=== PATIENT | male | born 1950 | race Caucasian/White ===

== ENCOUNTER 2022-12-15 10:15 | Outpatient (OUT) | payer MEDICARE, SELFPAY ==
[2022-12-15 11:23] LABS: Estimated Average Glucose 160 mg/dL; Glycohemoglobin A1C 7.2 % (4.5-6.2)
== END 2022-12-15 10:16 | disposition home or self-care (01) ==
LOC: LAB 10:19
PROVIDERS: PCP Internal Medicine; Visit Provider Internal Medicine
DX: E11.65 Type 2 diabetes mellitus with hyperglycemia (principal)
CPT/HCPCS: 36415; 83036

== ENCOUNTER 2023-01-18 15:04 | Outpatient (REF) | payer MEDICARE, SELFPAY ==
[2023-01-18 15:25] LABS: SARS-CoV-2 Ag NEGATIVE (NEGATIVE)
[2023-01-20 13:44] LABS: SARS-CoV-2 NAA NOT DETECTED (NOT DETECTE)
== END 2023-01-18 15:05 | disposition home or self-care (01) ==
LOC: LAB 15:04
PROVIDERS: PCP Internal Medicine; Visit Provider Internal Medicine
DX: Z20.822 Contact with and (suspected) exposure to COVID-19 (principal)
CPT/HCPCS: 87635; 87811; U0003

== ENCOUNTER 2023-06-30 12:37 | Outpatient (OUT) | payer MEDICARE, SELFPAY ==
--- NOTE | 2023-06-30 13:05 | CT_ITS ---
The [address] [address] Patient Name: APRIL WILKINS MRN: [id number] date: 1950 Sex: M Assigned Patient Location: CT Current Patient Location: CT Accession/Order Number: [id number] Exam Date: 06/30/2023 13:00 Report Date: 06/30/2023 13:26 At the request of: JERI BLUM Procedure: CT sinus wo con EXAM: CT sinus wo con HISTORY: Right facial pain COMPARISON: None. TECHNIQUE: Multiple thin computed tomograms of the paranasal sinuses were obtained, with sagittal and coronal reconstructions. FINDINGS: The paranasal sinuses are well-developed. A small amount of mucosal thickening with small mucocele or cyst is seen along the floor of each maxillary sinus. The maxillary sinuses are otherwise clear. The ostiomeatal complex on either side is patent. The orbital rims and floors are intact. The downing of the sinuses are intact. One or 2 ethmoid air cells on the left are completely opacified, and the remainder the paranasal sinuses are clear. There is mild deviation of the nasal septum to the left. An osteophyte arises from the nasal septum, also extending to the left. The nasal passages are patent. There is no apparent acute skull fracture CT/CT sinus wo con IMPRESSION: Mild to very mild chronic changes are seen along the floor of each maxillary sinus. One or 2 ethmoid air cells on the left are completely opacified, and the paranasal sinuses are otherwise clear. The ostiomeatal complex on either side is patent. The adjacent osseous structures are intact. There is mild deviation of the nasal septum to the left with an osteophyte also extending to the left, without occlusion of the nasal passages bilaterally. Comparison with a previous study may be helpful in determining the chronicity is findings. Electronically authenticated by: GABE SMART Date: 06/30/2023 13:26
== END 2023-06-30 12:38 | disposition home or self-care (01) ==
PROVIDERS: PCP Internal Medicine; Visit Provider Internal Medicine
DX: R51.9 Headache, unspecified (principal); J34.89 Other specified disorders of nose and nasal sinuses
CPT/HCPCS: 70486

== ENCOUNTER 2023-10-03 13:08 | Outpatient (OUT) | payer MEDICARE, SELFPAY ==
[2023-10-03 15:47] LABS: Estimated Average Glucose 148 mg/dL; Glycohemoglobin A1C 6.8 % (4.5-6.2)
== END 2023-10-03 13:09 | disposition home or self-care (01) ==
LOC: LAB 13:10
PROVIDERS: PCP Internal Medicine; Visit Provider Internal Medicine
DX: E11.65 Type 2 diabetes mellitus with hyperglycemia (principal)
CPT/HCPCS: 36415; 83036

== ENCOUNTER 2024-03-07 09:42 | Outpatient (OUT) | payer MEDICARE, SELFPAY ==
--- OUTSIDE RECORDS SUMMARY | 2024-03-07 09:52 | XMS_ITS | CCD ---
Author Organization [facility] Care Team Providers Care Operations Team Leader Name Role Phone JC, DR WILCOX Admitting Unavailable BALL, DR WILCOX Attending Unavailable BALL, DR WILCOX Primary Care Unavailable BALL, DR WILCOX Consulting Unavailable BALL, DR WILCOX Admitting Unavailable BALL, DR WILCOX Attending Unavailable BALL, DR WILCOX Primary Care Unavailable BALL, DR WILCOX Admitting Unavailable BALL, DR WILCOX Attending Unavailable BALL, DR WILCOX Primary Care Unavailable BALL, DR WILCOX Admitting Unavailable BALL, DR WILCOX Attending Unavailable BALL, DR WILCOX Primary Care Unavailable BALL, DR WILCOX Consulting Unavailable BALL, DR WILCOX Admitting Unavailable BALL, DR WILCOX Attending Unavailable BALL, DR WILCOX Primary Care Unavailable BALL, DR WILCOX Consulting Unavailable Jc, Xavier Unavailable DO Xavier Greene Primary Care Provider DO Car Melvin Attending Provider JEFFREY BONNER Attending Unavailable EVERETT MCBRIDE Referring Unavailable NGOZI, CAR Durham Attending Unavailable JEFFREY BONNER Referring Unavailable CAR MELVIN Attending Unavailable Xavier Greene Primary Care Unavailable Car Melvin Attending Unavailable Ngozi, Car Admitting Unavailable Ngozi, Car Attending Unavailable Ngozi, Car Admitting Unavailable Jc, Xavier Primary Care Unavailable Allergies Allergy Classification Reported Allergen(s) Allergy Type Date of Onset Reaction(s) Facility (2 sources) Penicillin Drug Allergy 0 [facility] (20 sources) Doxycycline Drug Allergy 4 Unknown, Unknown Reaction [facility] (20 sources) Penicillin G Drug Allergy 4 Unknown, Unknown Reaction [facility] (1 source) Doxycycline Drug Allergy 4 [facility] (1 source) Penicillin Drug Allergy 4 [facility] Medications Current Medications Medication Drug Class(es) Dates Sig (Normalized) Sig (Original) acetaminophen 500 mg oral tablet (3 sources) Start: 12-18-2023 take 2 tablets by mouth every six hours Acetaminophen (Acetaminophen Extra Strength) 500 mg tablet Active 1000 MG PO Every 6 hours December 18, 2023 12:00am amLODIPine 5 mg oral tablet (20 sources) Dihydropyridine Calcium Channel Warren Start: 12-11-2023 take 1 tablet by mouth twice daily Amlodipine Active 0 .ROUTE .COMPLEX 60 December 11, 2023 7:24am TAKE 1 TABLET BY MOUTH TWICE DAILY Start: 07-14-2023 End: 12-11-2023 take 5 mg by mouth twice daily Amlodipine Discontinued 5 MG PO Twice daily 60 30 August 07, 2023 12:00am December 11, 2023 7:24am take 1 tablet by kayce th every twelve hours amLODIPine Besylate 5 mg 1 tablet Orally bid Active take 1 tablet by kayce th once daily amLODIPine Besylate 5 mg TAKE 1 TABLET BY MOUTH DAILY Active ascorbic acid 500 mg oral tablet (3 sources) Vitamin C Start: 12-18-2023 take 1 tablet by mouth once daily Ascorbic Acid (Vitamin C) (C-500) 500 mg tablet Active 500 MG PO Daily December 18, 2023 12:00am aspirin 81 mg chewable tablet (20 sources) Platelet Aggregation Inhibitor, Nonsteroidal Anti-inflammatory Drug Start: 12-18-2023 take 1 tablet by mouth once daily Aspirin (Aspirin Childrens) 81 mg tablet,chewable Active 81 MG PO Daily December 18, 2023 12:00am Start: 08-02-2023 End: 12-18-2023 take 325 mg by mouth once daily Aspirin Discontinued 3 25 MG PO Daily August 02, 2023 12:00am December 18, 2023 2:26pm take 1 tablet by kayce th every twenty-four hours Aspirin 325 MG 1 tablet Orally Once a day Active atorvastatin 80 mg oral tablet (20 sources) HMG-CoA Reductase Inhibitor Start: 12-18-2023 take 1 tablet by mouth once daily in the morning Atorvastatin Active 80 MG PO Every morning December 18, 2023 12:00am TAKE 1 TABLET BY MOUTH DAILY Start: 09-11-2023 End: 12-18-2023 take 1 tablet by mouth once daily Atorvastatin Discontinued 0 .ROUTE .COMPLEX 90 September 11, 2023 1:17pm December 18, 2023 2:28pm TAKE 1 TABLET BY MOUTH DAILY Start: 08-02-2023 End: 09-11-2023 take 80 mg by mouth once daily Atorvastatin Discontinu ed 80 MG PO Daily August 02, 2023 12:00am September 11, 2023 1:18pm take 1 tablet by kayce th once daily Atorvastatin Calcium 80 mg TAKE 1 TABLET BY MOUTH ONCE DAILY Active lisinopril 40 mg oral tablet (20 sources) Angiotensin Converting Enzyme Inhibitor Start: 12-18-2023 take 1 tablet by mouth once daily in the morning Lisinopril Active 40 MG PO Every morning December 18, 2023 12:00am TAKE 1 TABLET BY MOUTH DAILY Start: 09-11-2023 End: 12-18-2023 take 1 tablet by mouth once daily Lisinopril Discontinued 0 .ROUTE .COMPLEX 90 September 11, 2023 1:17pm December 18, 2023 2:28pm TAKE 1 TABLET BY MOUTH DAILY Start: 08-02-2023 End: 09-11-2023 take 40 mg by mouth once daily Lisinopril Discontinued 40 MG PO Daily August 02, 2023 12:00am September 11, 2023 1:18pm take 1 tablet by kayce th once daily Lisinopril 40 mg TAKE 1 TABLET BY MOUTH ONCE DAILY Active metFORMIN (20 sources) Biguanide Start: 09-11-2023 take 1 tablet by mouth twice daily Metformin Active 0 .ROUTE .COMPLEX 180 September 11, 2023 1:18pm TAKE 1 TABLET BY MOUTH TWICE DAILY Start: 08-02-2023 End: 09-11-2023 take 1000 mg by mouth twice daily Metformin Discontinued 1000 MG PO Twice daily August 02, 2023 12:00am September 11, 2023 1:18pm take 1 tablet by kayce th twice daily metFORMIN HCl 1000 MG TAKE 1 TABLET BY MOUTH TWICE DAILY Active take 1 tablet by kayce th once daily metFORMIN HCl 1000 MG 1 tablet with a meal Orally Once a day Active metoprolol tartrate 50 mg oral tablet (20 sources) beta-Adrenergic Warren Start: 09-11-2023 take 1 tablet by mouth twice daily Metoprolol Tartrate Active 0 .ROUTE .COMPLEX 180 September 11, 2023 1:17pm TAKE 1 TABLET BY MOUTH TWICE DAILY Start: 08-02-2023 End: 09-11-2023 take 50 mg by mouth twice daily Metoprolol Tartrate Di scontinued 50 MG PO Twice daily August 02, 2023 12:00am September 11, 2023 1:18pm take 1 tablet by kayce th twice daily Metoprolol Tartrate 50 mg TAKE 1 TABLET BY MOUTH TWICE DAILY Active Vit C,J-Dt-Obwtb-Lutein-Zeax an (Preservision Areds-2) 250-90-40-1 mg capsule (3 sources) Start: 12-18-2023 Vit C,G-Jn-Ydemr-Lutein-Zeax an (Preservision Areds-2) 250-90-40-1 mg capsule Active 1 TAB PO Daily December 18, 2023 12:00am Completed/Discontinued Medications Medication Drug Class(es) Dates Sig (Normalized) Sig (Original) azithromycin 250 mg oral tablet (14 sources) Macrolide Antimicrobial Start: 01-18-2023 Azithromycin 250 MG as directed Orally daily for 5 days Dec, Not-Taking/PRN fluticasone propionate 0.05 mg/actuat metered dose nasal spray (12 sources) Corticosteroid Start: 08-02-2023 End: 12-18-2023 Fluticasone Propionate Discontinued 2 SPRAY INTRANASAL Daily August 02, 2023 12:00am December 18, 2023 2:27pm Start: 03-21-2023 Fluticasone Pr opionate 50 MCG/ACT 2 sprays (1 spray in each nostril) Nasally Once a day Feb, Active Start: 03-21-2023 Fluticasone Pr opionate 50 MCG/ACT 2 sprays (1 spray in each nostril) Nasally Once a day for 30 days Feb, Active Problems Active Problems Problem Classification Problem Date Documented Da te Episodic/Chronic Acute bronchitis (2 sources) Acute bronchitis due to other specified organisms Episodic Coronary atherosclerosis and other heart disease (20 sources) Coronary arteriosclerosis; Translations: [Atherosclerotic heart disease of [place] coronary artery without angina pectoris] Chronic Deficiency and other anemia (6 sources) Anemia, unspecified; Translations: [ANEMIA UNSPECIFIED] Onset: 07-06-2022 Episodic Deficiency and other anemia (20 sources) Anemia; Translations: [Anemia, unspecified] 08-02-2023 Episodic Diabetes mellitus with complications (20 sources) Type 2 diabetes mellitus with hyperglycemia; Translations: [Hyperglycemia due to type 2 diabetes mellitus] Onset: 10-25-2021 Chronic Diseases of mouth; excluding dental (2 sources) Unspecified lesions of oral mucosa; Translations: [Other lesions of oral mucosa] Episodic Disorders of lipid metabolism (20 sources) Familial hypercholesterolemia ; Translations: [Pure hypercholesterolemia ] Onset: 03-04-2022 Chronic Essential hypertension (20 sources) Essential (primary) hypertension; Translations: [Essential hypertension] Onset: 03-07-2022 Chronic Headache; including migraine (7 sources) Pain in face; Translations: [Facial pain] 10-04-2023 Episodic Immunizations and screening for infectious disease (6 sources) Vaccination given; Translations: [Encounter for immunization] Episodic Intestinal infection (1 source) Bacterial foodborne intoxication, unspecified; Translations: [Food poisoning, unspecified] 08-02-2023 Episodic Occlusion or stenosis of precerebral arteries (20 sources) Occlusion and stenosis of multiple and bilateral cerebral arteries; Translations: [Occlusion and stenosis of bilateral carotid arteries] Resolved: 06-25-2020 Chronic Osteoarthritis (20 sources) Arthritis of shoulder region joint; Translations: [Primary osteoarthritis, left shoulder] 08-02-2023 Chronic Other aftercare (2 sources) Other early childhood associate teacher (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 therapy; Translations: [OTH USP CURRENT DRUG THERAPY] Onset: 03-07-2022 Episodic Other aftercare (18 sources) H/O: high risk medication; Translations: [Other chcf (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 therapy] Episodic Other aftercare (6 sources) Long-term current use of drug therapy; Translations: [Other chcf (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 therapy] Episodic Other connective tissue disease (3 sources) Cramp in lower limb; Translations: [Sleep related leg cramps] 10-06-2023 Chronic Other connective tissue disease (2 sources) Sleep related leg cramps; Translations: [Sleep related leg cramps] 10-06-2023 Chronic Other ear and sense organ disorders (1 source) Impacted cerumen, left ear Episodic Other gastrointestinal disorders (20 sources) Oropharyngeal dysphagia; Translations: [Dysphagia, oropharyngeal phase] 08-02-2023 Episodic Other injuries and conditions due to external causes (6 sources) History of fall; Translations: [History of falling] Episodic Other nervous system disorders (1 source) Trigeminal neuralgia Episodic Other nutritional; endocrine; and metabolic disorders (3 sources) Body mass index 30+ - obesity; Translations: [Body mass index (BMI) 32.0-32.9, adult] Chronic Other nutritional; endocrine; and metabolic disorders (3 sources) Obesity caused by energy imbalance; Translations: [Other obesity due to excess calories] Chronic Other nutritional; endocrine; and metabolic disorders (1 source) Other obesity due to excess calories Chronic Other nutritional; endocrine; and metabolic disorders (1 source) Body mass index (BMI) 32.0-32.9, adult Chronic Other nutritional; endocrine; and metabolic disorders (2 sources) Hypercalcemia; Translations: [Hypercalcemia] 12-19-2023 Chronic Other screening for suspected conditions (not mental disorders or infectious disease) (20 sources) Encounter for screening for malignant neoplasm of prostate; Translations: [Prostate specific antigen measurement] Onset: 03-07-2022 Episodic Other upper respiratory disease (1 source) Other specified disorders of nose and nasal sinuses Episodic Other upper respiratory infections (16 sources) Chronic sinusitis; Translations: [Chronic sinusitis, unspecified] Chronic Other upper respiratory infections (7 sources) Acute maxillary sinusitis; Translations: [Acute maxillary sinusitis, unspecified] Episodic Residual codes; unclassified (6 sources) Postprocedural state finding; Translations: [Other specified postprocedural states] Episodic Spondylosis; intervertebral disc disorders; other back problems (20 sources) Other spondylosis with myelopathy, lumbar region; Translations: [Lumbar spondylosis with myelopathy] Onset: 03-07-2022 Chronic Unclassified (1 source) LOW BACK PAIN, UNSPECIFIED; Translations: [LOW BACK PAIN, UNSPECIFIED] Onset: 03-10-2022 Past or Other Problems Problem Classification Problem Date Documented Date Episodic/Chronic Diabetes mellitus without complication (6 sources) Impaired fasting glycemia; Translations: [Impaired fasting glucose] Resolved: 04-21-2020 Episodic Neoplasms of unspecified nature or uncertain behavior (6 sources) Neoplastic disease of uncertain behavior; Translations: [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] Resolved: 09-22-2020 Episodic Nonspecific chest pain (6 sources) Chest pain; Translations: [Other chest pain] Resolved: 09-22-2020 Episodic Other circulatory disease (6 sources) Cardiovascular symptoms; Translations: [Other specified symptoms and signs involving the circulatory and respiratory systems] Resolved: 09-22-2020 Episodic Other connective tissue disease (1 source) Abnormal posture; Translations: [ABNORMAL POSTURE] Onset: 03-10-2022 Episodic Other non-epithelial cancer of skin (3 sources) Basal cell carcinoma of cheek; Translations: [Basal cell carcinoma of skin of other parts of face] Onset: 05-22-2023 12-25-2023 Episodic Other nutritional; endocrine; and metabolic disorders (6 sources) Obesity; Translations: [Obesity, unspecified] Onset: 03-30-2021 Resolved: 03-02-2022 Chronic Unclassified (1 source) Suspected COVID-19 virus infection Z20.822 Unclassified (1 source) Right facial pain R51.9 Results Test Name Value Interpretation Reference Range Facility Capillary blood glucose jacqueline urement by glucometer (mass/volume)Ordered By: Car Melvin on 12-27-2023 Glucose [Mass/Vol] 148 mg/dL [facility] Comment on above: Random Glucose Refer ence Range is dependent on time and content of last meal. Glucose of more than 200 mg/dL in a nonstressed, ambulatory subject supports the diagnosis of Diabetes Mellitus. Result Comment: [facility] Glucose Reference Range is dependent on time and content of last meal. Glucose of more than 200 mg/dL in a nonstressed, ambulatory subject supports the diagnosis of Diabetes Mellitus. PERFORMED BY: [facility] [address] [place] [address] PATHOLOGIST F[employer] ST[employer] WEB DEVELOPER MARINA DANIEL M.D. Performed By: #### G LULS #### Point of Care testing , Glucose Poct Glucometerson 0 12-27-2023 Glucose [Mass/Vol] 138 mg/dL Normal [facility] Comment on above: Result Comment: [facility] Glucose Reference Range is dependent on time and content of last meal. Glucose of more than 200 mg/dL in a nonstressed, ambulatory subject supports the diagnosis of Diabetes Mellitus. PERFORMED BY: [facility] [address] [address] PATHOLOGIST F[employer] ST[employer] WE[employer] DEVELOPER MARINA DANIEL M.D. Performed By: #### G LULS #### Point of Care testing , Harris 12-27-2023 L Specimen: [id number] Received: 12/27/23 Status: [facility] Num: [id number] Spec Type: Surgical Subm Dr: Car Melvin DO Tissues: A Skin-Other than Cyst, tag, debridement or plastic repair (RIGHT CHEEK LESION B Skin-Other than Cyst, tag, debridement or plastic repair (LEFT CHEEK LESION) Procedures: HE/5, Gross/Micro L4/3, FS HE/6 Age/ Patient Sex Location Account Attending Physician Nikolai Phan 73/M [place] [id number] Car Melvin DO SPEC NUM: [id number] RECD: 12/27/23 STATUS: [facility] TONEY NUM: [id number] FRED: 12/27/23- SUBM DR: Car Melvin DO ENTERED: 12/27/[address] [facility] [address]: SPEC TYPE: Surgical DEPT: S ENTERED BY: [id number] RECV BY: [id number] ORDERED: HE/5, Gross/Micro L4/3, FS HE/6 ORDERED: HE/5, Gross/Micro L4/3, FS HE/6 Pathological Diagnosis A, skin, right cheek lesion, reexcision: -Post biopsy cicatrix with 1 small residual focus of basal cell carcinoma which is only observed in the deeper levels of the permanent section -All margins are negative for malignancy B, skin, left cheek lesion, reexcision: -Scar with residual basal cell carcinoma of the mixed nodular, micronodular, and minor infiltrative types -All margins are negative for malignancy Clinical Information Cheek lesions Gross Description A. Received fresh for frozen labeled with the patient's name, date of and right cheek lesion is a 1.4 x 1.3 x 0.4 cm oriented excision of [place] skin. The specimen is tagged with 2 sutures by the surgeon: Short-6:00, long-3:00. The specimen is inked as follows: 12- 3 is blue, 3-6 is orange, 6-9 is green, 9-12 is red and the deep margin is black. No obvious scars or lesions are grossly identified on the skin surface. The specimen is -- Specimen: [id number] Received: 12/27/23 Status: [facility] Toney Num: [id number] Spec Type: Surgical Subm Dr: Car Melvin DO Tissues: A Skin-Other than Cyst, tag, debridement or plastic repair (RIGHT CHEEK LESION B Skin-Other than Cyst, tag, debridement or plastic repair (LEFT CHEEK LESION) Procedures: HE/5, Gross/Micro L4/3, FS -- Patient: Nikolai Phan [id number] (Continued) -- Specimen: [id number] Received: 12/27/23 (Continued) Gross Description (Continued) Signed (signatu re on file) Elise Goodman MD 12/28/23 1718 -- Specimen: [id number] Received: 12/27/23 Status: [facility] Toney Num: [id number] Spec Type: Surgical Subm Dr: Car Melvin DO Tissues: A Skin-Other than Cyst, tag, debridement or plastic repair (RIGHT CHEEK LESION B Skin-Other than Cyst, tag, debridement or plastic repair (LEFT CHEEK LESION) Procedures: HE/5, Gross/Micro L4/3, FS /6 -- Patient: Nikolai Phan [id number] (Continued) -- Specimen: [id number] Received: 12/27/23 (Continued) Gross Description (Continued) serially sectioned from 12:00 to 6:00 and sequentially submitted in A1FS?A2FS for frozen. A1FS: 12:00 half, frozen section remnant A2FS: 6:00 half, frozen section remnant B. Received fresh for frozen labeled with the patient's name, date of and left cheek lesion is a 2.2 x 0.8 x 0.7 cm oriented excision of [place] skin. The specimen is tagged with 2 sutures by surgeon: Short-6:00, long-3:00. The surface contains a 0.7 x 0.6 cm papular lesion that comes within 0.2 cm of the 3:00 and 6:00 margins. The specimen is inked as follows: 12-3 is blue, 3-6 is orange, 6-9 is green, 9-12 is red and the deep margin is black. The papular lesion is blocked off and submitted for frozen in B1FS. The remainder the excision is serially sectioned and the specimen is entirely submitted as follows: B1 FS: Frozen section remnant B2: 12:00 half of excision B3: 6:00 half of the excision TW Intraoperative Diagnosis A. Cicatrix present without obvious residual malignancy. B. Basal cell carcinoma. All margins are clear. Present section read by: Dr. Goodman 12/27/2023 1120 Microscopic Description Microscopic examinations are performed CPT Codes 17031 x 2 40595 x 2 85015 x 2 -- -- Specimen: [id number] Received: 12/27/23 Status: [facility] T[facility] Num: [id number] Spec Type: Surgical Subm Dr: DO Radha Catalan (more content not included)... Normal [facility] Automated basophil %Ordered By: Car Melvin on 12-18-2023 Basophils/100 WBC (Bld) 0.6 % . [facility] Comment on above: Performed By: #### B MP, CBC #### [address] Automated basophil countOrde red By: Car Melvin on 12-18-2023 Basophils (Bld) [#/Vol] 0.0 10*3/uL 0.0-0.2 [facility] Comment on above: Result Comment: PERF ORMED BY: [place] [address] PATHOLOGIST F[employer] ST[employer] WE[employer] DEVELOPER MARINA DANIEL M.D. Performed By: #### B MP, CBC #### [address] Automated blood monocyte cou ntOrdered By: Car Melvin on 12-18-2023 Monocytes (Bld) [#/Vol] 0.7 10*3/uL 0.0-0.8 [facility] Comment on above: Performed By: #### B MP, CBC #### [address] Automated eosinophil %Ordere d By: Car Melvin on 12-18-2023 Eosinophils/100 WBC (Bld) 2.2 % . [facility] Comment on above: Performed By: #### B MP, CBC #### [address] Automated eosinophil countOr dered By: Car Melvin on 12-18-2023 Eosinophils (Bld) [#/Vol] 0.1 10*3/uL 0.0-0.45 [facility] Comment on above: Performed By: #### B MP, CBC #### [address] Automated monocyte %Ordered By: Car Melvin on 12-18-2023 Monocytes/100 WBC (Bld) 11.9 % . [facility] Comment on above: Performed By: #### B MP, CBC #### [address] Automated neutrophil %Ordere d By: Car Melvin on 12-18-2023 Neutrophils/100 WBC (Bld) 41.9 % . [facility] Comment on above: Performed By: #### B MP, CBC #### [address] Basic Metabolic Panelon 11-20 GFR/1.73 sq M.predicted MDRD (S/P/Bld) [Vol rate/Area] mL/min/{1.73_m2} Normal [facility] Comment on above: Performed By: #### B MP, CBC #### [address] Calcium [Mass/volume] in Ser um or PlasmaOrdered By: Car Melvin on 12-18-2023 Calcium [Mass/Vol] 10.5 mg/dL High 8.6-10.3 [facility] Comment on above: Result Comment: PERF ORMED BY: [place] [address] PATHOLOGIST F[employer] ST[employer] DEVELOPER MARINA DANIEL M.D. Performed By: #### B FELIX, CBC #### [address] Carbon dioxide, total [Moles /volume] in Serum or PlasmaOrdered By: Car Melvin on 12-18-2023 CO2 [Moles/Vol] 29.8 mmol/L 21.0-31.0 [facility] Comment on above: Performed By: #### B FELIX, CBC #### [address] Chloride [Moles/volume] in S artemio or PlasmaOrdered By: Car Melvin on 12-18-2023 Chloride [Moles/Vol] 101 mmol/L 98-107 [facility] Comment on above: Performed By: #### B MP, CBC #### [address] Complete Blood Count Auto Di ffon 12-18-2023 Mean Corpuscular HGB Conc 34.7 g/dL Normal 32.5-35.6 [facility] Comment on above: Performed By: #### B MP, CBC #### [address] NRBC% 0.1 /100{WBC} Normal 0-0.5 [facility] Comment on above: Performed By: #### B MP, CBC #### [facility] [address] Creatinine [Mass/volume] in Serum or PlasmaOrdered By: Car Melvin on 12-18-2023 Creatinine [Mass/Vol] 0.95 mg/dL 0.70-1.30 [facility] Comment on above: Performed By: #### B MP, CBC #### [address] ECG 12 lead ECGon 12-18-2023 ECG 12 lead ECG [facility] Main [place] [address] [place] [address] Electrocardiograph Report Signed Patient: Nikolai Phan MR#: [id number] 160 : 1950 Acct:[id number] Age/Sex: 73 / M ADM Date: 12/18/23 Loc: Room: Type: [facility] Attending Dr: Car Melvin DO Ordering Provider: Car Melvin DO Date of Service: 12/18/23 ECG/ECG 12 lead ECG: PST Copies to: Test Reason : Blood Pressure : */* mmHG Vent. Rate : 76 BPM Atrial Rate : 76 BPM P-R Int : 176 ms QRS Dur : 98 ms QT Int : 376 ms P-R-T Axes : 63 46 45 degrees QTcB Int : 423 ms Normal sinus rhythm Anterior infarct , age undetermined Abnormal ECG When compared with ECG of 10-Aug-2006 09:46, Anterior infarct is now present Confirmed by SUZY RAM [facility], CHRISTINA ([id number]) on 12/18/2023 6:07:40 PM Referred By: Electronically Signed By: CHRISTINA SANDHU MD FAC Transcribed By: MUS Signed By Christina Sandhu MD, FACC 12/18/231806 Normal [facility] Erythrocyte distribution wid th [Ratio] by Automated countOrdered By: Car Melvin on 12-18-2023 Erythrocyte distribution width (RBC) [Ratio] 13.0 % 12.0-14.8 [facility] Comment on above: Performed By: #### B MP, CBC #### [facility] [address] [place] [address] Erythrocytes [#/volume] in B lood by Automated countOrdered By: Car Melvin on 12-18-2023 RBC (Bld) [#/Vol] 4.08 10*6/uL 3.90-5.60 [facility] Comment on above: Performed By: #### B FELIX, CBC #### [address] Glucose [Mass/volume] in Ser um or PlasmaOrdered By: Car Melvin on 12-18-2023 Glucose [Mass/Vol] 139 mg/dL High 70-100 [facility] Comment on above: ADA recommended refe rence rangeRandom Glucose Reference Range is dependent on time and content of last meal. Glucose of more than 200 mg/dL in a nonstressed, ambulatory subject supports the diagnosis of Diabetes Mellitus. Result Comment: [place] [facility] Glucose Reference Range is dependent on time and content of last meal. Glucose of more than 200 mg/dL in a nonstressed, ambulatory subject supports the diagnosis of Diabetes Mellitus. ADA recommended reference range Performed By: #### B FELIX, CBC #### [address] Hematocrit [Volume Fraction] of Blood by Automated countOrdered By: Car Melvin on 12-18-2023 Hematocrit (Bld) [Volume fraction] 38.2 % Low 38.8-50.0 [facility] Comment on above: Performed By: #### B FELIX, CBC #### [place] [address] [place] Hemoglobin [Mass/volume] in BloodOrdered By: Car Melvin on 12-18-2023 Hemoglobin (Bld) [Mass/Vol] 13.3 g/dL 13.0-17.0 [facility] Comment on above: Performed By: #### B FELIX, CBC #### [address] Leukocytes [#/volume] correc rere for nucleated erythrocytes in Blood by Automated counOrdered By: Car Melvin on 12-18-2023 WBC corrected for nucl RBC Auto (Bld) [#/Vol] 6.3 10*3/uL 4.1-10.5 [facility] Leukocytes [#/volume] in Blo od by Automated countOrdered By: Car Melvin on 12-18-2023 WBC (Bld) [#/Vol] 6.3 10*3/uL 4.1-10.5 [facility] Comment on above: Performed By: #### B MP, CBC #### [facility] [address] [place] [address] [place] Lymphocytes [#/volume] in Bl ood by Automated countOrdered By: Car Melvin on 12-18-2023 Lymphocytes (Bld) [#/Vol] 2.7 10*3/uL 1.00-4.8 [facility] Comment on above: Performed By: #### B MP, CBC #### [address] Lymphocytes/100 leukocytes i n Blood by Automated countOrdered By: Car Melvin on 12-18-2023 Lymphocytes/100 WBC (Bld) 43.4 % . [facility] Comment on above: Performed By: #### B MP, CBC #### [facility] [address] [place] [address] MCH [Entitic mass] by Automa rere countOrdered By: Car Melvin on 12-18-2023 MCH (RBC) [Entitic mass] 32.5 pg 27.5-35.2 [facility] Comment on above: Performed By: #### B MP, CBC #### [facility] [address] [place] [address] MCHC Auto (RBC) [Mass/Vol]Or dered By: Car Melvin on 12-18-2023 MCHC (RBC) [Mass/Vol] 34.7 g/dL 32.5-35.6 [facility] MCV [Entitic volume] by Auto mated countOrdered By: Car Melvin on 12-18-2023 MCV (RBC) [Entitic vol] 93.6 fL 83.5-101 [facility] Comment on above: Performed By: #### B MP, CBC #### [facility] [address] Neutrophils [#/volume] in Bl ood by Automated countOrdered By: Car Melvin on 12-18-2023 Neutrophils (Bld) [#/Vol] 2.6 10*3/uL 1.8-7.7 [facility] Comment on above: Performed By: #### B MP, CBC #### [address] No Panel InformationOrdered By: Car Melvin on 12-18-2023 Estimated GFR (CKD-EPI) > 60.0 mL/Min [facility] Creatinine Clearance (Chem N/A [facility] Nucleated erythrocytes [Pres ence] in Blood by Automated countOrdered By: Car Melvin on 12-18-2023 Nucleated RBC Auto Ql (Bld) 0.1 /100{WBC} 0-0.5 [facility] Platelet mean volume [Entiti c volume] in Blood by Automated countOrdered By: Car Melvin on 12-18-2023 Platelet mean volume (Bld) [Entitic vol] 8.6 fL 6.6-10.1 [facility] Comment on above: Performed By: #### B MP, CBC #### [address] Platelets [#/volume] in Bloo d by Automated countOrdered By: Car Melvin on 12-18-2023 Platelets (Bld) [#/Vol] 165 10*3/uL 150-450 [facility] Comment on above: Performed By: #### B MP, CBC #### [address] Potassium [Moles/volume] in Serum or PlasmaOrdered By: Car Melvin on 12-18-2023 Potassium [Moles/Vol] 4.1 mmol/L 3.5-5.1 [facility] Comment on above: Performed By: #### B MP, CBC #### [address] Serum or plasma anion gap de terminationOrdered By: Car Melvin on 12-18-2023 Anion gap [Moles/Vol] 11.3 mmol/L 6.0-15.0 [facility] Comment on above: Performed By: #### B MP, CBC #### [facility] [address] [place] [address] [place] Sodium [Moles/volume] in Ser um or PlasmaOrdered By: Car Melvin on 12-18-2023 Sodium [Moles/Vol] 138 mmol/L 136-145 [facility] Comment on above: Performed By: #### B MP, CBC #### [facility] [address] Urea nitrogen [Mass/volume] in Serum or PlasmaOrdered By: Car Melvin on 12-18-2023 Urea nitrogen [Mass/Vol] 24 mg/dL 7-25 [facility] Comment on above: Performed By: #### B MP, CBC #### [facility] [address] Glucose mean value [Mass/vol ume] in Blood Estimated from glycated hemoglobinon 10-03-2023 Average glucose Estimated from glycated hemoglobin (Bld) [Mass/Vol] 148 mg/dL [facility] - Hematology and Cell countson 10-03-2023 HbA1c (Bld) [Mass fraction] 6.8 % High 4.5-6.2 [facility] Comment on above: ADA RECOMMENDED LIMI T 4.0 - 6.0ADA THERAPEUTIC TARGET < 7.0ACTION SUGGESTED> 7.0 CBC AUTO DIFFon 07-06-2022 BASO # 0.0 103/ul Normal 0.0-0.1 [facility] Comment on above: Performed By: #### C BC #### [facility] [address] [address] [address] Franklin Goodman Basophils/100 WBC (Bld) 0.6 % Normal 0.2-2.0 [facility] Comment on above: Performed By: #### C BC #### [facility] [address] [address] [address] Franklin Goodman EO # 0.3 103/ul Normal 0.0-0.7 [facility] Comment on above: Performed By: #### C BC #### [facility] [address] [place] [address] Dr. Franklin Goodman Eosinophils/100 WBC (Bld) 5.6 % Normal 0.9-7.0 [facility] Comment on above: Performed By: #### C BC #### [facility] [address] [place] [address] Dr. Franklin Goodman Erythrocyte distribution width (RBC) [Ratio] 12.3 % Normal 11.0-15.0 [facility] Comment on above: Performed By: #### C BC #### [facility] [address] [place] [address] Dr. Franklin Goodman Hematocrit (Bld) [Volume fraction] 42.0 % Normal 42.0-54.0 [facility] Comment on above: Performed By: #### C BC #### [facility] [address] [place] [address] Dr. Franklin Goodman Hemoglobin (Bld) [Mass/Vol] 14.4 g/dL Normal 14.0-18.0 [facility] Comment on above: Performed By: #### C BC #### [facility] [address] [place] [address] Dr. Franklin Goodman IG # 0.02 10e3/ul Normal 0.00-0.03 [facility] Comment on above: Performed By: #### C BC #### [facility] [address] [place] [address] Dr. Franklin Goodman IG % 0.4 % Normal 0.0-0.5 [facility] Comment on above: Performed By: #### C BC #### [facility] [address] [place] [address] Dr. Franklin Goodman LYMPH # 1.9 103/ul Normal 1.2-3.8 [facility] Comment on above: Performed By: #### C BC #### [facility] [address] [place] [address] Dr. Franklin Goodman Lymphocytes/100 WBC (Bld) 39.4 % Normal 20.5-60.0 [facility] Comment on above: Performed By: #### C BC #### [facility] [address] [place] [address] Dr. Franklin Goodman MANUAL DIFF REQ NO Normal [facility] Comment on above: Performed By: #### C BC #### [facility] [address] [place] [address] Dr. Franklin Goodman MCH (RBC) [Entitic mass] 32.0 pg Normal 25.9-34.0 [facility] Comment on above: Performed By: #### C BC #### [facility] [address] [place] [address] Dr. Franklin Goodman MCHC (RBC) [Mass/Vol] 34.3 g/dL Normal 29.9-35.2 [facility] Comment on above: Performed By: #### C BC #### [facility] [address] [place] [address] Dr. Franklin Goodman MCV (RBC) [Entitic vol] 93.3 fL Normal 80.0-94.0 [facility] Comment on above: Performed By: #### C BC #### [facility] [address] [place] [address] Dr. Franklin Goodman MONO # 0.6 103/ul Normal 0.3-0.8 [facility] Comment on above: Performed By: #### C BC #### [facility] [address] [place] [address] Dr. Franklin Goodman Monocytes/100 WBC (Bld) 12.5 % Critically high 1.7-12. 0 [facility] Comment on above: Performed By: #### C BC #### [facility] [address] [place] [address] Dr. Franklin Goodman NEUT # 2.0 103/ul Normal 1.4-6.5 [facility] Comment on above: Performed By: #### C BC #### [facility] [address] [place] [address] Dr. Franklin Goodman Neutrophils/100 WBC (Bld) 41.5 % Critically low 43.0-75.0 [facility] Comment on above: Performed By: #### C BC #### [facility] [address] [address] [address] Franklin Goodman Platelet mean volume (Bld) [Entitic vol] 10.0 fL Normal 9.5-13.5 [facility] Comment on above: Performed By: #### C BC #### [facility] [address] [address] [address] Franklin Goodman PLT 172 103/ul Normal 150-450 [facility] Comment on above: Performed By: #### C BC #### [facility] [address] [address] [address] Franklin Goodman RBC 4.50 106/ul Critically low 4.70-6.10 [facility] Comment on above: Performed By: #### C BC #### [facility] [address] [address] [address] Franklin Goodman WBC 4.8 103/ul Normal 4.0-11.0 [facility] Comment on above: Performed By: #### C BC #### [facility] [address] [address] [address] Franklin Goodman Complete Blood Count and Dif shayy 07-06-2022 Anisocytosis Ql (Bld) [facility] [employer] Other Basophilic stippling LM Ql (Bld) [facility] [employer] Other RBC morphology finding Nom (Bld) [employer] Other Complete Blood Count and Diff [employer] Other FERRITINon 07-06-2022 Ferritin [Mass/Vol] 826.3966456 ng/mL 26. 0-388.0 ng/mL [employer] Other FERRITIN see note [employer] Other Ferritin [Mass/Vol] 245.0 ng/mL Normal 26.0-388.0 [facility] Comment on above: Performed By: #### F ERR, FETIBC, B12FOL #### [facility] [address] [address] [address] Franklin Goodman GLYCOHEMOGLOBIN A1Con 2022 ADA RECOMMENDATION SEE BELOW Normal [facility] Comment on above: Result Comment: ADA RECOMMENDED LIMIT 4.0 - 6.0 ADA THERAPEUTIC TARGET < 7.0 ACTION SUGGESTED > 7.0 Performed By: #### A 1C #### [facility] [address] [address] [address] Franklin Goodman Glucose [Mass/Vol] 146 mg/dL Normal [facility] Comment on above: Performed By: #### A 1C #### [facility] [address] [address] [address] Franklin Goodman HbA1c (Bld) [Mass fraction] 6.7 % Critically high 4.5-6.2 [facility] Comment on above: Performed By: #### A 1C #### [facility] [address] [place] [address] Dr. Franklin Goodman IRON AND TIBCon 07-06-2022 Iron [Mass/Vol] 157.3394693 ug/dL 65.0-17 5.0 ug/dL [employer] [facility] [employer] Other IRON AND TIBC 371.0 ug/dL 250.0-450.0 ug/dL [employer] Other IRON AND TIBC 34.8 % [employer] Other % SATURATION 34.8 % Normal [facility] Comment on above: Performed By: #### F ERR, FETIBC, B12FOL #### [facility] [address] [address] [address] Franklin Goodman Iron [Mass/Vol] 129.0 ug/dL Normal 65.0-175.0 [facility] Comment on above: Performed By: #### F ERR, FETIBC, B12FOL #### [facility] [address] [address] [address] Franklin Goodman TIBC DIRECT 371.0 ug/dL Normal 250.0-450.0 [facility] Comment on above: Performed By: #### F ERR, FETIBC, B12FOL #### [facility] [address] [place] [address] Dr. Franklin Goodman VIT B12 AND FOLATEon 023 Cobalamin (Vitamin B12) [Mass/Vol] 603.6418079 pg/mL 193.0-986.0 pg/mL [employer] [facility] [employer] Other VIT B12 AND FOLATE 23.00 ng/mL 8.60-58.9 0 ng/mL [employer] Other Cobalamin (Vitamin B12) [Mass/Vol] 306.0 pg/mL Normal 193.0-986.0 [facility] Comment on above: Performed By: #### F ERR, FETIBC, B12FOL #### [facility] [address] [place] [address] Dr. Franklin Goodman FOLATE 23.00 ng/mL Normal 8.60-58.90 [facility] Comment on above: Performed By: #### F ERR, FETIBC, B12FOL #### [facility] [address] [place] [address] Dr. Franklin Goodman CBC AUTO DIFFon 03-04-2022 BASO # 0.1 103/ul Normal 0.0-0.1 [facility] Comment on above: Performed By: #### B MP, ALT, LIPID #### [facility] [address] [place] [address] Dr. Franklin Goodman Basophils/100 WBC (Bld) 1.2 % Normal 0.2-2.0 [facility] Comment on above: Performed By: #### B MP, ALT, LIPID #### [facility] [address] [place] [address] Dr. Franklin Goodman EO # 0.4 103/ul Normal 0.0-0.7 [facility] Comment on above: Performed By: #### B MP, ALT, LIPID #### [facility] [address] [place] [address] Dr. Franklin Goodman Eosinophils/100 WBC (Bld) 8.9 % Critically high 0.9-7.0 [facility] Comment on above: Performed By: #### B MP, ALT, LIPID #### [facility] [address] [place] [address] Dr. Franklin Goodman Erythrocyte distribution width (RBC) [Ratio] 12.7 % Normal 11.0-15.0 [facility] Comment on above: Performed By: #### B MP, ALT, LIPID #### [facility] [address] [place] [address] Dr. Franklin Goodman Hematocrit (Bld) [Volume fraction] 39.3 % Critically low 42.0-54.0 [facility] Comment on above: Performed By: #### B MP, ALT, LIPID #### [facility] [address] [place] [address] Dr. Franklin Goodman Hemoglobin (Bld) [Mass/Vol] 13.4 g/dL Critically low 14.0-18.0 [facility] Comment on above: Performed By: #### B MP, ALT, LIPID #### [facility] [address] [place] [address] Dr. Franklin Goodman IG # 0.02 10e3/ul Normal 0.00-0.03 [facility] Comment on above: Performed By: #### B MP, ALT, LIPID #### [facility] [address] [place] [address] Dr. Franklin Goodman IG % 0.4 % Normal 0.0-0.5 [facility] Comment on above: Performed By: #### B MP, ALT, LIPID #### [facility] [address] [place] [address] Dr. Franklin Goodman LYMPH # 2.0 103/ul Normal 1.2-3.8 [facility] Comment on above: Performed By: #### B MP, ALT, LIPID #### [facility] [address] [place] [address] Dr. Franklin Goodman Lymphocytes/100 WBC (Bld) 42.1 % Normal 20.5-60.0 [facility] Comment on above: Performed By: #### B MP, ALT, LIPID #### [facility] [address] [place] [address] Dr. Franklin Goodman MANUAL DIFF REQ NO Normal [facility] Comment on above: Performed By: #### B MP, ALT, LIPID #### [facility] [address] [place] [address] Dr. Franklin Goodman MCH (RBC) [Entitic mass] 32.1 pg Normal 25.9-34.0 [facility] Comment on above: Performed By: #### B MP, ALT, LIPID #### [facility] [address] [place] [address] Dr. Franklin Goodman MCHC (RBC) [Mass/Vol] 34.1 g/dL Normal 29.9-35.2 [facility] Comment on above: Performed By: #### B MP, ALT, LIPID #### [facility] [address] [place] [address] Dr. Franklin Goodman MCV (RBC) [Entitic vol] 94.0 fL Normal 80.0-94.0 [facility] Comment on above: Performed By: #### B MP, ALT, LIPID #### [facility] [address] [place] [address] Dr. Franklin Goodman MONO # 0.6 103/ul Normal 0.3-0.8 [facility] Comment on above: Performed By: #### B MP, ALT, LIPID #### [facility] [address] [place] [address] Dr. Franklin Goodman Monocytes/100 WBC (Bld) 12.0 % Normal 1.7-12.0 [facility] Comment on above: Performed By: #### B MP, ALT, LIPID #### [facility] [address] [place] [address] Dr. Franklin Goodman NEUT # 1.7 103/ul Normal 1.4-6.5 [facility] Comment on above: Performed By: #### B MP, ALT, LIPID #### [facility] [address] [place] [address] Dr. Franklin Godoman Neutrophils/100 WBC (Bld) 35.4 % Critically low 43.0-75.0 [facility] Comment on above: Performed By: #### B MP, ALT, LIPID #### [facility] [address] [address] [address] Franklin Goodman Platelet mean volume (Bld) [Entitic vol] 10.4 fL Normal 9.5-13.5 [facility] Comment on above: Performed By: #### B MP, ALT, LIPID #### [facility] [address] [address] [address] Franklin Goodman PLT 150 103/ul Normal 150-450 [facility] Comment on above: Performed By: #### B MP, ALT, LIPID #### [facility] [address] [address] [address] Franklin Goodman RBC 4.18 106/ul Critically low 4.70-6.10 [facility] Comment on above: Performed By: #### B MP, ALT, LIPID #### [facility] [address] [address] [address] Franklin Goodman WBC 4.8 103/ul Normal 4.0-11.0 [facility] Comment on above: Performed By: #### B MP, ALT, LIPID #### [facility] [address] [address] [address] Franklin Goodman GLYCOHEMOGLOBIN A1Con 2021 ADA RECOMMENDATION SEE BELOW Normal [facility] Comment on above: Result Comment: ADA RECOMMENDED LIMIT 4.0 - 6.0 ADA THERAPEUTIC TARGET < 7.0 ACTION SUGGESTED > 7.0 Performed By: #### B MP, ALT, LIPID #### [facility] [address] [place] [address] Dr. Franklin Goodman Glucose [Mass/Vol] 157 mg/dL Normal [facility] Comment on above: Performed By: #### B MP, ALT, LIPID #### [facility] [address] [address] [address] Franklin Goodman HbA1c (Bld) [Mass fraction] 7.1 % Critically high 4.5-6.2 [facility] Comment on above: Performed By: #### B MP, ALT, LIPID #### [facility] [address] [address] [address] Franklin Goodman LIPID PROFILEon 03-04-2022 CHOL-HDL RATIO NORM SEE BELOW Normal [facility] Comment on above: Result Comment: 3.3 - 4.4 LOW RISK 4.4 - 7.1 AVERAGE RISK 7.1 - 11.0 MODERATE RISK >11.0 HIGH RISK Performed By: #### B MP, ALT, LIPID #### [facility] [address] [address] [address] Franklin Goodman Cholesterol [Mass/Vol] 131 mg/dL Normal <=200 [facility] Comment on above: Performed By: #### B MP, ALT, LIPID #### [facility] [address] [address] [address] Franklin Goodman Cholesterol in HDL [Mass/Vol] 38 mg/dL Critically low 40-60 [facility] Comment on above: Performed By: #### B MP, ALT, LIPID #### [facility] [address] [address] [address] Franklin Goodman Cholesterol in LDL [Mass/Vol] 47.8 mg/dL Normal [facility] Comment on above: Performed By: #### B MP, ALT, LIPID #### [facility] [address] [address] [address] Franklin Goodman Cholesterol.total/Choles terol in HDL [Mass ratio] 3.4 {ratio} Normal [facility] Comment on above: Performed By: #### B MP, ALT, LIPID #### [facility] [address] [address] [address] Franklin Goodman HDL NORMAL > or = 60 mg/dl - LOW CARDIOVASCULAR RISK <40 mg/dl - HIGH CARDIOVASCULAR RISK Normal [facility] Comment on above: Performed By: #### B MP, ALT, LIPID #### [facility] [address] [address] [address] Franklin Goodman LDL CALC NORMAL SEE BELOW Normal [facility] Comment on above: Result Comment: <100 mg/dl OPTIMAL 100 - 129 mg/dl NEAR OR ABOVE OPTIMAL 130 - 159 mg/dl BORDERLINE HIGH 160 - 189 mg/dl HIGH >190 mg/dl VERY HIGH Performed By: #### B MP, ALT, LIPID #### [facility] [address] [address] [address] Franklin Goodman Triglyceride [Mass/Vol] 226 mg/dL Critically high <=150 [facility] Comment on above: Performed By: #### B MP, ALT, LIPID #### [facility] [address] [address] [address] Franklin Goodman VLDL CALC 45.2 mg/dL Normal [facility] Comment on above: Performed By: #### B MP, ALT, LIPID #### [facility] [address] [place] [address] Dr. Franklin Goodman MICROALBUMIN, RAND URon - mALB 3.9 mg/L Normal <=30.0 [facility] Comment on above: Performed By: #### M ALBR #### [facility] [address] [place] [address] Dr. Franklin Goodman PROF CHEM 8 (BAS METB)on Anion gap [Moles/Vol] 10.3 mmol/L Normal [facility] Comment on above: Performed By: #### B MP, ALT, LIPID #### [facility] [address] [address] [address] Franklin Goodman Calcium [Mass/Vol] 9.3 mg/dL Normal 8.5-10.1 [facility] Comment on above: Performed By: #### B MP, ALT, LIPID #### [facility] [address] [place] [address] Dr. Franklin Goodman Chloride [Moles/Vol] 103 mmol/L Normal 98-107 [facility] Comment on above: Performed By: #### B MP, ALT, LIPID #### [facility] [address] [place] [address] Dr. Franklin Goodman CO2 [Moles/Vol] 30.9 mmol/L Normal 21.0-32.0 [facility] Comment on above: Performed By: #### B MP, ALT, LIPID #### [facility] [address] [place] [address] Dr. Franklin Goodman Creatinine [Mass/Vol] 0.95 mg/dL Normal 0.70-1.30 [facility] Comment on above: Performed By: #### B MP, ALT, LIPID #### [facility] [address] [address] [address] Franklin Goodman EGFR-AF SAMMARINESE >60 Normal >=60 [facility] Comment on above: Performed By: #### B MP, ALT, LIPID #### [facility] [address] [address] [address] Franklin Goodman EGFR-NON AF SAMMARINESE >60 Normal >=60 [facility] Comment on above: Performed By: #### B MP, ALT, LIPID #### [facility] [address] [address] [address] Franklin Goodman Glucose [Mass/Vol] 141 mg/dL Critically high 74-106 [facility] Comment on above: Performed By: #### B MP, ALT, LIPID #### [facility] [address] [address] [address] Franklin Goodman Potassium [Moles/Vol] 4.2 mmol/L Normal 3.5-5.1 [facility] Comment on above: Performed By: #### B MP, ALT, LIPID #### [facility] [address] [address] [address] Franklin Goodman Sodium [Moles/Vol] 140 mmol/L Normal 136-145 [facility] Comment on above: Performed By: #### B MP, ALT, LIPID #### [facility] [address] [address] [address] Franklin Goodman Urea nitrogen [Mass/Vol] 16.0 mg/dL Normal 7.0-18.0 [facility] Comment on above: Performed By: #### B MP, ALT, LIPID #### [facility] [address] [address] [address] Franklin Goodman Urea nitrogen/Creatinine [Mass ratio] 16.8 mg/mg Normal [facility] Comment on above: Performed By: #### B MP, ALT, LIPID #### [facility] [address] [address] [address] Franklin Goodman SGPTon 03-04-2022 ALT [Catalytic activity/Vol] 52 U/L Normal 16-63 [facility] Comment on above: Performed By: #### B MP, ALT, LIPID #### [facility] [address] [address] [address] Franklin Goodman GLYCOHEMOGLOBIN A1Con 2021 ADA RECOMMENDATION SEE BELOW Normal [facility] Comment on above: Result Comment: ADA RECOMMENDED LIMIT 4.0 - 6.0 ADA THERAPEUTIC TARGET < 7.0 ACTION SUGGESTED > 7.0 Performed By: #### B MP, ALT, LIPID #### [facility] [address] [address] [address] Franklin Goodman Glucose [Mass/Vol] 148 mg/dL Normal [facility] Comment on above: Performed By: #### B MP, ALT, LIPID #### [facility] [address] [address] [address] Franklin Goodman HbA1c (Bld) [Mass fraction] 6.8 % Critically high 4.5-6.2 [facility] Comment on above: Performed By: #### B MP, ALT, LIPID #### [facility] [address] [address] [address] Franklin Goodman Vital Signs Date Time Vital Sign Value Performing Clinician Facility 01-30-2024 13:56-0400 Body height 172.72 cm DO Xavier Ball Work Phone: [facility] 01-30-2024 13:56-0400 Body mass index (BMI) [Ratio] 32.8 kg/m2 DO Xavier Ball Work Phone: [facility] 01-30-2024 13:56-0400 Body weight 98.08 kg DO Xavier Ball Work Phone: [facility] 01-30-2024 13:56-0400 Diastolic blood pressure 71 mm[Hg] DO Xavier Ball Work Phone: [facility] 01-30-2024 13:56-0400 Heart rate 76 /min DO Xavier Ball Work Phone: [facility] 01-30-2024 13:56-0400 Respiratory rate 12 /min DO Xavier Ball Work Phone: [facility] 01-30-2024 13:56-0400 Systolic blood pressure 151 mm[Hg] DO Xavier Ball Work Phone: [facility] 12-27-2023 13:10-0400 Diastolic blood pressure 67 mm[Hg] DO Xavier Ball Work Phone: [facility] 12-27-2023 13:10-0400 Heart rate 67 /min DO Xavier Ball Work Phone: [facility] 12-27-2023 13:10-0400 Respiratory rate 14 /min DO Xavier Ball Work Phone: [facility] 12-27-2023 13:10-0400 SaO2% (BldA) [Mass fraction] 94 % DO Xvaier Ball Work Phone: [facility] 12-27-2023 13:10-0400 Systolic blood pressure 133 mm[Hg] DO Xavier Ball Work Phone: [facility] 12-27-2023 12:28-0400 Body temperature 97.6 [degF] DO Xavier Ball Work Phone: [facility] 12-27-2023 12:28-0400 Inhaled oxygen flow rate 1 L/min DO Xavier Ball Work Phone: [facility] 12-27-2023 08:30-0400 Body height 170.18 cm DO Xavier Ball Work Phone: [facility] 12-27-2023 08:30-0400 Body weight 97.52 kg DO Xavier Ball Work Phone: [facility] 10-06-2023 08:33-0400 Body height 172.72 cm [facility] 10-06-2023 08:33-0400 Body mass index (BMI) [Ratio] 32.5 kg/m2 [facility] 10-06-2023 08:33-0400 Body weight 97.18 kg [facility] 10-06-2023 08:33-0400 Diastolic blood pressure 69 mm[Hg] [facility] 10-06-2023 08:33-0400 Heart rate 64 /min [facility] 10-06-2023 08:33-0400 Respiratory rate 12 /min [facility] 10-06-2023 08:33-0400 Systolic blood pressure 129 mm[Hg] [facility] 06-07-2023 08:30-0500 Body height 172.72 cm Xavier Ball Other [facility] Other 06-07-2023 08:30-0500 Body mass index (BMI) [Ratio] 32.78 kg/m2 Xavier Ball Other [facility] Other 06-07-2023 08:30-0500 Body weight 97.8 kg Xavier Ball Other [facility] Other 06-07-2023 08:30-0500 Diastolic blood pressure 88 mm[Hg] Xavier Ball Other [facility] Other 06-07-2023 08:30-0500 Systolic blood pressure 139 mm[Hg] Xavier Ball Other [facility] Other 03-06-2023 09:30-0400 Body height 172.72 cm Xavier Ball Other [facility] Other 03-06-2023 09:30-0400 Body mass index (BMI) [Ratio] 33.05 kg/m2 Xavier Ball Other [facility] Other 03-06-2023 09:30-0400 Body weight 98.61 kg Xavier Ball Other [facility] Other 03-06-2023 09:30-0400 Diastolic blood pressure 78 mm[Hg] Xavier Ball Other [facility] Other 03-06-2023 09:30-0400 Respiratory rate 12 /min Xavier Ball Other [facility] Other 03-06-2023 09:30-0400 Systolic blood pressure 170 mm[Hg] Xavier Ball Other [facility] Other 12-30-2022 13:15-0400 Body height 172.72 cm Xavier Ball Other [facility] Other 12-30-2022 13:15-0400 Body mass index (BMI) [Ratio] 32.54 kg/m2 Xavier Ball Other [facility] Other 12-30-2022 13:15-0400 Body weight 97.07 kg Xavier Ball Other [facility] Other 12-30-2022 13:15-0400 Diastolic blood pressure 71 mm[Hg] Xavier Ball Other [facility] Other 12-30-2022 13:15-0400 Respiratory rate 12 /min Xavier Ball Other [facility] Other 12-30-2022 13:15-0400 Systolic blood pressure 135 mm[Hg] Xavier Ball Other [facility] Other 12-15-2022 09:30-0400 Body height 172.72 cm Xavier Ball Other [facility] Other 12-15-2022 09:30-0400 Body mass index (BMI) [Ratio] 32.75 kg/m2 Xavier Ball Other [facility] Other 12-15-2022 09:30-0400 Body weight 97.71 kg Xavier Ball Other [facility] Other 12-15-2022 09:30-0400 Diastolic blood pressure 89 mm[Hg] Xavier Ball Other [facility] Other 12-15-2022 09:30-0400 Respiratory rate 12 /min Xavier Ball Other [facility] Other 12-15-2022 09:30-0400 Systolic blood pressure 173 mm[Hg] Xavier Ball Other [facility] Other 07-06-2022 10:30-0500 Body height 172.72 cm Xavier Ball Other [facility] Other 07-06-2022 10:30-0500 Body mass index (BMI) [Ratio] 32.35 kg/m2 Xavier Ball Other [facility] Other 07-06-2022 10:30-0500 Body weight 96.53 kg Xavier Ball Other [facility] Other 07-06-2022 10:30-0500 Diastolic blood pressure 70 mm[Hg] Xavier Ball Other [facility] Other 07-06-2022 10:30-0500 Respiratory rate 12 /min Xavier Ball Other [facility] Other 07-06-2022 10:30-0500 Systolic blood pressure 132 mm[Hg] Xavier Ball Other [facility] Other Encounters Encounter Date Encounter Type Care Provider Facility Start: 01-30-2024 End: 01-30-2024 ambulatory DO Xavier Jc Work Phone: [facility] Work Phone: Start: 01-30-2024 End: 01-30-2024 Patient encounter procedure DO Xavier Jc Work Phone: [facility] Work Phone: Start: 01-02-2024 End: 01-02-2024 ambulatory CAR Durham NGOZI Not Available Start: 12-27-2023 End: 12-27-2023 Admission to same day surgery center DO Xavier Ball Work Phone: [facility] [place] Start: 12-27-2023 End: 12-27-2023 ambulatory DO Xavier Ball Work Phone: [facility] Work Phone: Start: 12-18-2023 End: 12-18-2023 Patient encounter procedure DO Xavier Greene Work Phone: [facility] Work Phone: Start: 12-18-2023 End: 12-18-2023 ambulatory DO Xavier Greene Work Phone: [facility] Work Phone: Start: 12-18-2023 Encounter for preprocedural laboratory examination Car Melvin [facility] Start: 12-14-2023 End: 12-14-2023 ambulatory CAR Durham RHONDAROMAN Not Available Start: 10-26-2023 End: 10-26-2023 ambulatory JEFFREY BONNER Not Available Start: 10-06-2023 End: 10-06-2023 ambulatory [facility] Work Phone: Start: 10-06-2023 End: 10-06-2023 Patient encounter procedure [facility] Work Phone: Start: 10-03-2023 Non-patient / Non-visit [facility] [employer] Work Phone: Start: 08-02-2023 End: 08-02-2023 Patient encounter procedure [facility] Work Phone: Start: 06-30-2023 End: 06-30-2023 ambulatory Xavier Greene Other [facility] Other Start: 06-30-2023 Telephone encounter Xavier Ball [facility] Start: 06-25-2023 End: 06-25-2023 ambulatory Xavier Ball Other [facility] Other Start: 06-25-2023 Telephone encounter Xavier Ball [facility] Start: 06-07-2023 End: 06-07-2023 ambulatory Xavier Ball Other [facility] Other Start: 06-07-2023 Office outpatient vi sit 25 minutes Xavier Ball [facility] Start: 05-16-2023 End: 05-16-2023 ambulatory Xavier Ball Other [facility] Other Start: 05-16-2023 Office outpatient vi sit 15 minutes Xavier Ball [facility] Start: 05-16-2023 Telephone encounter Xavier Ball [facility] Start: 05-12-2023 End: 05-12-2023 ambulatory Xavier Ball Other [facility] Other Start: 05-12-2023 Telephone encounter Xavier Ball [facility] Start: 05-01-2023 End: 05-01-2023 ambulatory Xavier Ball Other [facility] Other Start: 05-01-2023 Telephone encounter Xavier Ball [facility] Start: 03-16-2023 End: 03-16-2023 ambulatory Xavier Ball Other [facility] Other Start: 03-16-2023 Telephone encounter Xavier Ball [facility] Start: 03-06-2023 End: 03-06-2023 ambulatory Xavier Ball Other [facility] Other Start: 03-06-2023 Patient encounter procedure Xavier Ball [facility] Start: 01-19-2023 End: 01-19-2023 ambulatory Xavier Ball Other [facility] Other Start: 01-19-2023 Telephone encounter Xavier Greene [facility] Start: 01-18-2023 ([facility]) [facility] Sched[facility] Xavier Jc [facility] Start: 01-18-2023 End: 01-18-2023 ambulatory Xavier Greene Other [facility] Other Start: 01-18-2023 Telephone encounter Xavier Greene [facility] Start: 12-30-2022 End: 12-30-2022 ambulatory Xavier Greene Other [facility] Other Start: 12-30-2022 Office outpatient vi sit 15 minutes Xavier Jc [facility] Start: 12-16-2022 End: 12-16-2022 ambulatory Xavier Greene Other [facility] Other Start: 12-16-2022 Telephone encounter Xavier Greene [facility] Start: 12-15-2022 End: 12-15-2022 ambulatory Xavier Greene Other [facility] Other Start: 12-15-2022 Office outpatient vi sit 25 minutes Xavier Greene [facility] Start: 07-07-2022 End: 07-07-2022 ambulatory Xavier Greene Other [facility] Other Start: 07-07-2022 Telephone encounter Xavier Greene [facility] Start: 07-06-2022 Office outpatient vi sit 25 minutes Xavier Greene [facility] Start: 07-06-2022 End: 07-07-[address] XAVIER GREENE Facility:[facility] Start: 06-24-2022 End: 06-24-2022 ambulatory Xavier Greene Other [facility] Other Start: 06-24-2022 Telephone encounter Xavier Greene [facility] Start: 03-07-2022 End: 03-14-[address] XAVIER GREENE Facility:[facility] Start: 03-04-2022 End: 03-05-[address] XAVIER GREENE Facility:[facility] Start: 03-02-2022 Adult health examination Gregory Greene Other [facility] Other Start: 10-25-2021 End: 10-26-[address] XAVIER GREENE Facility:[facility] Start: 08-26-[address] XAVIER GREENE Facili ty:[facility] Procedures Date Procedure Procedure Detail Performing Clinician Start: 12-27-2023 Excision of lesion of cheek DO Xavier Greene Work Phone: Start: 03-04-[address] JULIO CESAR GREENE Comment on above: Performed By: #### P [facility] #### [facility] [address] [place] [address] Dr. Franklin Goodman Start: 12-22-2020 Depression screening Be hemalatha Greene Other History of carotid endarterectomy Xavier Greene Other Screening for malign ant neoplasm of prostate Xavier Greene Other Plan of Treatment Date Care Activity Detail Author Start: 12-27-2023 [facility] Start: 12-27-2023 [facility] Patient Education Know your Meds [facility] Work Phone: Patient referral [facility] Work Phone: Immunizations Immunization Date Immunization Notes Care Provider Fa cili 03-30-2021 influenza virus vaccine, split virus (incl. purified surface antigen) Xavier Greene Other [facility] Other 03-30-2021 influenza virus vaccine, unspecified formulation [facility] 03-03-2020 influenza virus vaccine, split virus (incl. purified surface antigen) Xavier Greene Other [facility] Other 03-03-2020 influenza virus vaccine, unspecified formulation [facility] 05-28-2019 pneumococcal conjuga te vaccine, 13 valent Xavier Greene Other [facility] Payers Date Payer Category Payer Self-pay 1961 Unknown [id number] 1950 Unknown [id number] 2.16.84 [id number] 1950 Unknown [id number] 2.16.84 [id number] 1950 Unknown [id number] 2.16.84 [id number] 1950 Unknown [id number] 2.16.84 [id number] 1948 Unknown [id number] 2.16.84 [id number] 1948 Unknown [id number] 2.16.84 [id number] 1950 Unknown [id number] 2.16.84 [id number] 1950 Unknown [id number] 2.16.84 [id number] Medicare [id number] 2.1 [id number] Unknown [id number] Unknown [employer] [place] [id number] Unknown [id number] 2.16.8 [id number] Unknown [id number] 2.16.8 [id number] Social History Date Type Detail Facility Sex Assigned At [facility] Other Start: 1950 Sex Assigned At Male F [facility] Start: 12-18-2023 End: 12-27-2023 Tobacco smoking status NHIS Current some day smoker [facility] Goals Date Patient Goal Desired Activity /State Clinical Notes 06-24-2022 to 06-25-2023 Note Date & Type Note Facility 06-25-2023 Evaluation note Encounter Date Diagnosis Assessment Notes Jun, Primary hypertension (ICD-10 - I10) [facility] Other 01-17-2024 Evaluation note* Encounter Date Diagnosis Assessment Notes Treatment Notes Treatment Clinical Notes May, ASHD (arteriosclerotic heart disease) (ICD-10 - I25.10) This patient is stable without activity related CP, dyspnea or lightheadedness. They are instructed to continue exercise and AHA diet plan. Continue secondary prevention measures. May, Primary hypertension (ICD-10 - I10) This patient is instructed to consume a healthy, low-fat, low-salt diet. They are also encouraged to continue exercise to achieve/maintain a normal BMI. Patient is instructed on home BP measurements: - rest for 5 minutes w/o talking.- positioned w/ feet on floor and arm supported.- average best 2/3 readings w/ goal < 135/85.- update office w/ home readings in 2 weeks. May, Elevated cholesterol (ICD-10 - E78.00) Instructed on diet and exercise with continued statin therapy.Discussed the beneficial effects of lowering cholesterol in reducing the risk for cerebrovascular and cardiovascular disease. May, Type 2 diabetes mellitus with hyperglycemia, without long-term current use of insulin (ICD-10 - E11.65) This patient is following a comprehensive diabetic treatment plan. They are checking their feet daily for calluses and nonhealing ulcers. They are being seen for yearly dilated eye examinations. Goals: SBP less than 130, LDL less than 100, FBS less than 140, A1C less than 7%. They are checking their BS daily, will which are reviewed at the office visit. Continue regular routine monitoring of A1C,] Microalbumin, Dilated eye exam and Foot exam May, Stenosis of left carotid artery (ICD-10 - I65.22) Continue secondary preventive measures. Reviewed stroke symptoms w/ instructions to go to ER for suspicious symptoms. f/u Vascular surgery yearly for carotid US. May, Lumbar spondylosis (ICD-10 - M47.816) The patient is instructed to avoid bending, twisting or lifting. They are to use intermittent heat and ice as needed. They may schedule a massage or gentle manipulation. They may safely use Tylenol as needed. May, Right facial pain (ICD-10 - R51.9) Failed 3mo treatment w/ topical steroids, saline rinse and systemic antihistamine/deconge stant therapy. 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 No s/s intercurrent infection. Concerned for nasal obstruction, mass or tumor May, Other obesity due to excess calories (ICD-10 - E66.09) This patient has been instructed on a low-fat, high-fiber diet. They are instructed to reduce calories, portion sizes and snacks. It is recommended that they exercise for 30 minutes, 3-5 times weekly. May, Body mass index [BMI] 32.0-32.9, adult (ICD-10 - Z68.32) May, Mass of oral cavity (ICD-10 - K13.79) Submucosal mass left cheek. Appears benign but will include in referral to ENT. [facility] Other 12-26-2023 Evaluation note* Encounter Date Diagnosis Assessment Notes Treatment Notes Treatment Clinical Notes Apr, Acute bronchitis due to other specified organisms (ICD-10 - J20.8) Instructed to use Robitussin or Mucinex for cough, saline or Flonase NS for congestion, Tylenol for pain and fever. Apr, Type 2 diabetes mellitus with hyperglycemia, without long-term current use of insulin (ICD-10 - E11.65) May increase his risk for more serious, prolonged illness [facility] Other 10-26-2023 Evaluation note* Encounter Date Diagnosis Assessment Notes Treatment Notes Treatment Clinical Notes Feb, Subacute maxillary sinusitis (ICD-10 - J01.00) [facility] Other 10-16-2023 Evaluation note* Encounter Date Diagnosis Assessment Notes Treatment Notes Treatment Clinical Notes Feb, Medicare annual wellness visit, subsequent (ICD-10 - Z00.00) Personalized health advice was given to the beneficiary including a written plan for screenings discussed and provided. Advanced care planning reviewed and/or information given as requested. Additional counseling was provided here today in regards to, [ ]. The above visit was performed by [ ], under direct supervision of [ ]. Document reviewed and amended by provider signed below. Feb, ASHD (arteriosclerotic heart disease) (ICD-10 - I25.10) This patient is stable without activity related CP, dyspnea or lightheadedness. They are instructed to continue exercise and AHA diet plan. Continue secondary prevention measures. Feb, Primary hypertension (ICD-10 - I10) This patient is instructed to consume a healthy, low-fat, low-salt diet. They are also encouraged to continue exercise to achieve/maintain a normal BMI. Feb, Elevated cholesterol (ICD-10 - E78.00) Instructed on diet and exercise with continued statin therapy.Discussed the beneficial effects of lowering cholesterol in reducing the risk for cerebrovascular and cardiovascular disease. Feb, Type 2 diabetes mellitus with hyperglycemia, without long-term current use of insulin (ICD-10 - E11.65) This patient is following a comprehensive diabetic treatment plan. They are checking their feet daily for calluses and nonhealing ulcers. They are being seen for yearly dilated eye examinations. Goals: SBP less than 130, LDL less than 100, FBS less than 140, A1C less than 7%. They are checking their BS daily, will which are reviewed at the office visit. Continue regular routine monitoring of A1C,] Microalbumin, Dilated eye exam and Foot exam Feb, Stenosis of left carotid artery (ICD-10 - I65.22) Continue secondary preventive measures. F/u Vascular surgery Feb, Lumbar spondylosis (ICD-10 - M47.816) The patient is instructed to avoid bending, twisting or lifting. They are to use intermittent heat and ice as needed. They may schedule a massage or gentle manipulation. They may safely use Tylenol as needed. Feb, Chronic maxillary sinusitis (ICD-10 - J32.0) Persistent pain overlying right maxillary sinus. Check CT Feb, High risk medication use (ICD-10 - Z79.899) Check labs: CBC, ALT Feb, Screening PSA (prostate specific antigen) (ICD-10 - Z12.5) Yearly RADHA and PSA [facility] Other 08-30-2023 Evaluation note* Encounter Date Diagnosis Assessment Notes Treatment Notes Treatment Clinical Notes Dec, Acute bronchitis due to other specified organisms (ICD-10 - J20.8) Instructed to use Robitussin or Mucinex for cough, saline or Flonase NS for congestion, Tylenol for pain and fever. Dec, Suspected COVID-19 virus infection (ICD-10 - Z20.822) Sent for COVID testing [facility] Other 08-11-2023 Evaluation note* Encounter Date Diagnosis Assessment Notes Treatment Notes Treatment Clinical Notes Dec, Impacted cerumen of left ear (ICD-10 - H61.22) Avoid use of Alcohol in ear. Diluted peroxide if needs in future. Post irrigation, TM intact and translucent. EAC patent w/o debris Avoid QTips Dec, Type 2 diabetes mellitus with hyperglycemia, without long-term current use of insulin (ICD-10 - E11.65) This patient is following a comprehensive diabetic treatment plan. They are checking their feet daily for calluses and nonhealing ulcers. They are being seen for yearly dilated eye examinations. Goals: SBP less than 130, LDL less than 100, FBS less than 140, AC and A1C less than 7%. They are checking their BS daily, will which are reviewed at the office visit. Continue regular routine monitoring of A1C,] Microalbumin, Dilated eye exam and Foot exam [facility] Other 07-27-2023 Evaluation note* Encounter Date Diagnosis Assessment Notes Treatment Notes Treatment Clinical Notes Nov, ASHD (arteriosclerotic heart disease) (ICD-10 - I25.10) This patient is stable without activity related CP, dyspnea or lightheadedness. They are instructed to continue exercise and AHA diet plan. Nov, Primary hypertension (ICD-10 - I10) This patient is instructed to consume a healthy, low-fat, low-salt diet. They are also encouraged to continue exercise to achieve/maintain a normal BMI. Nov, Elevated cholesterol (ICD-10 - E78.00) Instructed on diet and exercise with continued statin therapy.Discussed the beneficial effects of lowering cholesterol in reducing the risk for cerebrovascular and cardiovascular disease. Nov, Type 2 diabetes mellitus with hyperglycemia, without long-term current use of insulin (ICD-10 - E11.65) This patient is following a comprehensive diabetic treatment plan. They are checking their feet daily for calluses and nonhealing ulcers. They are being seen for yearly dilated eye examinations. Goals: SBP less than 130, LDL less than 100, FBS less than 140, AC and A1C less than 7%. They are checking their BS daily, will which are reviewed at the office visit. Continue regular routine monitoring of A1C,] Microalbumin, Dilated eye exam and Foot exam Nov, Trigeminal neuralgia of right side of face (ICD-10 - G50.0) Nov, Stenosis of left carotid artery (ICD-10 - I65.22) s/p left CEA yearly carotid US w/ Vascular surgery Continue ASA and statin therapy Monitor for stroke like symptoms Nov, Lumbar spondylosis (ICD-10 - M47.816) The patient is instructed to avoid bending, twisting or lifting. They are to use intermittent heat and ice as needed. They may schedule a massage or gentle manipulation. They may safely use Tylenol as needed. Nov, Papule of mucosa (ICD-10 - K13.70) [facility] Other 02-15-2023 Evaluation note* Encounter Date Diagnosis Assessment Notes Treatment Notes Treatment Clinical Notes Jun, ASHD (arteriosclerotic heart disease) (ICD-10 - I25.10) This patient is stable without activity related CP, dyspnea or lightheadedness. They are instructed to continue exercise and AHA diet plan. Jun, Primary hypertension (ICD-10 - I10) This patient is instructed to consume a healthy, low-fat, low-salt diet. They are also encouraged to continue exercise to achieve/maintain a normal BMI. Jun, Elevated cholesterol (ICD-10 - E78.00) Diet and exercise with continued statin therapy. Jun, Type 2 diabetes mellitus with hyperglycemia, without long-term current use of insulin (ICD-10 - E11.65) This patient is following a comprehensive diabetic treatment plan. They are checking their feet daily for calluses and nonhealing ulcers. They are being seen for yearly dilated eye examinations. Goals: SBP less than 130, LDL less than 100, FBS less than 140, AC and A1C less than 7%. They are checking their BS daily, will which are reviewed at the office visit. A1C: [ ] Microalbumin: [ ] Eye exam: [ ] Foot exam: [ ] Jun, Stenosis of left carotid artery (ICD-10 - I65.22) Continue primary prevention measures. ASA, Statin therapy continued. Serial carotid US per Vascular surgery Jun, Lumbar spondylosis (ICD-10 - M47.816) The patient is instructed to avoid bending, twisting or lifting. They are to use intermittent heat and ice as needed. They may schedule a massage or gentle manipulation. They may safely use Tylenol as needed. Jun, Anemia, unspecified type (ICD-10 - D64.9) No s/s bleeding. No change in appetite or bowel habits. No abdominal pain, heart burn or dysphagia. No melena or hematochezia.. Recommend repeat H/H along w/ Fe, B12, FA. Consider endoscopy if anemia persists. [facility] Other 02-03-2023 Evaluation note* Encounter Date Diagnosis Assessment Notes Treatment Notes Treatment Clinical Notes Jun, Anemia, unspecified type (ICD-10 - D64.9) [facility] Other Evaluation noteNo [employer] Other Evaluation note* Diagnosis Onset Date Resolution Status Type 2 diabetes mellitus with hyperglycemia acute Food poisoning noneactive ASHD (arteriosclerotic heart disease) acute Essential hypertension acute Facial pain acute Hypercholesterolemia acute Lumbar spondylosis acute Type 2 diabetes mellitus with hyperglycemia acute [facility] [facility] Work Phone: Evaluation note* Diagnosis Onset Date Resolution Status ASHD (arteriosclerotic heart disease) acute Essential hypertension acute Facial pain acute Hypercholesterolemia acute Lumbar spondylosis acute Nocturnal leg cramps acute Type 2 diabetes mellitus with diabetic polyneuropathy acute Type 2 diabetes mellitus with hyperglycemia acute [facility] Work Phone: Evaluation noteNo assessment information available [facility] Work Phone: History general Narrative - Reported* Type Description Date Medical History Anemia Medical History Lumbar spondylosis with myelopat hy Medical History High risk medication use Medical History Screening PSA (prostate specific antigen) Medical History Controlled type 2 di abetes mellitus with hyperglycemia, without long-term current use of insulin Medical History ASHD (arteriosclerotic heart dis ease) Medical History Essential hypertension Medical History Hyperlipidemia type II Medical History Arthritis of shoulder region, le ft Medical History Carotid artery steno sis without cerebral infarction, bilateral Medical History S/P carotid endarterectomy Medical History Oropharyngeal dysphagia Medical History Primary osteoarthritis of knees, bilateral Medical History Lumbar spondylosis Surgical History RECHANNELING OF ARTERY 2020 Surgical History REMOVAL OF LENS LESION 2017 Surgical History COLONOSCOPY 2016 Surgical History PRQ CARD STENT/ATH/ANGIO 2005 Surgical History LUMBAR SPINE FUSION 2003, 2006, 2016 Surgical History TOTAL KNEE ARTHROPLASTY 2017 Hospitalization History [facility] Other History general Narrative - Reported* Type Description Date Medical History Anemia Medical History Lumbar spondylosis with myelopat hy Medical History High risk medication use Medical History Screening PSA (prostate specific antigen) Medical History Controlled type 2 di abetes mellitus with hyperglycemia, without long-term current use of insulin Medical History ASHD (arteriosclerotic heart dis ease) Medical History Essential hypertension Medical History Hyperlipidemia type II Medical History Arthritis of shoulder region, le ft Medical History Carotid artery steno sis without cerebral infarction, bilateral Medical History S/P carotid endarterectomy Medical History Oropharyngeal dysphagia Medical History Primary osteoarthritis of knees, bilateral Medical History Lumbar spondylosis Surgical History RECHANNELING OF ARTERY 2020 Surgical History REMOVAL OF LENS LESION 2017 Surgical History COLONOSCOPY 01/2017 Surgical History PRQ CARD STENT/ATH/ANGIO 2005 Surgical History LUMBAR SPINE FUSION 2003, 2006, 2016 Surgical History TOTAL KNEE ARTHROPLASTY 2017 Hospitalization History [facility] Other Hospital Discharge instructions Additional Instructions No exertional activity Tylenol or Motrin for pain Antibiotic ointment to wounds 3 times per day May shower in 24 hours, blot wounds dry Call the office for any questions or concerns [facility] Work [facility]: Summary Purpose Family History Relationship Condition Age at Onset Recorded Date/T charlie mother Rheumatic fever Unknown Blood clots in brain Unknown father Myocardial infarction Unknown sister Malignant neoplasm of blood vessel Unknow n Advance Directives Advance Directive Response Recorded Date/ Time Advance Directives No March 10:38am Chief Complaint and Reason for Visit Chief Complaint body aches, headache COVID NEGATIVE 4 month follow up Reason for Visit Type 2 diabetes dhaval itus with hyperglycemia Food poisoning ASHD (arteriosclerotic heart disease) Essential hypertension Facial pain Hypercholesterolemia Lumbar spondylosis Type 2 diabetes mellitus with hyperglycemia Chief Complaint 4 month follow up [place] Reason for Visit ASHD (arteriosclerot ic heart disease) Essential hypertension Facial pain Hypercholesterolemia Lumbar spondylosis Nocturnal leg cramps Type 2 diabetes mellitus with diabetic polyneuropathy Type 2 diabetes mellitus with hyperglycemia Chief Complaint 4 month follow up [place] Reason for Visit ASHD (arteriosclerot ic heart disease) Essential hypertension Facial pain Hypercholesterolemia Lumbar spondylosis Nocturnal leg cramps Type 2 diabetes mellitus with diabetic polyneuropathy Type 2 diabetes mellitus with hyperglycemia Chief Complaint [place] toothache, ATB wanted Additional Source Comments (unrecognized sect ion and content) No Status Records FoundNo Status Records FoundNo Status Records Found INFORMATION SOURCE (unrecogn ized section and content) DATE CREATED AUTHOR 07/11/2022 [facility] DATE CREATED AUTHOR AUTHOR'S ORGANIZ ATION 01/04/2024 [facility] EPIC DATE CREATED AUTHOR AUTHOR'S ORGANIZ ATION 01/18/2024 [facility] REASON FOR VISIT (unrecogniz ed section and content) CT resultsBP readingscough 4 [id number] resultsCT denialwellnessATBsore throat, congestion since NEED CLEANED3 month Follow upLab Results4 MONTH FOLLOW UP Care Teams (unrecognized sec tion and content) Team Status: Active Member Role Status Dates Xavier Greene DO Primary Care Provider Active Team Status: Inactive Member Role Status Dates Xavier Greene DO Primary Care Provide r, Attending Provider Active Start: October 06, 2023 End: October 06, 2023 Team Status: Inactive Member Role Status Dates Xavier Greene DO Primary Care Provider Active Start: December 18, 2023 End: December 18, 2023 Car Melvin DO Attending Provider Active S tart: December 18, 2023 End: December 18, 2023 Team Status: Inactive Member Role Status Dates Xavier Greene DO Primary Care Provider Active Start: December 27, 2023 End: December 27, 2023 Car Melvin DO Attending Provider Active S tart: December 27, 2023 End: December 27, 2023 Team Status: Active Member Role Status Dates Xavier Ball , DO Primary Care Provide r, Attending Provider Active Start: October 03, 2023 Team Status: Inactive Member Role Status Dates Xavier Greene , DO Primary Care Provide r, Attending Provider Active Start: August 02, 2023 End: August 02, 2023 Team Status: Inactive Member Role Status Dates Xavier Greene , DO Primary Care Provide r, Attending Provider Active Start: January 30, 2024 End: January 30, 2024 Goals (unrecognized section and content) Goals may be documented in a n alternate section FOR RECORDS PERTAINING TO PATIENTS WHO ARE OR HAVE BEEN ENROLLED IN A CHEMICAL DEPENDENCY/SUBSTANCEABUSE PROGRAM, SOME INFORMATION MAY BE OMITTED. This clinical summary was aggregated from multiple sources. Caution should be exercised in using it in the provision of clinical care. This summary normalizes information from multiple sources, and as a consequence, information in this document may materially change the coding, format and clinical context of patient data. In addition, data may be omitted in some cases. CLINICAL DECISIONS SHOULD BE BASED ON THE PRIMARY CLINICAL RECORDS. [facility] [employer] [facility]. provides no warranty or guarantee of the accuracy or completeness of information in this document.
[2024-03-07 10:22] LABS: Basophils Percent Auto 0.8 % (0.2-2.0); Eosinophils Absolute Auto 0.2 10^3/uL (0.0-0.7); Eosinophils Percent Auto 2.9 % (0.9-7.0); Hematocrit 37.5 % (42.0-54.0); Hemoglobin 12.8 g/dL (14.0-18.0); Immature Granulocytes Abs Auto 0.03 10^3/uL (0.00-0.03); Immature Granulocytes Pct Auto 0.6 % (0.0-0.5); Lymphocytes Absolute Auto 1.8 10^3/uL (1.2-3.8); Lymphocytes Percent Auto 33.9 % (20.5-60.0); Mean Corpuscular HGB Conc 34.1 g/dL (29.9-35.2); Mean Corpuscular Hemoglobin 32.4 pg (25.9-34.0); Mean Corpuscular Volume 94.9 fL (80.0-94.0); Mean Platelet Volume 10.9 fL (9.5-13.5); Monocytes Absolute Auto 0.5 10^3/uL (0.3-0.8); Monocytes Percent Auto 9.6 % (1.7-12.0); Neutrophils Absolute Auto 2.7 10^3/uL (1.4-6.5); Neutrophils Percent Auto 52.2 % (43.0-75.0); Platelet Count 156 10^3/uL (150-450); Red Blood Count 3.95 10^6/uL (4.70-6.10); White Blood Count 5.2 10^3/uL (4.0-11.0)
[2024-03-07 11:05] LABS: Estimated Average Glucose 137 mg/dL; Glycohemoglobin A1C 6.4 % (4.5-6.2)
[2024-03-07 11:15] LABS: Alanine Aminotransferase 42 U/L (16-63); Albumin Globulin Ratio 1.2; Albumin Level 3.9 g/dL (3.4-5.0); Alkaline Phosphatase 33 U/L (46-116); Anion Gap 14.9; Aspartate Amino Transferase 32 U/L (15-37); BUN Creatinine Ratio 15.3; Bilirubin Total 1.7 mg/dL (0.2-1.0); Calcium 9.5 mg/dL (8.5-10.1); Carbon Dioxide 27.4 mmol/L (21.0-32.0); Chloride 102 mmol/L (98-107); Chol HDL Ratio 3.2; Cholesterol 138 mg/dL (<=200); Estimated GFR (African America >60 (>=60 mL/min/1.73m^2); Estimated GFR (Non-African Ame >60 (>=60 mL/min/1.73m^2); Globulin 3.3 g/dL; Glucose 246 mg/dL (74-106); HDL Cholesterol 43 mg/dL (40-60); Potassium 4.3 mmol/L (3.5-5.1); Sodium 140 mmol/L (136-145); Total Protein 7.2 g/dL (6.4-8.2); Triglycerides 280 mg/dL (<=150)
[2024-03-07 11:19] LABS: Prostate Specific Antigen Scrn 1.82 ng/mL (<=4.00)
[2024-03-07 12:12] LABS: Microalbumin Urine Random 4.5 mg/dL (<=30.0)
== END 2024-03-07 09:43 | disposition home or self-care (01) ==
LOC: LAB 09:48
PROVIDERS: PCP Internal Medicine; Visit Provider Internal Medicine
DX: E78.00 Pure hypercholesterolemia, unspecified (principal); E11.65 Type 2 diabetes mellitus with hyperglycemia; I10 Essential (primary) hypertension
CPT/HCPCS: 36415; 80053; 80061; 82043; 83036; 85025; G0103

== ENCOUNTER 2024-07-05 08:26 | Outpatient (OUT) | payer MEDICARE, SELFPAY ==
[2024-07-05 08:48] LABS: Basophils Percent Auto 0.7 % (0.2-2.0); Eosinophils Absolute Auto 0.2 10^3/uL (0.0-0.7); Eosinophils Percent Auto 2.8 % (0.9-7.0); Hematocrit 38.3 % (42.0-54.0); Immature Granulocytes Abs Auto 0.09 10^3/uL (0.00-0.03); Immature Granulocytes Pct Auto 1.7 % (0.0-0.5); Lymphocytes Absolute Auto 2.7 10^3/uL (1.2-3.8); Lymphocytes Percent Auto 49.4 % (20.5-60.0); Mean Corpuscular HGB Conc 33.9 g/dL (29.9-35.2); Mean Corpuscular Volume 94.3 fL (80.0-94.0); Mean Platelet Volume 10.2 fL (9.5-13.5); Monocytes Absolute Auto 0.6 10^3/uL (0.3-0.8); Monocytes Percent Auto 11.5 % (1.7-12.0); Neutrophils Absolute Auto 1.8 10^3/uL (1.4-6.5); Neutrophils Percent Auto 33.9 % (43.0-75.0); Platelet Count 182 10^3/uL (150-450); Red Blood Count 4.06 10^6/uL (4.70-6.10); Red Cell Distribution Width 11.9 % (11.0-15.0); White Blood Count 5.4 10^3/uL (4.0-11.0)
--- OUTSIDE RECORDS SUMMARY | 2024-07-05 08:51 | XMS_ITS | CCD ---
Author Organization [facility] Care Team Providers Care Director Learning Services Name Role Phone JC, DR WILCOX Admitting [...] Unavailable DO Xavier Greene Primary Care Provider [phone] DO Car Melvin Attending Provider JEFFREY BONNER Attending Unavailable EVERETT MCBRIDE Referring Unavailable NGOZI, CAR Durham Attending Unavailable JEFFREY BONNER Referring Unavailable CAR MELVIN Attending Unavailable Xavier Greene Primary Care Unavailable Car Melvin Attending Unavailable Ngozi, Car Admitting Unavailable Ngozi, Cra Attending Unavailable Ngozi, Car Admitting Unavailable Jc, Xavier Primary Care Unavailable Allergies Allergy Classification Reported Allergen(s) Allergy Type Date of Onset Reaction(s) Facility (2 sources) Penicillin Drug Allergy 0 [facility] Rep[facility] (20 sources) Doxycycline Drug Allergy 4 Unknown, Unknown Reaction [facility] (20 sources) Penicillin G Drug Allergy 4 Unknown, Unknown Reaction [facility] (1 source) Doxycycline Drug Allergy 4 [facility] (1 source) Penicillin Drug Allergy 4 [facility] Medications Current Medications Medication Drug Class(es) [...] TABLET BY MOUTH TWICE DAILY Active Vit C,G-Tl-Eutfu-Lutein-Zeax an (Preservision Areds-2) 250-90-40-1 mg capsule (3 sources) Start: 12-18-2023 Vit C,Y-Ry-Pidqa-Lutein-Zeax an (Preservision Areds-2) 250-90-40-1 mg capsule Active [...] Coronary arteriosclerosis; Translations: [Atherosclerotic heart disease of [place] coronary artery without angina pectoris] Chronic Deficiency [...] 08-02-2023 Chronic Other aftercare (2 sources) Other prison (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 therapy; Translations: [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 Glucose of more than 200 mg/dL in a nonstressed, ambulatory subject supports the diagnosis of Diabetes Mellitus. Result Comment: [facility] Glucose Reference Range is dependent on time and content of last meal. Glucose of more than 200 mg/dL in a nonstressed, ambulatory subject supports the diagnosis of Diabetes Mellitus. PERFORMED BY: [facility] [address] [place] [address] PATHOLOGIST CERAMICS INSTRUCTOR MARINA DANIEL M.D. Performed By: #### G LULS #### Point of Care testing , Glucose Poct Glucometerson 0 12-27-2023 Glucose [Mass/Vol] 138 mg/dL Normal [facility] Comment on above: Result Comment: [facility] Glucose Reference Range is dependent on time and content of last meal. Glucose of more than 200 mg/dL in a nonstressed, ambulatory subject supports the diagnosis of Diabetes Mellitus. PERFORMED BY: [facility] [address] [place] [address] PATHOLOGIST CERAMICS INSTRUCTOR MARINA DANIEL M.D. Performed By: #### G LULS #### Point of Care testing , Harris 12-27-2023 L Specimen: [id number] Received: 12/27/23 Status: ACOSTA Toney Num: [id number] Spec Type: Surgical Subm Dr: Car Melvin DO Tissues: A Skin-Other than Cyst, tag, debridement or plastic repair (RIGHT CHEEK LESION B Skin-Other than Cyst, tag, debridement or plastic repair (LEFT CHEEK LESION) Procedures: HE/5, Gross/Micro L4/3, FS HE/6 Age/ Patient Sex Location Account Attending Physician Nikolai Phan 73/M [place] [id number] Car Melvin DO SPEC NUM: [id number] RECD: 12/27/23 STATUS: ACOSTA TONEY NUM: [id number] FRED: 12/27/23- SUBM DR: Car Melvin DO ENTERED: 12/27/[address] [facility] [address]: SPEC TYPE: Surgical DEPT: S ENTERED BY: [id number] RECV BY: [id number] ORDERED: HE/5, Gross/Micro L4/3, FS HE/6 ORDERED: [...] skin surface. The specimen is -- Specimen: [id number] Received: 12/27/23 Status: ACOSTA Toney Num: [id number] Spec Type: Surgical Subm Dr: Car Melvin DO Tissues: A Skin-Other than Cyst, tag, debridement or plastic repair (RIGHT CHEEK LESION B Skin-Other than Cyst, tag, debridement or plastic repair (LEFT CHEEK LESION) Procedures: HE/5, Gross/Micro L4/3, FS -- Patient: Nikolai Phan [id number] (Continued) -- Specimen: [id number] Received: 12/27/23 (Continued) Gross Description (Continued) Signed (signatu re on file) Elise Goodman MD 12/28/23 1718 -- Specimen: [id number] Received: 12/27/23 Status: ACOSTA Toney Num: [id number] Spec Type: Surgical Subm Dr: Car Melvin DO Tissues: A Skin-Other than Cyst, tag, debridement or plastic repair (RIGHT CHEEK LESION B Skin-Other than Cyst, tag, debridement or plastic repair (LEFT CHEEK LESION) Procedures: HE/5, Gross/Micro L4/3, FS /6 -- Patient: Nikolai Phan [id number] (Continued) -- Specimen: [id number] Received: 12/27/23 (Continued) Gross Description (Continued) serially [...] Description Microscopic examinations are performed CPT Codes 40200 x 2 36018 x 2 15597 x 2 -- -- Specimen: [id number] Received: 12/27/23 Status: ACOSTA Toney Num: [id number] Spec Type: Surgical Subm Dr: DO Radha Catalan (more content not included)... Normal [facility] Automated basophil %Ordered By: Car Melvin on 12-18-2023 Basophils/100 WBC (Bld) 0.6 % . [facility] Comment on above: Performed By: #### B MP, CBC #### [address] Automated basophil countOrde red By: Car Melvin on 12-18-2023 Basophils (Bld) [#/Vol] 0.0 10*3/uL 0.0-0.2 [facility] Comment on above: Result Comment: PERF ORMED BY: [place] [address] PATHOLOGIST CERAMICS INSTRUCTOR MARINA DANIEL M.D. Performed By: #### B MP, CBC #### [address] Automated blood monocyte cou ntOrdered By: Car Melvin on 12-18-2023 Monocytes (Bld) [#/Vol] 0.7 10*3/uL 0.0-0.8 [facility] Comment on above: Performed By: #### B MP, CBC #### [address] Automated eosinophil %Ordere d By: Car Melvin on 12-18-2023 Eosinophils/100 WBC (Bld) 2.2 % . [facility] Comment on above: Performed By: #### B MP, CBC #### [address] Automated eosinophil countOr dered By: Car Melvin on 12-18-2023 Eosinophils (Bld) [#/Vol] 0.1 10*3/uL 0.0-0.45 [facility] Comment on above: Performed By: #### B MP, CBC #### [address] Automated monocyte %Ordered By: Car Melvin on 12-18-2023 Monocytes/100 WBC (Bld) 11.9 % . [facility] Comment on above: Performed By: #### B MP, CBC #### [address] Automated neutrophil %Ordere d By: Car Melvin on 12-18-2023 Neutrophils/100 WBC (Bld) 41.9 % . [facility] Comment on above: Performed By: #### B MP, CBC #### [address] Basic Metabolic Panelon 11-20 GFR/1.73 sq M.predicted MDRD (S/P/Bld) [Vol rate/Area] mL/min/{1.73_m2} Normal [facility] Comment on above: Performed By: #### B MP, CBC #### [address] Calcium [Mass/volume] in Ser um or PlasmaOrdered By: Car Melvin on 12-18-2023 Calcium [Mass/Vol] 10.5 mg/dL High 8.6-10.3 [facility] Comment on above: Result Comment: PERF ORMED BY: [place] [address] PATHOLOGIST CERAMICS INSTRUCTOR MARINA DANIEL M.D. Performed By: #### B FELIX, CBC #### [address] Carbon dioxide, total [Moles /volume] in Serum or PlasmaOrdered By: Car Melvin on 12-18-2023 CO2 [Moles/Vol] 29.8 mmol/L 21.0-31.0 [facility] Comment on above: Performed By: #### B FELIX, CBC #### [address] Chloride [Moles/volume] in S artemio or PlasmaOrdered By: Car Melvin on 12-18-2023 Chloride [Moles/Vol] 101 mmol/L 98-107 [facility] Comment on above: Performed By: #### B MP, CBC #### [address] Complete Blood Count Auto Di ffon 12-18-2023 Mean Corpuscular HGB Conc 34.7 g/dL Normal 32.5-35.6 [facility] Comment on above: Performed By: #### B MP, CBC #### [address] NRBC% 0.1 /100{WBC} Normal 0-0.5 [facility] Comment on above: Performed By: #### B MP, CBC #### [facility] [address] Creatinine [Mass/volume] in Serum or PlasmaOrdered By: Car Melvin on 12-18-2023 Creatinine [Mass/Vol] 0.95 mg/dL 0.70-1.30 [facility] Comment on above: Performed By: #### B MP, CBC #### [address] ECG 12 lead ECGon 12-18-2023 ECG 12 lead ECG [facility] Main [place] [address] [place] [address] Electrocardiograph Report Signed Patient: Nikolai Phan MR#: [id number] [birth year] : 1950 Acct:[id number] Age/Sex: 73 / M ADM Date: 12/18/23 Loc: Room: Type: [facility] Attending Dr: Car Melvin DO Ordering Provider: [...] is now present Confirmed by SUZY RAM [facility], CHRISTINA ([id number]) on 12/18/2023 6:07:40 PM Referred By: Electronically Signed By: CHRISTINA SANDHU MD FAC Transcribed By: MUS Signed By Christina Sandhu MD, FACC 12/18/231806 Normal [facility] Erythrocyte distribution wid th [Ratio] by Automated countOrdered By: Car Melvin on 12-18-2023 Erythrocyte distribution width (RBC) [Ratio] 13.0 % 12.0-14.8 [facility] Comment on above: Performed By: #### B MP, CBC #### [facility] [address] [place] [address] Erythrocytes [#/volume] in B lood by Automated countOrdered By: Car Melvin on 12-18-2023 RBC (Bld) [#/Vol] 4.08 10*6/uL 3.90-5.60 [facility] Comment on above: Performed By: #### B FELIX, CBC #### [address] Glucose [Mass/volume] in Ser um or PlasmaOrdered By: Car Melvin on 12-18-2023 Glucose [Mass/Vol] 139 mg/dL High 70-100 [facility] Comment on above: ADA recommended refe rence rangeRandom Glucose Reference Range is dependent on time and content of last meal. Glucose of more than 200 mg/dL in a nonstressed, ambulatory subject supports the diagnosis of Diabetes Mellitus. Result Comment: [facility] Glucose Reference Range is dependent on time and content of last meal. Glucose of more than 200 mg/dL in a nonstressed, ambulatory subject supports the diagnosis of Diabetes Mellitus. ADA recommended reference range Performed By: #### B FELIX, CBC #### [address] Hematocrit [Volume Fraction] of Blood by Automated countOrdered By: Car Melvin on 12-18-2023 Hematocrit (Bld) [Volume fraction] 38.2 % Low 38.8-50.0 [facility] Comment on above: Performed By: #### B FELIX, CBC #### [place] [address] [place] Hemoglobin [Mass/volume] in BloodOrdered By: Car Melvin on 12-18-2023 Hemoglobin (Bld) [Mass/Vol] 13.3 g/dL 13.0-17.0 [facility] Comment on above: Performed By: #### B FELIX, CBC #### [address] Leukocytes [#/volume] correc rere for nucleated erythrocytes in Blood by Automated counOrdered By: Car Melvin on 12-18-2023 WBC corrected for nucl RBC Auto (Bld) [#/Vol] 6.3 10*3/uL 4.1-10.5 [facility] Leukocytes [#/volume] in Blo od by Automated countOrdered By: Car Melvin on 12-18-2023 WBC (Bld) [#/Vol] 6.3 10*3/uL 4.1-10.5 [facility] Comment on above: Performed By: #### B MP, CBC #### [facility] [address] [place] [address] [place] Lymphocytes [#/volume] in Bl ood by Automated countOrdered By: Car Melvin on 12-18-2023 Lymphocytes (Bld) [#/Vol] 2.7 10*3/uL 1.00-4.8 [facility] Comment on above: Performed By: #### B MP, CBC #### [address] Lymphocytes/100 leukocytes i n Blood by Automated countOrdered By: Car Melvin on 12-18-2023 Lymphocytes/100 WBC (Bld) 43.4 % . [facility] Comment on above: Performed By: #### B MP, CBC #### [facility] [address] [place] [address] MCH [Entitic mass] by Automa rere countOrdered By: Car Melvin on 12-18-2023 MCH (RBC) [Entitic mass] 32.5 pg 27.5-35.2 [facility] Comment on above: Performed By: #### B MP, CBC #### [facility] [address] [place] [address] MCHC Auto (RBC) [Mass/Vol]Or dered By: Car Melvin on 12-18-2023 MCHC (RBC) [Mass/Vol] 34.7 g/dL 32.5-35.6 [facility] MCV [Entitic volume] by Auto mated countOrdered By: Car Melvin on 12-18-2023 MCV (RBC) [Entitic vol] 93.6 fL 83.5-101 [facility] Comment on above: Performed By: #### B MP, CBC #### [facility] [address] Neutrophils [#/volume] in Bl ood by Automated countOrdered By: Car Melvin on 12-18-2023 Neutrophils (Bld) [#/Vol] 2.6 10*3/uL 1.8-7.7 [facility] Comment on above: Performed By: #### B MP, CBC #### [address] No Panel InformationOrdered By: Car Melvin on 12-18-2023 Estimated GFR (CKD-EPI) > 60.0 mL/Min [facility] Creatinine Clearance (Chem N/A [facility] Nucleated erythrocytes [Pres ence] in Blood by Automated countOrdered By: Car Melvin on 12-18-2023 Nucleated RBC Auto Ql (Bld) 0.1 /100{WBC} 0-0.5 [facility] Platelet mean volume [Entiti c volume] in Blood by Automated countOrdered By: Car Melvin on 12-18-2023 Platelet mean volume (Bld) [Entitic vol] 8.6 fL 6.6-10.1 [facility] Comment on above: Performed By: #### B MP, CBC #### [address] Platelets [#/volume] in Bloo d by Automated countOrdered By: Car Melvin on 12-18-2023 Platelets (Bld) [#/Vol] 165 10*3/uL 150-450 [facility] Comment on above: Performed By: #### B MP, CBC #### [address] Potassium [Moles/volume] in Serum or PlasmaOrdered By: Car Melvin on 12-18-2023 Potassium [Moles/Vol] 4.1 mmol/L 3.5-5.1 [facility] Comment on above: Performed By: #### B MP, CBC #### [address] Serum or plasma anion gap de terminationOrdered By: Car Melvin on 12-18-2023 Anion gap [Moles/Vol] 11.3 mmol/L 6.0-15.0 [facility] Comment on above: Performed By: #### B MP, CBC #### [facility] [address] [place] [address] [place] Sodium [Moles/volume] in Ser um or PlasmaOrdered By: Car Melvin on 12-18-2023 Sodium [Moles/Vol] 138 mmol/L 136-145 [facility] Comment on above: Performed By: #### B MP, CBC #### [facility] [address] Urea nitrogen [Mass/volume] in Serum or PlasmaOrdered By: Car Melvin on 12-18-2023 Urea nitrogen [Mass/Vol] 24 mg/dL 7-25 [facility] Comment on above: Performed By: #### B MP, CBC #### [facility] [address] Glucose mean value [Mass/vol ume] in Blood Estimated from glycated hemoglobinon 10-03-2023 Average glucose Estimated from glycated hemoglobin (Bld) [Mass/Vol] 148 mg/dL [facility] - Hematology and Cell countson 10-03-2023 HbA1c (Bld) [Mass fraction] 6.8 % High 4.5-6.2 [facility] Comment on above: ADA RECOMMENDED LIMI T 4.0 - 6.0ADA THERAPEUTIC TARGET < 7.0ACTION SUGGESTED> 7.0 CBC AUTO DIFFon 07-06-2022 BASO # 0.0 103/ul Normal 0.0-0.1 [facility] Comment on above: Performed By: #### C BC #### [facility] [address] [address] [address] Franklin Goodman Basophils/100 WBC (Bld) 0.6 % Normal 0.2-2.0 [facility] Comment on above: Performed By: #### C BC #### [facility] [address] [address] [address] Franklin Goodman EO # 0.3 103/ul Normal 0.0-0.7 [facility] Comment on above: Performed By: #### C BC #### [facility] [address] [place] [address] Dr. Franklin Goodman Eosinophils/100 WBC (Bld) 5.6 % Normal 0.9-7.0 [facility] Comment on above: Performed By: #### C BC #### [facility] [address] [place] [address] Dr. Franklin Goodman Erythrocyte distribution width (RBC) [Ratio] 12.3 % Normal 11.0-15.0 [facility] Comment on above: Performed By: #### C BC #### [facility] [address] [place] [address] Dr. Franklin Goodman Hematocrit (Bld) [Volume fraction] 42.0 % Normal 42.0-54.0 [facility] Comment on above: Performed By: #### C BC #### [facility] [address] [place] [address] Dr. Franklin Goodman Hemoglobin (Bld) [Mass/Vol] 14.4 g/dL Normal 14.0-18.0 [facility] Comment on above: Performed By: #### C BC #### [facility] [address] [place] [address] Dr. Franklin Goodman IG # 0.02 10e3/ul Normal 0.00-0.03 [facility] Comment on above: Performed By: #### C BC #### [facility] [address] [place] [address] Dr. Franklin Goodman IG % 0.4 % Normal 0.0-0.5 [facility] Comment on above: Performed By: #### C BC #### [facility] [address] [place] [address] Dr. Franklin Goodman LYMPH # 1.9 103/ul Normal 1.2-3.8 [facility] Comment on above: Performed By: #### C BC #### [facility] [address] [place] [address] Dr. Franklin Goodman Lymphocytes/100 WBC (Bld) 39.4 % Normal 20.5-60.0 [facility] Comment on above: Performed By: #### C BC #### [facility] [address] [place] [address] Dr. Franklin Goodman MANUAL DIFF REQ NO Normal [facility] Comment on above: Performed By: #### C BC #### [facility] [address] [place] [address] Dr. Franklin Goodman MCH (RBC) [Entitic mass] 32.0 pg Normal 25.9-34.0 [facility] Comment on above: Performed By: #### C BC #### [facility] [address] [place] [address] Dr. Franklin Goodman MCHC (RBC) [Mass/Vol] 34.3 g/dL Normal 29.9-35.2 [facility] Comment on above: Performed By: #### C BC #### [facility] [address] [place] [address] Dr. Franklin Goodman MCV (RBC) [Entitic vol] 93.3 fL Normal 80.0-94.0 [facility] Comment on above: Performed By: #### C BC #### [facility] [address] [place] [address] Dr. Franklin Goodman MONO # 0.6 103/ul Normal 0.3-0.8 [facility] Comment on above: Performed By: #### C BC #### [facility] [address] [place] [address] Dr. Franklin Goodman Monocytes/100 WBC (Bld) 12.5 % Critically high 1.7-12. 0 [facility] Comment on above: Performed By: #### C BC #### [facility] [address] [place] [address] Dr. Franklin Goodman NEUT # 2.0 103/ul Normal 1.4-6.5 [facility] Comment on above: Performed By: #### C BC #### [facility] [address] [place] [address] Dr. Franklin Goodman Neutrophils/100 WBC (Bld) 41.5 % Critically low 43.0-75.0 [facility] Comment on above: Performed By: #### C BC #### [facility] [address] [address] [address] Franklin Goodman Platelet mean volume (Bld) [Entitic vol] 10.0 fL Normal 9.5-13.5 [facility] Comment on above: Performed By: #### C BC #### [facility] [address] [address] [address] Franklin Goodman PLT 172 103/ul Normal 150-450 [facility] Comment on above: Performed By: #### C BC #### [facility] [address] [address] [address] Franklin Goodman RBC 4.50 106/ul Critically low 4.70-6.10 [facility] Comment on above: Performed By: #### C BC #### [facility] [address] [address] [address] Franklin Goodman WBC 4.8 103/ul Normal 4.0-11.0 [facility] Comment on above: Performed By: #### C BC #### [facility] [address] [address] [address] Franklin Goodman Complete Blood Count and Dif shayy 07-06-2022 Anisocytosis Ql (Bld) [facility] [employer] Other Basophilic stippling LM Ql (Bld) [facility] [employer] Other RBC morphology finding Nom (Bld) [employer] Other Complete Blood Count and Diff [employer] Other FERRITINon 07-06-2022 Ferritin [Mass/Vol] 944.6951919 ng/mL 26. 0-388.0 ng/mL [facility] Other FERRITIN see note [facility] Other Ferritin [Mass/Vol] 245.0 ng/mL Normal 26.0-388.0 [facility] Comment on above: Performed By: #### F ERR, FETIBC, B12FOL #### [facility] [address] [address] [address] Franklin Goodman GLYCOHEMOGLOBIN A1Con 2022 ADA RECOMMENDATION SEE BELOW Normal [facility] Comment on above: Result Comment: ADA RECOMMENDED LIMIT 4.0 - 6.0 ADA THERAPEUTIC TARGET < 7.0 ACTION SUGGESTED > 7.0 Performed By: #### A 1C #### [facility] [address] [address] [address] Franklin Goodman Glucose [Mass/Vol] 146 mg/dL Normal [facility] Comment on above: Performed By: #### A 1C #### [facility] [address] [address] [address] Franklin Goodman HbA1c (Bld) [Mass fraction] 6.7 % Critically high 4.5-6.2 [facility] Comment on above: Performed By: #### A 1C #### [facility] [address] [place] [address] Dr. Franklin Goodman IRON AND TIBCon 07-06-2022 Iron [Mass/Vol] 427.6191640 ug/dL 65.0-17 5.0 ug/dL [facility] [employer] Other IRON AND TIBC 371.0 ug/dL 250.0-450.0 ug/dL [employer] Other IRON AND TIBC 34.8 % [employer] Other % SATURATION 34.8 % Normal [facility] Comment on above: Performed By: #### F ERR, FETIBC, B12FOL #### [facility] [address] [address] [address] Franklin Goodman Iron [Mass/Vol] 129.0 ug/dL Normal 65.0-175.0 [facility] Comment on above: Performed By: #### F ERR, FETIBC, B12FOL #### [facility] [address] [address] [address] Franklin Goodman TIBC DIRECT 371.0 ug/dL Normal 250.0-450.0 [facility] Comment on above: Performed By: #### F ERR, FETIBC, B12FOL #### [facility] [address] [place] [address] Dr. Franklin Goodman VIT B12 AND FOLATEon 023 Cobalamin (Vitamin B12) [Mass/Vol] 768.7497861 pg/mL 193.0-986.0 pg/mL [facility] [employer] Other VIT B12 AND FOLATE 23.00 ng/mL 8.60-58.9 0 ng/mL [employer] Other Cobalamin (Vitamin B12) [Mass/Vol] 306.0 pg/mL Normal 193.0-986.0 [facility] Comment on above: Performed By: #### F ERR, FETIBC, B12FOL #### [facility] [address] [place] [address] Dr. Franklin Goodman FOLATE 23.00 ng/mL Normal 8.60-58.90 [facility] Comment on above: Performed By: #### F ERR, FETIBC, B12FOL #### [facility] [address] [place] [address] Dr. Franklin Goodman CBC AUTO DIFFon 03-04-2022 BASO # 0.1 103/ul Normal 0.0-0.1 [facility] Comment on above: Performed By: #### B MP, ALT, LIPID #### [facility] [address] [place] [address] Dr. Franklin Goodman Basophils/100 WBC (Bld) 1.2 % Normal 0.2-2.0 [facility] Comment on above: Performed By: #### B MP, ALT, LIPID #### [facility] [address] [place] [address] Dr. Franklin Goodman EO # 0.4 103/ul Normal 0.0-0.7 [facility] Comment on above: Performed By: #### B MP, ALT, LIPID #### [facility] [address] [place] [address] Dr. Franklin Goodman Eosinophils/100 WBC (Bld) 8.9 % Critically high 0.9-7.0 [facility] Comment on above: Performed By: #### B MP, ALT, LIPID #### [facility] [address] [place] [address] Dr. Franklin Goodman Erythrocyte distribution width (RBC) [Ratio] 12.7 % Normal 11.0-15.0 [facility] Comment on above: Performed By: #### B MP, ALT, LIPID #### [facility] [address] [place] [address] Dr. Franklin Goodman Hematocrit (Bld) [Volume fraction] 39.3 % Critically low 42.0-54.0 [facility] Comment on above: Performed By: #### B MP, ALT, LIPID #### [facility] [address] [place] [address] Dr. Franklin Goodman Hemoglobin (Bld) [Mass/Vol] 13.4 g/dL Critically low 14.0-18.0 [facility] Comment on above: Performed By: #### B MP, ALT, LIPID #### [facility] [address] [place] [address] Dr. Franklin Goodman IG # 0.02 10e3/ul Normal 0.00-0.03 [facility] Comment on above: Performed By: #### B MP, ALT, LIPID #### [facility] [address] [place] [address] Dr. Franklin Goodman IG % 0.4 % Normal 0.0-0.5 [facility] Comment on above: Performed By: #### B MP, ALT, LIPID #### [facility] [address] [place] [address] Dr. Franklin Goodman LYMPH # 2.0 103/ul Normal 1.2-3.8 [facility] Comment on above: Performed By: #### B MP, ALT, LIPID #### [facility] [address] [place] [address] Dr. Franklin Goodman Lymphocytes/100 WBC (Bld) 42.1 % Normal 20.5-60.0 [facility] Comment on above: Performed By: #### B MP, ALT, LIPID #### [facility] [address] [place] [address] Dr. Franklin Goodman MANUAL DIFF REQ NO Normal [facility] Comment on above: Performed By: #### B MP, ALT, LIPID #### [facility] [address] [place] [address] Dr. Franklin Goodman MCH (RBC) [Entitic mass] 32.1 pg Normal 25.9-34.0 [facility] Comment on above: Performed By: #### B MP, ALT, LIPID #### [facility] [address] [place] [address] Dr. Franklin Goodman MCHC (RBC) [Mass/Vol] 34.1 g/dL Normal 29.9-35.2 [facility] Comment on above: Performed By: #### B MP, ALT, LIPID #### [facility] [address] [place] [address] Dr. Franklin Goodman MCV (RBC) [Entitic vol] 94.0 fL Normal 80.0-94.0 [facility] Comment on above: Performed By: #### B MP, ALT, LIPID #### [facility] [address] [place] [address] Dr. Franklin Goodman MONO # 0.6 103/ul Normal 0.3-0.8 [facility] Comment on above: Performed By: #### B MP, ALT, LIPID #### [facility] [address] [place] [address] Dr. Franklin Goodman Monocytes/100 WBC (Bld) 12.0 % Normal 1.7-12.0 [facility] Comment on above: Performed By: #### B MP, ALT, LIPID #### [facility] [address] [place] [address] Dr. Franklin Goodman NEUT # 1.7 103/ul Normal 1.4-6.5 [facility] Comment on above: Performed By: #### B MP, ALT, LIPID #### [facility] [address] [place] [address] Dr. Franklin Goodman Neutrophils/100 WBC (Bld) 35.4 % Critically low 43.0-75.0 [facility] Comment on above: Performed By: #### B MP, ALT, LIPID #### [facility] [address] [address] [address] Franklin Goodman Platelet mean volume (Bld) [Entitic vol] 10.4 fL Normal 9.5-13.5 [facility] Comment on above: Performed By: #### B MP, ALT, LIPID #### [facility] [address] [address] [address] Franklin Goodman PLT 150 103/ul Normal 150-450 [facility] Comment on above: Performed By: #### B MP, ALT, LIPID #### [facility] [address] [address] [address] Franklin Goodman RBC 4.18 106/ul Critically low 4.70-6.10 [facility] Comment on above: Performed By: #### B MP, ALT, LIPID #### [facility] [address] [address] [address] Franklin Goodman WBC 4.8 103/ul Normal 4.0-11.0 [facility] Comment on above: Performed By: #### B MP, ALT, LIPID #### [facility] [address] [address] [address] Franklin Goodman GLYCOHEMOGLOBIN A1Con 2021 ADA RECOMMENDATION SEE BELOW Normal [facility] Comment on above: Result Comment: ADA RECOMMENDED LIMIT 4.0 - 6.0 ADA THERAPEUTIC TARGET < 7.0 ACTION SUGGESTED > 7.0 Performed By: #### B MP, ALT, LIPID #### [facility] [address] [place] [address] Dr. Franklin Goodman Glucose [Mass/Vol] 157 mg/dL Normal [facility] Comment on above: Performed By: #### B MP, ALT, LIPID #### [facility] [address] [address] [address] Franklin Goodman HbA1c (Bld) [Mass fraction] 7.1 % Critically high 4.5-6.2 [facility] Comment on above: Performed By: #### B MP, ALT, LIPID #### [facility] [address] [address] [address] Franklin Goodman LIPID PROFILEon 03-04-2022 CHOL-HDL RATIO NORM SEE BELOW Normal [facility] Comment on above: Result Comment: 3.3 - 4.4 LOW RISK 4.4 - 7.1 AVERAGE RISK 7.1 - 11.0 MODERATE RISK >11.0 HIGH RISK Performed By: #### B MP, ALT, LIPID #### [facility] [address] [address] [address] Franklin Goodman Cholesterol [Mass/Vol] 131 mg/dL Normal <=200 [facility] Comment on above: Performed By: #### B MP, ALT, LIPID #### [facility] [address] [address] [address] Franklin Goodman Cholesterol in HDL [Mass/Vol] 38 mg/dL Critically low 40-60 [facility] Comment on above: Performed By: #### B MP, ALT, LIPID #### [facility] [address] [address] [address] Franklin Goodman Cholesterol in LDL [Mass/Vol] 47.8 mg/dL Normal [facility] Comment on above: Performed By: #### B MP, ALT, LIPID #### [facility] [address] [address] [address] Franklin Goodman Cholesterol.total/Choles terol in HDL [Mass ratio] 3.4 {ratio} Normal [facility] Comment on above: Performed By: #### B MP, ALT, LIPID #### [facility] [address] [address] [address] Franklin Goodman HDL NORMAL > or = 60 mg/dl - LOW CARDIOVASCULAR RISK <40 mg/dl - HIGH CARDIOVASCULAR RISK Normal [facility] Comment on above: Performed By: #### B MP, ALT, LIPID #### [facility] [address] [address] [address] Franklin Goodman LDL CALC NORMAL SEE BELOW Normal [facility] Comment on above: Result Comment: <100 mg/dl OPTIMAL 100 - 129 mg/dl NEAR OR ABOVE OPTIMAL 130 - 159 mg/dl BORDERLINE HIGH 160 - 189 mg/dl HIGH >190 mg/dl VERY HIGH Performed By: #### B MP, ALT, LIPID #### [facility] [address] [address] [address] Franklin Goodman Triglyceride [Mass/Vol] 226 mg/dL Critically high <=150 [facility] Comment on above: Performed By: #### B MP, ALT, LIPID #### [facility] [address] [address] [address] Franklin Goodman VLDL CALC 45.2 mg/dL Normal [facility] Comment on above: Performed By: #### B MP, ALT, LIPID #### [facility] [address] [place] [address] Dr. Franklin Goodman MICROALBUMIN, RAND URon - mALB 3.9 mg/L Normal <=30.0 [facility] Comment on above: Performed By: #### M ALBR #### [facility] [address] [place] [address] Dr. Franklin Goodman PROF CHEM 8 (BAS METB)on Anion gap [Moles/Vol] 10.3 mmol/L Normal [facility] Comment on above: Performed By: #### B MP, ALT, LIPID #### [facility] [address] [address] [address] Franklin Goodman Calcium [Mass/Vol] 9.3 mg/dL Normal 8.5-10.[address] [facility] Comment on above: Performed By: #### B MP, ALT, LIPID #### [facility] [address] [place] [address] Dr. Franklin Goodman Chloride [Moles/Vol] 103 mmol/L Normal 98-107 [facility] Comment on above: Performed By: #### B MP, ALT, LIPID #### [facility] [address] [place] [address] Dr. Franklin Goodman CO2 [Moles/Vol] 30.9 mmol/L Normal 21.0-32.0 [facility] Comment on above: Performed By: #### B MP, ALT, LIPID #### [facility] [address] [place] [address] Dr. Franklin Goodman Creatinine [Mass/Vol] 0.95 mg/dL Normal 0.70-1.30 [facility] Comment on above: Performed By: #### B MP, ALT, LIPID #### [facility] [address] [address] [address] Franklin Goodman EGFR-AF AZERBAIJANI >60 Normal >=60 [facility] Comment on above: Performed By: #### B MP, ALT, LIPID #### [facility] [address] [address] [address] Franklin Goodman EGFR-NON AF AZERBAIJANI >60 Normal >=60 [facility] Comment on above: Performed By: #### B MP, ALT, LIPID #### [facility] [address] [address] [address] Franklin Goodman Glucose [Mass/Vol] 141 mg/dL Critically high 74-106 [facility] Comment on above: Performed By: #### B MP, ALT, LIPID #### [facility] [address] [address] [address] Franklin Goodman Potassium [Moles/Vol] 4.2 mmol/L Normal 3.5-5.1 [facility] Comment on above: Performed By: #### B MP, ALT, LIPID #### [facility] [address] [address] [address] Franklin Goodman Sodium [Moles/Vol] 140 mmol/L Normal 136-[address] [facility] Comment on above: Performed By: #### B MP, ALT, LIPID #### [facility] [address] [address] [address] Franklin Goodman Urea nitrogen [Mass/Vol] 16.0 mg/dL Normal 7.0-18.0 [facility] Comment on above: Performed By: #### B MP, ALT, LIPID #### [facility] [address] [address] [address] Franklin Goodman Urea nitrogen/Creatinine [Mass ratio] 16.8 mg/mg Normal [facility] Comment on above: Performed By: #### B MP, ALT, LIPID #### [facility] [address] [address] [address] Franklin Goodman SGPTon 03-04-2022 ALT [Catalytic activity/Vol] 52 U/L Normal 16-63 [facility] Comment on above: Performed By: #### B MP, ALT, LIPID #### [facility] [address] [address] [address] Franklin Goodman GLYCOHEMOGLOBIN A1Con 2021 ADA RECOMMENDATION SEE BELOW Normal [facility] Comment on above: Result Comment: ADA RECOMMENDED LIMIT 4.0 - 6.0 ADA THERAPEUTIC TARGET < 7.0 ACTION SUGGESTED > 7.0 Performed By: #### B MP, ALT, LIPID #### [facility] [address] [address] [address] Franklin Goodman Glucose [Mass/Vol] 148 mg/dL Normal [facility] Comment on above: Performed By: #### B MP, ALT, LIPID #### [facility] [address] [address] [address] Franklin Goodman HbA1c (Bld) [Mass fraction] 6.8 % Critically high 4.5-6.2 [facility] Comment on above: Performed By: #### B MP, ALT, LIPID #### [facility] [address] [address] [address] Franklin Goodman Vital Signs Date Time Vital Sign Value Performing Clinician Facility 01-30-2024 13:56-0400 Body height 172.72 cm DO Xavier Ball Work Phone: [facility] 01-30-2024 13:56-0400 Body mass index (BMI) [Ratio] 32.8 kg/m2 DO Xavier Ball Work Phone: [facility] 01-30-2024 13:56-0400 Body weight 98.08 kg DO Xavier Ball Work Phone: [facility] 01-30-2024 13:56-0400 Diastolic blood pressure 71 mm[Hg] DO Xavier Ball Work Phone: [facility] 01-30-2024 13:56-0400 Heart rate 76 /min DO Xavier Ball Work Phone: [facility] 01-30-2024 13:56-0400 Respiratory rate 12 /min DO Xavier Ball Work Phone: [facility] 01-30-2024 13:56-0400 Systolic blood pressure 151 mm[Hg] DO Xavier Ball Work Phone: [facility] 12-27-2023 13:10-0400 Diastolic blood pressure 67 mm[Hg] DO Xavier Ball Work Phone: [facility] 12-27-2023 13:10-0400 Heart rate 67 /min DO Xavier Ball Work Phone: [facility] 12-27-2023 13:10-0400 Respiratory rate 14 /min DO Xavier Ball Work Phone: [facility] 12-27-2023 13:10-0400 SaO2% (BldA) [Mass fraction] 94 % DO Xavier Ball Work Phone: [facility] 12-27-2023 13:10-0400 Systolic blood pressure 133 mm[Hg] DO Xavier Ball Work Phone: [facility] 12-27-2023 12:28-0400 Body temperature 97.6 [degF] DO Xavier Ball Work Phone: [facility] 12-27-2023 12:28-0400 Inhaled oxygen flow rate 1 L/min DO Xavier Ball Work Phone: [facility] 12-27-2023 08:30-0400 Body height 170.18 cm DO Xavier Ball Work Phone: [facility] 12-27-2023 08:30-0400 Body weight 97.52 kg DO Xavier Ball Work Phone: [facility] 10-06-2023 08:33-0400 Body height 172.72 cm [facility] 10-06-2023 08:33-0400 Body mass index (BMI) [Ratio] 32.5 kg/m2 [facility] 10-06-2023 08:33-0400 Body weight 97.18 kg [facility] 10-06-2023 08:33-0400 Diastolic blood pressure 69 mm[Hg] [facility] 10-06-2023 08:33-0400 Heart rate 64 /min [facility] 10-06-2023 08:33-0400 Respiratory rate 12 /min [facility] 10-06-2023 08:33-0400 Systolic blood pressure 129 mm[Hg] [facility] 06-07-2023 08:30-0500 Body height 172.72 cm Xavier Ball Other [facility] [employer] Other 06-07-2023 08:30-0500 Body mass index (BMI) [Ratio] 32.78 kg/m2 Xavier Ball Other [facility] Other 06-07-2023 08:30-0500 Body weight 97.8 kg Xavier Ball Other [facility] Other 06-07-2023 08:30-0500 Diastolic blood pressure 88 mm[Hg] Xavier Ball Other [facility] Other 06-07-2023 08:30-0500 Systolic blood pressure 139 mm[Hg] Xavier Ball Other [facility] Other 03-06-2023 09:30-0400 Body height 172.72 cm Xavier Ball Other [facility] Other 03-06-2023 09:30-0400 Body mass index (BMI) [Ratio] 33.05 kg/m2 Xavier Ball Other [facility] Other 03-06-2023 09:30-0400 Body weight 98.61 kg Xavier Ball Other [facility] Other 03-06-2023 09:30-0400 Diastolic blood pressure 78 mm[Hg] Xavier Ball Other [facility] Other 03-06-2023 09:30-0400 Respiratory rate 12 /min Xavier Ball Other [facility] Other 03-06-2023 09:30-0400 Systolic blood pressure 170 mm[Hg] Xavier Ball Other [facility] Other 12-30-2022 13:15-0400 Body height 172.72 cm Xavier Ball Other [facility] Other 12-30-2022 13:15-0400 Body mass index (BMI) [Ratio] 32.54 kg/m2 Xavier Ball Other [facility] Other 12-30-2022 13:15-0400 Body weight 97.07 kg Xavier Ball Other [facility] Other 12-30-2022 13:15-0400 Diastolic blood pressure 71 mm[Hg] Xavier Ball Other [facility] Other 12-30-2022 13:15-0400 Respiratory rate 12 /min Xavier Ball Other [facility] Other 12-30-2022 13:15-0400 Systolic blood pressure 135 mm[Hg] Xavier Ball Other [facility] Other 12-15-2022 09:30-0400 Body height 172.72 cm Xavier Ball Other [facility] Other 12-15-2022 09:30-0400 Body mass index (BMI) [Ratio] 32.75 kg/m2 Xavier Ball Other [facility] Other 12-15-2022 09:30-0400 Body weight 97.71 kg Xavier Ball Other [facility] Other 12-15-2022 09:30-0400 Diastolic blood pressure 89 mm[Hg] Xavier Ball Other [facility] Other 12-15-2022 09:30-0400 Respiratory rate 12 /min Xavier Ball Other [facility] Other 12-15-2022 09:30-0400 Systolic blood pressure 173 mm[Hg] Xavier Ball Other [facility] Other 07-06-2022 10:30-0500 Body height 172.72 cm Xavier Ball Other [facility] Other 07-06-2022 10:30-0500 Body mass index (BMI) [Ratio] 32.35 kg/m2 Xavier Ball Other [facility] Other 07-06-2022 10:30-0500 Body weight 96.53 kg Xavier Ball Other [facility] Other 07-06-2022 10:30-0500 Diastolic blood pressure 70 mm[Hg] Xavier Ball Other [facility] Other 07-06-2022 10:30-0500 Respiratory rate 12 /min Xavier Ball Other [facility] Other 07-06-2022 10:30-0500 Systolic blood pressure 132 mm[Hg] Xavier Ball Other [facility] Other Encounters Encounter Date Encounter Type Care Provider Facility Start: 01-30-2024 End: 01-30-2024 ambulatory DO Xavier Jc Work Phone: [facility] Work Phone: Start: 01-30-2024 End: 01-30-2024 Patient encounter procedure DO Xavier Jc Work Phone: [facility] Work Phone: Start: 01-02-2024 End: 01-02-2024 ambulatory CAR Durham NGOZI Not Available Start: 12-27-2023 End: 12-27-2023 Admission to same day surgery center DO Xavier Ball Work Phone: [facility] [place] Start: 12-27-2023 End: 12-27-2023 ambulatory DO Xavier Ball Work Phone: [facility] Work Phone: Start: 12-18-2023 End: 12-18-2023 Patient encounter procedure DO Xavier Greene Work Phone: [facility] Work Phone: Start: 12-18-2023 End: 12-18-2023 ambulatory DO Xavier Greene Work Phone: [facility] Work Phone: Start: 12-18-2023 Encounter for preprocedural laboratory examination Car Melvin [facility] Start: 12-14-2023 End: 12-14-2023 ambulatory CAR Durham RHONDAROMAN Not Available Start: 10-26-2023 End: 10-26-2023 ambulatory JEFFREY BONNER Not Available Start: 10-06-2023 End: 10-06-2023 ambulatory [facility] Work Phone: Start: 10-06-2023 End: 10-06-2023 Patient encounter procedure [facility] Work Phone: Start: 10-03-2023 Non-patient / Non-visit [facility] [employer] Work Phone: Start: 08-02-2023 End: 08-02-2023 Patient encounter procedure [facility] Work Phone: Start: 06-30-2023 End: 06-30-2023 amb[address] [facility] [employer] [facility] [employer] Other Start: 06-30-2023 Telephone encounter Xavier Ball [facility] Start: 06-25-2023 End: 06-25-2023 ambulatory Xavier Ball Other [facility] Other Start: 06-25-2023 Telephone encounter Xavier Ball [facility] Start: 06-07-2023 End: 06-07-2023 ambulatory Xavier Ball Other [facility] Other Start: 06-07-2023 Office outpatient vi sit 25 minutes Xavier Ball [facility] Start: 05-16-2023 End: 05-16-2023 ambulatory Xavier Ball Other [facility] Other Start: 05-16-2023 Office outpatient vi sit 15 minutes Xavier Ball [facility] Start: 05-16-2023 Telephone encounter Xavier Ball [facility] Start: 05-12-2023 End: 05-12-2023 ambulatory Xavier Ball Other [facility] Other Start: 05-12-2023 Telephone encounter Xavier Ball [facility] Start: 05-01-2023 End: 05-01-2023 ambulatory Xavier Ball Other [facility] Other Start: 05-01-2023 Telephone encounter Xavier Ball [facility] Start: 03-16-2023 End: 03-16-2023 ambulatory Xavier Ball Other [facility] Other Start: 03-16-2023 Telephone encounter Xavier Ball [facility] Start: 03-06-2023 End: 03-06-2023 ambulatory Xavier Ball Other [facility] Other Start: 03-06-2023 Patient encounter procedure Xavier Ball [facility] Start: 01-19-2023 End: 01-19-2023 ambulatory Xavier Ball Other [facility] Other Start: 01-19-2023 Telephone encounter Xavier Greene [facility] Start: 01-18-2023 ([facility]) [facility] Sched[facility] Xavier Jc [facility] Start: 01-18-2023 End: 01-18-2023 ambulatory Xavier Greene Other [facility] Other Start: 01-18-2023 Telephone encounter Xavier Greene [facility] Start: 12-30-2022 End: 12-30-2022 ambulatory Xavier Greene Other [facility] Other Start: 12-30-2022 Office outpatient vi sit 15 minutes Xavier Jc [facility] Start: 12-16-2022 End: 12-16-2022 ambulatory Xavier Greene Other [facility] Other Start: 12-16-2022 Telephone encounter Xavier Greene [facility] Start: 12-15-2022 End: 12-15-2022 ambulatory Xavier Greene Other [facility] Other Start: 12-15-2022 Office outpatient vi sit 25 minutes Xavier Greene [facility] Start: 07-07-2022 End: 07-07-2022 ambulatory Xavier Greene Other [facility] Other Start: 07-07-2022 Telephone encounter Xavier Greene [facility] Start: 07-06-2022 Office outpatient vi sit 25 minutes Xavier Greene [facility] Start: 07-06-2022 End: 07-07-[address] XAVIER GREENE Facility:[facility] Start: 06-24-2022 End: 06-24-2022 ambulatory Xavier Greene Other [facility] Other Start: 06-24-2022 Telephone encounter Xavier Greene [facility] Start: 03-07-2022 End: 03-14-[address] XAVIER GREENE Facility:[facility] Start: 03-04-2022 End: 03-05-[address] XAVIER GREENE Facility:[facility] Start: 03-02-2022 Adult health examination Gregory Greene Other [facility] Other Start: 10-25-2021 End: 10-26-[address] XAVIER GREENE Facility:[facility] Start: 08-26-[address] XAVIER GREENE Facili ty:[facility] Procedures Date Procedure Procedure Detail Performing Clinician Start: 12-27-2023 Excision of lesion of cheek DO Xavier Greene Work Phone: Start: 03-04-[address] JULIO CESAR GREENE Comment on above: Performed By: #### P [facility] #### [facility] [address] [place] [address] Dr. Franklin Goodman Start: 12-22-2020 Depression screening Be hemalatha Greene Other History of carotid endarterectomy Xavier Greene Other Screening for malign ant neoplasm of prostate Xavier Greene Other Plan of Treatment Date Care Activity Detail Author Start: 12-27-2023 [facility] Start: 12-27-2023 [facility] Patient Education Know your Meds [facility] Work Phone: Patient referral [facility] Work Phone: Immunizations Immunization Date Immunization Notes Care Provider Fa cili 03-30-2021 influenza virus vaccine, split virus (incl. purified surface antigen) Xavier Greene Other [facility] Other 03-30-2021 influenza virus vaccine, unspecified formulation [facility] 03-03-2020 influenza virus vaccine, split virus (incl. purified surface antigen) Xavier Greene Other [facility] Other 03-03-2020 influenza virus vaccine, unspecified formulation [facility] 05-28-2019 pneumococcal conjuga te vaccine, 13 valent Xavier Greene Other [facility] Payers Date Payer Category Payer Self-pay 1961 Unknown [id number] 1950 Unknown [id number] 2.16.84 [id number] 1950 Unknown [id number] 2.16.84 [id number] 1950 Unknown [id number] 2.16.84 [id number] 1948 Unknown [id number] 2.16.84 [id number] 1948 Unknown [id number] 2.16.84 [id number] 1948 Unknown [id number] 2.16.84 [id number] 1948 Unknown [id number] 2.16.84 [id number] 1948 Unknown [id number] 2.16.84 [id number] Medicare [id number] 2.1 [id number] Unknown [id number] Unknown [address] [place] [id number] Unknown [id number] 2.16.8 [id number] Unknown [id number] 2.16.8 [id number] Social History Date Type Detail Facility Sex Assigned At [facility] Other Start: 1950 Sex Assigned At Male [facility] Start: 12-18-2023 End: 12-27-2023 Tobacco smoking status NHIS Current some day smoker [facility] Goals Date Patient Goal Desired Activity /State Clinical Notes 06-24-2022 to 06-25-2023 Note Date & Type Note Facility 06-25-2023 Evaluation note Encounter Date Diagnosis Assessment Notes Jun, Primary hypertension (ICD-10 - I10) [facility] Other 01-17-2024 Evaluation note* Encounter Date Diagnosis [...] but will include in referral to ENT. [facility] Other 12-26-2023 Evaluation note* Encounter Date Diagnosis [...] his risk for more serious, prolonged illness [facility] Other 10-26-2023 Evaluation note* Encounter Date Diagnosis Assessment Notes Treatment Notes Treatment Clinical Notes Feb, Subacute maxillary sinusitis (ICD-10 - J01.00) [facility] Other 10-16-2023 Evaluation note* Encounter Date Diagnosis [...] (ICD-10 - Z12.5) Yearly RADHA and PSA [facility] Other 08-30-2023 Evaluation note* Encounter Date Diagnosis Assessment Notes Treatment Notes Treatment Clinical Notes Dec, Acute bronchitis due to other specified organisms (ICD-10 - J20.8) Instructed to use Robitussin or Mucinex for cough, saline or Flonase NS for congestion, Tylenol for pain and fever. Dec, Suspected COVID-19 virus infection (ICD-10 - Z20.822) Sent for COVID testing [facility] Other 08-11-2023 Evaluation note* Encounter Date Diagnosis [...] Microalbumin, Dilated eye exam and Foot exam [facility] Other 07-27-2023 Evaluation note* Encounter Date Diagnosis [...] Nov, Papule of mucosa (ICD-10 - K13.70) [facility] Other 02-15-2023 Evaluation note* Encounter Date Diagnosis [...] B12, FA. Consider endoscopy if anemia persists. [facility] Other 02-03-2023 Evaluation note* Encounter Date Diagnosis Assessment Notes Treatment Notes Treatment Clinical Notes Jun, Anemia, unspecified type (ICD-10 - D64.9) [facility] Other Evaluation noteNo InformationNort [facility] Other Evaluation note* Diagnosis Onset Date Resolution Status Type 2 diabetes mellitus with hyperglycemia acute Food poisoning noneactive ASHD (arteriosclerotic heart disease) acute Essential hypertension acute Facial pain acute Hypercholesterolemia acute Lumbar spondylosis acute Type 2 diabetes mellitus with hyperglycemia acute [facility] Work Phone: Evaluation note* Diagnosis Onset Date Resolution Status ASHD (arteriosclerotic heart disease) acute Essential hypertension acute Facial pain acute Hypercholesterolemia acute Lumbar spondylosis acute Nocturnal leg cramps acute Type 2 diabetes mellitus with diabetic polyneuropathy acute Type 2 diabetes mellitus with hyperglycemia acute [facility] Work Phone: Evaluation noteNo assessment information available [facility] Work Phone: History general Narrative - [...] KNEE ARTHROPLASTY 2017 Hospitalization History SEE SURGICAL [facility] Other History general Narrative - Reported* Type [...] KNEE ARTHROPLASTY 2017 Hospitalization History SEE SURGICAL [facility] Other Hospital Discharge instructions Additional Instructions No exertional activity Tylenol or Motrin for pain Antibiotic ointment to wounds 3 times per day May shower in 24 hours, blot wounds dry Call the office for any questions or concerns [facility] Summary Purpose Family History [...] DATE CREATED AUTHOR AUTHOR'S ORGANIZ ATION 01/04/2024 [facility] EPIC DATE CREATED AUTHOR AUTHOR'S ORGANIZ ATION 01/18/2024 [facility] REASON FOR VISIT (unrecogniz ed section and content) CT resultsBP readingscough 4 [id number] resultsCT denialwellnessATBsore throat, congestion since NEED CLEANED3 [...] BE BASED ON THE PRIMARY CLINICAL RECORDS. [facility]. provides no warranty or guarantee of the accuracy or completeness of information in this document.
[2024-07-05 09:34] LABS: Percent Iron Saturation 26.9 %
[2024-07-06 04:11] LABS: Vitamin B12 289 pg/mL (232-1245)
== END 2024-07-05 08:27 | disposition home or self-care (01) ==
LOC: LAB 08:28
PROVIDERS: PCP Internal Medicine; Visit Provider Internal Medicine
DX: D64.9 Anemia, unspecified (principal)
CPT/HCPCS: 36415; 82607; 82728; 82746; 83540; 83550; 85025

== ENCOUNTER 2024-07-26 09:14 | Outpatient (OUT) | payer MEDICARE, SELFPAY ==
--- OUTSIDE RECORDS SUMMARY | 2024-07-26 09:19 | XMS_ITS | CCD ---
Author Organization [facility] Care Team Providers Care Hot [place] Roller Name Role Phone JC, DR WILCOX Admitting [...] Unavailable DO Xavier Greene Primary Care Provider [phone] DO Car Dye Attending Provider [phone] JEFFREY BONNER Attending Unavailable EVERETT MCBRIDE Referring Unavailable NGOZI, CAR Durham Attending Unavailable JEFFREY BONNER Referring Unavailable NGOZI, CAR [place] Attending Unavailable Xavier Greene Primary Care Unavailable Car Dye Attending Unavailable Ngozi, Car Admitting Unavailable Ngozi, Car Attending Unavailable Ngozi, Car Admitting Unavailable Ball, Xavier Primary Care Unavailable Xavier Greene DO Primary Care Provider Allergies Allergy Classification Reported Allergen(s) Allergy Type Date of Onset Reaction(s) Facility (2 sources) Penicillin Drug Allergy 0 [facility] (20 sources) Doxycycline Drug Allergy 4 Unknown, Unknown Reaction [facility] (20 sources) Penicillin G Drug Allergy 4 Unknown, Unknown Reaction [facility] (1 source) Doxycycline Drug Allergy 4 [facility] Repository (1 source) Penicillin Drug Allergy 4 [facility] Repository (2 sources) Penicillins Propensity to adverse reactions to drug 0 Fever [facility] Medications Current Medications Medication Drug Class(es) Dates Sig (Normalized) Sig (Original) acetaminophen 500 mg oral tablet (6 sources) Start: 12-18-2023 take 2 tablets by mouth every six hours as needed for pain Acetaminophen (Acetaminophen Extra Strength) 500 mg tablet Active 1000 MG PO Every 6 hours as needed for pain December 17, 2023 11:00pm Start: 06-11-2020 take 2 tablets by mo ut every four hours as needed acetaminophen (TYLENOL) 325 mg tablet Take 2 tablets (650 mg total) by mouth every 4 (four) hours as needed (temperature greater than or equal to 38.5 C (101.5 F) and/or patient reported pain of 1-2). 30 tablet 06/11/2020 Active amLODIPine 5 mg oral tablet (20 sources) Dihydropyridine Calcium Channel Warren Start: 06-17-2024 End: 06-17-2024 take 1 tablet by mouth twice daily Amlodipine 5 mg tablet Active 5 MG PO Twice daily 180 90 June 17, 2024 5:46pm Start: 12-11-2023 End: 06-17-2024 take 1 tablet by mouth twice daily Amlodipine 5 mg tablet Discontinued 0 .ROUTE .COMPLEX 60 December 11, 2023 6:24am June 17, 2024 5:44pm TAKE 1 TABLET BY MOUTH TWICE DAILY Start: 07-14-2023 End: 12-11-2023 take 1 tablet by mouth twice daily Amlodipine 5 mg tablet Discontinued 5 MG PO Twice daily 60 30 August 06, 2023 11:00pm December 11, 2023 6:24am take 1 tablet by kayce once daily amLODIPine Besylate 5 mg TAKE 1 TABLET BY MOUTH DAILY Active ascorbic acid 500 mg oral tablet (4 sources) Vitamin C Start: 12-18-2023 take 1 tablet by mouth once daily Ascorbic Acid (Vitamin C) (C-500) 500 mg tablet Active 500 MG PO Daily December 17, 2023 11:00pm aspirin 81 mg chewable tablet (20 sources) Platelet Aggregation Inhibitor, Nonsteroidal Anti-inflammatory Drug Start: 12-18-2023 take 1 tablet by mouth once daily Aspirin (Aspirin Childrens) 81 mg tablet,chewable Active 81 MG PO Daily December 17, 2023 11:00pm Start: 08-02-2023 End: 12-18-2023 take 1 tablet by mouth once daily Aspirin 325 mg tablet Discontinued 325 MG PO Daily August 01, 2023 11:00pm December 18, 2023 1:26pm aspirin 81 mg ch ewable tablet Indications: myocardial infarction prevention Chew 1 tablet (81 mg total) and swallow in the morning. Indications: treatment to prevent a heart attack. Active take 1 tablet by kayce th every twenty-four hours Aspirin 325 MG 1 tablet Orally Once a day Active atorvastatin 80 mg oral tablet (20 sources) HMG-CoA Reductase Inhibitor Start: 12-18-2023 End: 06-17-2024 take 1 tablet by mouth once daily in the morning Atorvastatin 80 mg tablet Active 80 MG PO Every morning June 17, 2024 5:46pm TAKE 1 TABLET BY MOUTH DAILY Start: 09-11-2023 End: 12-18-2023 take 1 tablet by mouth once daily Atorvastatin 80 mg tablet Discontinued 0 .ROUTE .COMPLEX September 11, 2023 12:17pm December 18, 2023 1:28pm TAKE 1 TABLET BY MOUTH DAILY Start: 08-02-2023 End: 09-11-2023 take 1 tablet by mouth once daily Atorvastatin 80 mg tablet Discontinued 80 MG PO Daily August 01, 2023 11:00pm September 11, 2023 12:18pm clopidogrel 75 mg oral tablet (2 sources) P2Y12 Platelet Inhibitor Start: 05-20-2020 take 1 tablet by mouth once daily clopidogreL (PLAVIX) 75 mg tablet Take 1 tablet (75 mg total) by mouth daily. 30 tablet 3 05/20/2020 Active hydroCHLOROthiazide 12.5 mg oral capsule (2 sources) Thiazide Diuretic take 1 capsule by mouth once daily hydroCHLOROthiazide (MICROZIDE) 12.5 mg capsule Indications: hypertension Take 1 capsule (12.5 mg total) by mouth daily Indications: high blood pressure. Active lisinopril 40 mg oral tablet (20 sources) Angiotensin Converting Enzyme Inhibitor Start: 12-18-2023 End: 06-17-2024 take 1 tablet by mouth once daily in the morning Lisinopril 40 mg tablet Active 40 MG PO Every morning June 17, 2024 5:46pm TAKE 1 TABLET BY MOUTH DAILY Start: 09-11-2023 End: 12-18-2023 take 1 tablet by mouth once daily Lisinopril 40 mg tablet Discontinued 0 .ROUTE .COMPLEX 90 September 11, 2023 12:17pm December 18, 2023 1:28pm TAKE 1 TABLET BY MOUTH DAILY Start: 08-02-2023 End: 09-11-2023 take 1 tablet by mouth once daily Lisinopril 40 mg tablet Discontinued 40 MG PO Daily August 01, 2023 11:00pm September 11, 2023 12:18pm metFORMIN hydrochloride 1000 mg oral tablet (20 sources) Biguanide Start: 09-11-2023 take 1 tablet by mouth twice daily Metformin 1,000 mg tablet Active 0 .ROUTE .COMPLEX 180 September 11, 2023 12:18pm TAKE 1 TABLET BY MOUTH TWICE DAILY Start: 09-11-2023 take 1 tablet by kayce th twice daily Metformin Active 0 .ROUTE .COMPLEX 180 September 11, 2023 1:18pm TAKE 1 TABLET BY MOUTH TWICE DAILY Start: 08-02-2023 End: 09-11-2023 take 1 tablet by mouth twice daily Metformin 1,000 mg tablet Discontinued 1000 MG PO Twice daily August 01, 2023 11:00pm September 11, 2023 12:18pm Start: 09-21-2021 metFORMIN (GLU COPHAGE) 1000 mg tablet Take 500 mg by mouth in the morning and 500 mg before bedtime. 09/21/2021 Active metFORMIN (GLUCO PHAGE) 500 mg tablet Indications: type 2 diabetes mellitus Take 1 tablet (500 mg total) by mouth in the morning and 1 tablet (500 mg total) before bedtime. Indications: type 2 diabetes mellitus. Active take 1 tablet by kayce th twice daily metFORMIN HCl 1000 MG TAKE 1 TABLET BY MOUTH TWICE DAILY Active take 1 tablet by kayce th once daily metFORMIN HCl 1000 MG 1 tablet with a meal Orally Once a day Active metoprolol tartrate 50 mg oral tablet (20 sources) beta-Adrenergic Warren Start: 09-11-2023 take 1 tablet by mouth twice daily Metoprolol Tartrate 50 mg tablet Active 0 .ROUTE .COMPLEX 180 September 11, 2023 12:17pm TAKE 1 TABLET BY MOUTH TWICE DAILY Start: 08-02-2023 End: 09-11-2023 take 1 tablet by mouth twice daily Metoprolol Tartrate 50 mg tablet Discontinued 50 MG PO Twice daily August 01, 2023 11:00pm September 11, 2023 12:18pm Vit C,W-Ly-Xkicu-Lutein-Zeax an (Preservision Areds-2) 250-90-40-1 mg capsule (4 sources) Start: 12-18-2023 Vit C,E-Ek-Bpann-Lutein-Zeax an (Preservision Areds-2) 250-90-40-1 mg capsule Active 1 TAB PO Daily December 17, 2023 11:00pm Start: 12-18-2023 Vit C,E-Zn-[employer] Professor bq-Heykbi-Qotquq (Preservision Areds-2) 250-90-40-1 mg capsule Active 1 TAB PO Daily December 18, 2023 12:00am Completed/Discontinued Medications Medication Drug Class(es) Dates Sig (Normalized) Sig (Original) azithromycin 250 mg oral tablet (14 sources) Macrolide Antimicrobial Start: 01-18-2023 Azithromycin 250 MG as directed Orally daily for 5 days Dec, Not-Taking/PRN clindamycin 300 mg oral capsule (1 source) Lincosamide Antibacterial Start: 01-30-2024 End: 03-04-2024 take 1 capsule by mouth three times daily Clindamycin Hcl 300 mg capsule Discontinued 300 MG PO Three times daily 09 12January 29, 2024 11:00pm March 04, 2024 4:26pm fluticasone propionate 0.05 mg/actuat metered dose nasal spray (13 sources) Corticosteroid Start: 08-02-2023 End: 12-18-2023 Fluticasone Propionate 50 mcg/actuation spray,suspension Discontinued 2 SPRAY INTRANASAL Daily August 01, 2023 11:00pm December 18, 2023 1:27pm Start: 03-21-2023 Fluticasone Pr opionate 50 MCG/ACT [...] Coronary arteriosclerosis; Translations: [Atherosclerotic heart disease of knik coronary artery without angina pectoris] Chronic Deficiency [...] Translations: [Pure hypercholesterolemia ] Onset: 03-04-2022 Chronic Disorders of teeth and jaw (1 source) Dental abscess; Translations: [Periapical abscess without sinus] 01-30-2024 Episodic Essential hypertension (20 sources) Essential (primary) hypertension; Translations: [Essential hypertension] Onset: 03-07-2022 Chronic Headache; including migraine (8 sources) Pain in face; Translations: [Facial pain] 10-04-2023 Episodic Immunizations and screening for infectious disease (6 sources) Vaccination given; Translations: [Encounter for immunization] Episodic Intestinal infection (1 source) Bacterial foodborne intoxication, unspecified; Translations: [Food poisoning, unspecified] 08-02-2023 Episodic Occlusion or stenosis of precerebral arteries (20 sources) Occlusion and stenosis of multiple and bilateral cerebral arteries; Translations: [Occlusion and stenosis of bilateral carotid arteries] Onset: 06-10-2020 Resolved: 06-25-2020 Chronic Comment on above: US: right w/ plaque, left normal s/p CEA - 11/2023 Osteoarthritis (20 sources) Arthritis of shoulder region joint; Translations: [Primary osteoarthritis, left shoulder] 08-02-2023 Chronic Other aftercare (2 sources) 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; Translations: [OTH HALF-WAY CURRENT DRUG THERAPY] Onset: 03-07-2022 Episodic Other aftercare (18 sources) H/O: high risk medication; Translations: [Other senior care (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 therapy] Episodic Other aftercare (6 sources) Long-term current use of drug therapy; Translations: [Other senior care (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 therapy] Episodic Other connective tissue disease (4 sources) Cramp in lower limb; Translations: [Sleep related leg cramps] 10-06-2023 Chronic Other connective tissue disease (2 sources) Sleep related leg cramps; Translations: [Sleep related leg cramps] 10-06-2023 Chronic Other connective tissue disease (1 source) History of total knee arthroplasty; Translations: [Presence of unspecified artificial knee joint] 01-30-2024 Chronic Comment on above: bilateral Other ear and sense organ disorders (1 [...] nutritional; endocrine; and metabolic disorders (3 sources) Hypercalcemia; Translations: [Hypercalcemia] 12-19-2023 Chronic Other screening for suspected conditions (not mental disorders or infectious disease) (20 sources) Encounter for screening for malignant neoplasm of prostate; Translations: [Prostate specific antigen measurement] Onset: 03-07-2022 Episodic Comment on above: PSA: 1.84 - 02/2022, 1.82 - 02/2024, Other upper respiratory disease (1 source) Other [...] Translations: [Impaired fasting glucose] Resolved: 04-21-2020 Episodic Mood disorders (2 sources) Mood disorders Onset: 06-10-2020 06-10-2020 Neoplasms of unspecified nature or uncertain behavior [...] 03-10-2022 Episodic Other non-epithelial cancer of skin (4 sources) Basal cell carcinoma of cheek; Translations: [Basal cell carcinoma of skin of other parts of face] Onset: 05-22-2023 12-25-2023 Episodic Other nutritional; endocrine; and metabolic disorders (6 sources) Obesity; Translations: [Obesity, unspecified] Onset: 03-30-2021 Resolved: 03-02-2022 Chronic Unclassified (1 source) Suspected COVID-19 virus infection Z20.822 Unclassified (1 source) Right facial pain R51.9 Results Test Name Value Interpretation Reference Range Facility Basophils Auto (Bld) [#/Vol] on 07-05-2024 Basophils (Bld) [#/Vol] Automated basoph il count 0.0-0.1 [facility] Basophils/100 WBC Auto (Bld) on 07-05-2024 Basophils/100 WBC (Bld) Automated basoph il % 0.2-2.0 [facility] Eosinophils/100 WBC Auto (Bl d)on 02-14-2025 Eosinophils/100 WBC (Bld) Automated eosinophil % 0.9-7.0 [facility] Erythrocyte distribution wid th Auto (RBC) [Ratio]on 07-05-2024 Erythrocyte distribution width (RBC) [Ratio] Erythrocyte distribution width [Ratio] by Automated count 11.0-15.0 [facility] Hematocrit Auto (Bld) [Volum e fraction]on 07-05-2024 Hematocrit (Bld) [Volume fraction] Hematocrit [Volume Fraction] of Blood by Automated count Low 42.0-54.0 [facility] Hemoglobin [Mass/volume] in Bloodon 07-05-2024 Hemoglobin (Bld) [Mass/Vol] Hemoglobin [Mass/volume] in Blood Low 14.0-18.0 [facility] Iron binding capacity [Mass/ volume] in Serum or Plasmaon 07-05-2024 Iron binding capacity [Mass/Vol] Iron binding capacity [Mass/volume] in Serum or Plasma 250.0-450.0 [facility] Iron saturation [Mass Fracti on] in Serum or Plasmaon 07-05-2024 Iron saturation [Mass fraction] Iron saturation [Mass Fraction] in Serum or Plasma [facility] Laboratory - Chemistry and C hemistry - challengeon 07-05-2024 Cobalamin (Vitamin B12) [Mass/Vol] 289 pg/mL 232-1245 [facility] Comment on above: Performed at: [address] [id number] Director: Nasir Phillips PhD, Phone: [phone] Ferritin [Mass/Vol] 370.0 ng/mL 26.0-388.0 [facility] Iron [Mass/Vol] 90.0 ug/dL 65.0-175.0 [facility] Laboratory - Hematology and Cell countson 07-05-2024 Immature granulocytes/100 WBC (Bld) 1.7 % High 0.0-0.5 [facility] Leukocytes [#/volume] correc rere for nucleated erythrocytes in Blood by Automated counon 07-05-2024 WBC corrected for nucl RBC Auto (Bld) [#/Vol] Leukocytes [#/volume] corrected for nucleated erythrocytes in Blood by Automated coun 4.0-11.0 [facility] Lymphocytes Auto (Bld) [#/Vo l]on 07-05-2024 Lymphocytes (Bld) [#/Vol] Lymphocytes [#/volume] in Blood by Automated count 1.2-3.8 [facility] Lymphocytes/100 WBC Auto (Bl d)on 07-05-2024 Lymphocytes/100 WBC (Bld) Lymphocytes/100 leukocytes in Blood by Automated count 20.5-60.0 [facility] MCH Auto (RBC) [Entitic mass ]on 07-05-2024 MCH (RBC) [Entitic mass] MCH [Entitic ma ss] by Automated count 25.9-34.0 [facility] MCHC Auto (RBC) [Mass/Vol]on 07-05-2024 MCHC (RBC) [Mass/Vol] MCHC [Mass/volume] by Automated count 29.9-35.2 [facility] MCV Auto (RBC) [Entitic vol] on 07-05-2024 MCV (RBC) [Entitic vol] MCV [Entitic volume] by Automated count High 80.0-94.0 [facility] Monocytes Auto (Bld) [#/Vol] on 07-05-2024 Monocytes (Bld) [#/Vol] Automated blood monocyte count 0.3-0.8 [facility] Monocytes/100 WBC Auto (Bld) on 07-05-2024 Monocytes/100 WBC (Bld) Automated monocy te % 1.7-12.0 [facility] Neutrophils Auto (Bld) [#/Vo l]on 07-05-2024 Neutrophils (Bld) [#/Vol] Neutrophils [#/volume] in Blood by Automated count 1.4-6.5 [facility] Neutrophils/100 WBC Auto (Bl d)on 07-05-2024 Neutrophils/100 WBC (Bld) Automated neutrophil % Low 43.0-75.0 [facility] No Panel Informationon 07-05 Eosinophils # (Auto) 0.2 10 3/uL 0.0-0.7 [facility] Folate 17.50 ng/mL 8.60-58.90 [facility] Immature Granulocyte # (Auto) 0.09 10 3/uL High 0.00-0.03 [facility] Platelet mean volume Auto (B ld) [Entitic vol]on 07-05-2024 Platelet mean volume (Bld) [Entitic vol] Platelet mean volume [Entitic volume] in Blood by Automated count 9.5-13.5 [facility] Platelets Auto (Bld) [#/Vol] on 07-05-2024 Platelets (Bld) [#/Vol] Platelets [#/volume] in Blood by Automated count 150-450 [facility] RBC Auto (Bld) [#/Vol]on RBC (Bld) [#/Vol] Erythrocytes [#/volume] in Blood by Automated count Low 4.70-6.10 [facility] Capillary blood glucose jacqueline urement by glucometer (mass/volume)Ordered By: Car Dye on 12-27-2023 Glucose [Mass/Vol] 148 mg/dL [facility] Comment on above: Random Glucose Refer ence Range is dependent on time and content of last meal. Glucose of more than 200 mg/dL in a nonstressed, ambulatory subject supports the diagnosis of Diabetes Mellitus. Result Comment: [facility] Glucose Reference Range is dependent on time and content of last meal. Glucose of more than 200 mg/dL in a nonstressed, ambulatory subject supports the diagnosis of Diabetes Mellitus. PERFORMED BY: [facility] [address] [place] [address] PATHOLOGIST VETERANS' COORDINATOR MARINA DANIEL M.D. Performed By: #### G LULS #### Point of Care testing , Glucose Poct Glucometerson 0 12-27-2023 Glucose [Mass/Vol] 138 mg/dL Normal [facility] Comment on above: Result Comment: [facility] Glucose Reference Range is dependent on time and content of last meal. Glucose of more than 200 mg/dL in a nonstressed, ambulatory subject supports the diagnosis of Diabetes Mellitus. PERFORMED BY: [facility] [address] [place] [address] PATHOLOGIST VETERANS' COORDINATOR MARINA DANIEL M.D. Performed By: #### G LULS #### Point of Care testing , Harris 12-27-2023 L Specimen: [id number] Received: 12/27/23 Status: SOUT Req Num: [id number] Spec Type: Surgical Subm Dr: Car Dye DO Tissues: A Skin-Other than Cyst, tag, debridement or plastic repair (RIGHT CHEEK LESION B Skin-Other than Cyst, tag, debridement or plastic repair (LEFT CHEEK LESION) Procedures: HE/5, Gross/Micro L4/3, FS HE/6 Age/ Patient Sex Location Account Attending Physician Nikolai Phan 73/M [place] [id number] Car Dye DO SPEC NUM: [id number] RECD: 12/27/23 STATUS: ACOSTA TONEY NUM: [id number] FRED: 12/27/23- SUBM DR: Car Dye DO ENTERED: 12/27/23 [facility] DR: SPEC TYPE: Surgical DEPT: S ENTERED BY: [id number] RECV BY: [id number] ORDERED: HE/5, Gross/Micro L4/3, FS HE/6 ORDERED: [...] skin surface. The specimen is -- Specimen: [id number] Received: 12/27/23 Status: ACOSTA Toney Num: [id number] Spec Type: Surgical Subm Dr: Car Dye DO Tissues: A Skin-Other than Cyst, tag, debridement or plastic repair (RIGHT CHEEK LESION B Skin-Other than Cyst, tag, debridement or plastic repair (LEFT CHEEK LESION) Procedures: HE/5, Gross/Micro L4/3, FS -- Patient: Nikolai Phan [id number] (Continued) -- Specimen: [id number] Received: 12/27/23 (Continued) Gross Description (Continued) Signed (signatu re on file) Elise Goodman MD 12/28/23 1718 -- Specimen: [id number] Received: 12/27/23 Status: ACOSTA Toney Num: [id number] Spec Type: Surgical Subm Dr: Car Dye DO Tissues: A Skin-Other than Cyst, tag, debridement or plastic repair (RIGHT CHEEK LESION B Skin-Other than Cyst, tag, debridement or plastic repair (LEFT CHEEK LESION) Procedures: HE/5, Gross/Micro L4/3, FS HE/6 -- Patient: Nikolai Phan [id number] (Continued) -- Specimen: [id number] Received: 12/27/23 (Continued) Gross Description (Continued) serially [...] Description Microscopic examinations are performed CPT Codes 40616 x 2 36826 x 2 45059 x 2 -- -- Specimen: [id number] Received: 12/27/23 Status: ACOSTA Dawna Num: [id number] Spec Type: Surgical Subm Dr: DO Radha Catalan (more content not included)... Normal [facility] Automated basophil %Ordered By: Car Dye on 12-18-2023 Basophils/100 WBC (Bld) 0.6 % . F [facility] Comment on above: Performed By: #### B MP, CBC #### [address] Automated basophil countOrde red By: Car Dye on 12-18-2023 Basophils (Bld) [#/Vol] 0.0 10*3/uL 0.0-0.2 [facility] Comment on above: Result Comment: PERF ORMED BY: [place] [address] PATHOLOGIST VETERANS' COORDINATOR MARINA DANIEL M.D. Performed By: #### B MP, CBC #### [address] Automated blood monocyte cou ntOrdered By: Car Dye on 12-18-2023 Monocytes (Bld) [#/Vol] 0.7 10*3/uL 0.0-0.8 [facility] Comment on above: Performed By: #### B MP, CBC #### [address] Automated eosinophil %Ordere d By: Car Dye on 12-18-2023 Eosinophils/100 WBC (Bld) 2.2 % . [facility] Comment on above: Performed By: #### B MP, CBC #### [address] Automated eosinophil countOr dered By: Car Dye on 12-18-2023 Eosinophils (Bld) [#/Vol] 0.1 10*3/uL 0.0-0.45 [facility] Comment on above: Performed By: #### B MP, CBC #### [address] Automated monocyte %Ordered By: Car Dye on 12-18-2023 Monocytes/100 WBC (Bld) 11.9 % . F [facility] Comment on above: Performed By: #### B MP, CBC #### [address] Automated neutrophil %Ordere d By: Car Dye on 12-18-2023 Neutrophils/100 WBC (Bld) 41.9 % . [facility] Comment on above: Performed By: #### B MP, CBC #### [address] Basic Metabolic Panelon 11-20 GFR/1.73 sq M.predicted MDRD (S/P/Bld) [Vol rate/Area] mL/min/{1.73_m2} Normal [facility] Comment on above: Performed By: #### B MP, CBC #### [address] Calcium [Mass/volume] in Ser um or PlasmaOrdered By: Car Dye on 12-18-2023 Calcium [Mass/Vol] 10.5 mg/dL High 8.6-10.3 [facility] Comment on above: Result Comment: PERF ORMED BY: [place] [address] PATHOLOGIST VETERANS' COORDINATOR MARINA DANIEL M.D. Performed By: #### B MP, CBC #### [address] Carbon dioxide, total [Moles /volume] in Serum or PlasmaOrdered By: Car Dye on 12-18-2023 CO2 [Moles/Vol] 29.8 mmol/L 21.0-31.0 [facility] Comment on above: Performed By: #### B MP, CBC #### [address] Chloride [Moles/volume] in S artemio or PlasmaOrdered By: Car Dye on 12-18-2023 Chloride [Moles/Vol] 101 mmol/L 98-107 [facility] Comment on above: Performed By: #### B MP, CBC #### [address] Complete Blood Count Auto Di ffon 12-18-2023 Mean Corpuscular HGB Conc 34.7 g/dL Normal 32.5-35.6 [facility] Comment on above: Performed By: #### B MP, CBC #### [address] NRBC% 0.1 /100{WBC} Normal 0-0.5 [facility] Comment on above: Performed By: #### B MP, CBC #### [address] Creatinine [Mass/volume] in Serum or PlasmaOrdered By: Car Dye on 12-18-2023 Creatinine [Mass/Vol] 0.95 mg/dL 0.70-1.30 [facility] Comment on above: Performed By: #### B MP, CBC #### [facility] [address] [place] [address] ECG 12 lead ECGon 12-18-2023 ECG 12 lead ECG [facility] [place] [address] [place] [address] Electrocardiograph Report Signed Patient: Nikolai Phan MR#: [id number] [birth year] : 1950 Acct:[id number] Age/Sex: 73 / M ADM Date: 12/18/23 Loc: Room: Type: [facility] Attending Dr: Car Dye DO Ordering Provider: Car Dye DO Date of Service: 12/18/23 ECG/ECG 12 [...] is now present Confirmed by SUZY RAM [facility], CHRISTINA ([id number]) on 12/18/2023 6:07:40 PM Referred By: Electronically Signed By: CHRISTINA SANDHU MD [facility] Transcribed By: MUS Signed By Christina Sandhu MD, FAC 12/18/231806 Normal [facility] Erythrocyte distribution wid th [Ratio] by Automated countOrdered By: Car Dye on 12-18-2023 Erythrocyte distribution width (RBC) [Ratio] 13.0 % 12.0-14.8 [facility] Comment on above: Performed By: #### B MP, CBC #### [facility] [address] [place], [place] [id number] [facility] Erythrocytes [#/volume] in B lood by Automated countOrdered By: Car Dye on 12-18-2023 RBC (Bld) [#/Vol] 4.08 10*6/uL 3.90-5.60 [facility] Comment on above: Performed By: #### B FELIX, CBC #### [address] Glucose [Mass/volume] in Ser um or PlasmaOrdered By: Car Dye on 12-18-2023 Glucose [Mass/Vol] 139 mg/dL High 70-100 [facility] Comment on above: ADA recommended refe rence rangeRandom Glucose Reference Range is dependent on time and content of last meal. Glucose of more than 200 mg/dL in a nonstressed, ambulatory subject supports the diagnosis of Diabetes Mellitus. Result Comment: [place] om Glucose Reference Range is dependent on time and content of last meal. Glucose of more than 200 mg/dL in a nonstressed, ambulatory subject supports the diagnosis of Diabetes Mellitus. ADA recommended reference range Performed By: #### B FELIX, CBC #### [address] Hematocrit [Volume Fraction] of Blood by Automated countOrdered By: Car Dye on 12-18-2023 Hematocrit (Bld) [Volume fraction] 38.2 % Low 38.8-50.0 [facility] Comment on above: Performed By: #### B FELIX, CBC #### [address] Hemoglobin [Mass/volume] in BloodOrdered By: Car Dye on 12-18-2023 Hemoglobin (Bld) [Mass/Vol] 13.3 g/dL 13.0-17.0 [facility] Comment on above: Performed By: #### B FELIX, CBC #### [place] [address] [place] Leukocytes [#/volume] correc rere for nucleated erythrocytes in Blood by Automated counOrdered By: Car Dye on 12-18-2023 WBC corrected for nucl RBC Auto (Bld) [#/Vol] 6.3 10*3/uL 4.1-10.5 [facility] Leukocytes [#/volume] in Blo od by Automated countOrdered By: Car Dye on 12-18-2023 WBC (Bld) [#/Vol] 6.3 10*3/uL 4.1-10.5 [facility] Comment on above: Performed By: #### B MP, CBC #### [address] Lymphocytes [#/volume] in Bl ood by Automated countOrdered By: Car Dye on 12-18-2023 Lymphocytes (Bld) [#/Vol] 2.7 10*3/uL 1.00-4.8 [facility] Comment on above: Performed By: #### B MP, CBC #### [address] Lymphocytes/100 leukocytes i n Blood by Automated countOrdered By: Car Dye on 12-18-2023 Lymphocytes/100 WBC (Bld) 43.4 % . [facility] Comment on above: Performed By: #### B MP, CBC #### [address] MCH [Entitic mass] by Automa rere countOrdered By: Car Dye on 12-18-2023 MCH (RBC) [Entitic mass] 32.5 pg 27.5-35.2 [facility] Comment on above: Performed By: #### B MP, CBC #### [address] MCHC Auto (RBC) [Mass/Vol]Or dered By: Car Dye on 12-18-2023 MCHC (RBC) [Mass/Vol] 34.7 g/dL 32.5-35.6 [facility] MCV [Entitic volume] by Auto mated countOrdered By: Car Dye on 12-18-2023 MCV (RBC) [Entitic vol] 93.6 fL 83.5-101 [facility] Comment on above: Performed By: #### B MP, CBC #### [place] [address] [place] Neutrophils [#/volume] in Bl ood by Automated countOrdered By: Car Dye on 12-18-2023 Neutrophils (Bld) [#/Vol] 2.6 10*3/uL 1.8-7.7 [facility] Comment on above: Performed By: #### B MP, CBC #### [address] No Panel InformationOrdered By: Car Dye on 12-18-2023 Estimated GFR (CKD-EPI) > 60.0 mL/Min [facility] Pharmacy Creatinine Clearance (Chem N/A [facility] Nucleated erythrocytes [Pres ence] in Blood by Automated countOrdered By: Car Dye on 12-18-2023 Nucleated RBC Auto Ql (Bld) 0.1 /100{WBC} 0-0.5 [facility] Platelet mean volume [Entiti c volume] in Blood by Automated countOrdered By: Car Dye on 12-18-2023 Platelet mean volume (Bld) [Entitic vol] 8.6 fL 6.6-10.1 [facility] Comment on above: Performed By: #### B MP, CBC #### [facility] [address] [place] [address] Platelets [#/volume] in Bloo d by Automated countOrdered By: Car Dye on 12-18-2023 Platelets (Bld) [#/Vol] 165 10*3/uL 150-450 [facility] Comment on above: Performed By: #### B MP, CBC #### [address] Potassium [Moles/volume] in Serum or PlasmaOrdered By: Car Dye on 12-18-2023 Potassium [Moles/Vol] 4.1 mmol/L 3.5-5.1 [facility] Comment on above: Performed By: #### B MP, CBC #### [address] Serum or plasma anion gap de terminationOrdered By: Car Dye on 07-29-2024 Anion gap [Moles/Vol] 11.3 mmol/L 6.0-15.0 [facility] Comment on above: Performed By: #### B MP, CBC #### [facility] [address] [place] [address] [place] Sodium [Moles/volume] in Ser um or PlasmaOrdered By: Car Dye on 12-18-2023 Sodium [Moles/Vol] 138 mmol/L 136-145 [facility] Comment on above: Performed By: #### B MP, CBC #### [facility] [address] [place] [address] [place] Urea nitrogen [Mass/volume] in Serum or PlasmaOrdered By: Car Dye on 12-18-2023 Urea nitrogen [Mass/Vol] 24 mg/dL 7-25 [facility] Comment on above: Performed By: #### B MP, CBC #### [facility] [address] [place] [address] Glucose mean value [Mass/vol ume] in Blood Estimated from glycated hemoglobinon 10-03-2023 Average glucose Estimated from glycated hemoglobin (Bld) [Mass/Vol] 148 mg/dL [facility] Laboratory - Hematology and Cell countson 10-03-2023 HbA1c (Bld) [Mass fraction] 6.8 % High 4.5-6.2 [facility] Comment on above: ADA RECOMMENDED LIMI T 4.0 - 6.0ADA THERAPEUTIC TARGET < 7.0ACTION SUGGESTED> 7.0 CBC AUTO DIFFon 07-06-2022 BASO # 0.0 103/ul Normal 0.0-0.1 [facility] Comment on above: Performed By: #### C BC #### [facility] [address] [place] [address] Dr. Franklin Goodman Basophils/100 WBC (Bld) 0.6 % Normal 0.2-2.0 [facility] Comment on above: Performed By: #### C BC #### [facility] [address] [address] [address] Franklin Goodman EO # 0.3 103/ul Normal 0.0-0.7 [facility] Comment on above: Performed By: #### C BC #### [facility] [address] [place] [address] Dr. Franklin Goodman Eosinophils/100 WBC (Bld) 5.6 % Normal 0.9-7.0 [facility] Comment on above: Performed By: #### C BC #### [facility] [address] [place] [address] Dr. Franklin Goodman Erythrocyte distribution width (RBC) [Ratio] 12.3 % Normal 11.0-15.0 [facility] Comment on above: Performed By: #### C BC #### [facility] [address] [place] [address] Dr. Franklin Goodman Hematocrit (Bld) [Volume fraction] 42.0 % Normal 42.0-54.0 [facility] Comment on above: Performed By: #### C BC #### [facility] [address] [place] [address] Dr. Franklin Goodman Hemoglobin (Bld) [Mass/Vol] 14.4 g/dL Normal 14.0-18.0 [facility] Comment on above: Performed By: #### C BC #### [facility] [address] [place] [address] Dr. Franklin Goodman IG # 0.02 10e3/ul Normal 0.00-0.03 [facility] Comment on above: Performed By: #### C BC #### [facility] [address] [place] [address] Dr. Franklin Goodman IG % 0.4 % Normal 0.0-0.5 [facility] Comment on above: Performed By: #### C BC #### [facility] [address] [place] [address] Dr. Franklin Goodman LYMPH # 1.9 103/ul Normal 1.2-3.8 [facility] Comment on above: Performed By: #### C BC #### [facility] [address] [place] [address] Dr. Franklin Goodman Lymphocytes/100 WBC (Bld) 39.4 % Normal 20.5-60.0 [facility] Comment on above: Performed By: #### C BC #### [facility] [address] [place] [address] Dr. Franklin Goodman MANUAL DIFF REQ NO Normal [facility] Comment on above: Performed By: #### C BC #### [facility] [address] [place] [address] Dr. Franklin Goodman MCH (RBC) [Entitic mass] 32.0 pg Normal 25.9-34.0 [facility] Comment on above: Performed By: #### C BC #### [facility] [address] [place] [address] Dr. Franklin Goodman MCHC (RBC) [Mass/Vol] 34.3 g/dL Normal 29.9-35.2 [facility] Comment on above: Performed By: #### C BC #### [facility] [address] [place] [address] Dr. Franklin Goodman MCV (RBC) [Entitic vol] 93.3 fL Normal 80.0-94.0 [facility] Comment on above: Performed By: #### C BC #### [facility] [address] [place] [address] Dr. Franklin Goodman MONO # 0.6 103/ul Normal 0.3-0.8 [facility] Comment on above: Performed By: #### C BC #### [facility] [address] [place] [address] Dr. Franklin Goodman Monocytes/100 WBC (Bld) 12.5 % Critically high 1.7-12. 0 [facility] Comment on above: Performed By: #### C BC #### [facility] [address] [place] [address] Dr. Franklin Goodman NEUT # 2.0 103/ul Normal 1.4-6.5 [facility] Comment on above: Performed By: #### C BC #### [facility] [address] [place] [address] Dr. Franklin Goodman Neutrophils/100 WBC (Bld) 41.5 % Critically low 43.0-75.0 [facility] Comment on above: Performed By: #### C BC #### [facility] [address] [address] [address] Franklin Goodman Platelet mean volume (Bld) [Entitic vol] 10.0 fL Normal 9.5-13.5 [facility] Comment on above: Performed By: #### C BC #### [facility] [address] [address] [address] Franklin Goodman PLT 172 103/ul Normal 150-450 [facility] Comment on above: Performed By: #### C BC #### [facility] [address] [address] [address] Franklin Goodman RBC 4.50 106/ul Critically low 4.70-6.10 [facility] Comment on above: Performed By: #### C BC #### [facility] [address] [address] [address] Franklin Goodman WBC 4.8 103/ul Normal 4.0-11.0 [facility] Comment on above: Performed By: #### C BC #### [facility] [address] [address] [address] Franklin Goodman Complete Blood Count and Dif shayy 07-06-2022 Anisocytosis Ql (Bld) [facility] [employer] Other Basophilic stippling LM Ql (Bld) [place] [employer] Other RBC morphology finding Nom (Bld) [employer] Other Complete Blood Count and Diff [employer] Other FERRITINon 07-06-2022 Ferritin [Mass/Vol] 074.2128924 ng/mL 26. 0-388.0 ng/mL [employer] Other FERRITIN see note [employer] Other Ferritin [Mass/Vol] 245.0 ng/mL Normal 26.0-388.0 [facility] Comment on above: Performed By: #### F ERR, FETIBC, B12FOL #### [facility] [address] [address] [address] Franklin Goodman GLYCOHEMOGLOBIN A1Con 2022 ADA RECOMMENDATION SEE BELOW Normal [facility] Comment on above: Result Comment: ADA RECOMMENDED LIMIT 4.0 - 6.0 ADA THERAPEUTIC TARGET < 7.0 ACTION SUGGESTED > 7.0 Performed By: #### A 1C #### [facility] [address] [place] [address] Dr. Franklin Goodman Glucose [Mass/Vol] 146 mg/dL Normal [facility] Comment on above: Performed By: #### A 1C #### [facility] [address] [address] [address] Franklin Goodman HbA1c (Bld) [Mass fraction] 6.7 % Critically high 4.5-6.2 [facility] Comment on above: Performed By: #### A 1C #### [facility] [address] [place] [address] Dr. Franklin Goodman IRON AND TIBCon 07-06-2022 Iron [Mass/Vol] 174.9728298 ug/dL 65.0-17 5.0 ug/dL [employer] [facility] [employer] Other IRON AND TIBC 371.0 ug/dL 250.0-450.0 ug/dL [employer] Other IRON AND TIBC 34.8 % [employer] Other % SATURATION 34.8 % Normal [facility] Comment on above: Performed By: #### F ERR, FETIBC, B12FOL #### [facility] [address] [place] [address] Dr. Franklin Goodman Iron [Mass/Vol] 129.0 ug/dL Normal 65.0-175.0 [facility] Comment on above: Performed By: #### F ERR, FETIBC, B12FOL #### [facility] [address] [place] [address] Dr. Franklin Goodman TIBC DIRECT 371.0 ug/dL Normal 250.0-450.0 [facility] Comment on above: Performed By: #### F ERR, FETIBC, B12FOL #### [facility] [address] [place] [address] Dr. Franklin Goodman VIT B12 AND FOLATEon 023 Cobalamin (Vitamin B12) [Mass/Vol] 133.1744161 pg/mL 193.0-986.0 pg/mL [employer] [facility] [employer] Other VIT B12 AND FOLATE 23.00 ng/mL 8.60-58.9 0 ng/mL [employer] Other Cobalamin (Vitamin B12) [Mass/Vol] 306.0 pg/mL Normal 193.0-986.0 [facility] Comment on above: Performed By: #### F ERR, FETIBC, B12FOL #### [facility] [address] [place] [address] Dr. Franklin Goodman FOLATE 23.00 ng/mL Normal 8.60-58.90 [facility] Comment on above: Performed By: #### F ERR, FETIBC, B12FOL #### [facility] [address] [place] [address] Dr. Franklin Goodman CBC AUTO DIFFon 03-04-2022 BASO # 0.1 103/ul Normal 0.0-0.1 [facility] Comment on above: Performed By: #### B MP, ALT, LIPID #### [facility] [address] [place] [address] Dr. Franklin Goodman Basophils/100 WBC (Bld) 1.2 % Normal 0.2-2.0 [facility] Comment on above: Performed By: #### B MP, ALT, LIPID #### [facility] [address] [place] [address] Dr. Franklin Goodman EO # 0.4 103/ul Normal 0.0-0.7 [facility] Comment on above: Performed By: #### B MP, ALT, LIPID #### [facility] [address] [place] [address] Dr. Franklin Goodman Eosinophils/100 WBC (Bld) 8.9 % Critically high 0.9-7.0 [facility] Comment on above: Performed By: #### B MP, ALT, LIPID #### [facility] [address] [place] [address] Dr. Franklin Goodman Erythrocyte distribution width (RBC) [Ratio] 12.7 % Normal 11.0-15.0 [facility] Comment on above: Performed By: #### B MP, ALT, LIPID #### [facility] [address] [place] [address] Dr. Franklin Goodman Hematocrit (Bld) [Volume fraction] 39.3 % Critically low 42.0-54.0 [facility] Comment on above: Performed By: #### B MP, ALT, LIPID #### [facility] [address] [place] [address] Dr. Franklin Goodman Hemoglobin (Bld) [Mass/Vol] 13.4 g/dL Critically low 14.0-18.0 [facility] Comment on above: Performed By: #### B MP, ALT, LIPID #### [facility] [address] [place] [address] Dr. Franklin Goodman IG # 0.02 10e3/ul Normal 0.00-0.03 [facility] Comment on above: Performed By: #### B MP, ALT, LIPID #### [facility] [address] [place] [address] Dr. Franklin Goodman IG % 0.4 % Normal 0.0-0.5 [facility] Comment on above: Performed By: #### B MP, ALT, LIPID #### [facility] [address] [place] [address] Dr. Franklin Goodman LYMPH # 2.0 103/ul Normal 1.2-3.8 [facility] Comment on above: Performed By: #### B MP, ALT, LIPID #### [facility] [address] [place] [address] Dr. Franklin Goodman Lymphocytes/100 WBC (Bld) 42.1 % Normal 20.5-60.0 [facility] Comment on above: Performed By: #### B MP, ALT, LIPID #### [facility] [address] [place] [address] Dr. Franklin Goodman MANUAL DIFF REQ NO Normal [facility] Comment on above: Performed By: #### B MP, ALT, LIPID #### [facility] [address] [place] [address] Dr. Franklin Goodman MCH (RBC) [Entitic mass] 32.1 pg Normal 25.9-34.0 [facility] Comment on above: Performed By: #### B MP, ALT, LIPID #### [facility] [address] [place] [address] Dr. Franklin Goodman MCHC (RBC) [Mass/Vol] 34.1 g/dL Normal 29.9-35.2 [facility] Comment on above: Performed By: #### B MP, ALT, LIPID #### [facility] [address] [place] [address] Dr. Franklin Goodman MCV (RBC) [Entitic vol] 94.0 fL Normal 80.0-94.0 [facility] Comment on above: Performed By: #### B MP, ALT, LIPID #### [facility] [address] [place] [address] Dr. Franklin Goodman MONO # 0.6 103/ul Normal 0.3-0.8 [facility] Comment on above: Performed By: #### B MP, ALT, LIPID #### [facility] [address] [place] [address] Dr. Franklin Goodman Monocytes/100 WBC (Bld) 12.0 % Normal 1.7-12.0 [facility] Comment on above: Performed By: #### B MP, ALT, LIPID #### [facility] [address] [place] [address] Dr. Franklin Goodman NEUT # 1.7 103/ul Normal 1.4-6.5 [facility] Comment on above: Performed By: #### B MP, ALT, LIPID #### [facility] [address] [place] [address] Dr. Franklin Goodman Neutrophils/100 WBC (Bld) 35.4 % Critically low 43.0-75.0 [facility] Comment on above: Performed By: #### B MP, ALT, LIPID #### [facility] [address] [place] [address] Dr. Franklin Goodman Platelet mean volume (Bld) [Entitic vol] 10.4 fL Normal 9.5-13.5 [facility] Comment on above: Performed By: #### B MP, ALT, LIPID #### [facility] [address] [address] [address] Franklin Goodman PLT 150 103/ul Normal 150-450 [facility] Comment on above: Performed By: #### B MP, ALT, LIPID #### [facility] [address] [address] [address] Franklin Goodman RBC 4.18 106/ul Critically low 4.70-6.10 [facility] Comment on above: Performed By: #### B MP, ALT, LIPID #### [facility] [address] [address] [address] Franklin Goodman WBC 4.8 103/ul Normal 4.0-11.0 [facility] Comment on above: Performed By: #### B MP, ALT, LIPID #### [facility] [address] [address] [address] Franklin Goodman GLYCOHEMOGLOBIN A1Con 2021 ADA RECOMMENDATION SEE BELOW Normal [facility] Comment on above: Result Comment: ADA RECOMMENDED LIMIT 4.0 - 6.0 ADA THERAPEUTIC TARGET < 7.0 ACTION SUGGESTED > 7.0 Performed By: #### B MP, ALT, LIPID #### [facility] [address] [place] [address] Dr. Franklin Goodman Glucose [Mass/Vol] 157 mg/dL Normal [facility] Comment on above: Performed By: #### B MP, ALT, LIPID #### [facility] [address] [address] [address] Franklin Goodman HbA1c (Bld) [Mass fraction] 7.1 % Critically high 4.5-6.2 [facility] Comment on above: Performed By: #### B MP, ALT, LIPID #### [facility] [address] [address] [address] Franklin Goodman LIPID PROFILEon 03-04-2022 CHOL-HDL RATIO NORM SEE BELOW Normal [facility] Comment on above: Result Comment: 3.3 - 4.4 LOW RISK 4.4 - 7.1 AVERAGE RISK 7.1 - 11.0 MODERATE RISK >11.0 HIGH RISK Performed By: #### B MP, ALT, LIPID #### [facility] [address] [address] [address] Franklin Goodman Cholesterol [Mass/Vol] 131 mg/dL Normal <=200 [facility] Comment on above: Performed By: #### B MP, ALT, LIPID #### [facility] [address] [address] [address] Franklin Goodman Cholesterol in HDL [Mass/Vol] 38 mg/dL Critically low 40-60 [facility] Comment on above: Performed By: #### B MP, ALT, LIPID #### [facility] [address] [place] [address] Dr. Franklin Goodman Cholesterol in LDL [Mass/Vol] 47.8 mg/dL Normal [facility] Comment on above: Performed By: #### B MP, ALT, LIPID #### [facility] [address] [place] [address] Dr. Franklin Goodman Cholesterol.total/Choles terol in HDL [Mass ratio] 3.4 {ratio} Normal [facility] Comment on above: Performed By: #### B MP, ALT, LIPID #### [facility] [address] [place] [address] Dr. Franklin Goodman HDL NORMAL > or = 60 mg/dl - LOW CARDIOVASCULAR RISK <40 mg/dl - HIGH CARDIOVASCULAR RISK Normal [facility] Comment on above: Performed By: #### B MP, ALT, LIPID #### [facility] [address] [place] [address] Dr. Franklin Goodman LDL CALC NORMAL SEE BELOW Normal [facility] Comment on above: Result Comment: <100 mg/dl OPTIMAL 100 - 129 mg/dl NEAR OR ABOVE OPTIMAL 130 - 159 mg/dl BORDERLINE HIGH 160 - 189 mg/dl HIGH >190 mg/dl VERY HIGH Performed By: #### B MP, ALT, LIPID #### [facility] [address] [address] [address] Franklin Goodman Triglyceride [Mass/Vol] 226 mg/dL Critically high <=150 [facility] Comment on above: Performed By: #### B MP, ALT, LIPID #### [facility] [address] [address] [address] Franklin Goodman VLDL CALC 45.2 mg/dL Normal [facility] Comment on above: Performed By: #### B MP, ALT, LIPID #### [facility] [address] [address] [address] Franklin Goodman MICROALBUMIN, RAND URon 02-19 mALB 3.9 mg/L Normal <=30.0 [facility] Comment on above: Performed By: #### M ALBR #### [facility] [address] [place] [address] Dr. Franklin Goodman PROF CHEM 8 (BAS METB)on Anion gap [Moles/Vol] 10.3 mmol/L Normal [facility] Comment on above: Performed By: #### B MP, ALT, LIPID #### [facility] [address] [place] [address] Dr. Franklin Goodman Calcium [Mass/Vol] 9.3 mg/dL Normal 8.5-10.1 [facility] Comment on above: Performed By: #### B MP, ALT, LIPID #### [facility] [address] [place] [address] Dr. Franklin Goodman Chloride [Moles/Vol] 103 mmol/L Normal 98-107 [facility] Comment on above: Performed By: #### B MP, ALT, LIPID #### [facility] [address] [place] [address] Dr. Franklin Goodman CO2 [Moles/Vol] 30.9 mmol/L Normal 21.0-32.0 [facility] Comment on above: Performed By: #### B MP, ALT, LIPID #### [facility] [address] [place] [address] Dr. Franklin Goodman Creatinine [Mass/Vol] 0.95 mg/dL Normal 0.70-1.30 [facility] Comment on above: Performed By: #### B MP, ALT, LIPID #### [facility] [address] [address] [address] Franklin Goodman EGFR-AF ICELANDIC >60 Normal >=60 [facility] Comment on above: Performed By: #### B MP, ALT, LIPID #### [facility] [address] [address] [address] Franklin Goodman EGFR-NON AF ICELANDIC >60 Normal >=60 [facility] Comment on above: Performed By: #### B MP, ALT, LIPID #### [facility] [address] [address] [address] Franklin Goodman Glucose [Mass/Vol] 141 mg/dL Critically high 74-106 [facility] Comment on above: Performed By: #### B MP, ALT, LIPID #### [facility] [address] [place] [address] Dr. Franklin Goodman Potassium [Moles/Vol] 4.2 mmol/L Normal 3.5-5.1 [facility] Comment on above: Performed By: #### B MP, ALT, LIPID #### [facility] [address] [place] [address] Dr. Franklin Goodman Sodium [Moles/Vol] 140 mmol/L Normal 136-145 [facility] Comment on above: Performed By: #### B MP, ALT, LIPID #### [facility] [address] [place] [address] Dr. Franklin Goodman Urea nitrogen [Mass/Vol] 16.0 mg/dL Normal 7.0-18.0 [facility] Comment on above: Performed By: #### B MP, ALT, LIPID #### [facility] [address] [place] [address] Dr. Franklin Goodman Urea nitrogen/Creatinine [Mass ratio] 16.8 mg/mg Normal [facility] Comment on above: Performed By: #### B MP, ALT, LIPID #### [facility] [address] [place] [address] Dr. Franklin Goodman SGPTon 03-04-2022 ALT [Catalytic activity/Vol] 52 U/L Normal 16-63 [facility] Comment on above: Performed By: #### B MP, ALT, LIPID #### [facility] [address] [address] [address] Franklin Goodman GLYCOHEMOGLOBIN A1Con 2021 ADA RECOMMENDATION SEE BELOW Normal [facility] Comment on above: Result Comment: ADA RECOMMENDED LIMIT 4.0 - 6.0 ADA THERAPEUTIC TARGET < 7.0 ACTION SUGGESTED > 7.0 Performed By: #### B MP, ALT, LIPID #### [facility] [address] [address] [address] Franklin Goodman Glucose [Mass/Vol] 148 mg/dL Normal [facility] Comment on above: Performed By: #### B MP, ALT, LIPID #### [facility] [address] [address] [address] Franklin Goodman HbA1c (Bld) [Mass fraction] 6.8 % Critically high 4.5-6.2 [facility] Comment on above: Performed By: #### B MP, ALT, LIPID #### [facility] [address] [address] [address] Franklin Goodman Vital Signs Date Time Vital Sign Value Performing Clinician Facility 07-10-2024 08:38-0500 Body height 172.72 cm [facility] 07-10-2024 08:38-0500 Body mass index (BMI) [Ratio] 32.6 kg/m2 [facility] 07-10-2024 08:38-0500 Body weight 97.52 kg [facility] 07-10-2024 08:38-0500 Diastolic blood pressure 89 mm[Hg] [facility] 07-10-2024 08:38-0500 Heart rate 81 /min [facility] 07-10-2024 08:38-0500 Respiratory rate 12 /min [facility] 07-10-2024 08:38-0500 Systolic blood pressure 139 mm[Hg] [facility] 01-30-2024 13:56-0400 Body height 172.72 cm DO [employer] Work Phone: [facility] 01-30-2024 13:56-0400 Body mass index (BMI) [Ratio] 32.8 kg/m2 DO [employer] Work Phone: [facility] 01-30-2024 13:56-0400 Body weight 98.08 kg DO Xavier Ball Work Phone: [facility] 01-30-2024 13:56-0400 Diastolic blood pressure 71 mm[Hg] DO Xavier Ball Work Phone: [facility] 01-30-2024 13:56-0400 Heart rate 76 /min DO Xavier Ball Work Phone: [facility] 01-30-2024 13:56-0400 Respiratory rate 12 /min DO Xavier Ball Work Phone: [facility] 01-30-2024 13:56-0400 Systolic blood pressure 151 mm[Hg] DO Xavier Ball Work Phone: [facility] 12-27-2023 13:10-0400 Diastolic blood pressure 67 mm[Hg] DO Xavier Ball Work Phone: [facility] 12-27-2023 13:10-0400 Heart rate 67 /min DO Xavier Ball Work Phone: [facility] 12-27-2023 13:10-0400 Respiratory rate 14 /min DO Xavier Ball Work Phone: [facility] 12-27-2023 13:10-0400 SaO2% (BldA) [Mass fraction] 94 % DO Xavier Ball Work Phone: [facility] 12-27-2023 13:10-0400 Systolic blood pressure 133 mm[Hg] DO Xavier Ball Work Phone: [facility] 12-27-2023 12:28-0400 Body temperature 97.6 [degF] DO Xavier Ball Work Phone: [facility] 12-27-2023 12:28-0400 Inhaled oxygen flow rate 1 L/min DO Xavier Ball Work Phone: [facility] 12-27-2023 08:30-0400 Body height 170.18 cm DO Xavier Ball Work Phone: [facility] 12-27-2023 08:30-0400 Body weight 97.52 kg DO Xavier Ball Work Phone: [facility] 10-06-2023 08:33-0400 Body height 172.72 cm [facility] 10-06-2023 08:33-0400 Body mass index (BMI) [Ratio] 32.5 kg/m2 [facility] 10-06-2023 08:33-0400 Body weight 97.18 kg [facility] 10-06-2023 08:33-0400 Diastolic blood pressure 69 mm[Hg] [facility] 10-06-2023 08:33-0400 Heart rate 64 /min [facility] 10-06-2023 08:33-0400 Respiratory rate 12 /min [facility] 10-06-2023 08:33-0400 Systolic blood pressure 129 mm[Hg] [facility] 06-07-2023 08:30-0500 Body height 172.72 cm Xavier Ball Other [facility] [employer] Other 06-07-2023 08:30-0500 Body mass index (BMI) [Ratio] 32.78 kg/m2 Xavier Ball Other [facility] [employer] Other 06-07-2023 08:30-0500 Body weight 97.8 kg Xavier Ball Other [facility] [employer] Other 06-07-2023 08:30-0500 Diastolic blood pressure 88 mm[Hg] Xavier Ball Other [facility] [employer] Other 06-07-2023 08:30-0500 Systolic blood pressure 139 mm[Hg] Xavier Ball Other [facility] [employer] Other 03-06-2023 09:30-0400 Body height 172.72 cm Xavier Ball Other [facility] [employer] Other 03-06-2023 09:30-0400 Body mass index (BMI) [Ratio] 33.05 kg/m2 Xavier Ball Other [facility] Other 03-06-2023 09:30-0400 Body weight 98.61 kg Xavier Ball Other [facility] Other 03-06-2023 09:30-0400 Diastolic blood pressure 78 mm[Hg] Xavier Ball Other [facility] Other 03-06-2023 09:30-0400 Respiratory rate 12 /min Xavier Ball Other [facility] Other 03-06-2023 09:30-0400 Systolic blood pressure 170 mm[Hg] Xavier Ball Other [facility] Other 12-30-2022 13:15-0400 Body height 172.72 cm Xavier Ball Other [facility] Other 12-30-2022 13:15-0400 Body mass index (BMI) [Ratio] 32.54 kg/m2 Xavier Ball Other [facility] Other 12-30-2022 13:15-0400 Body weight 97.07 kg Xavier Ball Other [facility] Other 12-30-2022 13:15-0400 Diastolic blood pressure 71 mm[Hg] Xavier Ball Other [facility] Other 12-30-2022 13:15-0400 Respiratory rate 12 /min Xavier Ball Other [facility] Other 12-30-2022 13:15-0400 Systolic blood pressure 135 mm[Hg] Xavier Ball Other [facility] Other 12-15-2022 09:30-0400 Body height 172.72 cm Xavier Ball Other [facility] Other 12-15-2022 09:30-0400 Body mass index (BMI) [Ratio] 32.75 kg/m2 Xavier Ball Other [facility] Other 12-15-2022 09:30-0400 Body weight 97.71 kg Xavier Ball Other [facility] Other 12-15-2022 09:30-0400 Diastolic blood pressure 89 mm[Hg] Xavier Ball Other [facility] Other 12-15-2022 09:30-0400 Respiratory rate 12 /min Xavier Ball Other [facility] Other 12-15-2022 09:30-0400 Systolic blood pressure 173 mm[Hg] Xavier Ball Other [facility] Other 07-06-2022 10:30-0500 Body height 172.72 cm Xavier Ball Other [facility] Other 07-06-2022 10:30-0500 Body mass index (BMI) [Ratio] 32.35 kg/m2 Xavier Ball Other [facility] Other 07-06-2022 10:30-0500 Body weight 96.53 kg Xavier Ball Other [facility] Other 07-06-2022 10:30-0500 Diastolic blood pressure 70 mm[Hg] Xavier Ball Other [facility] Other 07-06-2022 10:30-0500 Respiratory rate 12 /min Xavier Ball Other [place] [employer] Other 07-06-2022 10:30-0500 Systolic blood pressure 132 mm[Hg] Xavier Greene Other [facility] [employer] Other Encounters Encounter Date Encounter Type Care Provider Facility Start: 07-10-2024 End: 07-10-2024 ambulatory [facility] Work Phone: Start: 07-10-2024 End: 07-10-2024 Patient encounter procedure [facility] Work Phone: Start: 07-05-2024 Non-patient / Non-visit [facility] [employer] Work Phone: Start: 01-30-2024 End: 01-30-2024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 month Follow upLab Results4 MONTH FOLLOW UP Care Teams (unrecognized sec tion and content) Team Status: Active Member Role Status Gisella Greene DO Primary Care Provider Active Team Status: Active Member Role Status Gisella Greene DO Primary Care Provide r, Attending Provider Active Start: July 05, 2024 Team Status: Inactive Member Role Status Gisella Greene DO Primary Care Provide r, Attending Provider Active Start: July 10, 2024 End: July 10, 2024 Team Status: Active Member Role Status Gisella Greene DO Primary Care Provider Active Team Status: Inactive Member Role Status Gisella Greene DO Primary Care Provide r, Attending Provider Active Start: October 06, 2023 End: October 06, 2023 Team Status: Inactive Member Role Status Gisella Greene DO Primary Care Provider Active Start: December 18, 2023 End: December 18, 2023 Car Dye DO Attending Provider Active S tart: December 18, 2023 End: December 18, 2023 Team Status: Inactive Member Role Status Gisella Greene DO Primary Care Provider Active Start: December 27, 2023 End: December 27, 2023 Car Dye DO Attending Provider Active S tart: December 27, 2023 End: December 27, 2023 Team Status: Active Member Role Status Gisella Greene DO Primary Care Provide r, Attending Provider Active Start: October 03, 2023 Team Status: Inactive Member Role Status Dates Xavier Ball , DO Primary Care Provide r, Attending Provider Active Start: August 02, 2023 End: August 02, 2023 Team Status: Inactive Member Role Status Dates Xavier Greene DO Primary Care Provide r, Attending Provider Active Start: January 30, 2024 End: January 30, 2024 Hot Mill Roller Relationship Specialty Start Date End Date Xavier Greene DO [address] [place] [address] PCP - General Internal Medicine 04/22/20 [employer] Roller Relationship Specialty Start Date End Date Xavier Greene DO [address] [place] [address] PCP - General Internal Medicine 04/22/20 Team Status: Active Member Role Status Dates Xavier Greene DO Primary Care Provide r, Attending Provider Active Start: July 05, 2024 Team Status: Inactive Member Role Status Dates Xavier Greene Primary Care Provide r, Attending Provider Active Start: July 10, 2024 End: July 10, 2024 Goals (unrecognized section and content) Goals [...] BE BASED ON THE PRIMARY CLINICAL RECORDS. [facility] [employer] provides no warranty or guarantee of the accuracy or completeness of information in this document.
[2024-07-26 09:49] LABS: Estimated Average Glucose 163 mg/dL; Glycohemoglobin A1C 7.3 % (4.5-6.2)
== END 2024-07-26 09:15 | disposition home or self-care (01) ==
LOC: LAB 09:15
PROVIDERS: PCP Internal Medicine; Visit Provider Internal Medicine
DX: E11.65 Type 2 diabetes mellitus with hyperglycemia (principal)
CPT/HCPCS: 36415; 83036

== ENCOUNTER 2024-12-16 10:14 | Outpatient (OUT) | payer MEDICARE, SELFPAY ==
--- OUTSIDE RECORDS SUMMARY | 2024-12-16 10:16 | XMS_ITS | Encounter Summary ---
Author Organization [facility] Address [id number] [place] [address] Care Team Providers Care Central Sterile Technician Name Role Phone JcXavier Xochilt SHIPMAN Primary Care Provider [phone] Encounter Details Date Type Department Care Team (Late st Contact Info) Description 10/25/2022 Telephone [facility] [address] [place] [address] Yasmeen Hernandez CMA Social History Tobacco Use Types Packs/Day Years Used Date Smoking Tobacco: Light Smoker Cigars Smokeless Tobacco: Never Alcohol Use Standard Drinks/Week Comments Yes 0 (1 standard drink = 0.6 oz pur e alcohol) social Social Connection and Isolat ion Panel [NHANES] Answer Date Recorded In a typical week, how many times do you talk on the phone with family, friends, or neighbors? More than three times a week 06/10/2020 How often do you get togethe r with friends or relatives? More than three times a week 06/10/2020 How often do you attend chur ch or restoration services? More than 4 times per year 06/10/2020 Do you belong to any clubs o r organizations such as zoroastrian groups, unions, fraternal or athletic groups, or school groups? No 06/10/2020 How often do you attend meet ings of the clubs or organizations you belong to? Never 06/10/2020 Are you , , di vorced, , never , or living with a partner? 06/10/2020 AUDIT-C Answer Date Recorded Q1: How often do you have a drink containing alc ohol? Never 05/19/2020 Average Number of Drinks Not on file 020 Frequency of Binge Drinking Not on file 04/22 Overall Financial Resource Strain (CARDIA) Answe r Date Recorded How hard is it for you to pa y for the very basics like food, housing, medical care, and heating? Not hard at all 06/10/2020 PHQ-2 Answer Date Recorded Total Score 0 06/10/2020 [facility] - Occupational Stress Questionnaire Answer Date Recorded Do you feel stress - tense, restless, nervous, or anxious, or unable to sleep at night because your mind is troubled all the time - these days? Not at all 06/10/2020 Exercise Vital Sign Answer Date Recorde d On average, how many days pe r week do you engage in moderate to strenuous exercise (like a brisk walk)? 4 days 06/10/2020 On average, how many minutes do you engage in exercise at this level? 60 min 06/10/2020 PRAPARE - Transportation Answer Date Re corded In the past 12 months, has l ack of transportation kept you from medical appointments or from getting medications? No 05/23 In the past 12 months, has l ack of transportation kept you from meetings, work, or from getting things needed for daily living? No 06/10/2020 Childcare Answer Date Recorded Childcare Unknown 04/22/2020 Employment Answer Date Recorded Employment Unknown 04/22/2020 Purpose - Life Answer Date Recorded Purpose and direction in life Unknown Sex and Gender Information Value Date Recorded Sex Assigned at Not on file Legal Sex Male 11:19 AM EST Gender Identity Not on file Sexual Orientation Not on file documented as of this encounter Plan of Treatment Upcoming Encounters Date Type Department Care Team (Late st Contact Info) Description 12/19/2024 8:40 AM EDT Office Visit [facility] [address] [facility] [place] [address] Amanda Landis MD [address], [address] [address] documented as of this encounter Visit Diagnoses Not on filedocumented in this encounter Additional Health Concerns Assessment Noted Time PHQ-9 Depression Total Score: 0 06/10/19 21 10:50 PM EST documented as of this encounter Care Teams Central Sterile Technician Relationship Specialty Start Date End Date Xavier Greene DO [address] [place] [address] PCP - General Internal Medicine 04/22/20 documented as of this encounter
--- OUTSIDE RECORDS SUMMARY | 2024-12-16 10:16 | XMS_ITS | Encounter Summary ---
Author Organization [facility] Address [address] [place] [address] Care Team Providers Care Sales Enablement Consultant Name Role Phone Xavier Greene Primary Care Provider [phone] Zuri Gibbons MD Unavailable [phone] Car Dye DO Unavailable [phone] Encounter Details Date Type Department Care Team (Late st Contact Info) Description 08/17/2023 Abstract [facility] [address] [place] [address] Sara Calhoun, DOMENIC [address] [facility] [address] [place] [address] Social History Tobacco Use Types Packs/Day Years Used Date Smoking Tobacco: Never Assessed Sex and Gender Information Value Date Recorded Sex Assigned at Not on file Legal Sex Male 8:13 PM EDT Gender Identity Male 10/25/2023 5:23 PM EDT Sexual Orientation Not on file documented as of this encounter Plan of Treatment Upcoming Encounters Date Type Department Care Team (Late st Contact Info) Description 01/15/2025 8:45 AM EDT Office Visit [facility] [address] [place] [address] Destiny Woo MD [address] [place], [place] [id number] 10/28/2025 9:00 AM EDT Office Visit [facility] [address] [place] [address] Zuri Gibbons MD [address] [place] [address] documented as of this encounter Visit Diagnoses Not on filedocumented in this encounter Care Teams Sales Enablement Consultant Relationship Specialty Start Date End Date Xavier Greene DO PCP - General Internal Medicine 08/09/23 Zuri Gibbons MD [address] [place] [address] Referring Physician Dermatology 12/14/23 Car Dye DO [address] [place] [address] Otolaryngology 12/14/23 documented as of this encounter
--- OUTSIDE RECORDS SUMMARY | 2024-12-16 10:16 | XMS_ITS | Clinical Summary ---
Author Organization [facility] Address [address] [place] [address] Care Team Providers Care Manager Country Name Role Phone JcXavier Xochilt SHIPMAN Primary Care Provider [phone] Zuri Gibbons MD Unavailable [phone] Car Dye DO Unavailable [phone] Allergies Active Allergy Reactions Criticality Noted Date Comments Doxycycline 08/17/2023 Penicillins Fever 05/19/2020 Medications amLODIPine (Norvasc) 5 MG tablet Take 5 mg by mouth in the morning. Active aspirin 81 MG chewable tablet Chew 325 mg in the morning. Active atorvastatin (Lipitor) 80 MG tablet Take 80 mg by mouth Daily Active lisinopril 40 MG tablet Take 40 mg by mouth in the morning. Active metFORMIN (Glucophage) 500 MG tablet Take 1,000 mg by mouth in the morning and 1,000 mg in the evening. Active metoprolol tartrate (Lopressor) 50 MG tablet Take 50 mg by mouth in the morning and 50 mg in the evening. Active Active Problems Problem Noted Date Diagnosed Date Atypical face pain 08/30/2023 Facial skin lesion 08/30/2023 Anemia 08/17/2023 DM (diabetes mellitus) 08/17/2023 ASHD (arteriosclerotic heart disease) 08/17/2023 Hypertension 08/17/2023 Hyperlipidemia 08/17/2023 Oropharyngeal dysphagia 08/17/2023 Lumbar spondylosis with myelopathy 08/17/2023 Carotid stenosis 06/10/2020 Resolved Problems Problem Noted Date Diagnosed Date Resolved Date Arthritis of shoulder region, left 12/14/2023 12/14/2023 Bilateral carotid artery kulwant nosis without cerebral infarction 12/14/2023 12/14/2023 Primary osteoarthritis of knees, bilateral 12/14/2023 12/14/2023 Screening PSA (prostate specific antigen) 12/14/2023 12/14/2023 Type 2 diabetes mellitus with hyperglycemia 12/14/2023 12/14/2023 Encounters Date Type Department Care Team Description 10/30/2024 [facility] [address] [place] [address] Zuri Gibbons MD 10/24/2024 9:05 AM EDT [facility] [address] [place] [address] Zuri Gibbons MD Seborrheic keratosis (Primary Dx); Lentigines; History of basal cell carcinoma; Actinic keratosis; Neoplasm of unspecified behavior of bone, soft tissue, and skin 10/24/2024 Bamboo flowsheet [facility] [address] [place] [address] Zuri Gibbons MD 10/24/2024 Travel from Last 3 Months Immunizations Immunization Administration Dates Next Due Influenza, Unspecified 03/30/2021,03/03/2020 Pneumococcal Conjugate PCV 13 05/28/2019 Family History Medical History Relation Name Comments Heart failure Father Michele Phan Hypertension Father Michele Phan Heart failure Mother Vicki Phan Relation Name Status Comments Father Michele Phan Mother Vicki Phan Social History Tobacco Use Types Packs/Day Years Used Date Smoking Tobacco: Some Days Cigars Smokeless Tobacco: Never Alcohol Use Standard Drinks/Week Comments Not Currently 0 (1 standard drink = 0.6 oz pur e alcohol) Sex and Gender Information Value Date Recorded Sex Assigned at Not on file Legal Sex Male 8:13 PM EDT Gender Identity Male 10/25/2023 5:23 PM EDT Sexual Orientation Not on file Last Filed Vital Signs Vital Sign Reading Time Taken Comments Blood Pressure 195/85 08/30/2023 8:33 AM EDT Pulse - - Temperature - - Respiratory Rate - - Oxygen Saturation - - Inhaled Oxygen Concentration - - Weight 97.1 kg (214 lb) 12/14/2023 12:52 PM EDT Height 170.2 cm (5' 7 ) 12/14/2023 12:52 PM EDT Body Mass Index 33.52 12/14/2023 12:52 PM EDT Plan of Treatment Upcoming Encounters Date Type Department Care Team (Late st Contact Info) Description 01/15/2025 8:45 AM EDT Office Visit [facility] [address] [place] [address] Destiny Woo MD [address] [place] [address] 10/28/2025 9:00 AM EDT Office Visit [facility] [address] [place] [address] Zuri Gibbons MD [address] [place] [address] Procedures Procedure Name Priority Date/Time Associated Diagnosis Comments SKIN / NAIL BIOPSY Routine 10/24/2024 9: 06 AM EDT Neoplasm of unspecified behavior of bone, soft tissue, and skin CRYOTHERAPY SKIN LESION Routine 10/25/19 9:03 AM EDT Actinic keratosis DERMATOPATHOLOGY EXAM Routine 10/24/2024 12:00 AM EDT Neoplasm of unspecified behavior of bone, soft tissue, and skin from Last 3 Months Results * Lesion biopsy (10/24/2024 9:06 AM EDT) Narrative Destiny Fuller LPN - 10/24/2024 9:06 AM EDT Type of biopsy: tangential Informed consent: discussed and consent obtained Informed consent comment: The risks and benefits of the biopsy were discussed. Risks include but are not limited to bleeding, infection, scarring, pain, and nerve damage. An opportunity to ask questions prior to the procedure was permitted and all questions were answered. Patient was prepped and draped in usual sterile fashion: area cleansed with alcohol. Anesthesia: the lesion was anesthetized in a standard fashion Anesthetic: 1% lidocaine w/ epinephrine 1-100,000 buffered w/ 8.4% NaHCO3 Instrument used: DermaBlade Hemostasis achieved with: electrodesiccation Outcome: patient tolerated procedure well Outcome comment: The specimen was placed in a prelabeled formalin container to be sent for pathology Post-procedure details: sterile dressing applied and wound care instructions given Post-procedure details comment: Emphasized need to contact clinic for any signs of infection, uncontrollable bleeding, or complications. Dressing type: bandage Additional details: Photo taken yes Amount of lidocaine used: 1.0 cc Result [facility] Zuri Gibbons MD DERM PROCEDURE ORDERABLES Fin al Result * Cryotherapy, skin lesion (10/24/2024 9:03 AM EDT) Result [facility] Zuri Gibbons MD DERM PROCEDURE ORDERABLES Fin al Result * Dermatopathology exam (10/24/2024 12:00 AM EDT) SPECIMEN TYPE --- SPECIMEN: NECK POST --- [facility] ICD10 Code C44.41 [facility] PROTOCOL F - FLAT [facility] Final Diagnosis BASAL CELL CARCINOMA, NODULAR AND INFILTRATIVE TYPES, EXTENDING TO THE DEEP MARGIN. [facility] Gross Text [facility] Microscopic Description Microscopic examination performed. [facility] CPT 13424*1 [facility] Skin Topography unknown / Unknown 10/24/2024 9:06 AM EDT Comment:Differential Diagnos is: BCC Check Margins: No Size of lesion: 1.0 x 0.6 cm Result [facility] Zuri Gibbons MD LAB PATHOLOGY ORDERABLES Elke l Result [facility] from Last 3 Months Insurance [employer] Care Teams Manager Country Relationship Specialty Start Date End Date Xavier Greene DO PCP - General Internal Medicine 08/09/23 Zuri Gibbons MD [address] [place] [address] Referring Physician Dermatology 12/14/23 Car Dye DO [address] [place] [address] Otolaryngology 12/14/23
--- OUTSIDE RECORDS SUMMARY | 2024-12-16 10:16 | XMS_ITS | Encounter Summary ---
Author Organization [facility] Address [address] [place] [address] Care Team Providers Care Fish Conservationist Name Role Phone Xavier Greene DO Primary Care Provider [phone] Zuri Gibbons MD Unavailable Car Dye DO Unavailable [phone] Encounter Details Date Type Department Care Team (Late st Contact Info) Description 08/23/2023 Orders Only [facility] [address] [facility] [address] [place] [address] Xavier Greene DO [address] [facility] [place] [address] Social History Tobacco Use Types Packs/Day Years [...] [address] [place] [phone] Destiny Woo MD [address] [place], [place] [address] 10/28/2025 9:00 AM EDT Office Visit [facility] [address] [place] [address] Zuri Gibbons MD [address] [place] [address] documented as of this encounter Procedures Procedure Name Priority Date/Time Associated Diagnosis Comments CT SINUS WO Routine 06/30/2023 9:36 AM EST documented in this encounter Results * CT SINUS WO IV CONTRAST (06/30/2023 9:36 AM EST) Anatomical Region Laterality Modality Head, Neck Computed Tomogra phy us Xavier Greene DO IMG CT PROCEDURES Final Resul t documented in this encounter Visit Diagnoses Not on filedocumented in this encounter Care Teams Fish Conservationist Relationship Specialty Start Date End Date Xavier Greene DO PCP - General Internal Medicine 08/09/23 Zuri Gibbons MD [address] [place] [address] Referring Physician Dermatology 12/14/23 Car Dye DO [address] [place] [address] Otolaryngology 12/14/23 documented as of this encounter
--- OUTSIDE RECORDS SUMMARY | 2024-12-16 10:16 | XMS_ITS | Encounter Summary ---
Author Organization [employer] Address [id number] [address] [place] [address] Care Team Providers Care Vacation Guide Name Role Phone JcXavier Xochilt SHIPMAN Primary Care Provider [phone] Encounter Details Date Type Department Care Team (Late st Contact Info) Description 10/27/2021 Orders Only [facility] [address] [facility] [address] [place] [address] Anastasia Montero CMA Social History Tobacco Use Types Packs/Day [...] often do you attend chur ch or presybeterian services? More than 4 times per year 06/10/2020 Do you belong to any clubs o r organizations such as religious groups, unions, fraternal or athletic groups, or [...] Answer Date Recorded Total Score 0 06/10/2020 [facility] - Occupational Stress [...] on file Sexual Orientation Not on file COVID-19 Exposure Response Date Recorded In the last 10 days, have yo u been in contact with someone who was confirmed or suspected to have Coronavirus/COVID-19? No / Unsure 10/28/2021 8:43 AM EDT documented as of this encounter Plan of Treatment Upcoming Encounters Date Type Department Care Team (Late st Contact Info) Description 12/19/2024 8:40 AM EDT Office Visit [facility] [place] [address] Amanda Landis MD [address], [address] [address] documented as of this encounter Visit Diagnoses Not on filedocumented in this encounter Additional Health Concerns Assessment Noted Time PHQ-9 Depression Total Score: 0 06/10/19 21 10:50 PM EST documented as of this encounter Care Teams Vacation Guide Relationship Specialty Start Date End Date Xavier Greene DO [address] [place] [address] PCP - General Internal Medicine 04/22/20 documented as of this encounter
--- OUTSIDE RECORDS SUMMARY | 2024-12-16 10:16 | XMS_ITS | Encounter Summary ---
Author Organization [facility] Address [address] [place] [address] Care Team Providers Care Tube Dispatcher Name Role Phone JcXavier Mak SHIPMAN Primary Care Provider Zuri Gibbons MD Unavailable [phone] Car Dye DO Unavailable Encounter Details Date Type Department Care Team (Late st Contact Info) Description 12/18/2023 External Result Encounter [facility] External Department Unsolicited Car Dye DO [address] [place] [address] Social History Tobacco Use Types Packs/Day Years [...] Description 01/15/2025 8:45 AM EDT Office Visit [facility] [place] [facility] [address] [place] [address] Destiny Woo MD [address] [facility] [address] [place] [address] 10/28/2025 9:00 AM EDT Office Visit [facility] [place] [facility] [address] [place] [address] Zuri Gibbons MD [address] [place] [address] documented as of this encounter Procedures Procedure Name Priority Date/Time Associated Diagnosis Comments ECG 12-LEAD 12/18/2023 1:59 PM EDT documented in this encounter Results * ECG 12 lead (12/18/2023 1:59 PM EDT) 12/18/2023 1:59 PM EDT Narrative [facility] - 12/18/2023 6:08 PM EDT [facility] [place] [address] [place] [address] Electrocardiograph Report Signed Patient: Nikolai Phan MR#: [id number] 160 : 1950 Acct:[id number] Age/Sex: 73 / M ADM Date: 12/18/23 Loc: Room: Type: [facility] Attending Dr: Car Dye DO Ordering Provider: [...] Anterior infarct is now present Confirmed by CHRISTINA SANDHU MD, FACC ([id number]) on 12/18/2023 6:07:40 PM Referred By: Electronically Signed By: CHRISTINA SANDHU MD FACC Transcribed By: MUS Signed By Christina Sandhu MD, FACC 12/18/23 6084 Procedure Note Christina Sandhu MD - 12/18/2023 [facility] [place] [address] [place] [address] Electrocardiograph Report Signed Patient: Nikolai Phan LMR#: [id number] 160 : 9Acct:[id number] Age/Sex: 73 / MADM Date: 12/18/23 Loc: Room:Type: [facility] Attending Dr: Car Dye DO Ordering Provider: [...] is now present Confirmed by SUZY RAM [facility] ([id number][facility] on 12/18/2023 6:07:40 PM Referred By: Electronically Signed By: CHRISTINA SANDHU MD [facility] Transcribed By: MUS Signed By Christina Sandhu MD, [facility] 12/18/231806 us Car Dye DO ECG ORDERABLES Final Resul t [address] [place] [address], documented in this encounter Visit Diagnoses Not on filedocumented in this encounter Care Teams Tube Dispatcher Relationship Specialty Start Date End Date Xavier Greene DO PCP - General Internal Medicine 08/09/23 Zuri Gibbons MD [address] [place] [address] Referring Physician Dermatology 12/14/23 Car Dye DO [address] [facility] [place] [address] Otolaryngology 12/14/23 documented as of this encounter
--- OUTSIDE RECORDS SUMMARY | 2024-12-16 10:16 | XMS_ITS | Clinical Summary ---
Author Organization [employer] Address [id number] [place] [address] Care Team Providers Care Assistant Manager Bilingual Name Role Phone JcXavier Primary Care Provider [phone] Allergies Active Allergy Reactions Criticality Noted Date Comments Penicillins Fever 05/19/2020 Medications lisinopriL (PRINIVIL,ZESTR IL) 40 mg tabletIndicatio ns:hypertension Take 1 tablet (40 mg total) by mouth in the morning. Indications: high blood pressure. Active hydroCHLOROthia zide (MICROZIDE) 12.5 mg capsuleIndicati ons:hypertensio n Take 1 capsule (12.5 mg total) by mouth daily Indications: high blood pressure. Active amLODIPine (NORVASC) 5 mg tabletIndicatio ns:hypertension Take 1 tablet (5 mg total) by mouth in the morning. Indications: high blood pressure. Active metoprolol tartrate (LOPRESSOR) 50 mg tabletIndicatio ns:hypertension Take 1 tablet (50 mg total) by mouth in the morning and 1 tablet (50 mg total) before bedtime. Indications: high blood pressure. Active metFORMIN (GLUCOPHAGE) 500 mg tabletIndicatio ns:type 2 diabetes mellitus Take 1 tablet (500 mg total) by mouth in the morning and 1 tablet (500 mg total) before bedtime. Indications: type 2 diabetes mellitus. Active atorvastatin (LIPITOR) 80 mg tabletIndicatio ns:hyperlipidem ia Take 1 tablet (80 mg total) by mouth Indications: excessive fat in the blood. At night Active aspirin 81 mg chewable tabletIndicatio ns:myocardial infarction prevention Chew 1 tablet (81 mg total) and swallow in the morning. Indications: treatment to prevent a heart attack. Active clopidogreL (PLAVIX) 75 mg tablet Take 1 tablet (75 mg total) by mouth daily. 30 tablet 3 0 Active Additional Information Patient not taking.Reported on 11/10/2022 acetaminophen (TYLENOL) 325 mg tablet Take 2 tablets (650 mg total) by mouth every 4 (four) hours as needed (temperature greater than or equal to 38.5 C (101.5 F) and/or patient reported pain of 1-2). 30 tablet 1 Active metFORMIN (GLUCOPHAGE) 1000 mg tablet Take 500 mg by mouth in the morning and 500 mg before bedtime. 2 Active Active Problems Problem Noted Date Diagnosed Date Carotid stenosis 06/10/2020 Assessment & Plan (12/07/2023 8:55 AM EDT): Continue aspirin and Plavix. Carotid duplex ultrasound in a year. Follow-up then. Risk factors modification with exercise healthy diet Encounters Date Type Department Care Team Description 12/12/2024 Telephone [facility] [address] [facility] [address] [place] [address] Audrey Baker CMA from Last 3 Months Immunizations No known immunizations Social History Tobacco Use Types Packs/Day Years Used Date Smoking Tobacco: Light Smoker Cigars Smokeless Tobacco: Never Tobacco Cessation:Ready to Q uit: Not Asked; Counseling Given: Not Answered Alcohol Use Standard Drinks/Week Comments Yes 0 [...] often do you attend chur ch or sabianist services? More than 4 times per year 06/10/2020 Do you belong to any clubs o r organizations such as zoroastrianism groups, unions, fraternal or athletic groups, or [...] Answer Date Recorded Total Score 0 06/10/2020 [facility] of Occupat ional Health - Occupational Stress [...] on file Sexual Orientation Not on file Last Filed Vital Signs Vital Sign Reading Time Taken Comments Blood Pressure 151/79 12/07/2023 2:31 PM EDT Pulse 73 12/07/2023 2:31 PM EDT Temperature 36.8 C (98.2 F) 06/11/2020 3:00 PM EST Respiratory Rate 16 06/11/2020 5:00 PM EST Oxygen Saturation 92% 12/07/2023 2:31 PM EDT Inhaled Oxygen Concentration - - Weight 98 kg (216 lb) 12/07/2023 2:31 PM EDT Height 170.2 cm (5' 7 ) 12/07/2023 2:31 PM EDT Body Mass Index 33.83 12/07/2023 2:31 PM EDT Plan of Treatment Upcoming Encounters Date Type Department Care Team (Late st Contact Info) Description 12/19/2024 8:40 AM EDT Office Visit [facility] [address] [place] [address] Amanda Landis MD [address], [address] [address] Health Maintenance Due Date Last Done Comments Depression Screening 1960 DTaP,Tdap and Td Vaccines (1 - Tdap) 11/10/1967 Zoster (Shingles) Vaccine (1 of 2) 1998 Abdominal Aortic Aneurysm (AAA) Screen 2013 Fall Risk Screening 2013 Tobacco Screening 12/06/2024 12/07/2023 Influenza Vaccine 01/20/2025 03/30/2021, 03/03/2020 Medical Devices Implanted Type Area Photo Lab Technician Device Identifier Shelf Expiration Date Model / Serial / Lot Ptch Photofix 0.8x8cm [facility] [id number] - [id number] - [id number] Implanted:Qty: 1 on 06/10/2020 by Adiel Reyes MD at [facility] Graft Left: Carotid CR[employer]IFE 03/07/2022 [id number] / [id number] / [id number] Insurance [employer] Care Teams Assistant Manager Bilingual Relationship Specialty Start Date End Date Xavier Greene DO [address] [place] [address] PCP - General Internal Medicine 04/22/20
--- OUTSIDE RECORDS SUMMARY | 2024-12-16 10:16 | XMS_ITS | Encounter Summary ---
Author Organization [employer] Address [id number] [place] [address] Care Team Providers Care Emergency Care Attendant Name Role Phone JcXavier Primary Care Provider [phone] Reason for Referral * Diagnostic Imaging (Routine) - Closed Specialty Diagnoses / Procedures Referred By Magui chaney Referred To Contact Radiology Diagnoses Bilateral carotid artery stenosis Procedures CT angiogram carotid Adiel Reyes MD Phone: tel: fax: Referral ID Status Reason Start Date Expiration Date Visits Re quested Visits Authorized [id number] Closed 08/21/2020 08/21/2021 1 1 Encounter Details Date Type Department Care Team (Late st Contact Info) Description 08/21/2020 Orders Only [facility] [address] [place] [address] Earlene Charles CMA Hypertension, unspecified type (Primary Dx); Bilateral carotid artery stenosis Social History Tobacco Use Types Packs/Day Years [...] often do you attend chur ch or taoism services? More than 4 times per year 06/10/2020 Do you belong to any clubs o r organizations such as adventism groups, unions, fraternal or athletic groups, or [...] Answer Date Recorded Total Score 0 06/10/2020 [facility]at ional [facility] - [...] Description 12/19/2024 8:40 AM EDT Office Visit [facility] [place] [address] [place] [address] Amanda Landis MD [address], [address] [address] documented as of this encounter Procedures Procedure Name Priority Date/Time Associated Diagnosis Comments CREATININE, SERUM Routine 05/05/2020 3:34 PM EST Bilateral carotid artery stenosis Hypertension, unspecified type CT CTA CAROTID Routine 05/05/2020 3:32 PM EST Bilateral carotid artery stenosis documented in this encounter Results * Creatinine includes GFR, serum (05/05/2020 3:34 PM EST) Adiel Reyes MD LAB BLOOD ORDERABLES Final Resu lt SUNQUEST * CT angiogram carotid (05/05/2020 3:32 PM EST) Anatomical Region Laterality Modality Neuro, Neck, Vascular, Neuro Covera N/A Computed Tomography Adiel Reyes MD IMG CT ORDERABLES Final Result documented in this encounter Visit Diagnoses Diagnosis Hypertension, unspecified type- Primary Bilateral carotid artery stenosis Occlusion and stenosis of carotid artery without mention of cerebral infarction documented in this encounter Additional Health Concerns Assessment Noted Time PHQ-9 Depression Total Score: 0 06/10/19 21 10:50 PM EST documented as of this encounter Care Teams Emergency Care Attendant Relationship Specialty Start Date End Date Xavier Greene DO [facility] [place] [address] PCP - General Internal Medicine 04/22/20 documented as of this encounter
--- OUTSIDE RECORDS SUMMARY | 2024-12-16 10:27 | XMS_ITS | CCD ---
Author Organization [facility] Care Team Providers Care Collections Officer Name Role Phone JC, DR WILCOX Admitting Unavailable BALL, DR WILCOX Attending Unavailable BALL, DR WILCOX Primary Care Unavailable BALL, DR WILCOX Consulting Unavailable JC, DR WILCOX Admitting Unavailable BALL, DR WILCOX Attending Unavailable BALL, DR WILCOX Primary Care Unavailable BALL, DR WILCOX Admitting Unavailable BALL, DR WILCOX Attending Unavailable BALL, DR WILCOX Primary Care Unavailable BALL, DR WILCOX Admitting Unavailable BALL, DR WILCOX Attending Unavailable BALL, DR WILCOX Primary Care Unavailable BALL, DR WILCOX Consulting Unavailable JC, DR WILCOX Admitting Unavailable BALL, DR WILCOX Attending Unavailable BALL, DR WILCOX Primary Care Unavailable BALL, DR WILCOX Consulting Unavailable Jc, Xavier Unavailable DO Xavier Greene Primary Care Provider DO Car Melvin Attending Provider Xavier Greene Primary Care Unavailable Car Melvin Attending Unavailable Car Melvin Admitting Unavailable Car Melvin Attending Unavailable Car Melvin Admitting Unavailable Xavier Greene Primary Care Unavailable Xavier Greene DO Primary Care Provider ZURI BONNER Attending Unavailable CAR MELVIN Attending Unavailable ZURI BONNER Referring Unavailable CAR MELVIN Attending Unavailable Xavier Greene DO Primary Care Provider Zuri Bonner MD Unavailable Car Melvin DO Unavailable Allergies Allergy Classification Reported Allergen(s) Allergy Type Date of Onset Reaction(s) Facility (2 sources) Penicillin Drug Allergy 0 [facility] Repository (20 sources) Doxycycline Drug Allergy 4 Unknown, Unknown Reaction [facility] (20 sources) Penicillin G Drug Allergy 4 Unknown, Unknown Reaction [facility] (1 source) Doxycycline Drug Allergy 4 [facility] Repository (1 source) Penicillin Drug Allergy 4 [facility] Repository (2 sources) Penicillins Propensity to adverse reactions to drug 0 Fever [facility] (3 sources) Penicillins Drug Intolerance 0 Fever [facility] (1 source) Penicillins Propensity to adverse reactions to drug 0 Fever [facility] Medications Current Medications Medication Drug Class(es) Dates Sig (Normalized) Sig (Original) acetaminophen 500 mg oral tablet (7 sources) Start: 12-18-2023 take 2 tablets by mouth every six hours as needed for pain Acetaminophen (Acetaminophen Extra Strength) 500 mg tablet Active 1000 MG PO Every 6 hours as needed for pain December 17, 2023 11:00pm Start: 06-11-2020 take 2 tablets by mo [facility] every four hours as needed acetaminophen (TYLENOL) [...] 11:00pm December 18, 2023 1:26pm aspirin 81 MG ch ewable tablet Chew 325 mg in the morning. Active take 1 tablet by kayce th every twenty-four hours Aspirin 325 MG 1 tablet Orally Once a day Active atorvastatin 80 mg oral tablet (20 sources) HMG-CoA Reductase Inhibitor Start: 12-18-2023 End: 06-17-2024 take 1 tablet by mouth once daily in the morning Atorvastatin 80 mg tablet Active 80 MG PO Every morning 90 June 17, 2024 5:46pm TAKE 1 TABLET BY MOUTH DAILY Start: 09-11-2023 End: 12-18-2023 take 1 tablet by mouth once daily Atorvastatin 80 mg tablet Discontinued 0 .ROUTE .COMPLEX 90 September 11, 2023 12:17pm December 18, 2023 1:28pm TAKE 1 TABLET BY MOUTH DAILY Start: 08-02-2023 End: 09-11-2023 take 1 tablet by mouth once daily Atorvastatin 80 mg tablet Discontinued 80 MG PO Daily August 01, 2023 11:00pm September 11, 2023 12:18pm clopidogrel 75 mg oral tablet (3 sources) P2Y12 Platelet Inhibitor Start: 05-20-2020 take 1 tablet by mouth once daily clopidogreL (PLAVIX) 75 mg tablet Take 1 tablet (75 mg total) by mouth daily. 30 tablet 3 05/20/2020 Active hydroCHLOROthiazide 12.5 mg oral capsule (3 sources) Thiazide Diuretic take 1 capsule by [...] tablet Active 40 MG PO Every morning 90 90 June 17, 2024 5:46pm TAKE 1 TABLET [...] Indications: type 2 diabetes mellitus. Active take 2 tablets by mo uth in the morning metFORMIN (Glucophage) 500 MG tablet Take 1,000 mg by mouth in the morning and 1,000 mg in the evening. Active take 1 tablet by kayce th [...] 2023 11:00pm September 11, 2023 12:18pm Vit C,L-Xq-Xndke-Lutein-Zeax an (Preservision Areds-2) 250-90-40-1 mg capsule (4 sources) Start: 12-18-2023 Vit C,O-Vt-Ekysw-Lutein-Zeax an (Preservision Areds-2) 250-90-40-1 mg capsule Active 1 TAB PO Daily December 17, 2023 11:00pm Start: 12-18-2023 Vit C,E-Zn-Under Baster ex-Fvywfr-Ivjxqy (Preservision Areds-2) 250-90-40-1 mg capsule Active 1 [...] Coronary arteriosclerosis; Translations: [Atherosclerotic heart disease of [place] coronary artery without angina pectoris] Onset: 08-17-2023 Chronic Deficiency and other anemia (6 sources) Anemia, unspecified; Translations: [ANEMIA UNSPECIFIED] Onset: 07-06-2022 Episodic Diabetes mellitus without complication (3 sources) Diabetes mellitus; Translations: [Type 2 diabetes mellitus without complications] Onset: 08-17-2023 08-17-2023 Chronic Diseases of mouth; excluding dental (2 [...] unspecified; Translations: [Food poisoning, unspecified] 08-02-2023 Episodic Neoplasms of unspecified nature or uncertain behavior (8 sources) Neoplastic disease of uncertain behavior; Translations: [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] Resolved: 09-22-2020 10-24-2024 Episodic Occlusion or stenosis of precerebral arteries (20 sources) Occlusion and stenosis of multiple and bilateral cerebral arteries; Translations: [Occlusion and stenosis of bilateral carotid arteries] Onset: 06-10-2020 Resolved: 12-14-2023 Chronic Comment on above: US: right w/ plaque, left normal s/p CEA - 11/2023 Other aftercare (2 sources) 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; Translations: [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 DRUG 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] Onset: 03-07-2022 Episodic Other aftercare (18 sources) H/O: high risk medication; Translations: [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] Episodic Other aftercare (6 sources) Long-term current use of drug therapy; Translations: [Other retirement (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 therapy] Episodic Other connective tissue [...] source) Impacted cerumen, left ear Episodic Other injuries and conditions due to external causes (6 sources) History of fall; Translations: [History of falling] Episodic Other nervous system disorders (1 source) Trigeminal neuralgia Episodic Other non-epithelial cancer of skin (6 sources) Basal cell carcinoma of cheek; Translations: [...] sources) Hypercalcemia; Translations: [Hypercalcemia] 12-19-2023 Chronic Other skin disorders (2 sources) Seborrheic keratosis; Translations: [Other seborrheic keratosis] 10-24-2024 Episodic Other skin disorders (2 sources) Lentiginosis; Translations: [Other melanin hyperpigmentation] 10-24-2024 Episodic Other skin disorders (2 sources) Actinic keratosis; Translations: [Actinic keratosis] 10-24-2024 Episodic Other upper respiratory disease (1 source) [...] Other Problems Problem Classification Problem Date Documented Da te Episodic/Chronic Deficiency and other anemia (20 sources) Anemia; Translations: [Anemia, unspecified] Onset: 08-17-2023 08-02-2023 Episodic Diabetes mellitus with complications (20 sources) Type 2 diabetes mellitus with hyperglycemia; Translations: [Hyperglycemia due to type 2 diabetes mellitus] Onset: 10-25-2021 Resolved: 12-14-2023 Chronic Diabetes mellitus without complication (6 sources) Impaired fasting glycemia; Translations: [Impaired fasting glucose] Resolved: 04-21-2020 Episodic Mood disorders (3 sources) Mood disorders Onset: 06-10-2020 06-10-2020 Nonspecific chest pain (6 sources) Chest pain; Translations: [Other chest pain] Resolved: 09-22-2020 Episodic Osteoarthritis (20 sources) Arthritis of shoulder region joint; Translations: [Primary osteoarthritis, left shoulder] Onset: 12-14-2023 Resolved: 12-14-2023 08-02-2023 Chronic Other circulatory disease (6 sources) Cardiovascular symptoms; Translations: [Other specified symptoms and signs involving the circulatory and respiratory systems] Resolved: 09-22-2020 Episodic Other connective tissue disease (1 source) Abnormal posture; Translations: [ABNORMAL POSTURE] Onset: 03-10-2022 Episodic Other gastrointestinal disorders (20 sources) Oropharyngeal dysphagia; Translations: [Dysphagia, oropharyngeal phase] Onset: 08-17-2023 08-02-2023 Episodic Other nervous system disorders (3 sources) Atypical facial pain; Translations: [Atypical facial pain] Onset: 08-30-2023 08-30-2023 Episodic Other nutritional; endocrine; and metabolic disorders (6 sources) Obesity; Translations: [Obesity, unspecified] Onset: 03-30-2021 Resolved: 03-02-2022 Chronic Other screening for suspected conditions (not mental disorders or infectious disease) (20 sources) Encounter for screening for malignant neoplasm of prostate; Translations: [Prostate specific antigen measurement] Onset: 03-07-2022 Resolved: 12-14-2023 Episodic Comment on above: PSA: 1.84 - 02/2022, 1.82 - 02/2024, Other skin disorders (3 sources) Lesion of skin of face; Translations: [Disorder of the skin and subcutaneous tissue, unspecified] Onset: 08-30-2023 08-30-2023 Episodic Unclassified (1 source) Suspected COVID-19 virus infection Z20.822 Unclassified (1 source) Right facial pain R51.9 Results Test Name Value Interpretation Reference Range Facility No Panel Informationon 10-24 Type of biopsy: tangential Informed consent: discussed [...] yes Amount of lidocaine used: 1.0 cc [facility] Basophils Auto (Bld) [#/Vol] on 07-05-2024 Basophils (Bld) [#/Vol] Automated basoph il count 0.0-0.1 [facility] Basophils/100 WBC Auto (Bld) on 07-05-2024 Basophils/100 WBC (Bld) Automated basophil % 0. 2-2.0 [facility] Eosinophils/100 WBC Auto (Bl d)on 07-05-2024 Eosinophils/100 WBC (Bld) Automated eosinophil % 0.9-7.0 [facility] Erythrocyte distribution wid th Auto (RBC) [Ratio]on 07-05-2024 Erythrocyte distribution width (RBC) [Ratio] Erythrocyte distribution width [Ratio] by Automated count 11.0-15.0 [facility] Hematocrit Auto (Bld) [Volum e fraction]on 07-05-2024 Hematocrit (Bld) [Volume fraction] Hematocrit [Volume Fraction] of Blood by Automated count Low 42.0-54.0 [facility] Hemoglobin [Mass/volume] in Bloodon 07-05-2024 Hemoglobin (Bld) [Mass/Vol] Hemoglobin [Mass/volume] in Blood Low 14.0-18.0 [facility] Iron binding capacity [Mass/ volume] in Serum or Plasmaon 07-05-2024 Iron binding capacity [Mass/Vol] Iron binding capacity [Mass/volume] in Serum or Plasma 250.0-450.0 [facility] Iron saturation [Mass Fracti on] in Serum or Plasmaon 07-05-2024 Iron saturation [Mass fraction] Iron saturation [Mass Fraction] in Serum or Plasma [facility] - Chemistry and C hemistry - challengeon 07-05-2024 Cobalamin (Vitamin B12) [Mass/Vol] 289 pg/mL 232-1245 [facility] Comment on above: Performed at: [address] [id number] Director: Nasir Phillips PhD, Phone: [phone] Ferritin [Mass/Vol] 370.0 ng/mL 26.0-388.0 [facility] Iron [Mass/Vol] 90.0 ug/dL 65.0-175.0 [facility] - Hematology and Cell countson 07-05-2024 Immature granulocytes/100 WBC (Bld) 1.7 % High 0.0-0.5 [facility] Leukocytes [#/volume] correc rere for nucleated erythrocytes in Blood by Automated counon 07-05-2024 WBC corrected for nucl RBC Auto (Bld) [#/Vol] Leukocytes [#/volume] corrected for nucleated erythrocytes in Blood by Automated coun 4.0-11.0 [facility] Lymphocytes Auto (Bld) [#/Vo l]on 07-05-2024 Lymphocytes (Bld) [#/Vol] Lymphocytes [#/volume] in Blood by Automated count 1.2-3.8 [facility] Lymphocytes/100 WBC Auto (Bl d)on 07-05-2024 Lymphocytes/100 WBC (Bld) Lymphocytes/100 leukocytes in Blood by Automated count 20.5-60.0 [facility] MCH Auto (RBC) [Entitic mass ]on 07-05-2024 MCH (RBC) [Entitic mass] MCH [Entitic mass] by Automated count 25.9-34.0 [facility] MCHC Auto (RBC) [Mass/Vol]on 07-05-2024 MCHC (RBC) [Mass/Vol] MCHC [Mass/volume] by Automated count 29.9-35.2 [facility] MCV Auto (RBC) [Entitic vol] on 07-05-2024 MCV (RBC) [Entitic vol] MCV [Entitic vol ume] by Automated count High 80.0-94.0 [facility] Monocytes Auto (Bld) [#/Vol] on 07-05-2024 Monocytes (Bld) [#/Vol] Automated blood monocyte count 0.3-0.8 [facility] Monocytes/100 WBC Auto (Bld) on 07-05-2024 Monocytes/100 WBC (Bld) Automated monocyte % 1. 7-12.0 [facility] Neutrophils Auto (Bld) [#/Vo l]on 07-05-2024 Neutrophils (Bld) [#/Vol] Neutrophils [#/volume] in Blood by Automated count 1.4-6.5 [facility] Neutrophils/100 WBC Auto (Bl d)on 07-05-2024 Neutrophils/100 WBC (Bld) Automated neutrophil % Low 43.0-75.0 [facility] No Panel Informationon 07-05 Eosinophils # (Auto) 0.2 10 3/uL 0.0-0.7 [facility] Folate 17.50 ng/mL 8.60-58.90 [facility] Immature Granulocyte # (Auto) 0.09 10 3/uL High 0.00-0.03 [facility] Platelet mean volume Auto (B ld) [Entitic vol]on 07-05-2024 Platelet mean volume (Bld) [Entitic vol] Platelet mean volume [Entitic volume] in Blood by Automated count 9.5-13.5 [facility] Platelets Auto (Bld) [#/Vol] on 07-05-2024 Platelets (Bld) [#/Vol] Platelets [#/vol ume] in Blood by Automated count 150-450 [facility] RBC Auto (Bld) [#/Vol]on RBC (Bld) [#/Vol] Erythrocytes [#/volume] in Blood by Automated count Low 4.70-6.10 [facility] Capillary blood glucose jacqueline urement by glucometer (mass/volume)Ordered By: Car Melvin on 12-27-2023 Glucose [Mass/Vol] 148 mg/dL [facility] Comment on above: Random Glucose Refer ence Range is dependent on time and content of last meal. Glucose of more than 200 mg/dL in a nonstressed, ambulatory subject supports the diagnosis of Diabetes Mellitus. Result Comment: [facility] Glucose Reference Range is dependent on time and content of last meal. Glucose of more than 200 mg/dL in a nonstressed, ambulatory subject supports the diagnosis of Diabetes Mellitus. PERFORMED BY: [facility] [address] [address] PATHOLOGIST SCALE MECHANIC MARINA DANIEL M.D. Performed By: #### G MARGARET #### Point of Care testing , Glucose Poct Glucometerson 0 12-27-2023 Glucose [Mass/Vol] 138 mg/dL Normal [facility] Comment on above: Result Comment: [facility] Glucose Reference Range is dependent on time and content of last meal. Glucose of more than 200 mg/dL in a nonstressed, ambulatory subject supports the diagnosis of Diabetes Mellitus. PERFORMED BY: [facility] [address] [place] [address] PATHOLOGIST SCALE MECHANIC MARINA DANIEL M.D. Performed By: #### G LUBRINDA #### Point of Care testing , Harris 12-27-2023 L Specimen: [id number] Received: 12/27/23 Status: ACOSTA Toney Num: [id number] Spec Type: Surgical Subm Dr: Car Melvin DO Tissues: A Skin-Other than Cyst, tag, debridement or plastic repair (RIGHT CHEEK LESION B Skin-Other than Cyst, tag, debridement or plastic repair (LEFT CHEEK LESION) Procedures: HE/5, Gross/Micro L4/3, FS HE/6 Age/ Patient Sex Location Account Attending Physician Nikolai Phan 73/M [place] [id number] Car Melvin DO SPEC NUM: [id number] RECD: 12/27/23 STATUS: ACOSTA TONEY NUM: [id number] FRED: 12/27/23- SUBM DR: Car Melvin DO ENTERED: 12/27/[address] [facility] [address]: SPEC TYPE: Surgical DEPT: S ENTERED BY: [id number] RECV BY: [id number] ORDERED: HE/5, Gross/Micro L4/3, FS HE/6 ORDERED: [...] on the skin surface. The specimen is -------- Specimen: [id number] Received: 12/27/23 Status: ACOSTA Toney Num: [id number] Spec Type: Surgical Subm Dr: Car Melvin DO Tissues: A Skin-Other than Cyst, tag, debridement or plastic repair (RIGHT CHEEK LESION B Skin-Other than Cyst, tag, debridement or plastic repair (LEFT CHEEK LESION) Procedures: HE/5, Gross/Micro L4/3, FS /6 -------- Patient: Nikolai Phan [id number] (Continued) -------- Specimen: [id number] Received: 12/27/23 (Continued) Gross Description (Continued) Signed (signature on file) Elise Goodman MD 12/28/23 9097 -------- Specimen: [id number] Received: 12/27/23 Status: ACOSTA Toney Num: [id number] Spec Type: Surgical Subm Dr: Car Melvin, Tissues: A Skin-Other than Cyst, tag, debridement or plastic repair (RIGHT CHEEK LESION B Skin-Other than Cyst, tag, debridement or plastic repair (LEFT CHEEK LESION) Procedures: HE/5, Gross/Micro L4/3, FS -------- Patient: Nikolai Phan [id number] (Continued) -------- Specimen: [id number] Received: 12/27/23 (Continued) Gross Description (Continued) serially [...] Description Microscopic examinations are performed CPT Codes 67256 x 2 94066 x 2 93651 x 2 -------- -------- Specimen: [id number] Received: 12/27/23 Status: ACOSTA Toney Num: [id number] Spec Type: Surgical Subm Dr: DO Radha Catalan (more content not included)... Normal [facility] Automated basophil %Ordered By: Car Melvin on 12-18-2023 Basophils/100 WBC (Bld) 0.6 % . F [facility] Comment on above: Performed By: #### B MP, CBC #### [address] Automated basophil countOrde red By: Car Melvin on 12-18-2023 Basophils (Bld) [#/Vol] 0.0 10*3/uL 0.0-0.2 [facility] Comment on above: Result Comment: PERF ORMED BY: [place] [address] PATHOLOGIST SCALE MECHANIC MARINA DANIEL M.D. Performed By: #### B MP, CBC #### [address] Automated blood monocyte cou ntOrdered By: Car Melvin on 12-18-2023 Monocytes (Bld) [#/Vol] 0.7 10*3/uL 0.0-0.8 [facility] Comment on above: Performed By: #### B MP, CBC #### [address] Automated eosinophil %Ordere d By: Car Melvin on 12-18-2023 Eosinophils/100 WBC (Bld) 2.2 % . [facility] Comment on above: Performed By: #### B MP, CBC #### [address] Automated eosinophil countOr dered By: Car Melvin on 12-18-2023 Eosinophils (Bld) [#/Vol] 0.1 10*3/uL 0.0-0.45 [facility] Comment on above: Performed By: #### B MP, CBC #### [address] Automated monocyte %Ordered By: Car Melvin on 12-18-2023 Monocytes/100 WBC (Bld) 11.9 % . F [facility] Comment on above: Performed By: #### B MP, CBC #### [address] Automated neutrophil %Ordere d By: Car Melvin on 12-18-2023 Neutrophils/100 WBC (Bld) 41.9 % . [facility] Comment on above: Performed By: #### B MP, CBC #### [address] Basic Metabolic Panelon 11-20 GFR/1.73 sq M.predicted MDRD (S/P/Bld) [Vol rate/Area] mL/min/{1.73_m2} Normal [facility] Comment on above: Performed By: #### B MP, CBC #### [address] Calcium [Mass/volume] in Ser um or PlasmaOrdered By: Car Melvin on 12-18-2023 Calcium [Mass/Vol] 10.5 mg/dL High 8.6-10.3 [facility] Comment on above: Result Comment: PERF ORMED BY: [place] [address] PATHOLOGIST SCALE MECHANIC MARINA DANIEL M.D. Performed By: #### B FELIX, CBC #### [address] Carbon dioxide, total [Moles /volume] in Serum or PlasmaOrdered By: Car Melvin on 12-18-2023 CO2 [Moles/Vol] 29.8 mmol/L 21.0-31.0 [facility] Comment on above: Performed By: #### B MP, CBC #### [place] [address] [place] Chloride [Moles/volume] in S artemio or PlasmaOrdered By: Car Melvin on 12-18-2023 Chloride [Moles/Vol] 101 mmol/L 98-107 [facility] Comment on above: Performed By: #### B MP, CBC #### [place] [address] [place] Complete Blood Count Auto Di ffon 12-18-2023 Mean Corpuscular HGB Conc 34.7 g/dL Normal 32.5-35.6 [facility] Comment on above: Performed By: #### B MP, CBC #### [facility] [address] NRBC% 0.1 /100{WBC} Normal 0-0.5 [facility] Comment on above: Performed By: #### B MP, CBC #### [facility] [address] Creatinine [Mass/volume] in Serum or PlasmaOrdered By: Car Melvin on 12-18-2023 Creatinine [Mass/Vol] 0.95 mg/dL 0.70-1.30 [facility] Comment on above: Performed By: #### B MP, CBC #### [address] ECG 12 lead ECGon 12-18-2023 ECG 12 lead ECG [facility] [place] [address] [place] [address] Electrocardiograph Report Signed Patient: Nikolai Phan MR#: [id number] 160 : 1950 Acct:[id number] Age/Sex: 73 / M ADM Date: 12/18/23 Loc: Room: Type: [facility] Attending Dr: Car Melvin DO Ordering Provider: [...] is now present Confirmed by SUZY RAM [facility] ([id number]) on 12/18/2023 6:07:40 PM Referred By: Electronically Signed By: CHRISTINA SANDHU MD FACC Transcribed By: MUS Signed By Christina Sandhu MD, FACC 12/18/23 9437 Normal [facility] Erythrocyte distribution wid th [Ratio] by Automated countOrdered By: Car Melvin on 12-18-2023 Erythrocyte distribution width (RBC) [Ratio] 13.0 % 12.0-14.8 [facility] Comment on above: Performed By: #### B FELIX, CBC #### [facility] [address] Erythrocytes [#/volume] in B lood by Automated countOrdered By: Car Melvin on 12-18-2023 RBC (Bld) [#/Vol] 4.08 10*6/uL 3.90-5.60 [facility] Comment on above: Performed By: #### B MP, CBC #### [address] Glucose [Mass/volume] in Ser um or PlasmaOrdered By: Car Melvin on 12-18-2023 Glucose [Mass/Vol] 139 mg/dL High 70-100 [facility] Comment on above: ADA recommended refe rence rangeRandom Glucose Reference Range is dependent on time and content of last meal. Glucose of more than 200 mg/dL in a nonstressed, ambulatory subject supports the diagnosis of Diabetes Mellitus. Result Comment: [place] Glucose Reference Range is dependent on time and content of last meal. Glucose of more than 200 mg/dL in a nonstressed, ambulatory subject supports the diagnosis of Diabetes Mellitus. ADA recommended reference range Performed By: #### B FELIX, CBC #### [address] Hematocrit [Volume Fraction] of Blood by Automated countOrdered By: Car Melvin on 12-18-2023 Hematocrit (Bld) [Volume fraction] 38.2 % Low 38.8-50.0 [facility] Comment on above: Performed By: #### B MP, CBC #### [place] [address] [place] Hemoglobin [Mass/volume] in BloodOrdered By: Car Melvin on 12-18-2023 Hemoglobin (Bld) [Mass/Vol] 13.3 g/dL 13.0-17.0 [facility] Comment on above: Performed By: #### B MP, CBC #### [address] Leukocytes [#/volume] correc rere for nucleated erythrocytes in Blood by Automated counOrdered By: Car Melvin on 12-18-2023 WBC corrected for nucl RBC Auto (Bld) [#/Vol] 6.3 10*3/uL 4.1-10.5 [facility] Leukocytes [#/volume] in Blo od by Automated countOrdered By: Car Melvin on 12-18-2023 WBC (Bld) [#/Vol] 6.3 10*3/uL 4.1-10.5 [facility] Comment on above: Performed By: #### B MP, CBC #### [address] Lymphocytes [#/volume] in Bl ood by Automated countOrdered By: Car Melvin on 12-18-2023 Lymphocytes (Bld) [#/Vol] 2.7 10*3/uL 1.00-4.8 [facility] Comment on above: Performed By: #### B MP, CBC #### [address] Lymphocytes/100 leukocytes i n Blood by Automated countOrdered By: Car Melvin on 12-18-2023 Lymphocytes/100 WBC (Bld) 43.4 % . [facility] Comment on above: Performed By: #### B MP, CBC #### [address] MCH [Entitic mass] by Automa rere countOrdered By: Car Melvin on 12-18-2023 MCH (RBC) [Entitic mass] 32.5 pg 27.5-35.2 [facility] Comment on above: Performed By: #### B MP, CBC #### [address] MCHC Auto (RBC) [Mass/Vol]Or dered By: Car Melvin on 12-18-2023 MCHC (RBC) [Mass/Vol] 34.7 g/dL 32.5-35.6 [facility] MCV [Entitic volume] by Auto mated countOrdered By: Car Melvin on 12-18-2023 MCV (RBC) [Entitic vol] 93.6 fL 83.5-101 F [facility] Comment on above: Performed By: #### B MP, CBC #### [address] Neutrophils [#/volume] in Bl ood by Automated countOrdered By: Car Melvin on 12-18-2023 Neutrophils (Bld) [#/Vol] 2.6 10*3/uL 1.8-7.7 [facility] Comment on above: Performed By: #### B FELIX, CBC #### [address] No Panel InformationOrdered By: Car Melvin on 12-18-2023 Estimated GFR (CKD-EPI) > 60.0 mL/Min [facility] Creatinine Clearance (Chem N/A [facility] Nucleated erythrocytes [Pres ence] in Blood by Automated countOrdered By: Car Melvin on 12-18-2023 Nucleated RBC Auto Ql (Bld) 0.1 /100{WBC} 0-0.5 [facility] Platelet mean volume [Entiti c volume] in Blood by Automated countOrdered By: Car Melvin on 12-18-2023 Platelet mean volume (Bld) [Entitic vol] 8.6 fL 6.6-10.1 [facility] Comment on above: Performed By: #### B FELIX, CBC #### [address] Platelets [#/volume] in Bloo d by Automated countOrdered By: Car Melvin on 12-18-2023 Platelets (Bld) [#/Vol] 165 10*3/uL 150-450 [facility] Comment on above: Performed By: #### B MP, CBC #### [address] Potassium [Moles/volume] in Serum or PlasmaOrdered By: Car Melvin on 12-18-2023 Potassium [Moles/Vol] 4.1 mmol/L 3.5-5.1 [facility] Comment on above: Performed By: #### B MP, CBC #### [facility] [address] Serum or plasma anion gap de terminationOrdered By: Car Melvin on 12-18-2023 Anion gap [Moles/Vol] 11.3 mmol/L 6.0-15.0 [facility] Comment on above: Performed By: #### B MP, CBC #### [facility] [address] Sodium [Moles/volume] in Ser um or PlasmaOrdered By: Car Melvin on 12-18-2023 Sodium [Moles/Vol] 138 mmol/L 136-145 [facility] Comment on above: Performed By: #### B MP, CBC #### [facility] [address] Urea nitrogen [Mass/volume] in Serum or PlasmaOrdered By: Car Melvin on 12-18-2023 Urea nitrogen [Mass/Vol] 24 mg/dL 7-25 [facility] Comment on above: Performed By: #### B MP, CBC #### [facility] [address] Glucose mean value [Mass/vol ume] in Blood Estimated from glycated hemoglobinon 10-03-2023 Average glucose Estimated from glycated hemoglobin (Bld) [Mass/Vol] 148 mg/dL [facility] - Hematology and Cell countson 10-03-2023 HbA1c (Bld) [Mass fraction] 6.8 % High 4.5-6.2 [facility] Comment on above: ADA RECOMMENDED LIMI T 4.0 - 6.0ADA THERAPEUTIC TARGET < 7.0ACTION SUGGESTED> 7.0 CBC AUTO DIFFon 07-06-2022 BASO # 0.0 103/ul Normal 0.0-0.1 [facility] Comment on above: Performed By: #### C BC #### [facility] [address] [address] [address] Franklin Goodman Basophils/100 WBC (Bld) 0.6 % Normal 0.2-2.0 [facility] Comment on above: Performed By: #### C BC #### [facility] [address] [place] [address] Dr. Franklin Goodman EO # 0.3 103/ul Normal 0.0-0.7 [facility] Comment on above: Performed By: #### C BC #### [facility] [address] [place] [address] Dr. Franklin Goodman Eosinophils/100 WBC (Bld) 5.6 % Normal 0.9-7.0 [facility] Comment on above: Performed By: #### C BC #### [facility] [address] [place] [address] Dr. Franklin Goodman Erythrocyte distribution width (RBC) [Ratio] 12.3 % Normal 11.0-15.0 [facility] Comment on above: Performed By: #### C BC #### [facility] [address] [place] [address] Dr. Franklin Goodman Hematocrit (Bld) [Volume fraction] 42.0 % Normal 42.0-54.0 [facility] Comment on above: Performed By: #### C BC #### [facility] [address] [place] [address] Dr. Franklin Goodman Hemoglobin (Bld) [Mass/Vol] 14.4 g/dL Normal 14.0-18.0 [facility] Comment on above: Performed By: #### C BC #### [facility] [address] [place] [address] Dr. Franklin Goodman IG # 0.02 10e3/ul Normal 0.00-0.03 [facility] Comment on above: Performed By: #### C BC #### [facility] [address] [place] [address] Dr. Franklin Goodman IG % 0.4 % Normal 0.0-0.5 [facility] Comment on above: Performed By: #### C BC #### [facility] [address] [place] [address] Dr. Franklin Goodman LYMPH # 1.9 103/ul Normal 1.2-3.8 [facility] Comment on above: Performed By: #### C BC #### [facility] [address] [place] [address] Dr. Franklin Goodman Lymphocytes/100 WBC (Bld) 39.4 % Normal 20.5-60.0 [facility] Comment on above: Performed By: #### C BC #### [facility] [address] [place] [address] Dr. Franklin Goodman MANUAL DIFF REQ NO Normal [facility] Comment on above: Performed By: #### C BC #### [facility] [address] [place] [address] Dr. Franklin Goodman MCH (RBC) [Entitic mass] 32.0 pg Normal 25.9-34.0 [facility] Comment on above: Performed By: #### C BC #### [facility] [address] [place] [address] Dr. Franklin Goodman MCHC (RBC) [Mass/Vol] 34.3 g/dL Normal 29.9-35.2 [facility] Comment on above: Performed By: #### C BC #### [facility] [address] [place] [address] Dr. Franklin Goodman MCV (RBC) [Entitic vol] 93.3 fL Normal 80.0-94.0 [facility] Comment on above: Performed By: #### C BC #### [facility] [address] [place] [address] Dr. Franklin Goodman MONO # 0.6 103/ul Normal 0.3-0.8 [facility] Comment on above: Performed By: #### C BC #### [facility] [address] [place] [address] Dr. Franklin Goodman Monocytes/100 WBC (Bld) 12.5 % Critically high 1.7-12. 0 [facility] Comment on above: Performed By: #### C BC #### [facility] [address] [place] [address] Dr. Franklin Goodman NEUT # 2.0 103/ul Normal 1.4-6.5 [facility] Comment on above: Performed By: #### C BC #### [facility] [address] [address] [address] Franklin Goodman Neutrophils/100 WBC (Bld) 41.5 % Critically low 43.0-75.0 [facility] Comment on above: Performed By: #### C BC #### [facility] [address] [address] [address] Franklin Goodman Platelet mean volume (Bld) [Entitic vol] 10.0 fL Normal 9.5-13.5 [facility] Comment on above: Performed By: #### C BC #### [facility] [address] [address] [address] Franklin Goodman PLT 172 103/ul Normal 150-450 [facility] Comment on above: Performed By: #### C BC #### [facility] [address] [address] [address] Franklin Goodman RBC 4.50 106/ul Critically low 4.70-6.10 [facility] Comment on above: Performed By: #### C BC #### [facility] [address] [address] [address] Franklin Goodman WBC 4.8 103/ul Normal 4.0-11.0 [facility] Comment on above: Performed By: #### C BC #### [facility] [address] [place] [address] Dr. Franklin Goodman Complete Blood Count and Dif shayy 07-06-2022 Anisocytosis Ql (Bld) Nor [employer] Other Basophilic stippling LM Ql (Bld) [place] [employer] Other RBC morphology finding Nom (Bld) [employer] Other Complete Blood Count and Diff [employer] Other FERRITINon 07-06-2022 Ferritin [Mass/Vol] 911.5118193 ng/mL 26. 0-388.0 ng/mL [employer] Other FERRITIN see note [employer] Other Ferritin [Mass/Vol] 245.0 ng/mL Normal 26.0-388.0 [facility] Comment on above: Performed By: #### F ERR, FETIBC, B12FOL #### [facility] [address] [address] [address] Franklin Goodman GLYCOHEMOGLOBIN A1Con 2022 ADA RECOMMENDATION SEE BELOW Normal [facility] Comment on above: Result Comment: ADA RECOMMENDED LIMIT 4.0 - 6.0 ADA THERAPEUTIC TARGET < 7.0 ACTION SUGGESTED > 7.0 Performed By: #### A 1C #### [facility] [address] [address] [address] Franklin Goodman Glucose [Mass/Vol] 146 mg/dL Normal [facility] Comment on above: Performed By: #### A 1C #### [facility] [address] [address] [address] Franklin Goodman HbA1c (Bld) [Mass fraction] 6.7 % Critically high 4.5-6.2 [facility] Comment on above: Performed By: #### A 1C #### [facility] [address] [address] [address] Franklin Goodman IRON AND TIBCon 07-06-2022 Iron [Mass/Vol] 639.0019789 ug/dL 65.0-17 5.0 ug/dL [employer] [facility] Other IRON AND TIBC 371.0 ug/dL 250.0-450.0 ug/dL [employer] Other IRON AND TIBC 34.8 % [employer] Other % SATURATION 34.8 % Normal [facility] Comment on above: Performed By: #### F ERR, FETIBC, B12FOL #### [facility] [address] [address] [address] Franklin Goodman Iron [Mass/Vol] 129.0 ug/dL Normal 65.0-175.0 [facility] Comment on above: Performed By: #### F ERR, FETIBC, B12FOL #### [facility] [address] [place] [address] Dr. Franklin Goodman TIBC DIRECT 371.0 ug/dL Normal 250.0-450.0 [facility] Comment on above: Performed By: #### F ERR, FETIBC, B12FOL #### [facility] [address] [place] [address] Dr. Franklin Goodman VIT B12 AND FOLATEon 023 Cobalamin (Vitamin B12) [Mass/Vol] 097.0036150 pg/mL 193.0-986.0 pg/mL [employer] Other VIT B12 AND FOLATE 23.00 ng/mL 8.60-58.9 0 ng/mL [employer] Other Cobalamin (Vitamin B12) [Mass/Vol] 306.0 pg/mL Normal 193.0-986.0 [facility] Comment on above: Performed By: #### F ERR, FETIBC, B12FOL #### [facility] [address] [place] [address] Dr. Franklin Goodman FOLATE 23.00 ng/mL Normal 8.60-58.90 [facility] Comment on above: Performed By: #### F ERR, FETIBC, B12FOL #### [facility] [address] [place] [address] Dr. Franklin Goodman CBC AUTO DIFFon 03-04-2022 BASO # 0.1 103/ul Normal 0.0-0.1 [facility] Comment on above: Performed By: #### B MP, ALT, LIPID #### [facility] [address] [place] [address] Dr. Franklin Goodman Basophils/100 WBC (Bld) 1.2 % Normal 0.2-2.0 [facility] Comment on above: Performed By: #### B MP, ALT, LIPID #### [facility] [address] [place] [address] Dr. Franklin Goodman EO # 0.4 103/ul Normal 0.0-0.7 [facility] Comment on above: Performed By: #### B MP, ALT, LIPID #### [facility] [address] [place] [address] Dr. Franklin Goodman Eosinophils/100 WBC (Bld) 8.9 % Critically high 0.9-7.0 [facility] Comment on above: Performed By: #### B MP, ALT, LIPID #### [facility] [address] [place] [address] Dr. Franklin Goodman Erythrocyte distribution width (RBC) [Ratio] 12.7 % Normal 11.0-15.0 [facility] Comment on above: Performed By: #### B MP, ALT, LIPID #### [facility] [address] [place] [address] Dr. Franklin Goodman Hematocrit (Bld) [Volume fraction] 39.3 % Critically low 42.0-54.0 [facility] Comment on above: Performed By: #### B MP, ALT, LIPID #### [facility] [address] [place] [address] Dr. Franklin Goodman Hemoglobin (Bld) [Mass/Vol] 13.4 g/dL Critically low 14.0-18.0 [facility] Comment on above: Performed By: #### B MP, ALT, LIPID #### [facility] [address] [place] [address] Dr. Franklin Goodman IG # 0.02 10e3/ul Normal 0.00-0.03 [facility] Comment on above: Performed By: #### B MP, ALT, LIPID #### [facility] [address] [place] [address] Dr. Franklin Goodman IG % 0.4 % Normal 0.0-0.5 [facility] Comment on above: Performed By: #### B MP, ALT, LIPID #### [facility] [address] [place] [address] Dr. Franklin Goodman LYMPH # 2.0 103/ul Normal 1.2-3.8 [facility] Comment on above: Performed By: #### B MP, ALT, LIPID #### [facility] [address] [place] [address] Dr. Franklin Goodman Lymphocytes/100 WBC (Bld) 42.1 % Normal 20.5-60.0 [facility] Comment on above: Performed By: #### B MP, ALT, LIPID #### [facility] [address] [place] [address] Dr. Franklin Goodman MANUAL DIFF REQ NO Normal [facility] Comment on above: Performed By: #### B MP, ALT, LIPID #### [facility] [address] [place] [address] Dr. Franklin Goodamn MCH (RBC) [Entitic mass] 32.1 pg Normal 25.9-34.0 [facility] Comment on above: Performed By: #### B MP, ALT, LIPID #### [facility] [address] [place] [address] Dr. Franklin Goodman MCHC (RBC) [Mass/Vol] 34.1 g/dL Normal 29.9-35.2 [facility] Comment on above: Performed By: #### B MP, ALT, LIPID #### [facility] [address] [place] [address] Dr. Franklin Goodman MCV (RBC) [Entitic vol] 94.0 fL Normal 80.0-94.0 [facility] Comment on above: Performed By: #### B MP, ALT, LIPID #### [facility] [address] [place] [address] Dr. Franklin Goodman MONO # 0.6 103/ul Normal 0.3-0.8 [facility] Comment on above: Performed By: #### B MP, ALT, LIPID #### [facility] [address] [place] [address] Dr. Franklin Goodman Monocytes/100 WBC (Bld) 12.0 % Normal 1.7-12.0 [facility] Comment on above: Performed By: #### B MP, ALT, LIPID #### [facility] [address] [place] [address] Dr. Franklin Goodman NEUT # 1.7 103/ul Normal 1.4-6.5 [facility] Comment on above: Performed By: #### B MP, ALT, LIPID #### [facility] [address] [address] [address] Franklin Goodman Neutrophils/100 WBC (Bld) 35.4 % Critically low 43.0-75.0 [facility] Comment on above: Performed By: #### B MP, ALT, LIPID #### [facility] [address] [address] [address] Franklin Goodman Platelet mean volume (Bld) [Entitic vol] 10.4 fL Normal 9.5-13.5 [facility] Comment on above: Performed By: #### B MP, ALT, LIPID #### [facility] [address] [address] [address] Franklin Goodman PLT 150 103/ul Normal 150-450 [facility] Comment on above: Performed By: #### B MP, ALT, LIPID #### [facility] [address] [place] [address] Dr. Franklin Goodman RBC 4.18 106/ul Critically low 4.70-6.10 [facility] Comment on above: Performed By: #### B MP, ALT, LIPID #### [facility] [address] [address] [address] Franklin Goodman WBC 4.8 103/ul Normal 4.0-11.0 [facility] Comment on above: Performed By: #### B MP, ALT, LIPID #### [facility] [address] [place] [address] Dr. Franklin Goodman GLYCOHEMOGLOBIN A1Con 2021 ADA RECOMMENDATION SEE BELOW Normal [facility] Comment on above: Result Comment: ADA RECOMMENDED LIMIT 4.0 - 6.0 ADA THERAPEUTIC TARGET < 7.0 ACTION SUGGESTED > 7.0 Performed By: #### B MP, ALT, LIPID #### [facility] [address] [address] [address] Franklin Goodman Glucose [Mass/Vol] 157 mg/dL Normal [facility] Comment on above: Performed By: #### B MP, ALT, LIPID #### [facility] [address] [place] [address] Dr. Franklin Goodman HbA1c (Bld) [Mass fraction] 7.1 % Critically high 4.5-6.2 [facility] Comment on above: Performed By: #### B MP, ALT, LIPID #### [facility] [address] [address] [address] Franklin Goodman LIPID PROFILEon 03-04-2022 CHOL-HDL RATIO NORM SEE BELOW Normal [facility] Comment on above: Result Comment: 3.3 - 4.4 LOW RISK 4.4 - 7.1 AVERAGE RISK 7.1 - 11.0 MODERATE RISK >11.0 HIGH RISK Performed By: #### B MP, ALT, LIPID #### [facility] [address] [address] [address] Franklin Goodman Cholesterol [Mass/Vol] 131 mg/dL Normal <=200 [facility] Comment on above: Performed By: #### B MP, ALT, LIPID #### [facility] [address] [address] [address] Franklin Goodman Cholesterol in HDL [Mass/Vol] 38 mg/dL Critically low 40-60 [facility] Comment on above: Performed By: #### B MP, ALT, LIPID #### [facility] [address] [address] [address] Franklin Goodman Cholesterol in LDL [Mass/Vol] 47.8 mg/dL Normal [facility] Comment on above: Performed By: #### B MP, ALT, LIPID #### [facility] [address] [place], [place] [address] Dr. Franklin Goodman Cholesterol.total/Sobia sterol in HDL [Mass ratio] 3.4 {ratio} Normal [facility] Comment on above: Performed By: #### B MP, ALT, LIPID #### [facility] [address] [place], [place] [address] Dr. Franklin Goodman HDL NORMAL > or = 60 mg/dl - LO W CARDIOVASCULAR RISK <40 mg/dl - HIGH CARDIOVASCULAR RISK Normal [facility] Comment on above: Performed By: #### B MP, ALT, LIPID #### [facility] [address] [address] [address] Franklin Goodman LDL CALC NORMAL SEE BELOW Normal [facility] Comment on above: Result Comment: <100 mg/dl OPTIMAL 100 - 129 mg/dl NEAR OR ABOVE OPTIMAL 130 - 159 mg/dl BORDERLINE HIGH 160 - 189 mg/dl HIGH >190 mg/dl VERY HIGH Performed By: #### B MP, ALT, LIPID #### [facility] [address] [place] [address] Dr. Franklin Goodman Triglyceride [Mass/Vol] 226 mg/dL Critically high <=150 [facility] Comment on above: Performed By: #### B MP, ALT, LIPID #### [facility] [address] [place] [address] Dr. Franklin Goodman VLDL CALC 45.2 mg/dL Normal [facility] Comment on above: Performed By: #### B MP, ALT, LIPID #### [facility] [address] [place] [address] Dr. Franklin Goodman MICROALBUMIN, RAND URon 02-19 mALB 3.9 mg/L Normal <=30.0 [facility] Comment on above: Performed By: #### M ALBR #### [facility] [address] [place] [address] Dr. Franklin Goodman PROF CHEM 8 (BAS METB)on Anion gap [Moles/Vol] 10.3 mmol/L Normal [facility] Comment on above: Performed By: #### B MP, ALT, LIPID #### [facility] [address] [place] [address] Dr. Franklin Goodman Calcium [Mass/Vol] 9.3 mg/dL Normal 8.5-10.[address] [facility] Comment on above: Performed By: #### B MP, ALT, LIPID #### [facility] [address] [place] [address] Dr. Franklin Goodman Chloride [Moles/Vol] 103 mmol/L Normal 98-107 [facility] Comment on above: Performed By: #### B MP, ALT, LIPID #### [facility] [address] [place] [address] Dr. Franklin Goodman CO2 [Moles/Vol] 30.9 mmol/L Normal 21.0-32.0 [facility] Comment on above: Performed By: #### B MP, ALT, LIPID #### [facility] [address] [address] [address] Franklin Goodman Creatinine [Mass/Vol] 0.95 mg/dL Normal 0.70-1.30 [facility] Comment on above: Performed By: #### B MP, ALT, LIPID #### [facility] [address] [address] [address] Franklin Goodman EGFR-AF KAZAKH >60 Normal >=60 [facility] Comment on above: Performed By: #### B MP, ALT, LIPID #### [facility] [address] [address] [address] Franklin Goodman EGFR-NON AF KAZAKH >60 Normal >=60 [facility] Comment on above: Performed By: #### B MP, ALT, LIPID #### [facility] [address] [address] [address] Franklin Goodman Glucose [Mass/Vol] 141 mg/dL Critically high 74-106 [facility] Comment on above: Performed By: #### B MP, ALT, LIPID #### [facility] [address] [address] [address] Franklin Goodman Potassium [Moles/Vol] 4.2 mmol/L Normal 3.5-5.1 [facility] Comment on above: Performed By: #### B MP, ALT, LIPID #### [facility] [address] [address] [address] Franklin Goodman Sodium [Moles/Vol] 140 mmol/L Normal 136-[address] [facility] Comment on above: Performed By: #### B MP, ALT, LIPID #### [facility] [address] [address] [address] Franklin Goodman Urea nitrogen [Mass/Vol] 16.0 mg/dL Normal 7.0-18.0 [facility] Comment on above: Performed By: #### B MP, ALT, LIPID #### [facility] [address] [address] [address] Franklin Goodman Urea nitrogen/Creatinine [Mass ratio] 16.8 mg/mg Normal [facility] Comment on above: Performed By: #### B MP, ALT, LIPID #### [facility] [address] [address] [address] Franklin Goodman [facility] [place] 03-04-2022 ALT [Catalytic activity/Vol] 52 U/L Normal 16-63 [facility] Comment on above: Performed By: #### B MP, ALT, LIPID #### [facility] [address] [address] [address] Franklin Goodman GLYCOHEMOGLOBIN A1Con 2021 ADA RECOMMENDATION SEE BELOW Normal [facility] Comment on above: Result Comment: ADA RECOMMENDED LIMIT 4.0 - 6.0 ADA THERAPEUTIC TARGET < 7.0 ACTION SUGGESTED > 7.0 Performed By: #### B MP, ALT, LIPID #### [facility] [address] [address] [address] Franklin Goodman Glucose [Mass/Vol] 148 mg/dL Normal [facility] Comment on above: Performed By: #### B MP, ALT, LIPID #### [facility] [address] [address] [address] Franklin Goodman HbA1c (Bld) [Mass fraction] 6.8 % Critically high 4.5-6.2 [facility] Comment on above: Performed By: #### B MP, ALT, LIPID #### [facility] [address] [place] [address] Dr. Franklin Goodman Vital Signs Date Time Vital Sign Value Performing Clinician Facility 07-10-2024 08:38-0500 Body height 172.72 cm [facility] 07-10-2024 08:38-0500 Body mass index (BMI) [Ratio] 32.6 kg/m2 [facility] 07-10-2024 08:38-0500 Body weight 97.52 kg [facility] 07-10-2024 08:38-0500 Diastolic blood pressure 89 mm[Hg] [facility] 07-10-2024 08:38-0500 Heart rate 81 /min [facility] 07-10-2024 08:38-0500 Respiratory rate 12 /min [facility] 07-10-2024 08:38-0500 Systolic blood pressure 139 mm[Hg] [facility] 01-30-2024 13:56-0400 Body height 172.72 cm DO Xavier Ball Work Phone: [facility] 01-30-2024 13:56-0400 Body mass index (BMI) [Ratio] 32.8 kg/m2 DO Xavier Ball Work Phone: [facility] 01-30-2024 13:56-0400 Body weight 98.08 kg DO Xavier Ball Work Phone: [facility] 01-30-2024 13:56-0400 Diastolic blood pressure 71 mm[Hg] DO Xavier Ball Work Phone: [facility] 01-30-2024 13:56-0400 Heart rate 76 /min DO Xavier Ball Work Phone: [facility] 01-30-2024 13:56-0400 Respiratory rate 12 /min DO Xavier Ball Work Phone: [facility] 01-30-2024 13:56-0400 Systolic blood pressure 151 mm[Hg] DO Xavier Ball Work Phone: [facility] 12-27-2023 13:10-0400 Diastolic blood pressure 67 mm[Hg] DO Xavier Ball Work Phone: [facility] 12-27-2023 13:10-0400 Heart rate 67 /min DO Xavier Ball Work Phone: [facility] 12-27-2023 13:10-0400 Respiratory rate 14 /min DO Xavier Ball Work Phone: [facility] 12-27-2023 13:10-0400 SaO2% (BldA) [Mass fraction] 94 % DO Xavier Ball Work Phone: [facility] 12-27-2023 13:10-0400 Systolic blood pressure 133 mm[Hg] DO Xavier Ball Work Phone: [facility] 12-27-2023 12:28-0400 Body temperature 97.6 [degF] DO Xavier Ball Work Phone: [facility] 12-27-2023 12:28-0400 Inhaled oxygen flow rate 1 L/min DO Xavier Ball Work Phone: [facility] 12-27-2023 08:30-0400 Body height 170.18 cm DO Xavier Ball Work Phone: [facility] 12-27-2023 08:30-0400 Body weight 97.52 kg DO Xavier Ball Work Phone: [facility] 10-06-2023 08:33-0400 Body height 172.72 cm [facility] 10-06-2023 08:33-0400 Body mass index (BMI) [Ratio] 32.5 kg/m2 [facility] 10-06-2023 08:33-0400 Body weight 97.18 kg [facility] 10-06-2023 08:33-0400 Diastolic blood pressure 69 mm[Hg] [facility] 10-06-2023 08:33-0400 Heart rate 64 /min [facility] 10-06-2023 08:33-0400 Respiratory rate 12 /min [facility] 10-06-2023 08:33-0400 Systolic blood pressure 129 mm[Hg] [facility] 06-07-2023 08:30-0500 Body height 172.72 cm Xavier Ball Other [facility] [employer] Other 06-07-2023 08:30-0500 Body mass index (BMI) [Ratio] 32.78 kg/m2 Xavier Ball Other [facility] [employer] Other 06-07-2023 08:30-0500 Body weight 97.8 kg Xavier Ball Other [facility] [employer] Other 06-07-2023 08:30-0500 Diastolic blood pressure 88 mm[Hg] Xavier Ball Other [employer] [facility] [employer] Other 06-07-2023 08:30-0500 Systolic blood pressure 139 mm[Hg] Xavier Ball Other [employer] Other 03-06-2023 09:30-0400 Body height 172.72 cm Xavier Ball Other [employer] Other 03-06-2023 09:30-0400 Body mass index (BMI) [Ratio] 33.05 kg/m2 Xavier Ball Other [employer] Other 03-06-2023 09:30-0400 Body weight 98.61 kg Xavier Ball Other [employer] Other 03-06-2023 09:30-0400 Diastolic blood pressure 78 mm[Hg] Xavier Ball Other [employer] Other 03-06-2023 09:30-0400 Respiratory rate 12 /min Xavier Ball Other [employer] Other 03-06-2023 09:30-0400 Systolic blood pressure 170 mm[Hg] Xavier Ball Other [employer] Other 12-30-2022 13:15-0400 Body height 172.72 cm Xavier Ball Other [employer] Other 12-30-2022 13:15-0400 Body mass index (BMI) [Ratio] 32.54 kg/m2 Xavier Ball Other [employer] Other 12-30-2022 13:15-0400 Body weight 97.07 kg Xavier Ball Other [employer] Other 12-30-2022 13:15-0400 Diastolic blood pressure 71 mm[Hg] Xavier Ball Other [employer] Other 12-30-2022 13:15-0400 Respiratory rate 12 /min Xavier Ball Other [employer] Other 12-30-2022 13:15-0400 Systolic blood pressure 135 mm[Hg] Xavier Ball Other [employer] Other 12-15-2022 09:30-0400 Body height 172.72 cm Xavier Ball Other [employer] Other 12-15-2022 09:30-0400 Body mass index (BMI) [Ratio] 32.75 kg/m2 Xavier Ball Other [employer] Other 12-15-2022 09:30-0400 Body weight 97.71 kg Xavier Ball Other [employer] Other 12-15-2022 09:30-0400 Diastolic blood pressure 89 mm[Hg] Xavier Ball Other [employer] Other 12-15-2022 09:30-0400 Respiratory rate 12 /min Xavier Ball Other [employer] Other 12-15-2022 09:30-0400 Systolic blood pressure 173 mm[Hg] Xavier Ball Other [employer] Other 07-06-2022 10:30-0500 Body height 172.72 cm Xavier Ball Other [employer] Other 07-06-2022 10:30-0500 Body mass index (BMI) [Ratio] 32.35 kg/m2 Xavier Ball Other [employer] Other 07-06-2022 10:30-0500 Body weight 96.53 kg Xavier Ball Other [place] [employer] Other 07-06-2022 10:30-0500 Diastolic blood pressure 70 mm[Hg] Xavier Greene Other [place] [employer] Other 07-06-2022 10:30-0500 Respiratory rate 12 /min Xavier Greene Other [place] [employer] Other 07-06-2022 10:30-0500 Systolic blood pressure 132 mm[Hg] Xavier Greene Other [place] [employer] Other Encounters Encounter Date Encounter Type Care Provider Facility Start: 12-12-2024 End: 12-12-2024 Telephone encounter Audrey Baker CMA [facility] Start: 10-24-2024 End: 10-24-2024 Viji Bonner MD Work Phone: [facility] Start: 10-24-2024 End: 10-24-2024 Viji Bonner MD Work Phone: [facility] Start: 10-24-2024 End: 10-24-2024 Office outpatient visit 15 minutes Zuri Bonner MD Work Phone: [facility] Comment on above: Seborrheic keratosis (Primary Dx); Lentigines; History of basal cell carcinoma; Actinic keratosis; Neoplasm of unspecified behavior of bone, soft tissue, and skin Start: 10-24-2024 End: 10-24-2024 ambulatory ZURI BONNER Not Available Start: 07-10-2024 End: 07-10-2024 ambulatory [facility] Work Phone: Start: 07-10-2024 End: 07-10-2024 Patient encounter procedure [facility] Work Phone: Start: 07-05-2024 Non-patient / Non-visit [facility] [employer] Work Phone: Start: 01-30-2024 End: 01-30-2024 ambulatory DO Xavier Greene Work Phone: [facility] Work Phone: Start: 01-30-2024 End: 01-30-2024 Patient encounter procedure DO Xavier Ball Work Phone: [facility] Work Phone: Start: 01-02-2024 End: 01-02-2024 ambulatory CAR Durham NGO[facility] Not Available Start: 12-27-2023 End: 12-27-2023 Admission to same day surgery center DO Xavier Greene Work Phone: [facility] [place] Start: 12-27-2023 End: 12-27-2023 ambulatory DO Xavier Greene Work Phone: [facility] Work Phone: Start: 12-18-2023 End: 12-18-2023 Patient encounter procedure DO Xavier Greene Work Phone: [facility] Work Phone: Start: 12-18-2023 End: 12-18-2023 ambulatory DO Xavier Greene Work Phone: [facility] Work Phone: Start: 12-18-2023 Encounter for preprocedural laboratory examination Car Melvin [facility] Start: 12-14-2023 End: 12-14-2023 ambulatory CAR MELVIN Not Available Start: 12-07-2023 End: 12-07-2023 Office outpatient visit 25 minutes Amanda Landis MD Work Phone: [facility] Comment on above: Bilateral carotid ar ion stenosis (Primary Dx) Start: 11-16-2023 End: 11-16-2023 Orders Only Amanda Landis MD Work Phone: [facility] Comment on above: Bilateral carotid ar ion stenosis (Primary Dx) Start: 10-06-2023 End: 10-06-2023 ambulatory [facility] Work Phone: Start: 10-06-2023 End: 10-06-2023 Patient encounter procedure [facility] Work Phone: Start: 10-03-2023 Non-patient / Non-visit [facility] [employer] Work Phone: Start: 08-02-2023 End: 08-02-2023 Patient encounter procedure [facility] Work Phone: Start: 06-30-2023 End: 06-30-2023 ambulatory Xavier Ball Other [employer] Other Start: 06-30-2023 Telephone encounter Xavier Ball [facility] Start: 06-25-2023 End: 06-25-2023 ambulatory Xavier Ball Other [employer] Other Start: 06-25-2023 Telephone encounter Xavier Ball [facility] Start: 06-07-2023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 MD [address] [place] [address] Referring Physician Dermatology 12/14/23 Car Melvin, [address] [place] [address] Otolaryngology 12/14/23 Collections Officer Relationship Specialty Start Date End Date Xavier Greene DO PCP - General Internal Medicine 08/09/23 Zuri Bonner MD [address] [place] [address] Referring Physician Dermatology 12/14/23 Car Melvin, [address] [place] [address] Otolaryngology 12/14/23 Collections Officer Relationship Specialty Start Date End Date Xavier Greene DO [address] [place] [address] PCP - General Internal Medicine 04/22/20 Goals (unrecognized section and content) Goals may [...] BE BASED ON THE PRIMARY CLINICAL RECORDS. [facility]. provides no warranty or guarantee of the accuracy or completeness of information in this document.
== END 2024-12-16 10:15 | disposition home or self-care (01) ==
LOC: US 10:15
PROVIDERS: PCP Internal Medicine; Visit Provider Student in an Organized Health Care Education/Training Program
DX: I65.23 Occlusion and stenosis of bilateral carotid arteries (principal)
CPT/HCPCS: 93880

== ENCOUNTER 2025-03-20 08:27 | Outpatient (OUT) | payer MEDICARE, SELFPAY ==
--- OUTSIDE RECORDS SUMMARY | 2025-03-19 05:10 | XMS_ITS | Continuity of Care Document ---
Author Organization [facility] Address [address] [place] [address] Phone Care Team Providers Care Physician Anesthesiologist Name Role Phone Xavier Greene DO Primary Care Provider [phone] Xavier Greene DO Attending Provider [phone] Care Teams Patient Care Team Team Status: Active Member Role/Relationship Status Dates Xavier Greene DO Primary Care Provider Active Patient Care Team Team Status: Inactive Member Role/Relationship Status Dates Xavier Greene DO Primary Care Provider Active Start: March 19, 2025 End: March 19enserg Greene DOAttending ProviderActiveStart: March 19, 2025 End: March 19, 2025 Chief Complaint and Reason for Visit Chief Complaint Admit Date wellness/4 month f/u March 19, 2025 8:25am Reason for Visit Admit Date ASHD (arteriosclerotic heart disease) Oc tober 2024 8:25am Essential hypertension March 19 8:25am Hypercholesterolemia March 19, 2025 8:25am IBS (irritable bowel syndrome) February 202024 8:25am Lumbar spondylosis March 19, 2025 8 :25am Medicare annual wellness visit, subseque nt March 19, 2025 8:25am S/P carotid endarterectomy March 19, 2025 8:25am Screening PSA (prostate specific antigen ) March 19, 2025 8:25am Type 2 diabetes mellitus with diabetic p olyneuropathy March 19, 2025 8:25am Type 2 diabetes mellitus with hyperglyce ginger March 19, 2025 8:25am Allergies, Adverse Reactions, Alerts Allergen Type Severity Reaction Last Updated Verified Status doxycycline Allergy Unknown Unknown Reaction March 19, 2025 8:33am Yes Active penicillin G Allergy Unknown Unknown Reaction Octobe r 2024 8:33am Yes Active Social History Smoking Status Status Start Date End Date Date of Observa tion Current some day smoker March 19, 2025 8:36am Observation Status Observation Response Date of Response Legal Sex Male (finding) Sex Assigned At [facility] 1950 Family History Relationship Condition Age at Onset Recorded Date/T charlie mother Rheumatic fever Unknown Blood clots in brainUnknownfatherMyocardial infarctionUnknownsisterMalignant neoplasm of blood vesselUnknown Problems Active Problems Problem Diagnosis/Recorded Date Onset Date Status C omments Basal cell carcinoma (BCC) o f right cheek December 25, 2023 6:07pm 2023 Active Medicare annual wellness visit, subsequentOctober 2024 9:08amUnknownActive Nocturnal leg crampsMay 2023 9:03amUnknownActiveScreening PSA (prostate specific antigen)August 02, 2023 11:37amUnknownActivePSA: 1.84 - 02/2022, 1.82 - 02/2024,Type 2 diabetes mellitus with hyperglycemiaMarch 2023 1:27pm UnknownActiveType 2 diabetes mellitus with diabetic polyneuropathyMay 2023 9:04amUnknownActivePrimary osteoarthritis of knees, bilateralMarch 2023 11:37amUnknownActiveAnemiaOctober 2023 7:14pmUnknownActiveFacial painMay 2023 9:57pmUnknownActiveHypercholesterolemiaMay 2023 9:56pmUnknown ActiveBilateral carotid artery stenosis without cerebral infarctionMarch 2023 11:37amUnknownActiveUS: right w/ plaque, left normal s/p CEA - 11/2023 Essential hypertensionMarch 2023 11:37amUnknownActiveS/P carotid endarterectomyMarch 2023 11:37amUnknownActiveleft 2020Hx of total knee arthroplastyMarch 2023 11:37amUnknownActivebilateralTooth abscessSeptember 2023 2:40pmUnknownActiveIBS (irritable bowel syndrome)November 05, 2024 9:05amUnknownActiveLumbar spondylosisMarch 2023 11:37amUnknownActiveASHD (arteriosclerotic heart disease)August 02, 2023 11:37amUnknownActiveArthritis of shoulder region, leftMarch 2023 11:37amUnknownActiveContusion of right footJune 2024 9:05amUnknownActiveHypercalcemiaJuly 2023 8:50am UnknownActive Medications Medication Status Dose Units Route Directions Qty Days Refills S tart Date Stop Date End Date Reason(s) Instructions Adherence Amlodipine 5 mg tablet Discontinued 5 MG PO Twice daily 60 30 5 August 07, 2023 12:00am December 11, 2023 7:24amAtorvastatin 80 mg tabletDiscontinued0.ROUTE.CJSRUQN972 September 11, 2023 1:17pmJuly 2023 2:28pmTAKE 1 TABLET BY MOUTH DAILY Lisinopril 40 mg tabletDiscontinued0.ROUTE.KILUTEE844Xxhmk 2023 1:17pmJuly 2023 2:28pmTAKE 1 TABLET BY MOUTH DAILYMetoprolol Tartrate 50 mg tablet Discontinued0.ROUTE.QUCASIA1913Zoqte 2023 1:17pmApril 2024 4:07pm TAKE 1 TABLET BY MOUTH TWICE DAILYMetformin 1,000 mg tabletDiscontinued0.ROUTE .GAXRHOP0568Uczif 2023 1:18pmApril 2024 4:07pmTAKE 1 TABLET BY MOUTH TWICE DAILYAmlodipine 5 mg tabletDiscontinued0.ROUTE.XKYXKOI893Nbfx 22nd, 2024 7:24amJanuary 2024 6:44pmTAKE 1 TABLET BY MOUTH TWICE DAILYAmlodipine 5 mg xmmqjzQvrmordzzaoa0QMVNFxdvi sgwbc389883Dhukepj 2024 6:43pmJanuary 2024 7:00pmAmlodipine 5 mg gftwdqJglyxg4UPHOFvhly ikpzv446466Bcdmvdp 2024 6:46pmComplies with drug therapyAtorvastatin 80 mg mxyydfUhjcre59MZVMHsuqh njrzrgd00846Xkkgcnh 2024 6:46pmTAKE 1 TABLET BY MOUTH DAILYComplies with drug therapyLisinopril 40 mg iljhovUeszom38JLWJOwejk lvabqqi65141Uqvgvsy 2024 6:46pmTAKE 1 TABLET BY MOUTH DAILYComplies with drug therapyAzithromycin 500 mg rwttchVcocgcndkomd2VZMjmsw589Flnyz 2024 12:00amMay 2024 1:05pm 60 minutes prior to dental procedure orally daily;Metoprolol Tartrate 50 mg tabletActive0.ROUTE.QDTPDAI2425Khidm 2024 4:07pmTAKE 1 TABLET BY MOUTH TWICE DAILYComplies with drug therapyMetformin 1,000 mg tabletActive0.ROUTE .XBRQBLC1924Omcfw 2024 4:07pmTAKE 1 TABLET BY MOUTH TWICE DAILYComplies with drug therapyAzithromycin 500 mg cknouiDetipqhyoiyp5JYPtalf083Vdf 2024 1:05pmOctober 2024 4:36pm60 minutes prior to dental procedure orally daily; Azithromycin 500 mg eyjakxOgxdnt0GHTnlxj791Iiuoklj 2024 4:36pm60 minutes prior to dental procedure orally daily;Complies with drug therapyAspirin (Aspirin Childrens) 81 mg tablet,mrougodtElbiut43KTPJSsgxcTdsd 2023 12:00amComplies with drug therapyAscorbic Acid (Vitamin C) (C-500) 500 mg tablet Ghfrpy271HACIXezgdLrjt 2023 12:00amComplies with drug therapyVit C,J-Uw-Woraj-Lutein-Zeaxan (Preservision Areds-2) 250-90-40-1 mg capsuleActive1 TABPODailyJuly 2023 12:00amComplies with drug therapyAcetaminophen (Acetaminophen Extra Strength) 500 mg uwyqrcIyikep7657OWFJXxkxy 6 hours as needed for painJuly 2023 12:00amComplies with drug therapyAtorvastatin 80 mg doqofkOljedrmqdmcw53QGUEWrjmm morningJuly 2023 12:00amJanuary 2024 7:00pmTAKE 1 TABLET BY MOUTH DAILYLisinopril 40 mg ewmklxMibiirledqea35YMZN Every morningJuly 2023 12:00amJanuary 2024 7:00pmTAKE 1 TABLET BY MOUTH DAILYAmlodipine 5 mg uamjgoIgovyztptwmm7ALZBUkeei dailyFebruary 2023 1:00amMay 2023 8:50amFreeTextSi tablet Orally bid; Note: Source Status: Continue; Provider: Jc Park EAspirin 325 mg ghocqsSzhegkftsygy546 MGPODailyMercy Health [facility] 2023 12:00amJuly 2023 2:26pmAtorvastatin 80 mg tablet Ovqkizbpqrvo33JVMXFzwjnRdywy 2023 12:00amApril 2023 1:18pm Fluticasone Propionate 50 mcg/actuation spray,onydtenadiFalxkneafcgp8CXVDC INTRANASALDaThe Medical Center 2023 12:00amJuly 2023 2:27pmLisinopril 40 mg cbfnkuCyxpesxznjfs24FFSAPhhgiDwkip 2023 12:00amApril 2023 1:18pm Metformin 1,000 mg bkefoeUtdekaczoyyx8597CLFQMnpfx dailyMercy Health [facility] 2023 12:00am September 11, 2023 1:18pmMetoprolol Tartrate 50 mg gxljizVvkvcfwnjntp84UAGHNjlia dailyMercy Health [facility] 2023 12:00amApril 2023 1:18pmClindamycin Hcl 300 mg tirozhnIjoxckrxkshy010GTYILkghm times avvpc3439Pckbgberf 2023 12:00am March 04, 2024 5:26pm Immunizations Immunization Event Date Not Given Reason Dose Number 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 [employer] Lot Number Reason(s) Given Vaccine Information Statement (VIS) Detail Administration Location influenza, unspecified formulation March 03, 2020 influenza, unspecified formulationNovneumococcal Conjugate Vaccine, 13 valentJanuary 2019 Vital Signs Vital Reading Result Reference Range Collection Date/Time Weight 94.51 kg March 19, 2025 8:33amHeart Rate68 /ikb07-923Ghfbjfp 2024 8:33am Respiratory rate16 /meg05-56Qplkvzw 2024 8:33amOxygen saturation by Pulse dhixgppo14 %95-100[facility] 2024 8:33amBP Xuxxjwdn337 mm[Hg]100-140Oct[facility] 2024 8:33amBP Hhtwjgjmk78 mm[Hg]60-100Oct[facility] 2024 8:33am Advance Directives Advance Directive Response Recorded Date/ Time Advance Directives No March 10:38am Insurance Providers Guarantor Nikolai Phan Address [address]Home Phone: Coverage Status Update:2024 Payer Group Member ID Coverage Type Subscriber Relationship to Subscriber Effective Date Expiration Date Paige GARCIA Id: [id number] [id number] L Keesling Id: [id number] [address] [id number] Home Phone: Email: [email or web address] [facility] PF Id: [id number] L Keesling Id: [id number] [address] [facility] [address] Home Phone: Email: [email or web address] [facility] [email or web address] L Keesling Id: [id number] [address] [facility] [address] Home Phone: Email: [email or web address] Encounters Encounter Location(s) Arrival/Admit Date Discharge/Departure Date Discharge/Departure Disposition Provider(s) Departed Physician/ Provider Office Visit -[facility] March 19, 2025 8:25am March 19, 2025 9:09am Discharged to home care or self care (routine discharge) Xavier Ball , DO Recent Diagnosis Onset Date Admit Date ASHD (arteriosclerotic heart disease) Unknown March 19, 2025 8:25am Essential hypertension Unknown February 202024 8:25am Hypercholesterolemia Unknown February 8:25am IBS (irritable bowel syndrome) Unknown O ctober 2024 8:25am Lumbar spondylosis Unknown March 19, 2025 8:25am Medicare annual wellness visit, subsequent Unkno wn March 19, 2025 8:25am S/P carotid endarterectomy Unknown Octob er 2024 8:25am Screening PSA (prostate specific antigen) Unknow n March 19, 2025 8:25am Type 2 diabetes mellitus wit h diabetic polyneuropathy Unknown March 19, 2025 8:25am Type 2 diabetes mellitus with hyperglycemia Unkn own March 19, 2025 8:25am Assessments Diagnosis Onset Date Resolution Status Admit Date ASHD (arteriosclerotic heart disease) acuteOctober 2024 8:25amEssential hypertensionacuteOctober 2024 8:25amHypercholesterolemiaacuteOctober 2024 8:25amIBS (irritable bowel syndrome)acuteOctober 2024 8:25amLumbar spondylosisacuteOctober 2024 8:[facility]am[facility], subsequentacuteOctober 2024 8:25am S/P carotid endarterectomyacuteOctober 2024 8:25amScreening PSA (prostate specific antigen)acuteOctober 2024 8:25amType 2 diabetes mellitus with diabetic polyneuropathyacuteOctober 2024 8:25amType 2 diabetes mellitus with hyperglycemiaacuteOctober 2024 8:25am Plan of Treatment Author Xavier Greene [facility] HospitalAuthoredOctober 2024 9:09amThis patient is stable without activity related chest pain, dyspnea or lightheadedness. I instructed them to continue exercise at least 3x weekly and consume a low salt, low fat, high fiber diet. I instructed them to continue secondary prevention measures in reducing risks for recurrent events. Continue ASA, ATorvastatin and Metoprolol without interruption I have instructed this patient to consume a healthy, low-fat, low-salt diet. I have also encouraged them to continue exercise with weight loss to achieve/maintain a BMI < 30. I have instructed this patient on the correct procedure for obtaining home BP measurements:? - rest for 5 minutes w/o talking. - positioned w/ feet on floor and arms supported. - average best 2/3 readings w/ goal < 135/85. - update office w/ home readings in 2 weeks. Continue Amlodipine, Lisinopril and Metoprolol without interruption No s/s of acute, focal neurologic deficits. I have reviewed stroke symptoms and instructed them to go to the ER for any suspicious symptoms. They have been instructed to continue secondary preventive measures. Left CEA - 2019 Carotid US: < 50% B/L - 11/2023 Continue secondary prevention measures. f/u Vascular surgery I have recommended yearly PSA testing. I have informed him that the PSA can be elevated w/ cancer, infection and enlarged prostates. I have explained to the patient, that If his PSA is elevated, while there are many causes, referral will be recommended to r/o cancer. He would be referred to Urology, who may recommend an MRI, TRUS/bx or possibly continued monitoring. He is agreeable to this plan of action PSA: 1.82 - 02/2024 I have instructed this patient to follow a comprehensive diabetic treatment plan. I have also instructed them to check their feet daily for calluses and nonhealing ulcers. I have instructed them to have a yearly dilated eye examination. I have reviewed their treatment goals: SBP less than 130, LDL less than 100, FBS less than 140, A1C less than 7%. I have instructed them to maintain a home BS log and bring the results to each of their office visits for review. I have explained the importance of routine monitoring of their A1C, Microalbumin and Lipids. I have explained the benefits of well controlled diabetes in preventing micro and macrovascular complications. Reviewed eye report, no diabetic retinopathy Continue Metformin without interruption Due to recheck A1C - 7.3% 07/2024 - POC 10/2024 I have instructed this patient on a low fat, high fiber diet and exercise. I have discussed the primary and secondary prevention benefits attributed to lowering LDL cholesterol. I have also discussed the medical treatment of elevated cholesterol, which is based on the 10 year ASCVD risk. Continue Atorvastatin without interruption I have instructed the patient to inspect their feet daily for cuts and calluses. I have recommended shoes and inserts to prevent callus formation. I have reviewed fall precautions. I have instructed this patient to avoid bending, twisting or lifting. I have also instructed on use of intermittent heat and ice as needed. They may schedule a massage or gentle manipulation. I instructed them on the safe use of Tylenol, Lidocaine and stretching exercises. I informed them of alternative modes of treatment for severe pain, which may include referral to physical therapy or pain management. Instructed on healthy diet - avoid milk, juices and tomato sauce - increased fiber, including Metamucil daily Last scope 2016 Future Tests Future scheduled test information is unavailable Pending Tests Test Name Ordered Date Scheduled Date Comprehensive Metabolic Panel March 19, 2025 8:56am Future Visits Future appointment information is unavailable Future Procedures Procedure Name Ordered Date Scheduled Date A1C with Estimated Average Glu March 19 8:56am Complete Blood Count Auto DiffOctober 2024 8:56amLipid PanelOctober 2024 8:56amMicroAlb Creat Ratio,UOctober 2024 8:56amPSA Screen (Yearly Only)March 19, 2025 8:56am Future Medications Future medication information is unavailable Patient Instructions Patient instructions are unavailable
--- OUTSIDE RECORDS SUMMARY | 2025-03-20 08:35 | XMS_ITS | Clinical Summary ---
Author Organization [facility] Address [id number] [place] [address] Care Team Providers Care Supervisor Plate Pasting Name Role Phone Xavier Greene Primary Care Provider [phone] Allergies Active AllergyReactionsCriticalityNoted PrrkWyjbjtibIlpmqghadwiXrfdz34/29/2020 Medications MedicationSigDispense QuantityRefillsLast FilledStart DateEnd DateStatus lisinopriL (PRINIVIL,ZESTRIL) 40 mg tablet Indications:hypertensionTake 1 tablet (40 mg total) by mouth in the morning. Indications: high blood pressure.Active hydroCHLOROthiazide (MICROZIDE) 12.5 mg capsule Indications:hypertensionTake 1 capsule (12.5 mg total) by mouth daily Indications: high blood pressure.Active amLODIPine (NORVASC) 5 mg tablet Indications:hypertensionTake 1 tablet (5 mg total) by mouth in the morning. Indications: high blood pressure.Active metoprolol tartrate (LOPRESSOR) 50 mg tablet Indications:hypertensionTake 1 tablet (50 mg total) by mouth in the morning and 1 tablet (50 mg total) before bedtime. Indications: high blood pressure.Active metFORMIN (GLUCOPHAGE) 500 mg tablet Indications:type 2 diabetes mellitusTake 1 tablet (500 mg total) by mouth in the morning and 1 tablet (500 mg total) before bedtime. Indications: type 2 diabetes mellitus.Active atorvastatin (LIPITOR) 80 mg tablet Indications:hyperlipidemiaTake 1 tablet (80 mg total) by mouth Indications: excessive fat in the blood. At nightActive aspirin 81 mg chewable tablet Indications:myocardial infarction preventionChew 1 tablet (81 mg total) and swallow in the morning. Indications: treatment to prevent a heart attack.Active clopidogreL (PLAVIX) 75 mg tablet Take 1 tablet (75 mg total) by mouth daily. 30 tablet Active Additional Information Patient not taking.Reported on 11/10/2022 acetaminophen (TYLENOL) 325 mg tablet Take 2 tablets (650 mg total) by mouth every 4 (four) hours as needed (temperature greater than or equal to 38.5?? C (101.5??F) and/or patient reported pain of 1-2). 30 tablet 1Active metFORMIN (GLUCOPHAGE) 1000 mg tablet Take 0.5 tablets (500 mg total) by mouth in the morning and 0.5 tablets (500 mg total) before bedtime.2Active Active Problems ProblemNoted DateDiagnosed DateCarotid qiaxydpa86/20/2021 Assessment & Plan (02/14/2025 5:57 PM EDT): Aspirin 81 mg Lipitor 80 mg Plavix 75 mg. Risk factors modification. Controlled diabetes hypertension. Surveillance imaging with carotid duplex ultrasound in a year. Assessment & Plan (12/07/2023 8:55 AM EDT): Continue aspirin and Plavix. Carotid duplex ultrasound in a year. Follow-up then. Risk factors modification with exercise healthy diet Encounters DateTypeDepartmentCare LywsIvwshzppotf07/25/2025 11:20 AM EDTOffice Visit [facility] [place] [address] Amanda Landis MD Bilateral carotid artery stenosis (Primary Dx)02/13/20257148Tdrsci74/07/2025Orders Only [facility] [address] [place] [address] Ref Prov, Not In System 12/19/2024Travelfrom Last 3 Months Immunizations No known immunizations Social History Tobacco UseTypesPacks/DayYears UsedDateSmoking Tobacco: Light SmokerCigars Smokeless Tobacco: Never Tobacco Cessation:Ready to Q uit: Not Asked; Counseling Given: Not Answered Alcohol UseStandard Drinks/WeekCommentsYes0 (1 standard drink = 0.6 oz pure alcohol)socialSocial Connection and Isolation PanelAnswerDate RecordedIn a typical week, how many times do you talk on the phone with family, friends, or neighbors?More than three times a week06/10/2020How often do you get together with friends or relatives?More than three times a week06/10/2020How often do you attend zoroastrianism or yazidi services?More than 4 times per year1Do you belong to any clubs or organizations such as zoroastrianism groups, unions, fraternal or athletic groups, or school groups?No06/10/2020How often do you attend meetings of the clubs or organizations you belong to?Never06/10/2020re you , , , , never , or living with a partner? 06/10/2020UDIT-CAnswerDate RecordedQ1: How often do you have a drink containing alcohol?Never05/19/2020Average Number of DrinksNot on file05/19/2020Frequency of Binge DrinkingNot on file05/19/2020Overall Financial Resource Strain (CARDIA) AnswerDate RecordedHow hard is it for you to pay for the very basics like food, housing, medical care, and heating?Not hard at all06/10/2020HQ-2AnswerDate RecordedTotal Qojrc119Finamerican fork hospital [place] of Occupational Health - Occupational Stress QuestionnaireAnswerDate RecordedDo you feel stress - tense, restless, nervous, or anxious, or unable to sleep at night because yourmind is troubled all the time - these days?Not at all06/10/2020xercise Vital SignAnswer Date RecordedOn average, how many days per week do you engage in moderate to strenuous exercise (like a brisk walk)?4 days06/10/2020On average, how many minutes do you engage in exercise at this level?60 min06/10/2020RAPARE - TransportationAnswerDate RecordedIn the past 12 months, has lack of transportation kept you from medical appointments or from getting medications?No 06/10/2020In the past 12 months, has lack of transportation kept you from meetings, work, or from getting things needed for daily living?No06/10/2020 ChildcareAnswerDate DgoonevfSugpbvdqwTzihobe25/02/2020EmploymentAnswerDate VtlyxwfoSjkkaiyqyzPrjsgjn60/02/2020Purpose - LifeAnswerDate RecordedPurpose and direction in wnorDecsvot21/14/2021ex and Gender InformationValueDate Recorded Sex Assigned at BirthNot on fileLegal SwgWpqr11/02/2020 11:19 AM ESTGender IdentityNot on fileSexual OrientationNot on file Last Filed Vital Signs Vital SignReadingTime TakenCommentsBlood Mfacdwdi592/7902/13/2025 11:18 AM EDT Ggimc974002/13/2025 11:18 AM TLMCkldhxdvudl35.8 ??C (98.2 ??F)06/11/2020 3:00 PM ESTRespiratory Fqkn279406/11/2020 5:00 PM ESTOxygen Ywpgcopaeq13%02/13/2025 11:18 AM EDTInhaled Oxygen Concentration--Buiqsv13.3 kg (210 lb)02/13/2025 11:18 AM PLAPhxayt161.2 cm (5' 7 )02/13/2025 11:18 AM EDTBody Mass Index32.8902/13/2025 11:18 AM EDT Plan of Treatment DateTypeDepartmentCare Team (Latest Contact Info)Ksvxrgawlnj50/18/2026 8:30 AM EDTAppointment [facility] [address] [place] [address] Amanda Landis MD [address], [address] [address] 02/19/2026 8:30 AM EDTOffice Visit [facility] [place] [address] [place] [address] Amanda Landis MD [address], [facility] [address] [place] [address] Health MaintenanceDue DateLast DoneCommentsDepression Iwsmsydmv05/21/1961 DTaP,Tdap and Td Vaccines (1 - Tdap)11/10/1967Zoster (Shingles) Vaccine (1 of 2) 1998Abdominal Aortic Aneurysm (AAA) Uvlpif1211/09/2013Fall Risk Screening 2013Tobacco Zykhbikep93/18/116891/Influenza Iacnrwv9201/20/2025 03/30/2021, 03/03/2020 Medical Devices ImplantedTypeAreaManufacturerDevice IdentifierShelf Expiration DateModel / Serial / LotPtch Photofix 0.8x8cm Rpl [id number] - [id number] - [id number] Implanted:Qty: 1 on 06/10/2020 by [facility]iel [facility]GraftLeft: [id number] / [id number] / [id number] Procedures Procedure NamePriorityDate/TimeAssociated DiagnosisCommentsVASC CAROTID DUPLEX QXUYUTRREYkiluec66/07/2025 8:07 AM EDTfrom Last 3 Months Results * Vas carotid duplex bilateral (12/26/2024 8:07 AM EDT)Anatomical Region LateralityModalityVascularBilateralUltrasound Narrative Authorizing ProviderResult TypeResult StatusNot In System Ref ProvCV VASCULAR ORDERABLESFinal Result from Last 3 Months Insurance Care Teams Team MemberRelationshipSpecialtyStart DateEnd Date Xavier Greene DO [address] [place] [address] PCP - [facility]Cle[facility] Avondalenal Fiyggeqz44/2/20
--- OUTSIDE RECORDS SUMMARY | 2025-03-20 08:35 | XMS_ITS | Clinical Summary ---
Author Organization [facility] Address [address] [place] [address] Care Team Providers Care Carbonizer Tester Name Role Phone JcXavier Xochilt SHIPMAN Primary Care Provider [phone] Zuri Gibbons MD Unavailable [phone] Car Dye DO Unavailable [phone] Allergies Active AllergyReactionsCriticalityNoted EvbxHreyvrpjDuvawdlfmlm93/28/2024 GkhkplpfhreFlptd49/29/2020 Medications MedicationSigDispense QuantityRefillsLast FilledStart DateEnd DateStatus amLODIPine (Norvasc) 5 MG tablet Take 5 mg by mouth in the morning.Active aspirin 81 MG chewable tablet Chew 325 mg in the morning.Active atorvastatin (Lipitor) 80 MG tablet Take 80 mg by mouth DailyActive lisinopril 40 MG tablet Take 40 mg by mouth in the morning.Active metoprolol tartrate (Lopressor) 50 MG tablet Take 50 mg by mouth in the morning and 50 mg in the evening.Active metFORMIN (Glucophage) 1000 MG tablet Take 1,000 mg by mouth in the morning and 1,000 mg before bedtime.12/11/2024 Active Active Problems ProblemNoted DateDiagnosed DateAtypical face pain08/30/2023Facial skin lesion 08/30/20232177Owhtbs67/28/2024M (diabetes mellitus)08/17/2023SHD (arteriosclerotic heart disease)08/17/20238075Xqnbanqwkywo00/28/8358Qkiyvhoraghsuh20/28/2024 Oropharyngeal ztxqjypvs92/28/2024Lumbar spondylosis with kzreiybhxr90/28/2024 Carotid etushrcd33/ Resolved Problems ProblemNoted DateDiagnosed DateResolved DateArthritis of shoulder region, left ilateral carotid artery stenosis without cerebral futxwynszl44rimary osteoarthritis of knees, bilateral Screening PSA (prostate specific antigen)12/14/2023 12/14/2023Type 2 diabetes mellitus with jxhzihuxofklv30 Encounters DateTypeDepartmentCare TfeiRzdakrzxdcz72/09/2025 9:15 AM EDTOffice Visit [facility] [place] [facility] [address] [place] [phone] Destiny Woo MD Patient-requested procedure (Primary Dx); Encounter for removal of znsimit5201/28/20253297Xguksf00/08/5108[place]27/28/2025 Telephone [facility] [place] [facility] [address] [place] [phone] Destiny Fuller LPN Courtesy call01/15/2025 8:45 AM EDTOffice Visit [facility] [place] [facility] [address] [place] [address] Destiny Woo MD Basal cell carcinoma of skin of scalp and neck; Milia01/15/2025amboo flowsheet [facility] [place] [facility] [address] [place] [phone] Destiny Woo MD 01/15/2025Travelfrom Last 3 Months Immunizations ImmunizationAdministration DatesNext DueInfluenza, Yuogfylynoe91/09/2021, 03/03/2020Pneumococcal Conjugate PCV 13005/28/2019 Family History Medical HistoryRelationNameCommentsHeart failureFatherFrederick Gary Phan HypertensionFatherFrederick Gary BarksdaleeszinaHeart failureMotherLola Sony Phan RelationNameStatusCommentsFatherFrederleatha PhanMotherVicki Phan Social History Tobacco UseTypesPacks/DayYears UsedDateSmoking Tobacco: Some DaysCigarsSmokeless Tobacco: NeverAlcohol UseStandard Drinks/WeekCommentsNot Currently0 (1 standard drink = 0.6 oz pure alcohol)Sex and Gender InformationValueDate RecordedSex Assigned at BirthNot on fileLegal UytPovo4908/03/2022 8:13 PM EDTGender Identity Male10/25/2023 5:23 PM EDTSexual OrientationNot on file Last Filed Vital Signs Vital SignReadingTime TakenCommentsBlood Vzbkcfut136/8401/15/2025 11:33 AM EDT Pulse--Temperature--Respiratory Rate--Oxygen Saturation--Inhaled Oxygen Concentration--Vaqijb53.1 kg (214 lb)12/14/2023 12:52 PM EOFWrlqjq327.2 cm (5' 7 )12/14/2023 12:52 PM EDTBody Mass Index33.52012/14/2023 12:52 PM EDT Plan of Treatment DateTypeDepartmentCare Team (Latest Contact Info)Ttmurzenybv64/10/2026 9:35 AM EDTOffice Visit [facility] [address] [place] [address] Zuri Gibbons MD [address] [place] [address] 10/28/2025 9:00 AM EDTOffice Visit [facility] [address] [place] [phone] Zuri Gibbons MD [address] [place] [address] Procedures Procedure NamePriorityDate/TimeAssociated DiagnosisCommentsSKIN REPAIRRoutine 01/15/2025 11:35 AM EDT Basal cell carcinoma of skin of scalp and neck MOHS DAAFWERQjrdmgm30/27/2025 8:58 AM EDT Basal cell carcinoma of skin of scalp and neck from Last 3 Months Results * Skin repair (01/15/2025 11:35 AM EDT) Narrative Destiny Fuller LPN - 01/15/2025 11:35 AM EDT Complexity: Intermediate Final length (cm): ??3.6 Anesthesia: the lesion was anesthetized in a standard fashion ?? Local anesthetic: 3.0 cc. Reason for type of repair: reduce tension to allow closure ?? Subcutaneous layers (deep stitches): Suture size: ??4-0 Suture type: Monocryl (poliglecaprone 25) ?? Stitches: ??Buried horizontal mattress (Closure was performed in a layered fashion with subcutaneous tissue closed first using tension-bearing absorbable sutures to the level of the superficial fascia.) Fine/surface layer approximation (top stitches): Suture size: ??4-0 Suture type: Prolene (polypropylene) ?? Stitches: simple running ?? Stitches comment: ??Epicuticular skin sutures were then placed with minimal tension. Suture removal (days): ??12 Hemostasis achieved with: suture and electrodesiccation Outcome: patient tolerated procedure well with no complications ?? Post-procedure details: sterile dressing applied and wound care instructions given ?? Post-procedure details comment: ??It was emphasized to the patient to contact the office for any signs of infection, uncontrollable bleeding, or complications. Dressing type: bandage and pressure dressing ?? Authorizing ProviderResult TypeResult StatusCobobby Woo [facility] PROCEDURE ORDERABLESFinal Result * Mohs surgery (01/15/2025 8:58 AM EDT) Narrative Destiny Fuller LPN - 01/15/2025 8:58 AM EDT Consent obtained: written [place] Protocol: Procedure explained and questions answered to patient or proxy's satisfaction: Yes ?? Test results available and properly labeled: Yes ?? Pathology report reviewed: Yes ?? External notes reviewed: Yes ?? Photo or diagram used for site identification: Yes ?? Site/side marked: Yes ?? Slide independently reviewed by Mohs surgeon: Yes ?? Anticoagulation: Is the patient taking prescription anticoagulant and/or aspirin prescribed/recommended by a physician? Yes (81 mg ASA) ?? Was the anticoagulation regimen changed prior to Mohs? No ?? Anesthesia: Anesthesia method: local infiltration Local anesthetic: lidocaine 1% WITH epi and sodium bicarbonate Procedure Details: Timeout: pre-procedure verification complete Procedure Prep: patient was prepped and draped in usual sterile fashion Prep type: chlorhexidine Biopsy accession number: [id number] Biopsy lab: [facility] Date of biopsy: 10/24/2024 Frozen section biopsy performed: Yes ?? Specimen debulked: No ?? Pre-Op diagnosis: basal cell carcinoma BCC subtype: nodular and infiltrative MohsAIQ Surgical site (if tumor spans multiple areas, please select predominant area): neck Surgery side: midline Surgical site (from skin exam): Neck - Posterior Pre-operative length (cm): 1.3 Pre-operative width (cm): 0.9 Indications for Mohs surgery: anatomic location where tissue conservation is critical, ill-defined borders and aggressive histology Previously treated? No ?? Mohs Appropriate Use Criteria Score: 8 Details of micrographic surgery: Mohs accession number: [id number] Micrographic Surgery Details: Post-operative length (cm): 1.4 Post-operative width (cm): 1.1 Number of Mohs stages: 1 Post surgery depth of defect: subcutaneous fat Stage 1 ?? Comments: The area was prepped with Hibiclens, draped in a sterile fashion, and infiltrated with local anesthetic. Sterile technique was used throughout the procedure. The marked area of clinical tumor with a small rim of clinically normal surrounding skin was removed using Mohs technique with beveled edges. Hash ann were placed for orientation of the specimen. Hemostasis was achieved with electrodessication. After hemostasis, the defect was measured and recorded, a temporary sterile dressing was placed over the wound, and the patient was escorted to the waiting area. The specimen was oriented, mapped, and if necessary, divided into sections. A Mohs map was prepared. The specimen was placed in a labeled anna dish and was taken to the Mohs lab where it was chromacoded and processed. Mohs sections were prepared with serial tissue sections, stained, and evaluated by Dr. Woo for interpretation of deep and peripheral margins. The Mohs map was marked accordingly. Amount of lidocaine used: 2.5 cc Estimated blood loss: <1.0 cc Defect size: 1.4 x 1.1 cm Number of blocks per stage: 1 Number of positive blocks: 0. Tumor free margins were obtained and the Mohs procedure was considered complete. ? Tumor features identified on Mohs section: no tumor identified ?? Depth of tumor invasion after stage: subcutaneous fat Patient tolerance of procedure: tolerated well, no immediate complications Reconstruction: Was the defect reconstructed? Yes ?? Was reconstruction performed by the same Mohs surgeon? Yes ?? Setting of reconstruction: outpatient office When was reconstruction performed? same day Type of reconstruction: linear Linear reconstruction: intermediate Antibiotics: Were antibiotics given on the day of surgery?: No ?? Authorizing ProviderResult TypeResult StatusCourtcelestina Woo MDDERM PROCEDURE ORDERABLESFinal Result from Last 3 Months Insurance Care Teams Team MemberRelationshipSpecialtyStart DateEnd Date Xavier Greene DO [address] [facility] [place] [address] PCP - GeneralInternal Medicine08/09/23 Zuri Gibbons MD [address] [place] [address] Referring PhysicianDermatology12/14/23 Car Dye DO [address] [place] [address] Otolaryngology12/14/23
--- OUTSIDE RECORDS SUMMARY | 2025-03-20 08:36 | XMS_ITS | CCD ---
Author Organization [facility] Care Team Providers Care Supervisor [employer] Name Role Phone JC, DR WILCOX Admitting [...] BALL, DR WILCOX Attending Unavailable BALL, DR WILCXO Primary Care Unavailable BALL, DR WILCOX Consulting Unavailable Jc, Xavier Unavailable DO Xavier Greene Primary Care Provider DO Car Dye Attending Provider Xavier Greene Primary Care Unavailable Car Dye Attending Unavailable Hardik, Car Admitting Unavailable Car Dye Attending Unavailable Car Dye Admitting Unavailable Xavier Greene Primary Care Unavailable Xavier Greene DO Primary Care Provider Xavier Greene DO Primary Care Provider Zuri Bonner MD Unavailable Car Dye DO Unavailable Xavier Greene DO Primary Care Provider ZURI BONNER Attending Unavailable DESTINY WOO Attending Unavailable DESTINY WOO Attending Unavailable Allergies Allergy ClassificationReported Allergen(s)Allergy TypeDate of OnsetReaction(s) Facility (2 sources)PenicillinDrug Cvaemhp95-85-4438Xxt [facility]ository (20 sources)DoxycyclineDrug Hyovmno83-14-5630Notcgba, Unknown ReactionC[facility] (20 sources)Penicillin GDrug Wpmoyyh63-93-3754Jzlluow, Unknown ReactionCleveland Clinic [facility] Hospital (1 source)DoxycyclineDrug Guhfody55-69-1535ZnodzthyuCleveland Clinic [facility] Rep[facility] (1 source)PenicillinDrug Xmerlqv52-85-1634ZvhhykhczC[facility] Clinic [facility] Repository (2 sources)PenicillinsPropensity to adverse reactions to opvf67-21-7221Iibrh [facility] (8 sources)PenicillinsDrug Fnpcflfdcfj75-43-1647DerzyJOW[facility] (2 sources)PenicillinsPropensity to adverse reactions to wzxt67-51-2985Tbemw [facility] Medications Current Medications MedicationDrug Class(es)DatesSig (Normalized)Sig (Original)acetaminophen 500 mg oral tablet (8 sources)Start: 89-14-8062xmok 2 tablets by mouth every six hours as needed for painAcetaminophen (Acetaminophen Extra Strength) 500 mg tablet Active 1000 MG PO Every 6 hours as needed for pain December 17, 2023 11:00pmStart: 06-11-2020 take 2 tablets by mouth every four hours as neededacetaminophen (TYLENOL) 325 mg tablet Take 2 tablets (650 mg total) by mouth every 4 (four) hours as needed (temperature greater than or equal to 38.5 C (101.5 F) and/or patient reported pain of 1-2). 30 tablet 06/11/2020 ActiveamLODIPine 5 mg oral tablet (20 sources)Dihydropyridine Calcium Channel BlockerStart: 06-17-2024 End: 52-53-4424hpoc 1 tablet by mouth twice dailyAmlodipine 5 mg tablet Active 5 MG PO Twice daily 180 90 June 17, 2024 5:46pmStart: 12-11-2023 End: 42-66-8438ugmr 1 tablet by mouth twice dailyAmlodipine 5 mg tablet Discontinued 0 .ROUTE .COMPLEX 60 December 11, 2023 6:24am June 17, 2024 5 :44pm TAKE 1 TABLET BY MOUTH TWICE DAILYStart: 07-14-2023 End: 69-36-4501rfif 1 tablet by mouth twice dailyAmlodipine 5 mg tablet Discontinued 5 MG PO Twice daily 60 30 August 06, 2023 11:00pm December 11, 2023 6:24amtake 1 tablet by mouth once dailyamLODIPine Besylate 5 mg TAKE 1 TABLET BY MOUTH DAILY Activeascorbic acid 500 mg oral tablet (4 sources)Vitamin CStart: 40-79-8465rdpk 1 tablet by mouth once dailyAscorbic Acid (Vitamin C) (C-500) 500 mg tablet Active 500 MG PO Daily December 17, 2023 11:00pmaspirin 81 mg chewable tablet (20 sources)Platelet Aggregation Inhibitor, Nonsteroidal Anti-inflammatory Drug Start: 73-59-1824pcdz 1 tablet by mouth once dailyAspirin (Aspirin Childrens) 81 mg tablet,chewable Active 81 MG PO Daily December 17, 2023 11:00pmStart: 08-02-2023 End: 44-87-4318yhuw 1 tablet by mouth once dailyAspirin 325 mg tablet Discontinued 325 MG PO Daily August 01, 2023 11:00pm December 18, 2023 1:26pm aspirin 81 MG chewable tablet Chew 325 mg in the morning. Activetake 1 tablet by mouth every twenty-four hoursAspirin 325 MG 1 tablet Orally Once a day Active atorvastatin 80 mg oral tablet (20 sources)HMG-CoA Reductase InhibitorStart: 12-18-2023 End: 90-62-7354iiwe 1 tablet by mouth once daily in the morningAtorvastatin 80 mg tablet Active 80 MG PO Every morning 90 90 June 17, 2024 5:46pm TAKE 1 TABLET BY MOUTH DAILYStart: 09-11-2023 End: 87-14-0653hpwm 1 tablet by mouth once dailyAtorvastatin 80 mg tablet Discontinued 0 .ROUTE .COMPLEX 90 September 11, 2023 12:17pm December 18, 2023 1:28pm TAKE 1 TABLET BY MOUTH DAILYStart: 08-02-2023 End: 85-37-7877jkwb 1 tablet by mouth once dailyAtorvastatin 80 mg tablet Discontinued 80 MG PO Daily August 01, 2023 11:00pm September 11, 2023 12:18pm clopidogrel 75 mg oral tablet (4 sources)P2Y12 Platelet InhibitorStart: 35-88-0161kxaw 1 tablet by mouth once dailyclopidogreL (PLAVIX) 75 mg tablet Take 1 tablet (75 mg total) by mouth daily. 30 tablet 3 05/20/2020 ActivehydroCHLOROthiazide 12.5 mg oral capsule (4 sources)Thiazide Diuretictake 1 capsule by mouth once daily hydroCHLOROthiazide (MICROZIDE) 12.5 mg capsule Indications: hypertension Take 1 capsule (12.5 mg total) by mouth daily Indications: high blood pressure. Active lisinopril 40 mg oral tablet (20 sources)Angiotensin Converting Enzyme InhibitorStart: 12-18-2023 End: 78-67-3765xmor 1 tablet by mouth once daily in the morningLisinopril 40 mg tablet Active 40 MG PO Every morning 90 90 June 17, 2024 5:46pm TAKE 1 TABLETBY MOUTH DAILYStart: 09-11-2023 End: 07-13-3910zzjd 1 tablet by mouth once dailyLisinopril 40 mg tablet Discontinued 0 .ROUTE .COMPLEX 90 September 11, 2023 12:17pm December 18, 2023 1 :28pm TAKE 1 TABLET BY MOUTH DAILYStart: 08-02-2023 End: 48-67-5772yagf 1 tablet by mouth once dailyLisinopril 40 mg tablet Discontinued 40 MG PO Daily August 01, 2023 11:00pm September 11, 2023 12:18pm metFORMIN hydrochloride 1000 mg oral tablet (20 sources)BiguanideStart: 67-09-1196eylw 1 tablet by mouth in the morning metFORMIN (Glucophage) 1000 MG tablet Take 1,000 mg by mouth in the morning and 1,000 mg before bedtime. 12/11/2024 ActiveStart: 27-37-8629sjud 1 tablet by mouth twice dailyMetformin 1,000 mg tablet Active 0 .ROUTE .COMPLEX 180 September 11, 2023 12:18pm TAKE 1 TABLET BY MOUTH TWICE DAILYStart: 72-52-9527mnbx 1 tablet by mouth twice dailyMetformin Active 0 .ROUTE .COMPLEX 180 September 11, 2023 1:18pm TAKE 1 TABLET BY MOUTH TWICE DAILYStart: 08-02-2023 End: 49-64-7539voli 1 tablet by mouth twice dailyMetformin 1,000 mg tablet Discontinued 1000 MG PO Twice daily August 01, 2023 11:00pm September 11, 2023 12:18pmStart: 11-81-2637zbfv 0.5 tablet by mouth in the morning, then take 0.5 tablet by mouth at bedtimemetFORMIN (GLUCOPHAGE) 1000 mg tablet Take 0.5 tablets (500 mg total) by mouth in the morning and 0.5 tablets (500 mg total) before bedtime. 09/21/2021 ActiveStart: 65-59-9621npeWNGVTA (GLUCOPHAGE) 1000 mg tablet Take 500 mg by mouth in the morning and 500 mg before bedtime. 09/21/2021 Active metFORMIN (GLUCOPHAGE) 500 mg tablet Indications: type 2 diabetes mellitus Take 1 tablet (500 mg total) by mouth in the morning and 1 tablet (500 mg total) before bedtime. Indications: type 2 diabetes mellitus. Active End: 55-29-8157erqh 2 tablets by mouth in the morningmetFORMIN (Glucophage) 500 MG tablet Take 1,000 mg by mouth in the morning and 1,000 mg in the evening. 01/15/2025 Discontinued (Dose adjustment)take 1 tablet by mouth twice daily metFORMIN HCl 1000 MG TAKE 1 TABLET BY MOUTH TWICE DAILY Activetake 1 tablet by mouth once dailymetFORMIN HCl 1000 MG 1 tablet with a meal Orally Once a day Activemetoprolol tartrate 50 mg oral tablet (20 sources)beta-Adrenergic BlockerStart: 95-09-9808pboq 1 tablet by mouth twice dailyMetoprolol Tartrate 50 mg tablet Active 0 .ROUTE .COMPLEX 180 September 11, 2023 12:17pm TAKE 1 TABLET BY MOUTH TWICE DAILYStart: 08-02-2023 End: 71-24-6673hwul 1 tablet by mouth twice dailyMetoprolol Tartrate 50 mg tablet Discontinued 50 MG PO Twice daily August 01, 2023 11:00pm September 11, 2023 12:18pmVit C,D-Sd-Nrtmf-Lutein-Zeaxan (Preservision Areds-2) 250-90-40-1 mg capsule (4 sources)Start: 90-29-5174Oqb C,T-Nw-Cyhwn-Lutein-Zeaxan (Preservision Areds- 2) 250-90-40-1 mg capsule Active 1 TAB PO Daily December 17, 2023 11:00pmStart: 57-56-9340Pqy C,O-Jl-Zzkuo-Lutein-Zeaxan (Preservision Areds-2) 250-90-40-1 mg capsule Active 1 TAB PO Daily December 18, 2023 12:00am Completed/Discontinued Medications MedicationDrug Class(es)DatesSig (Normalized)Sig (Original)azithromycin 250 mg oral tablet (14 sources)Macrolide AntimicrobialStart: 23-62-1986Rbersdpnwywg 250 MG as directed Orally daily for 5 days Dec, Not-Taking/PRNclindamycin 300 mg oral capsule (1 source)Lincosamide AntibacterialStart: 01-30-2024 End: 59-90-3460wdbo 1 capsule by mouth three times dailyClindamycin Hcl 300 mg capsule Discontinued 300 MG PO Three times daily 09 12January 29, 2024 11: 00pm March 04, 2024 4:26pmfluticasone propionate 0.05 mg/actuat metered dose nasal spray (13 sources)CorticosteroidStart: 08-02-2023 End: 01-19-1213Oweaaltyyne Propionate 50 mcg/actuation spray,suspension Discontinued 2 SPRAY INTRANASAL Daily August 01, 2023 11:00pm December 18, 2023 1:27pmStart: 89-77-1510Jxluoqhcpyx Propionate 50 MCG/ACT 2 sprays (1 spray in each nostril) Nasally Once a day Feb, ActiveStart: 41-17-7557Yicqiykdovk Propionate 50 MCG/ACT 2 sprays (1 spray in each nostril) Nasally Once a day for 30 daysFeb, Active Problems Active Problems Problem ClassificationProblemDateDocumented DateEpisodic/ChronicAcute bronchitis (2 sources)Acute bronchitis due to other specified organismsEpisodicCoronary atherosclerosis and other heart disease (20 sources)Coronary arteriosclerosis; Translations: [Atherosclerotic heart disease of [place] coronary artery without angina pectoris]Onset: 08-17-2023 ChronicDeficiency and other anemia (6 sources)Anemia, unspecified; Translations: [ANEMIA UNSPECIFIED]Onset: 80-37-5708YdwsdplfYbdnlsea mellitus without complication (8 sources)Diabetes mellitus; Translations: [Type 2 diabetes mellitus without complications]Onset: 448062-01-3268PznkbgkXdmckuim of mouth; excluding dental (2 sources)Unspecified lesions of oral mucosa; Translations: [Other lesions of oral mucosa]EpisodicDisorders of lipid metabolism (20 sources)Familial hypercholesterolemia; Translations: [Pure hypercholesterolemia]Onset: 75-09-8507ArrmekfReuaerhuu of teeth and jaw (1 source)Dental abscess; Translations: [Periapical abscess without sinus] 94-59-6332MwnlnxhbBolisncjm hypertension (20 sources)Essential (primary) hypertension; Translations: [Essential hypertension]Onset: 75-47-2996GcydqlbTxlhngwq; including migraine (8 sources)Pain in face; Translations: [Facial pain]42-28-5258Yxbwhama Immunizations and screening for infectious disease (6 sources)Vaccination given; Translations: [Encounter for immunization]Episodic Intestinal infection (1 source)Bacterial foodborne intoxication, unspecified; Translations: [Food poisoning, unspecified]70-89-6221SnuptcysMyhgpkzfq of unspecified nature or uncertain behavior (8 sources)Neoplastic disease of uncertain behavior; Translations: [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] Resolved: 905369-93-2671GfwxlthfVqaedbxqv or stenosis of precerebral arteries (20 sources)Occlusion and stenosis of multiple and bilateral cerebral arteries; Translations: [Occlusion and stenosis of bilateral carotid arteries]Onset: 06-10-2020 Resolved: 35-11-2888TshgsnfNjxwwfy on above:US: right w/ plaque, left normal s/p CEA - 11/2023Other aftercare (2 sources)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; Translations: [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 DRUG THERAPY]Onset: 10-94-4592NwuhtqodKwdxi aftercare (18 sources)H/O: high risk medication; Translations: [Other mcfp (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 therapy]EpisodicOther aftercare (6 sources)Long-term current use of drug therapy; Translations: [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]EpisodicOther aftercare (2 sources)Removal of sutures done; Translations: [Encounter for removal of sutures]38-38-2826WgyuqiitXegnu connective tissue disease (4 sources)Cramp in lower limb; Translations: [Sleep related leg cramps] 10-62-4584EjhogafWrshl connective tissue disease (2 sources)Sleep related leg cramps; Translations: [Sleep related leg cramps] 14-54-8506BlbvjywAozjs connective tissue disease (1 source)History of total knee arthroplasty; Translations: [Presence of unspecified artificial knee joint]73-77-5306OlckhkdSrajcsb on above:bilateral Other ear and sense organ disorders (1 source)Impacted cerumen, left earEpisodicOther injuries and conditions due to external causes (6 sources)History of fall; Translations: [History of falling]EpisodicOther nervous system disorders (1 source)Trigeminal neuralgiaEpisodicOther non-epithelial cancer of skin (8 sources)Basal cell carcinoma of cheek; Translations: [Basal cell carcinoma of skin of other parts of face]Onset: 669171-15-2776WmpfpjjrGfgcu nutritional; endocrine; and metabolic disorders (3 sources)Body mass index 30+ - obesity; Translations: [Body mass index (BMI) 32.0-32.9, adult]ChronicOther nutritional; endocrine; and metabolic disorders (3 sources)Obesity caused by energy imbalance; Translations: [Other obesity due to excess calories]ChronicOther nutritional; endocrine; and metabolic disorders (1 source)Other obesity due to excess caloriesChronicOther nutritional; endocrine; and metabolic disorders (1 source)Body mass index (BMI) 32.0-32.9, adultChronicOther nutritional; endocrine; and metabolic disorders (3 sources)Hypercalcemia; Translations: [Hypercalcemia]32-89-6833HpwnfowQxpau skin disorders (2 sources)Seborrheic keratosis; Translations: [Other seborrheic keratosis] 40-84-7676ElpzhqmtKrtiw skin disorders (2 sources)Lentiginosis; Translations: [Other melanin hyperpigmentation] 72-68-3200ScaoagcuYkzdd skin disorders (2 sources)Actinic keratosis; Translations: [Actinic keratosis]10-24-2024 EpisodicOther skin disorders (2 sources)Milia; Translations: [Epidermal cyst]97-11-1534WzhxnqewKpiho upper respiratory disease (1 source)Other specified disorders of nose and nasal sinusesEpisodicOther upper respiratory infections (16 sources)Chronic sinusitis; Translations: [Chronic sinusitis, unspecified] ChronicOther upper respiratory infections (7 sources)Acute maxillary sinusitis; Translations: [Acute maxillary sinusitis, unspecified]EpisodicResidual codes; unclassified (6 sources)Postprocedural state finding; Translations: [Other specified postprocedural states]EpisodicResidual codes; unclassified (2 sources)Patient requested procedure; Translations: [Encounter for procedure for purposes other than remedying health state, unspecified]75-68-8266Fuxrxpyc Spondylosis; intervertebral disc disorders; other back problems (20 sources)Other spondylosis with myelopathy, lumbar region; Translations: [Lumbar spondylosis with myelopathy]Onset: 47-68-7429GctgbkjXxozccusmius (1 source)LOW BACK PAIN, UNSPECIFIED; Translations: [LOW BACK PAIN, UNSPECIFIED] Onset: 03-10-2022 Past or Other Problems Problem ClassificationProblemDateDocumented DateEpisodic/ChronicDeficiency and other anemia (20 sources)Anemia; Translations: [Anemia, unspecified]Onset: 08-17-2023 32-92-4278QpukatkqPzhwpckh mellitus with complications (20 sources)Type 2 diabetes mellitus with hyperglycemia; Translations: [Hyperglycemia due to type 2 diabetes mellitus]Onset: 10-25-2021 Resolved: 99-04-0934ViijxgaYxamjvou mellitus without complication (6 sources)Impaired fasting glycemia; Translations: [Impaired fasting glucose] Resolved: 91-35-5232CafqxwxbUlcg disorders (4 sources)Mood disordersOnset: 982202-73-1147Ngpxjcjyagw chest pain (6 sources)Chest pain; Translations: [Other chest pain] Resolved: 12-13-1474GzasjbrxJxdfccnafcszhj (20 sources)Arthritis of shoulder region joint; Translations: [Primary osteoarthritis, left shoulder]Onset: 12-14-2023 Resolved: 214526-88-5946IiocpzsUtolv circulatory disease (6 sources)Cardiovascular symptoms; Translations: [Other specified symptoms and signs involving the circulatory and respiratory systems] Resolved: 74-68-5083JvzbkzqaAgebn connective tissue disease (1 source)Abnormal posture; Translations: [ABNORMAL POSTURE]Onset: 03-10-2022 EpisodicOther gastrointestinal disorders (20 sources)Oropharyngeal dysphagia; Translations: [Dysphagia, oropharyngeal phase]Onset: 963570-51-4278UekbbseyByppg nervous system disorders (8 sources)Atypical facial pain; Translations: [Atypical facial pain]Onset: 680939-16-5839UgaifazwKxfpm nutritional; endocrine; and metabolic disorders (6 sources)Obesity; Translations: [Obesity, unspecified]Onset: 03-30-2021 Resolved: 73-14-7042MtctuyqGanjz screening for suspected conditions (not mental disorders or infectious disease) (20 sources)Encounter for screening for malignant neoplasm of prostate; Translations: [Prostate specific antigen measurement]Onset: 03-07-2022 Resolved: 22-17-3277QwhswlnoQgjjecw on above:PSA: 1.84 - 02/2022, 1.82 - 02/2024,Other skin disorders (8 sources)Lesion of skin of face; Translations: [Disorder of the skin and subcutaneous tissue, unspecified]Onset: 773624-25-7842WqiwwhzoVrfshoezethp (1 source)Suspected COVID-19 virus infection Z20.822Unclassified (1 source)Right facial pain R51.9 Results Test NameValueInterpretationReference RangeFacilityNo Panel Informationon 43-45-3043Nwaxmmewib: Intermediate Final length (cm): 3.6 Anesthesia: the lesion was anesthetized in a standard fashion Local anesthetic: 3.0 cc. Reason for type of repair: reduce tension to allow closure Subcutaneous layers (deep stitches): Suture size: 4-0 Suture type: Monocryl (poliglecaprone 25) Stitches: Buried horizontal mattress (Closure was performed in a layered fashion with subcutaneous tissue closed first using tension-bearing absorbable sutures to the level of the superficial fascia.) Fine/surface layer approximation (top stitches): Suture size: 4-0 Suture type: Prolene (polypropylene) Stitches: simple running Stitches comment: Epicuticular skin sutures were then placed with minimal tension. Suture removal (days): 12 Hemostasis achieved with: suture and electrodesiccation Outcome: patient tolerated procedure well with no complications Post-procedure details: sterile dressing applied and wound care instructions given Post-procedure details comment: It was emphasized to the patient to contact the office for any signs of infection, uncontrollable bleeding, or complications. Dressing type: bandage and pressure dressingNOMS HealthcareNOOH Healthcare Consent obtained: written Martin Protocol: Procedure explained and questions answered to patient or proxy's satisfaction: Yes Test results available and properly labeled: Yes Pathology report reviewed: Yes External notes reviewed: Yes Photo or diagram used for site identification: Yes Site/side marked: Yes Slide independently reviewed by Mohs surgeon: Yes Anticoagulation: Is the patient taking prescription anticoagulant and/or aspirin prescribed/recommended by a physician? Yes (81 mg ASA) Was the anticoagulation regimen changed prior to Mohs? No Anesthesia: Anesthesia method: local infiltration Local anesthetic: lidocaine 1% WITH epi and sodium bicarbonate Procedure Details: Timeout: pre-procedure verification complete Procedure Prep: patient was prepped and draped in usual sterile fashion Prep type: chlorhexidine Biopsy accession number: [id number] Biopsy lab: [place] [facility] Date of biopsy: 10/24/2024 Frozen section biopsy performed: Yes Specimen debulked: No Pre-Op diagnosis: basal cell carcinoma BCC subtype: nodular and infiltrative MohsAIQ Surgical site (if tumor spans multiple areas, please select predominant area): neck Surgery side: midline Surgical site (from skin exam): Neck - Posterior Pre-operative length (cm): 1.3 Pre-operative width (cm): 0.9 Indications for Mohs surgery: anatomic location where tissue conservation is critical, ill-defined borders and aggressive histology Previously treated? No Mohs Appropriate Use Criteria Score: 8 Details of micrographic surgery: Mohs accession number: [id number] Micrographic Surgery Details: Post-operative length (cm): 1.4 Post-operative width (cm): 1.1 Number of Mohs stages: 1 Post surgery depth of defect: subcutaneous fat Stage 1 Comments: The area was prepped with Hibiclens, [...] and the Mohs procedure was considered complete. Tumor features identified on Mohs section: no tumor identified Depth of tumor invasion after stage: subcutaneous fat Patient tolerance of procedure: tolerated well, no immediate complications Reconstruction: Was the defect reconstructed? Yes Was reconstruction performed by the same Mohs surgeon? Yes Setting of reconstruction: outpatient office When was reconstruction performed? same day Type of reconstruction: linear Linear reconstruction: intermediate Antibiotics: Were antibiotics given on the day of surgery?: [facility] No Panel Informationon 36-64-0947Mvcc of biopsy: tangential Informed consent: discussed and [...] taken yes Amount of lidocaine used: 1.0 [facility] Basophils Auto (Bld) [#/Vol]on 83-15-3778Cjhiezlpu (Bld) [#/Vol]Automated basophil count0.0-0.1FAdena Fayette Medical CenterBasophils/100 WBC Auto (Bld)on 47-58-5787Hxhzgllyk/100 WBC (Bld)Automated basophil %0.2-2.0[facility] HospitalEosinophils/100 WBC Auto (Bld)on 07-05-2024 Eosinophils/100 WBC (Bld)Automated eosinophil %0.9-7.0[facility] HospitalErythrocyte distribution width Auto (RBC) [Ratio]on 02-93-9777Qlrbjdlvzde distribution width (RBC) [Ratio]Erythrocyte distribution width [Ratio] by Automated count11.0-15.0[facility] HospitalHematocrit Auto (Bld) [Volume fraction]on 93-52-9985Uozguqlyhj (Bld) [Volume fraction]Hematocrit [Volume Fraction] of Blood by Automated jcblxVqq27.0-54.0[facility] HospitalHemoglobin [Mass/volume] in Bloodon 24-32-6759Knigfzloun (Bld) [Mass/Vol]Hemoglobin [Mass/volume] in EdbkaKia35.0-18.0[facility] HospitalIron binding capacity [Mass/volume] in Serum or Plasmaon 04-27-6476Osep binding capacity [Mass/Vol]Iron binding capacity [Mass/volume] in Serum or Smjnhh859.0-450.0[facility] HospitalIron saturation [Mass Fraction] in Serum or Plasmaon 04-23-1812Xfpe saturation [Mass fraction] Iron saturation [Mass Fraction] in Serum or PlasmaCleveland Clinic Marymount HospitalLaboratory - Chemistry and Chemistry - challengeon 78-06-1140Mhkkofpfz (Vitamin B12) [Mass/Vol]289 pg/xI628-2948KbnnewuziCleveland Clinic Marymount Hospital Comment on above:Performed at: [facility] [id number] Director: Nasir Phillips PhD, Phone: [phone] [Mass/Vol]370.0 ng/mL26.0-388.0[facility] HospitalIron [Mass/Vol] 90.0 ug/dL65.0-175.0[facility] HospitalLaboratory - Hematology and Cell countson 20-55-6677Ozsysiig granulocytes/100 WBC (Bld)1.7 %High0.0-0.5 [facility] HospitalLeukocytes [#/volume] corrected for nucleated erythrocytes in Blood by Automated counon 24-51-7444LVS corrected for nucl RBC Auto (Bld) [#/Vol]Leukocytes [#/volume] corrected for nucleated erythrocytes in Blood by Automated coun4.0-11.0[facility] HospitalLymphocytes Auto (Bld) [#/Vol]on 60-32-8403Lukxjkvhfoo (Bld) [#/Vol]Lymphocytes [#/volume] in Blood by Automated count1.2-3.8[facility] HospitalLymphocytes/100 WBC Auto (Bld)on 37-52-3294Xkhwwopkwob/100 WBC (Bld)Lymphocytes/100 leukocytes in Blood by Automated count20.5-60.0[facility] HospitalH Auto (RBC) [Entitic mass]on 01-84-2669SXO (RBC) [Entitic mass]MCH [Entitic mass] by Automated count25.9-34.0[facility] HospitalMCHC Auto (RBC) [Mass/Vol]on 19-84-7580QRPZ (RBC) [Mass/Vol]MCHC [Mass/volume] by Automated count29.9-35.2FAdena Fayette Medical CenterMCV Auto (RBC) [Entitic vol]on 84-50-6687OKW (RBC) [Entitic vol]MCV [Entitic volume] by Automated countHigh 80.0-94.0[facility] HospitalMonocytes Auto (Bld) [#/Vol]on 37-61-9629Zkccxayaz (Bld) [#/Vol]Automated blood monocyte count0.3-0.8[facility] HospitalMonocytes/100 WBC Auto (Bld)on 58-98-6939Osmjtrlkw/100 WBC (Bld)Automated monocyte %1.7-12.0[facility] Neutrophils Auto (Bld) [#/Vol]on 74-04-1015Asdodiqpvqb (Bld) [#/Vol]Neutrophils [#/volume] in Blood by Automated count1.4-6.5FAdena Fayette Medical Center Neutrophils/100 WBC Auto (Bld)on 38-84-9360Ulndxhxewmj/100 WBC (Bld)Automated neutrophil %Low43.0-75.0[facility] HospitalNo Panel Informationon 82-05-1144Kjphrtdnrfb # (Auto)0.2 10 3/uL0.0-0.7FAdena Fayette Medical CenterFolate17.50 ng/mL8.60-58.90[facility] HospitalImmature Granulocyte # (Auto)0.09 10 3/uLHigh0.00-0.03[facility] Platelet mean volume Auto (Bld) [Entitic vol]on 55-46-6635Ciihyfkc mean volume (Bld) [Entitic vol]Platelet mean volume [Entitic volume] in Blood by Automated count9.5-13.5FAdena Fayette Medical CenterPlatelets Auto (Bld) [#/Vol]on 26-33-2927Bgvwnbyxl (Bld) [#/Vol]Platelets [#/volume] in Blood by Automated -499JsmkexcvnCleveland Clinic Marymount HospitalRBC Auto (Bld) [#/Vol]on 07-05-2024 RBC (Bld) [#/Vol]Erythrocytes [#/volume] in Blood by Automated countLow4.70-6.10 [facility] HospitalCapillary blood glucose measurement by glucometer (mass/volume)Ordered By: Car Dye on 53-67-1821Lyowben [Mass/Vol]148 mg/dLCleveland Clinic Marymount HospitalComment on above:Random Glucose Reference Range is dependent on time and content of last meal. Glucose of more than 200 mg/dL in a nonstressed, ambulatory subject supports the diagnosis of Diabetes Mellitus.Result Comment: Random Glucose Reference Range is dependent on time and content of last meal. Glucose of more than 200 mg/dL in a nonstressed, ambulatory subject supports the diagnosis of Diabetes Mellitus. PERFORMED BY: [facility] [address] [place] [address] PATHOLOGIST FISHER CRAB MARINA DANIEL M.D.Performed By: #### GLULS #### Point of Care testing ,Glucose Poct Glucometerson 69-48-6008Fmfduim [Mass/Vol]138 mg/dLMemorial Hospital Pembroke Physician GroupComment on above:Result Comment: Random Glucose Reference Range is dependent on time and content of last meal. Glucose of more than 200 mg/dL in a nonstressed, ambulatory subject supports the diagnosis of Diabetes Mellitus. PERFORMED BY: [facility] [address] [place] [address] PATHOLOGIST FISHER CRAB MARINA DANIEL M.D.Performed By: #### GLULS #### Point of Care testing ,Harris 72-84-6989MTpcjfhhi: [id number] Received: 12/27/23 Status: ACOSTA Parkerrobin Num: [id number] Spec Type: Surgical Subm Dr: Car Dye DO Tissues: A Skin-Other than Cyst, tag, debridement or plastic repair (RIGHT CHEEK LESION B Skin-Other than Cyst, tag, debridement or plastic repair (LEFT CHEEK LESION) Procedures: HE/5, Gross/Micro L4/3, FS HE/6 Age/ Patient Sex Location Account Attending Physician Nikolai Phan 73/M [place] [id number] Car Dye DO SPEC NUM: [id number] RECD: 12/27/23 STATUS: ACOSTA KELI NUM: [id number] FRED: 12/27/23- SUBM DR: Car Dye DO ENTERED: 12/27/[address] [facility] DR: SPEC TYPE: Surgical DEPT: S ENTERED BY: [id number] RECV BY: [id number] ORDERED: HE/5, Gross/Micro L4/3, FS HE/6 ORDERED: [...] on the skin surface. The specimen is Specimen: [id number] Received: 12/27/23 Status: ACOSTA Toney Num: [id number] Spec Type: Surgical Subm Dr: Car Dye DO Tissues: A Skin-Other than Cyst, tag, debridement or plastic repair (RIGHT CHEEK LESION B Skin-Other than Cyst, tag, debridement or plastic repair (LEFT CHEEK LESION) Procedures: HE/5, Gross/Micro L4/3, FS Patient: Nikolai Phan [id number] (Continued) Specimen: [id number] Received: 12/27/23 (Continued) Gross Description (Continued) Signed (signature on file) Elise Goodman MD 12/28/23 1718 Specimen: [id number] Received: 12/27/23 Status: ACOSTA Toney Num: [id number] Spec Type: Surgical Subm Dr: Car Dye, Tissues: A Skin-Other than Cyst, tag, debridement or plastic repair (RIGHT CHEEK LESION B Skin-Other than Cyst, tag, debridement or plastic repair (LEFT CHEEK LESION) Procedures: HE/5, Gross/Micro L4/3, FS 6 Patient: Nikolai Phan [id number] (Continued) Specimen: [id number] Received: 12/27/23 (Continued) Gross Description (Continued) serially [...] Description Microscopic examinations are performed CPT Codes 03807 x 2 41547 x 2 50347 x 2 Specimen: [id number] Received: 12/27/23 Status: ACOSTA Toney Num: [id number] Spec Type: Surgical Subm Dr: DO Radha Catalan (more content not included)...NormalThe [facility] Physician GroupAutomated basophil %Ordered By: Car Dye on 77-94-1215Jkhodbixq/100 WBC (Bld)0.6 %. [facility] HospitalComment on above:Performed By: #### BMP, CBC #### [place] [address] USAAutomated basophil countOrdered By: Car Dye on 25-35-3361Mrfjvlbgz (Bld) [#/Vol]0.0 10*3/uL0.0-0.2FAdena Fayette Medical CenterComment on above:Result Comment: PERFORMED BY: [place] [address] PATHOLOGIST FISHER CRAB MARINA DANIEL M.D.Performed By: #### BMP, CBC #### [place] [address] USAAutomated blood monocyte countOrdered By: Car Dye on 60-32-1358Xugvlwtaf (Bld) [#/Vol]0.7 10*3/uL0.0-0.8[facility] HospitalComment on above:Performed By: #### BMP, CBC #### [place] [address] USAAutomated eosinophil %Ordered By: Car Dye on 63-95-1234Tzhofdmhfxw/100 WBC (Bld)2.2 %.[facility] Comment on above:Performed By: #### BMP, CBC #### [place] [address] USAAutomated eosinophil countOrdered By: Car Dye on 06-16-5926Eshxtjpbdkc (Bld) [#/Vol]0.1 10*3/uL0.0-0.45[facility] HospitalComment on above:Performed By: #### BMP, CBC #### [place] [address] USAAutomated monocyte %Ordered By: Car Dye on 93-08-8858Khaakjdto/100 WBC (Bld)11.9 %.[facility] HospitalComment on above:Performed By: #### BMP, CBC #### [place] [address] USAAutomated neutrophil %Ordered By: Car Dye on 17-72-7937Iqrielrxbwt/100 WBC (Bld)41.9 %.[facility] Comment on above:Performed By: #### BMP, CBC #### [place] [address] USABasic Metabolic Panelon 66-22-5131FEV/1.73 sq M.predicted MDRD (S/P/Bld) [Vol rate/Area]mL/min/{1.73_m2}NormalThe [facility] Physician GroupComment on above:Performed By: #### BMP, CBC #### [place] [address] USACalcium [Mass/volume] in Serum or PlasmaOrdered By: Car Dye on 17-75-9889Hqghqwz [Mass/Vol]10.5 mg/dLHigh8.6-10.3FAdena Fayette Medical CenterComment on above:Result Comment: PERFORMED BY: [place] [address] PATHOLOGIST FISHER CRAB MARINA DANIEL M.D.Performed By: #### BMP, CBC #### [place] [address] USACarbon dioxide, total [Moles/volume] in Serum or Plasma Ordered By: Car Dye on 75-87-7251EL0 [Moles/Vol]29.8 mmol/L21.0-31.0 [facility] HospitalComment on above:Performed By: #### BMP, CBC #### [place] [address] USAChloride [Moles/volume] in Serum or PlasmaOrdered By: Car Dye on 31-64-7855Zgnoghsb [Moles/Vol]101 mmol/C06-701KmuvcuzpfCleveland Clinic Marymount HospitalComment on above:Performed By: #### BMP, CBC #### [place] [address] USAComplete Blood Count Auto Diffon 45-66-3318Ltpc Corpuscular HGB Conc34.7 g/lHYcdfxm81.5-35.6The [facility] Physician GroupComment on above:Performed By: #### BMP, CBC #### [place] [address] USANRBC%0.1 /100{WBC}Normal0-0.5ThNell J. Redfield Memorial Hospital Physician Group Comment on above:Performed By: #### BMP, CBC #### [facility] [address] [place] [address] USACreatinine [Mass/volume] in Serum or PlasmaOrdered By: Car Dye on 86-31-9066Lwwhwohfwd [Mass/Vol]0.95 mg/dL0.70-1.30[facility] HospitalComment on above:Performed By: #### BMP, CBC #### [facility] [address] [place], [place] [address] USAECG 12 lead ECGon 76-26-7017FSL 12 lead ECGOHIOHEALTH O'BLENESS [facility] Main [place] [address] [place] [address] Electrocardiograph Report Signed Patient: Nikolai Phan MR#: [id number] [birth year] : 1950 Acct:[id number] Age/Sex: 73 / M ADM Date: 12/18/23 Loc: Room: Type: [facility] Attending Dr: Car Dye DO Ordering Provider: [...] is now present Confirmed by SUZY RAM [facility], CHRISTINA ([id number]) on 12/18/2023 6:07:40 PM Referred By: Electronically Signed By: CHRISTINA SANDHU MD [facility] Transcribed By: MUS Signed By Christina Sandhu MD, [facility] 12/18/23 1807NoFormerly [facility], later [facility] Physician GroupErythrocyte distribution width [Ratio] by Automated countOrdered By: Car Dye on 96-08-1216Cofmrhinsrq distribution width (RBC) [Ratio]13.0 %12.0-14.8[facility] Comment on above:Performed By: #### BMP, CBC #### [facility] [address] [id number] USAErythrocytes [#/volume] in Blood by Automated countOrdered By: Car Dye on 33-97-7604XOE (Bld) [#/Vol]4.08 10*6/uL3.90-5.60 [facility] HospitalComment on above:Performed By: #### BMP, CBC #### [facility] [address] [id number] USAGlucose [Mass/volume] in Serum or PlasmaOrdered By: Car Dye on 05-14-9116Ohuuodz [Mass/Vol]139 mg/lXOnnk66-075SwdcxjsevCleveland Clinic Marymount HospitalComment on above:ADA recommended reference rangeRandom Glucose Reference Range is dependent on time and content of last meal. Glucose of more than 200 mg/dL in a nonstressed, ambulatory subject supports the diagnosisof Diabetes Mellitus.Result Comment: Random Glucose Reference Range is dependent on time and content of last meal. Glucose of more than 200 mg/dL in a nonstressed, ambulatory subject supports the diagnosis of Diabetes Mellitus. ADA recommended reference rangePerformed By: #### BMP, CBC #### [place] [id number] USAHematocrit [Volume Fraction] of Blood by Automated count Ordered By: Car Dye on 83-91-5498Zgitqwsosy (Bld) [Volume fraction]38.2 %Low38.8-50.0[facility] HospitalComment on above:Performed By: #### BMP, CBC #### [facility] [address] [place] [address] USAHemoglobin [Mass/volume] in BloodOrdered By: Car Dye on 17-67-4574Fxolsngzko (Bld) [Mass/Vol]13.3 g/dL13.0-17.0[facility] HospitalComment on above:Performed By: #### BMP, CBC #### [place] [id number] USALeukocytes [#/volume] corrected for nucleated erythrocytes in Blood by Automated counOrdered By: Car Dye on 33-97-4534FAK corrected for nucl RBC Auto (Bld) [#/Vol]6.3 10*3/uL4.1-10.5FAdena Fayette Medical CenterLeukocytes [#/volume] in Blood by Automated countOrdered By: Car Dye on 58-87-6799EWB (Bld) [#/Vol]6.3 10*3/uL4.1-10.5FAdena Fayette Medical CenterComment on above:Performed By: #### BMP, CBC #### [facility] [address] [place] [address] USALymphocytes [#/volume] in Blood by Automated countOrdered By: Car Dye on 81-32-6883Psquihgdozv (Bld) [#/Vol]2.7 10*3/uL1.00-4.8 [facility] HospitalComment on above:Performed By: #### BMP, CBC #### [facility] [address] [place] [address] USALymphocytes/100 leukocytes in Blood by Automated count Ordered By: Car Dye on 78-27-4520Ttywdiajffg/100 WBC (Bld)43.4 %. [facility] HospitalComment on above:Performed By: #### BMP, CBC #### [facility] [address] [place] [address] [facility] [Entitic mass] by Automated countOrdered By: Car Dye on 34-91-7958USY (RBC) [Entitic mass]32.5 pg27.5-35.2FAdena Fayette Medical CenterComment on above:Performed By: #### BMP, CBC #### [facility] [address] [id number] [facility]ILINGHC Auto (RBC) [Mass/Vol]Ordered By: Car Dye on 25-63-0032PLWB (RBC) [Mass/Vol]34.7 g/dL32.5-35.6FAdena Fayette Medical CenterMCV [Entitic volume] by Automated countOrdered By: Car Dye on 41-86-2760DPZ (RBC) [Entitic vol]93.6 fL83.5-101[facility] HospitalComment on above:Performed By: #### ALLIE, CBC #### [facility] [address] [place] [address] USANeutrophils [#/volume] in Blood by Automated countOrdered By: Car Dye on 77-20-9969Gdbxpnynwoa (Bld) [#/Vol]2.6 10*3/uL1.8-7.7 [facility] HospitalComment on above:Performed By: #### ALLIE, CBC #### [facility] [address] [place] [address] USANo Panel InformationOrdered By: Car Dye on 80-45-5170Oscyrkjhw GFR (CKD-EPI)> 60.0 mL/MinCleveland Clinic Marymount Hospital Pharmacy Creatinine Clearance (ChemN/AFAdena Fayette Medical CenterNucleated erythrocytes [Presence] in Blood by Automated countOrdered By: Car Dye on 71-89-2017Gezliyfgv RBC Auto Ql (Bld)0.1 /100{WBC}0-0.5FAdena Fayette Medical CenterPlatelet mean volume [Entitic volume] in Blood by Automated count Ordered By: Car Dye on 36-94-4238Fbvwsghh mean volume (Bld) [Entitic vol]8.6 fL6.6-10.1FAdena Fayette Medical CenterComment on above:Performed By: #### ALLIE, CBC #### [facility] [address] [place] [address] USAPlatelets [#/volume] in Blood by Automated countOrdered By: Car Dye on 73-76-5474Wqmcayafc (Bld) [#/Vol]165 10*3/sS434-985 [facility] HospitalComment on above:Performed By: #### BMP, CBC #### [place] [address] USAPotassium [Moles/volume] in Serum or PlasmaOrdered By: Car Dye on 72-25-1374Aehvkmdgz [Moles/Vol]4.1 mmol/L3.5-5.1FAdena Fayette Medical CenterComment on above:Performed By: #### BMP, CBC #### [facility] [address] [place] [address] USASerum or plasma anion gap determinationOrdered By: Car Dye on 67-58-3344Txgwp gap [Moles/Vol]11.3 mmol/L6.0-15.0[facility] HospitalComment on above:Performed By: #### BMP, CBC #### [facility] [address] [place] [address] USASodium [Moles/volume] in Serum or PlasmaOrdered By: Car Dye on 01-23-3974Vbgwrn [Moles/Vol]138 mmol/V222-418HiyzeguoiCleveland Clinic Marymount HospitalComment on above:Performed By: #### BMP, CBC #### [facility] [address] [place] [address] USAUrea nitrogen [Mass/volume] in Serum or PlasmaOrdered By: Car Dye on 22-97-2068Mpbw nitrogen [Mass/Vol]24 mg/dL7-25[facility] HospitalComment on above:Performed By: #### BMP, CBC #### [place] [id number] USAGlucose mean value [Mass/volume] in Blood Estimated from glycated hemoglobinon 98-88-1886Hadvftc glucose Estimated from glycated hemoglobin (Bld) [Mass/Vol]148 mg/dLCleveland Clinic Marymount HospitalLaboratory - Hematology and Cell countson 53-77-7070ItS3y (Bld) [Mass fraction]6.8 %High 4.5-6.2FAdena Fayette Medical CenterComment on above:ADA RECOMMENDED LIMIT 4.0 - 6.0ADA THERAPEUTIC TARGET < 7.0ACTION SUGGESTED> 7.0CBC AUTO DIFFon 01-42-2731CLFD #0.0 103/ulNormal0.0-0.1[facility] HospitalComment on above: Performed By: #### CBC #### [facility] [address] [place] [address] Dr. Yilan ChangBasophils/100 WBC (Bld)0.6 %Normal0.2-2.0The [facility] Comment on above:Performed By: #### CBC #### [facility] [address] [place] [address] Dr. Franklin Castellanos #0.3 103/ulNormal0.0-0.7The [facility] HospitalComment on above: Performed By: #### CBC #### [facility] [address] [place] [address] Dr. Franklin Sweeneyosinophils/100 WBC (Bld)5.6 %Normal0.9-7.0The [facility] Comment on above:Performed By: #### CBC #### [facility] [address] [place] [address] Dr. Franklin Sweeneyrythrocyte distribution width (RBC) [Ratio]12.3 %Loisun07.0-15.0 The [facility] HospitalComment on above:Performed By: #### CBC #### [facility] [address] [place] [address] Dr. Franklin GoodmanHematocrit (Bld) [Volume fraction]42.0 %Ggqdek02.0-54.0The [facility] HospitalComment on above:Performed By: #### CBC #### [facility] [address] [place] [address] Dr. Franklin GoodmanHemoglobin (Bld) [Mass/Vol]14.4 g/tKKzwfpi09.0-18.0The [facility] HospitalComment on above:Performed By: #### CBC #### [facility] [address] [place] [address] Dr. Franklin oTrres #0.02 10e3/ulNormal0.00-0.03The [facility] HospitalComment on above:Performed By: #### CBC #### [facility] [address] [place] [address] Dr. Franklin Torres %0.4 %Normal0.0-0.5The [facility] HospitalComment on above: Performed By: #### CBC #### [facility] [address] [place] [address] Dr. Franklin Epps #1.9 103/ulNormal1.2-3.8The [facility] HospitalComment on above:Performed By: #### CBC #### [facility] [address] [place] [address] Dr. Franklin Machucahocytes/100 WBC (Bld)39.4 %Gngmir20.5-60.0The [facility] HospitalComformerly [facility] on above:Performed By: #### CBC #### [facility] [address] [place] [address] Dr. Franklin CortezUAL DIFF REQNONormalThe [facility] HospitalComment on above: Performed By: #### CBC #### [facility] [address] [place] [address] Dr. Franklin Bass (RBC) [Entitic mass]32.0 ybYdcnaq05.9-34.0The [facility] HospitalComment on above:Performed By: #### CBC #### [facility] [address] [place] [address] Dr. Franklin Bass (RBC) [Mass/Vol]34.3 g/eQWkpadp38.9-35.2The [facility] HospitalComformerly [facility] on above:Performed By: #### CBC #### [facility] [address] [place] [address] Dr. Franklin Bass (RBC) [Entitic vol]93.3 kHFtgyjf22.0-94.0The [facility] HospitalComformerly [facility] on above:Performed By: #### CBC #### [facility] [address] [place] [address] Dr. Franklin Ahmadi #0.6 103/ulNormal0.3-0.8The [facility] HospitalComment on above:Performed By: #### CBC #### [facility] [address] [place] [address] Dr. Franklin Gonzalezocytes/100 WBC (Bld)12.5 %Critically high1.7-12.0The [facility] HospitalComment on above:Performed By: #### CBC #### [facility] [address] [address] [address] Franklin LiceaUT #2.0 103/ulNormal1.4-6.5The [facility] HospitalComment on above:Performed By: #### CBC #### [facility] [address] [place] [address] Dr. Franklin Liceautrophils/100 WBC (Bld)41.5 %Critically low43.0-75.0The [facility] HospitalComment on above:Performed By: #### CBC #### [facility] [address] [address] [address] Franklin GoodmanPlatelet mean volume (Bld) [Entitic vol]10.0 fLNormal9.5-13.5The [facility] HospitalComment on above:Performed By: #### CBC #### [facility] [address] [place] [address] Dr. Franklin GoodmanPLT172 103/kbFlkjou047-099Gxw [facility] HospitalComment on above: Performed By: #### CBC #### [facility] [address] [place] [address] Dr. Franklin GoodmanRBC4.50 106/ulCritically low4.70-6.10The [facility] HospitalComformerly [facility] on above:Performed By: #### CBC #### [facility] [address] [place] [address] Dr. Franklin GoodmanWBC4.8 103/ulNormal4.0-11.0The [facility] HospitalComment on above: Performed By: #### CBC #### [facility] [address] [place] [address] Dr. Franklin GoodmanComplete Blood Count and Diffon 94-68-4571Ykxynobuwzjo Ql (Bld) Active DSP Other Basophilic stippling LM Ql (Bld)Active DSP Other RBC morphology finding Nom (Bld)Active DSP Other Complete Blood Count and DiffNort [place] Other FERRITINon 76-21-9608Apwctldi [Mass/Vol]369.5023712 ng/mL26.0-388.0 ng/mLNSt. Peter's Hospital Etohum Other FERRITINsee noteNoalvin j. siteman [facility] [place] Other Ferritin [Mass/Vol]245.0 ng/dFXtuaog34.0-388.0The [facility] HospitalComment on above:Performed By: #### FERR, FETIBC, B12FOL #### [facility] [address] [place] [address] Dr. Franklin GoodmanGLYCOHEMOGLOBIN A1Con 09-81-1394MVR RECOMMENDATIONSEE BELOWNormal The [facility] HospitalComment on above:Result Comment: ADA RECOMMENDED LIMIT 4.0 - 6.0 ADA THERAPEUTIC TARGET < 7.0 ACTION SUGGESTED > 7.0Performed By: #### A1C #### [facility] [address] [place] [address] Dr. Franklin GoodmanGlucose [Mass/Vol]146 mg/dLNoalThe [facility] HospitalComment on above:Performed By: #### A1C #### [facility] [address] [place] [address] Dr. Franklin GoodmanHbA1c (Bld) [Mass fraction]6.7 %Critically high4.5-6.2The [facility] HospitalComment on above:Performed By: #### A1C #### [facility] [address] [place] [address] Dr. Franklin Dawkins AND TIBCon 58-27-0755Jwfm [Mass/Vol]790.9648492 ug/dL65.0- 175.0 ug/dLMelrose [place] Other IRON AND OBBH802.0 ug/dL250.0-450.0 ug/dLMelrose [place] Other IRON AND TIBC34.8 %[place] Other % ISCPCZHIZC00.8 %NormalThe [facility] HospitalComment on above:Performed By: #### FERR, FETIBC, B12FOL #### [facility] [address] [place] [address] Dr. Franklin Dawkins [Mass/Vol]129.0 ug/vXZpxnxt22.0-175.0[facility] Comment on above:Performed By: #### FERR, FETIBC, B12FOL #### [facility] [address] [place] [address] Dr. Franklin Agudelo AFTOWE381.0 ug/jLPzeozq194.0-450.0[facility] Comment on above:Performed By: #### FERR, FETIBC, B12FOL #### [facility] [address] [place] [address] Dr. Franklin Nance B12 AND FOLATEon 43-59-0208Oolmcuivg (Vitamin B12) [Mass/Vol] 783.1523375 pg/mL193.0-986.0 pg/mLNNanoHorizons Other VIT B12 AND GLCDRP86.00 ng/mL8.60-58.90 ng/mLNNanoHorizons Other Cobalamin (Vitamin B12) [Mass/Vol]306.0 pg/mLNormal 193.0-986.0The [facility] HospitalComment on above:Performed By: #### FERR, FETIBC, B12FOL #### [facility] [address] [place] [address] Dr. Franklin GoodmanFOLATE23.00 ng/mLNormal8.60-58.90The [facility] HospitalComment on above:Performed By: #### FERR, FETIBC, B12FOL #### [facility] [address] [place] [address] Dr. Franklin Spain AUTO DIFFon 14-34-2856QKSP #0.1 103/ulNormal0.0-0.1The [facility] HospitalComment on above:Performed By: #### BMP, ALT, LIPID #### [facility] [address] [place] [address] Dr. Franklin GoodmanBasophils/100 WBC (Bld)1.2 %Normal0.2-2.0[facility] Comment on above:Performed By: #### BMP, ALT, LIPID #### [facility] [address] [place] [address] Dr. Franklin Castellanos #0.4 103/ulNormal0.0-0.7The [facility] HospitalComment on above: Performed By: #### BMP, ALT, LIPID #### [facility] [address] [place] [address] Dr. Franklin Sweeneyosinophils/100 WBC (Bld)8.9 %Critically high0.9-7.0The [facility] HospitalComment on above:Performed By: #### BMP, ALT, LIPID #### [facility] [address] [place] [address] Dr. Franklin Sweeneyrythrocyte distribution width (RBC) [Ratio]12.7 %Jixfya49.0-15.0 The [facility] HospitalComment on above:Performed By: #### BMP, ALT, LIPID #### [facility] [address] [place] [address] Dr. Franklin GoodmanHematocrit (Bld) [Volume fraction]39.3 %Critically low42.0-54.0 The [facility] HospitalComment on above:Performed By: #### BMP, ALT, LIPID #### [facility] [address] [place] [address] Dr. Franklin GoodmanHemoglobin (Bld) [Mass/Vol]13.4 g/dLCritically low14.0-18.0The [facility] Hospitalment on above:Performed By: #### BMP, ALT, LIPID #### [facility] [address] [place] [address] Dr. Franklin Torres #0.02 10e3/ulNormal0.00-0.03The [facility] HospitalComment on above:Performed By: #### BMP, ALT, LIPID #### [facility] [address] [place] [address] Dr. Franklin Torres %0.4 %Normal0.0-0.5The [facility] HospitalComment on above: Performed By: #### BMP, ALT, LIPID #### [facility] [address] [place] [address] Dr. Franklin Epps #2.0 103/ulNormal1.2-3.8The [facility] HospitalComment on above:Performed By: #### BMP, ALT, LIPID #### [facility] [address] [place] [address] Dr. Franklin Machucahocytes/100 WBC (Bld)42.1 %Gtqjpj41.5-60.0The [facility] HospitalComment on above:Performed By: #### BMP, ALT, LIPID #### [facility] [address] [place] [address] Dr. Franklin Keating DIFF REQNONormalThe [facility] HospitalComment on above: Performed By: #### BMP, ALT, LIPID #### [facility] [address] [place] [address] Dr. Franklin Barahona (RBC) [Entitic mass]32.1 hnLqlana42.9-34.0The [facility] HospitalComment on above:Performed By: #### BMP, ALT, LIPID #### [facility] [address] [place] [address] Dr. Franklin Bass (RBC) [Mass/Vol]34.1 g/kAZmoeve42.9-35.2The [facility] HospitalComment on above:Performed By: #### BMP, ALT, LIPID #### [facility] [address] [place] [address] Dr. Franklin Kingston (RBC) [Entitic vol]94.0 jGRcgisu25.0-94.0The [facility] HospitalComment on above:Performed By: #### BMP, ALT, LIPID #### [facility] [address] [place] [address] Dr. Franklin Ahmadi #0.6 103/ulNormal0.3-0.8The [facility] HospitalComment on above:Performed By: #### BMP, ALT, LIPID #### [facility] [address] [place] [address] Dr. Franklin Gonzalezocytes/100 WBC (Bld)12.0 %Normal1.7-12.0The [facility] Comment on above:Performed By: #### BMP, ALT, LIPID #### [facility] [address] [place] [address] Dr. Franklin Peoples #1.7 103/ulNormal1.4-6.5The [facility] HospitalComment on above:Performed By: #### BMP, ALT, LIPID #### [facility] [address] [place] [address] Dr. Franklin Liceautrophils/100 WBC (Bld)35.4 %Critically low43.0-75.0The [facility] HospitalComment on above:Performed By: #### BMP, ALT, LIPID #### [facility] [address] [place] [address] Dr. Franklin Corraleslet mean volume (Bld) [Entitic vol]10.4 fLNormal9.5-13.5The [facility] HospitalComment on above:Performed By: #### BMP, ALT, LIPID #### [facility] [address] [place] [address] Dr. Franklin GoodmanPLT150 103/teXbczmi160-142Zgw [facility] HospitalComment on above: Performed By: #### BMP, ALT, LIPID #### [facility] [address] [place] [address] Dr. Franklin GoodmanRBC4.18 106/ulCritically low4.70-6.10The [facility] HospitalComment on above:Performed By: #### BMP, ALT, LIPID #### [facility] [address] [place] [address] Dr. Franklin GoodmanWBC4.8 103/ulNormal4.0-11.0The [facility] HospitalComment on above: Performed By: #### BMP, ALT, LIPID #### [facility] [address] [place] [address] Dr. Franklin GoodmanGLYCOHEMOGLOBIN A1Con 64-73-7136UJZ RECOMMENDATIONSEE BELOWNormSamaritan North Health CenterComment on above:Result Comment: ADA RECOMMENDED LIMIT 4.0 - 6.0 ADA THERAPEUTIC TARGET < 7.0 ACTION SUGGESTED > 7.0Performed By: #### BMP, ALT, LIPID #### [facility] [address] [address] [address] Franklin GoodmanGlucose [Mass/Vol]157 mg/dLNoMetroHealth Parma Medical CenterComment on above:Performed By: #### BMP, ALT, LIPID #### [facility] [address] [address] [address] Franklin GoodmanHbA1c (Bld) [Mass fraction]7.1 %Critically high4.5-6.2The [facility] HospitalComment on above:Performed By: #### BMP, ALT, LIPID #### [facility] [address] [place] [address] Dr. Franklin CarlID PROFILEon 94-29-4254GGTO-HDL RATIO NORMSEE BELOWCleveland Clinic Lutheran HospitalComment on above:Result Comment: 3.3 - 4.4 LOW RISK 4.4 - 7.1 AVERAGE RISK 7.1 - 11.0 MODERATE RISK >11.0 HIGH RISKPerformed By: #### BMP, ALT, LIPID #### [facility] [address] [place] [address] Dr. Franklin GoodmanCholesterol [Mass/Vol]131 mg/dLNormal<=200The [facility] Comment on above:Performed By: #### BMP, ALT, LIPID #### [facility] [address] [place] [address] Dr. Franklin GoodmanCholesterol in HDL [Mass/Vol]38 mg/dLCritically ttr42-61Qaz [facility] HospitalComment on above:Performed By: #### BMP, ALT, LIPID #### [facility] [address] [place] [address] Dr. Franklin Fuentesesterol in LDL [Mass/Vol]47.8 mg/dLNoMetroHealth Parma Medical CenterComment on above:Performed By: #### BMP, ALT, LIPID #### [facility] [address] [place] [address] Dr. Yilan ChangCholesterol.total/Cholesterol in HDL [Mass ratio]3.4 {ratio} NormalThe [facility] HospitalComment on above:Performed By: #### BMP, ALT, LIPID #### [facility] [address] [address] [address] Franklin Aiken NORMAL> or = 60 mg/dl - LOW CARDIOVASCULAR RISK <40 mg/dl - HIGH CARDIOVASCULAR RISKCleveland Clinic Lutheran HospitalComment on above:Performed By: #### BMP, ALT, LIPID #### [facility] [address] [address] [address] Franklin GoodmanLDL CALC NORMALSEE BELOWCleveland Clinic Lutheran HospitalComment on above:Result Comment: <100 mg/dl OPTIMAL 100 - 129 mg/dl NEAR OR ABOVE OPTIMAL 130 - 159 mg/dl BORDERLINE HIGH 160 - 189 mg/dl HIGH >190 mg/dl VERY HIGH Performed By: #### BMP, ALT, LIPID #### [facility] [address] [address] [address] Franklin GoodmanTriglyceride [Mass/Vol]226 mg/dLCritically high<=150The [facility] HospitalComment on above:Performed By: #### BMP, ALT, LIPID #### [facility] [address] [place] [address] Dr. Franklin OviedoLDL CALC45.2 mg/dLNoMetroHealth Parma Medical CenterComment on above: Performed By: #### BMP, ALT, LIPID #### [facility] [address] [address] [address] Franklin AguirreALBUMIN, RAND URon 40-54-0822xTNL0.9 mg/LNormal<=30.0The [facility] HospitalComment on above:Performed By: #### MALBR #### [facility] [address] [place] [address] Dr. Franklin GoodmanPROSamuel CHEM 8 (BAS METB)on 63-66-6134Poxjx gap [Moles/Vol]10.3 mmol/LNormalThe [facility] HospitalComment on above:Performed By: #### BMP, ALT, LIPID #### [facility] [address] [place] [address] Dr. Franklin GoodmanCalcium [Mass/Vol]9.3 mg/dLNormal8.5-10.1The [facility] Comment on above:Performed By: #### BMP, ALT, LIPID #### [facility] [address] [address] [address] Franklin GoodmanChloride [Moles/Vol]103 mmol/XNxyvtr96-703Ilp [facility] Comment on above:Performed By: #### BMP, ALT, LIPID #### [facility] [address] [address] [address] Franklin GoodmanCO2 [Moles/Vol]30.9 mmol/GXyovrb92.0-32.0The [facility] Comment on above:Performed By: #### BMP, ALT, LIPID #### [facility] [address] [place] [address] Dr. Franklin GoodmanCreatinine [Mass/Vol]0.95 mg/dLNormal0.70-1.30The [facility] HospitalComment on above:Performed By: #### BMP, ALT, LIPID #### [facility] [address] [place] [address] Dr. Reid ChangEGFR-AF GUINEAN>60Normal>=60The [facility] HospitalComment on above:Performed By: #### BMP, ALT, LIPID #### [facility] [address] [place] [address] Dr. Franklin SweeneyGFR-NON AF GUINEAN>60Normal>=60The [facility] HospitalComment on above:Performed By: #### BMP, ALT, LIPID #### [facility] [address] [address] [address] Franklin GoodmanGlucose [Mass/Vol]141 mg/dLCritically ygpi27-528Ufs [facility] HospitalComment on above:Performed By: #### BMP, ALT, LIPID #### [facility] [address] [place] [address] Dr. Franklin GoodmanPotassium [Moles/Vol]4.2 mmol/LNormal3.5-5.1The [facility] Comment on above:Performed By: #### BMP, ALT, LIPID #### [facility] [address] [address] [address] Franklin Chavezum [Moles/Vol]140 mmol/FWkicye506-327Uov [facility] Comment on above:Performed By: #### BMP, ALT, LIPID #### [facility] [address] [address] [address] Franklin GoodmanUrea nitrogen [Mass/Vol]16.0 mg/dLNormal7.0-18.0The [facility] HospitalComment on above:Performed By: #### BMP, ALT, LIPID #### [facility] [address] [address] [address] Franklin Mcgraw nitrogen/Creatinine [Mass ratio]16.8 mg/mgNoMetroHealth Parma Medical CenterComment on above:Performed By: #### BMP, ALT, LIPID #### [facility] [address] [address] [address] Franklin Mckeon 60-90-2828BUF [Catalytic activity/Vol]52 U/XXwcerg71-61Dac [facility] HospitalComment on above:Performed By: #### BMP, ALT, LIPID #### [facility] [address] [address] [address] Franklin GoodmanGLYCOHEMOGLOBIN A1Con 71-07-3045TQE RECOMMENDATIONSEE BELOWNormal The [facility] HospitalComformerly [facility] on above:Result Comment: ADA RECOMMENDED LIMIT 4.0 - 6.0 ADA THERAPEUTIC TARGET < 7.0 ACTION SUGGESTED > 7.0Performed By: #### BMP, ALT, LIPID #### [facility] [address] [address] [address] Franklin GoodmanGlucose [Mass/Vol]148 mg/dLNoMetroHealth Parma Medical CenterComformerly [facility] on above:Performed By: #### BMP, ALT, LIPID #### [facility] [address] [address] [address] Franklin GoodmanHbA1c (Bld) [Mass fraction]6.8 %Critically high4.5-6.2The [facility] HospitalComformerly [facility] on above:Performed By: #### BMP, ALT, LIPID #### [facility] [address] [address] [address] Franklin Goodman Vital Signs Date TimeVital SignValuePerforming OrmlkaozzEwrctqla44-36-1925 11:18-0400Body ldoqxt574.2 cmAmanda Landis MD Work Phone: [phone]09-25-2025 11:18-0400Body mass index (BMI) [Ratio]32.89 kg/p9CbbtvlgAmanda Landis MD Work Phone: [phone]09-25-2025 11:18-0400Body .25 kgAmanda Landis MD Work Phone: [phone])[facility]09-25-2025 11:18-0400Diastolic blood mm[Hg]Amanda Landis MD Work Phone: [phone])[facility]09-25-2025 11:18-0400Heart rate 71 /minMovictor hugo Landis MD Work Phone: [phone])[facility]09-25-2025 11:18-7995AfM2% (BldA) [Mass fraction]98 %Amanda Landis MD Work Phone: [phone])[facility]09-25-2025 11:18-0400Systolic blood eblkzycz939 mm[Hg]Amanda Landis MD Work Phone: [phone])[facility]08-27-2025 11:33-0400Diastolic blood hlidhbix44 mm[Hg]Destiny Woo MD Work Phone: [facility] NorthZniovunddk09-49-3429 11:33-0400Systolic blood wmfoswjm178 mm[Hg]Destiny Woo MD Work Phone: [facility] NorthOplvbllcnt97-17-3721 08:38-0500Body lpytzj305.72 cmC[facility] Clinic [facility]02-19-2025 08:38-0500Body mass index (BMI) [Ratio]32.6 kg/p5OlahgrufrCleveland Clinic Marymount Hospital02-19-2025 08:38-0500Body .52 kgCleveland Clinic [facility]02-19-2025 08:38-0500Diastolic blood vnytfizf77 mm[Hg][facility]02-19-2025 08:38-0500 Heart rate81 /[facility]02-19-2025 08:38-0500 Respiratory rate12 /[facility]02-19-2025 08:38-0500 Systolic blood zwgllahk828 mm[Hg][facility]09-10-2024 13:56-0400Body wkmybh013.72 cmDO Xavier Ball Work Phone: [phone])[address]09-10-2024 13:56-0400 Body mass index (BMI) [Ratio]32.8 kg/m2DO Xavier Ball Work Phone: [phone]09-10-2024 13:56-0400 Body sarfrp86.08 kgDO Xavier Ball Work Phone: [phone])[address]09-10-2024 13:56-0400 Diastolic blood pzeupues90 mm[Hg]DO Xavier Ball Work Phone: [phone])[address]09-10-2024 13:56-0400 Heart rate76 /minDO Xavier Ball Work Phone: [phone])[address]09-10-2024 13:56-0400 Respiratory rate12 /minDO Xavier Ball Work Phone: [phone] [place], [place] 1340309-10-2024 13:56-0400 Systolic blood cpeaaxxk416 mm[Hg]DO Xavier Ball Work Phone: [phone])[address]08-07-2024 13:10-0400 Diastolic blood iwdlzrnc53 mm[Hg]DO Xavier Ball Work Phone: [phone])634-[address] [place], [place] 1340308-07-2024 13:10-0400 Heart rate67 /minDO Xavier Ball Work Phone: [phone]08-07-2024 13:10-0400 Respiratory rate14 /minDO Xavier Ball Work Phone: [phone] [place], [place] 1340308-07-2024 13:10-0400 SaO2% (BldA) [Mass fraction]94 %DO Xavier [employer] Work Phone: [facility]08-07-2024 13:10-0400 Systolic blood ejjabjmo626 mm[Hg]DO Xavier [employer] Work Phone: [facility]08-07-2024 12:28-0400 Body naaqdvxcmip89.6 [degF]DO Xavier [employer] Work Phone: [facility]08-07-2024 12:28-0400 Inhaled oxygen flow rate1 L/minDO Xavier [employer] Work Phone: [facility]08-07-2024 08:30-0400 Body usgwpm274.18 cmDO Xavier [employer] Work Phone: [facility]08-07-2024 08:30-0400 Body stibmh34.52 kgDO Xavier [employer] Work Phone: [facility]05-17-2024 08:33-0400 Body rolyhh697.72 cmCleveland Clinic [facility]05-17-2024 08:33-0400Body mass index (BMI) [Ratio]32.5 kg/m1IvgskosreCleveland Clinic Marymount Hospital05-17-2024 08:33-0400Body .18 kgCleveland Clinic [facility] Hospital05-17-2024 08:33-0400Diastolic blood uxckgbjc97 mm[Hg][facility] 10-06-2023 08:33-0400Heart rate64 /[facility] 10-06-2023 08:33-0400Respiratory rate12 /[facility] 10-06-2023 08:33-0400Systolic blood dntusipb992 mm[Hg][facility]01-17-2024 08:30-0500Body fcjlbi635.72 cmBenYogiPlay Other [employer] Other 01-17-2024 08:30-0500Body mass index (BMI) [Ratio] 32.78 kg/k6Hcwdkydo Ball Other [employer] Other 01-17-2024 08:30-0500Body aupcwb52.8 kgBenjamin Ball Other [employer] Other 01-17-2024 08:30-0500Diastolic blood pbnpoyhi71 mm[Hg] Xavier Ball Other [employer] Other 01-17-2024 08:30-0500Systolic blood miedzxuy074 mm[Hg] Xavier Ball Other [employer] Other 10-16-2023 09:30-0400Body fajwyt388.72 cmBenjamin Ball Other [employer] Other 10-16-2023 09:30-0400Body mass index (BMI) [Ratio] 33.05 kg/d7Tmfvpcab Ball Other [employer] Other 10-16-2023 09:30-0400Body dclsiu82.61 kgBenjamin Ball Other [employer] Other 10-16-2023 09:30-0400Diastolic blood nwexidop04 mm[Hg] Xavier Ball Other [employer] Other 10-16-2023 09:30-0400Respiratory rate12 /minBenjamin Ball Other [employer] Other 10-16-2023 09:30-0400Systolic blood orzmjrpt241 mm[Hg] Xavier Ball Other [employer] Other 08-11-2023 13:15-0400Body bqxgub103.72 cmBenjamin Ball Other [employer] Other 08-11-2023 13:15-0400Body mass index (BMI) [Ratio] 32.54 kg/u3Bksxiawy Ball Other [employer] Other 08-11-2023 13:15-0400Body koxhrz49.07 kgBenjamin Ball Other [employer] Other 08-11-2023 13:15-0400Diastolic blood jjfsaopr09 mm[Hg] Xavier Ball Other [employer] Other 08-11-2023 13:15-0400Respiratory rate12 /minBenjamin Ball Other [employer] Other 08-11-2023 13:15-0400Systolic blood gtutppaq756 mm[Hg] Xavier Ball Other [employer] Other 07-27-2023 09:30-0400Body xsgykb606.72 cmBenjamin Ball Other [employer] Other 07-27-2023 09:30-0400Body mass index (BMI) [Ratio] 32.75 kg/j0Xkonfgia Ball Other [employer] Other 07-27-2023 09:30-0400Body dnxzal46.71 kgBenjamin Ball Other [employer] Other 07-27-2023 09:30-0400Diastolic blood krukldmu72 mm[Hg] Xavier Ball Other [employer] Other 07-27-2023 09:30-0400Respiratory rate12 /minBenjamin Ball Other [facility] [employer] Other 07-27-2023 09:30-0400Systolic blood ysmwmiix352 mm[Hg] Xavier Ball Other [employer] Other 02-15-2023 10:30-0500Body gocsfg241.72 cmBenjamin Ball Other [employer] Other 02-15-2023 10:30-0500Body mass index (BMI) [Ratio] 32.35 kg/c9Smwqrhzv Ball Other [employer] Other 02-15-2023 10:30-0500Body zoifeb95.53 kgBenjamin Ball Other [facility] [employer] Other 02-15-2023 10:30-0500Diastolic blood eygfnacp20 mm[Hg] Xavier Ball Other [employer] Other 02-15-2023 10:30-0500Respiratory rate12 /minBenjamin Ball Other [employer] Other 02-15-2023 10:30-0500Systolic blood domofcoc281 mm[Hg] Xavier Ball Other [employer] Other Encounters Encounter DateEncounter TypeCare ProviderFacilityStart: 02-13-2025 End: 77-82-6095Texpgx outpatient visit 25 minutesMovictor hugo Landis MD Work Phone: [facility] [place]remontComment on above: Bilateral carotid artery stenosis (Primary Dx)Start: 01-28-2025 End: 06-84-9127Ygarhp follow up visit related to original Kayla Woo MD Work Phone: [facility]acely DermatologyComment on above:Patient- requested procedure (Primary Dx); Encounter for removal of suturesStart: 01-28-2025 End: 04-02-0565sfxqxypxpoYPZWAEEK WILSONNot AvailableStart: 01-15-2025 End: 14-26-1641Nswyrh Tommie Woo MD Work Phone: noMS Jessica DermatologyStart: 01-15-2025 End: 33-33-4997Qarnps Tommie Woo MD Work Phone: noMS Petersy DermatologyStart: 01-15-2025 End: 07-56-1416Cvgyrnb encounter procedureDestiny Woo MD Work Phone: noms [place] DermatologyComment on above:Basal cell carcinoma of skin of scalp and neck; MiliaStart: 01-15-2025 End: 80-43-4950cydvshdcvbBQXEGQOG WILSONNot AvailableStart: 12-12-2024 End: 32-85-6835Rpixelfqu encounterAngie Urban CMAProMedica Physicians Jobst VascularStart: 10-24-2024 End: 02-99-0878Udrsxc flowsheetEmbebe Bonner MD Work Phone: [facility] DERMStart: 10-24-2024 End: 42-56-9812Kwedwk flowsheetZuri Bonner MD Work Phone: [facility] DERMStart: 10-24-2024 End: 66-43-0211Xgxzfk outpatient visit 15 minutesEmbebe Bonner MD Work Phone: noms [facility] DERMComment on above:Seborrheic keratosis (Primary Dx); Lentigines; History of basal cell carcinoma; Actinic keratosis; Neoplasm of unspecified behavior of bone, soft tissue, and skinStart: 10-24-2024 End: 51-61-0634uynaeyyjqvUGRCA A PETITTINot AvailableStart: 07-10-2024 End: 57-41-6935fmxvkzrzjyNguegnpyzThe [facility] Work Phone: Start: 07-10-2024 End: 06-48-7096Yyzyggm encounter procedureAt[facility] Work Phone: Start: 76-76-4256Vtp-patient / Non-visitAt[facility] Work Phone: Start: 01-30-2024 End: 90-44-4059zsabxxxsyaFV Xavier Greene Work Phone: [facility] Work Phone: Start: 01-30-2024 End: 49-95-8462Tqmtqng encounter procedureDO Xavier Greene Work Phone: [facility] Work Phone: Start: 12-27-2023 End: 05-40-9486Uoamkexve to same day surgery centerDO Xavier Greene Work Phone: [facility] TroyStart: 12-27-2023 End: 14-04-0007xdxifzuwshKC Xavier Greene Work Phone: [facility] Work Phone: Start: 12-18-2023 End: 02-41-7398Glgtgic encounter procedureDO Xavier Greene Work Phone: [facility] [employer] Work Phone: Start: 12-18-2023 End: 55-26-5649rcwnlcsnpqFJ Xavier Greene Work Phone: [facility] Work Phone: Start: 12-28-5685Ysuhwcbfd for preprocedural laboratory examinationPaBaptist Medical Center Physician GroupStart: 12-07-2023 End: 16-61-4867Deoxhx outpatient visit 25 minutesAmanda Landis MD Work Phone: [facility] Comment on above:Bilateral carotid artery stenosis (Primary Dx)Start: 11-16-2023 End: 66-24-4204Nynmmt OnlyAmanda Landis MD Work Phone: [facility] Jobst VascularComment on above: Bilateral carotid artery stenosis (Primary Dx)Start: 10-06-2023 End: 80-87-7888dgkbzrcwlhAmpnivnrtThe [facility] Work Phone: Start: 10-06-2023 End: 15-53-2762Gtmhbwb encounter procedureAt[facility] Work Phone: Start: 54-96-7076Lhc-patient / Non-visitAt[facility] Health [facility]-[place] [employer] Work Phone: Start: 08-02-2023 End: 46-13-0885Ljdgqcc encounter procedureAt[facility] Health [facility] Work Phone: Start: 06-30-2023 End: 65-21-5921ecbqqoskpbNuebdcsp Ball Other [employer] Other Start: 78-47-7488Dfxssuduw encounterBenjamin BallFPG [facility] Medical ClinicStart: 06-25-2023 End: 65-02-9231rcxiaqykbwXsnmoyis Ball Other [employer] Other Start: 62-87-3906Fswluwwix encounterBenjamin BallFPG [facility] Medical ClinicStart: 06-07-2023 End: 96-73-3791wjyjbbtxucBgososgn Ball Other [employer] Other Start: 09-44-7131Drtclk outpatient visit 25 minutes Xavier BallFPG [facility] Medical ClinicStart: 05-16-2023 End: 12-69-0026uqmpcveaqnTjprpqto Ball Other [employer] Other Start: 05-35-8596Jiyqco outpatient visit 15 minutes Xavier BallFPG [facility] Medical ClinicStart: 74-94-9616Zfqwaraky encounterBenjamin BallFP[facility] ClinicStart: 05-12-2023 End: 03-65-6437ozsifghqehFhxulmst Ball Other [employer] Other Start: 13-64-7241Uqeszmszu encounterBenjamin BallFPG [facility] Medical ClinicStart: 05-01-2023 End: 30-94-0478jaqkkpnpxzZevffrvi Ball Other [employer] Other Start: 92-08-3178Jubflfjhh encounterBenjamin BallFPG [facility] ClinicStart: 03-16-2023 End: 58-11-6814zgkznhdoivPnvdomcu Ball Other [employer] Other Start: 17-37-7130Kemcxtndb encounterBenjamary BallFPG [facility] Medical ClinicStart: 03-06-2023 End: 53-08-8390tpnesvscjyMobcndmy Ball Other [employer] Other Start: 08-26-3495Wpzdcyh encounter procedureBenjamin BallFP[facility] Medical ClinicStart: 01-19-2023 End: 66-66-7756sidjpfubsyZvmlvjgy Ball Other [employer] Other Start: 80-97-4860Maszehuun encounterBenjamary BallFPG [facility] Medical ClinicStart: 01-18-2023(FPG VCS) [facility] Scheduled Xavier BallFP[facility] ClinicStart: 01-18-2023 End: 07-69-2723acdejyuculNxbnhkjp Ball Other [employer] Other Start: 45-20-4909Iptzqoczj encounterBenjamin BallFP[facility] ClinicStart: 12-30-2022 End: 42-08-5611fwqzstqwnfJhsgzpvt Ball Other [employer] Other Start: 25-13-4930Lriwfk outpatient visit 15 minutes Xavier BallFP[facility] ClinicStart: 12-16-2022 End: 76-09-1763bldpzcsjzoZdgvsixk Ball Other [employer] Other Start: 33-08-9602Wbipjsdmx encounterBenjamin BallFP[facility] ClinicStart: 12-15-2022 End: 09-33-4885jyargvwqskUgknbemj Ball Other [employer] Other Start: 06-59-1393Lyhmfs outpatient visit 25 minutes Xavier BallFP[facility] ClinicStart: 07-07-2022 End: 89-26-8205ffvyasujbeBemzftzr Ball Other [employer] Other Start: 45-92-1753Gvbfrvszp encounterBenjamin BallFP[facility] ClinicStart: 96-21-6527Vhlchu outpatient visit 25 minutesBenjamin BallFPG [facility] ClinicStart: 07-06-2022 End: 35-13-6573vhtnnostgzNS XAVIER BALLFacility:D1Loexw: 06-24-2022 End: 03-41-1577gpvjlumarpEcwsldnj Ball Other [employer] Other Start: 85-09-5506Iiiraejlw encounterBenjamin BallFPG [facility] ClinicStart: 03-07-2022 End: 48-59-1543uwyhxywlejDG XAVIER BALLFacility:K4Ylqqm: 03-04-2022 End: 95-96-1789xygdretzgjYM XAVIER BALLFacility:V5Lahhw: 22-29-8366Tvqtu health examinationBenjamin Ball Other [employer] Other Start: 10-25-2021 End: 91-32-4566vwuzjzkusdES XAVIER BALLFacility:F3Kxgda: 14-87-0782wfdwrettga DR XAVIER GREENEFacility:H1 Procedures DateProcedureProcedure DetailPerforming ClinicianStart: 85-14-5521IFRS REPAIR Destiny Woo MD Work Phone: Start: 22-88-7098XEOF SURGERYCobobby Woo MD Work Phone: Start: 82-09-5884CKCZ / NAIL BIOPSYEmbebe Bonner MD Work Phone: Start: 24-67-5760UUQJCZHGECT SKIN LESIONEmbebe Bonner MD Work Phone: Start: 03-35-6730Qpfiuotb of lesion of cheekDO Xavier Jc Work Phone: Start: 22-84-5430FSW screeningDR XAVIER GREENEComment on above:Performed By: #### PSASC #### [facility] [address] [place], [place] [id number] Dr. Reid ChangStart: 22-17-2718Orhvrpkfrn screeningBenserg Greene Other History of carotid endarterectomyBebryannaserg Greene Other Screening for malignant neoplasm of prostateBenserg Greene Other Plan of Treatment DateCare ActivityDetailAuthorStart: 02-19-2026 End: 74-64-8609Fzgydkg encounter llyutesfp11/01/2026 8:30 AM EDT Office Visit [facility] [place] [address] Amanda Landis MD [address], [address] [address] [facility] [place]: 02-13-2026 End: 07-40-7687YF Carotid arteries - bilateralVas carotid duplex bilateral Vascular Ultrasound Routine Bilateral carotid artery stenosis Expected: 02/13/2026 (Approximate), Expires: 02/13/2026[facility] Work Phone: Comment on above:Expected: 02/13/2026 (Approximate), Expires: 02/13/2026Start: 02-06-2026 End: 45-52-8480Ijydloj encounter imkqdrzpg13/18/2026 8:30 AM EDT Appointment [facility] [address] [place] [address] Amanda Landis MD [address], [address] [address] [facility] - VascularStart: 10-28-2025 End: 56-97-5634Duizulo encounter procedureNOMS SWS DERMStart: 07-29-2025 End: 84-85-6179Jrrltfq encounter nezdvxzqr64/10/2026 9:35 AM EDT Office Visit [facility] [address] [place] [address] Zuri Bonner MD [address] [place] [address] [facility]in[facility] Jessica DermatologyStart: 01-28-2025 End: 16-45-5936Ovljrzb encounter ikzkqmotg79/09/2025 9:15 AM EDT Office Visit [facility] [address] [place] [address] Destiny Woo MD [address] [place] [address] NOMHerminio Jessica DermatologyStart: 01-20-2025 Influenza vaccinationInfluenza VaccineChildren's Hospital of [facility] SystemStart: 01-15-2025 End: 78-07-2485Iqhsjta encounter byrhvpnop92/27/2025 8:45 AM EDT Office Visit [facility] [address] [place] [address] Destiny Woo MD [address] [place] [address] ArrivedCHRISTIANO [place] DermatologyComment on above:ArrivedStart: 12-19-2024 End: 95-67-6744Gnjjirf encounter gkssxweff45/31/2025 8:40 AM EDT Office Visit [facility] [place] [address] [place] [address] Amanda Landis MD [address], [address] [address] [facility] 12-12-2024 End: 16-00-6315Nmhvanh encounter fyafplzzg17/24/2025 8:40 AM EDT Office Visit [facility] [address] [place] [address] Amanda Landis MD [address], [facility] [address] [place] [address] [facility] Wound CareStart: 83-52-1449Ucuhiut ScreeningTobacco Screening [facility] SystemStart: 12-06-2024 End: 97-07-1419YY Carotid arteries - bilateralVas carotid duplex bilateral Vascular Ultrasound Routine Bilateral carotid artery stenosis Expected: 12/06/2024 (Approximate), Expires: 12/06/2024[facility] Work Phone: [phone] on above:Expected: 12/06/2024 (Approximate), Expires: 12/06/2024Start: 10-24-2024 End: 59-05-4752Cdgiqze encounter uwygcmqus88/05/2025 9:05 AM EDT Office Visit [facility] [address] [place] [address] Zuri Bonner MD [address] [place] [address] Radha GARCIA DERMComment on above:ArrivedStart: 05-57-2938Reiwcitit vaccinationInfluenza VaccineProSumma Health [facility] SystemStart: 45-42-7432NsimvcgqqMedina Hospitaltart: 34-47-5282GomcgnwefMedina Hospitaltart: 12-07-2023 End: 31-14-2572Rqefglf encounter qtxhkpbby95/18/2024 8:30 AM EDT Office Visit [facility] [address] [place] [address] Amanda Landis MD [address], [address] [address] [facility] CareStart: 11-30-2023 End: 60-03-6468Xxahydi encounter lhngazpxs76/11/2024 9:00 AM EDT Appointment [facility] [address] [place] [address] [facility] VascularStart: 11-16-2023 End: 35-40-5179KL Carotid arteries - bilateralVas carotid duplex bilateral Vascular Ultrasound Routine Bilateral carotid artery stenosis Expected: 11/16/2023, Expires: 11/15/2024[facility] Work Phone: Comment on above:Expected: 11/16/2023, Expires: 11/15/2024Start: 86-63-4364Kupyd BMI ScreeningAdult BMI ScreeningProSumma Health Barberton Campus SystemStart: 66-28-9695Qnshoib ScreeningTobacco ScreeningProSumma Health Barber[facility] Campus SystemStart: 55-18-1074Pplitodof aortic aneurysm screeningAbdominal Aortic Aneurysm (AAA) ScreenProSumma Health Barber[facility] Campus SystemStart: 04-58-2866Wmen Risk Screening Fall Risk ScreeningProSumma Health Barber[facility] Campus SystemStart: 35-04-6200Fbvwxxssugtylj of varicella zoster vaccineZoster (Shingles) Vaccine (1 of 2)[facility] SystemStart: 63-28-8643DHcB,Tdap and Td Vaccines (1 - Tdap)DTaP,Tdap and Td Vaccines (1 - Tdap)[facility] SystemStart: 16-51-1868Nojtufpnqf Screening Depression ScreeningChildren's Hospital of Columbus SystemStart: 06-21-1949Medicare Annual Wellness VisitMedicare Annual Wellness VisitChildren's Hospital of [facility] System Dermatopathology examDermatopathology exam Pathology and Cytology Timed Neoplasm of unspecified behavior of bone, soft tissue, and skin Release Upon Ordering for 1 Occurrences starting 10/24/2024[facility] Work Phone: comment on above:Release Upon Ordering for 1 Occurrences starting 10/24/2024Patient EducationKnow your MedNorwalk Memorial Hospital [facility]tr Work Phone: Patient referralFisher-Titus [facility] Work Phone: [facility] Immunizations Immunization DateImmunizationNotesCare LivfdoytLpvcszat11-80-6300bhcjvpkhn virus vaccine, split virus (incl. purified surface antigen)Xavier Greene Other Active DSP Other 11-945099-42-8978kmtpzodda virus vaccine, unspecified formulationCleveland Clinic Mary[facility] Hospital10-13-2020influenza virus vaccine, split virus (incl. purified surface antigen)Xavier Greene Other Active DSP Other 10-602000-96-4491enmzberja virus vaccine, unspecified formulationC[facility] Clinic [facility] Hospital01-07-2020pneumococcal conjugate vaccine, 13 valentBenserg Greene Other [facility] Payers DatePayer CategoryPayerPolicy [id number] (Managed Care)[employer] [id number] MEDICARE ANTHEM MEDICARE ADVANTAGE [id number] [facility] [phone] [address] [place] [id number] 2022Medicare [id number]-hry35-64-5103 [id number] 2.16.840.1.740507.3.579.2.593 [id number] 2.16.840.1.724310.3.57[id number] 2.16.840.1.271386.3.57[id number] 2.16.840.1.572406.3.57[id number] 2.16.840.1.135076.3.57[id number]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 Clinical Notes Dec, Impacted cerumen of left ear (IC D-10 - H61.22) Avoid use of Alcohol in ear. Diluted peroxide if needs in future. Post irrigation, TM intact and translucent. EAC patent w/o debris Avoid QTips Dec,Type 2 diabetes mellitus with hyperglycemia, without long-term current use of insulin (ICD-10 - E11.65)This patient is following a comprehensive diabetic treatment [...] Microalbumin, Dilated eye exam and Foot exam Active DSP Other 07-27-2023 Evaluation note* Encounter Date Diagnosis Assessment Notes Treatment Notes Treatment Clinical Notes Nov, ASHD (arteriosclerotic heart dis ease) (ICD-10 - I25.10) This patient is stable without activity related CP, dyspnea or lightheadedness. They are instructedto continue exercise and AHA diet plan. Nov,rimary hypertension (ICD-10 - I10)This patient is instructed to consume a healthy, low-fat, low-salt diet. They are also encouraged to continue exercise to achieve/maintain a normal BMI. Nov,Elevated cholesterol (ICD-10 - E78.00)Instructed on diet and exercise with continued statin therapy.Discussed the beneficial effects of lo wering cholesterol in reducing the risk for cerebrovascular and cardiovascular disease. Nov,Type 2 diabetes mellitus with hyperglycemia, without long-term current use of insulin (ICD-10 - E11.65)This patient is following a comprehensive diabetic treatment [...] Microalbumin, Dilated eye exam and Foot exam Nov,Trigeminal neuralgia of right side of face (ICD-10 - G50.0) Nov,Stenosis of left carotid artery (ICD-10 - I65.22)s/p left CEA yearly carotid US w/ Vascular surgery Continue ASA and statin therapy Monitor for stroke like symptoms Nov,Lumbar spondylosis (ICD-10 - M47.816)The patient is instructed to avoid bending, twisting or lifting. They are to use intermittent heat and ice as needed. They may schedule a massage or gentle manipulation. They may safely use Tylenol as needed. Nov,apule of mucosa (ICD-10 - K13.70) Active DSP Other 02-15-2023 Evaluation note* Encounter Date Diagnosis Assessment Notes Treatment Notes Treatment Clinical Notes Jun, ASHD (arteriosclerotic heart dis ease) (ICD-10 - I25.10) This patient is stable without activity related CP, dyspnea or lightheadedness. They are instructedto continue exercise and AHA diet plan. Jun,rimary hypertension (ICD-10 - I10)This patient is instructed to consume a healthy, low-fat, low-salt diet. They are also encouraged to continue exercise to achieve/maintain a normal BMI. Jun,Elevated cholesterol (ICD-10 - E78.00)Diet and exercise with continued statin therapy. Jun,Type 2 diabetes mellitus with hyperglycemia, without long-term current use of insulin (ICD-10 - E11.65)This patient is following a comprehensive diabetic treatment [...] A1C: [ ] Microalbumin: [ ] Eye exam:[ ] Foot exam: [ ] Jun,Stenosis of left carotid artery (ICD-10 - I65.22)Continue primary prevention measures. ASA, Statin therapy continued. Serial carotid US per Vascular surgery Jun,Lumbar spondylosis (ICD-10 - M47.816)The patient is instructed to avoid bending, twisting or lifting. They are to use intermittent heat and ice as needed. They may schedule a massage or gentle manipulation. They may safely use Tylenol as needed. Jun,nemia, unspecified type (ICD-10 - D64.9)No s/s bleeding. No change in appetite or bowel habits. No abdominal pain, heart burn or dysphagia. No melena or hematochezia.. Recommend repeat H/H along w/ Fe, B12, FA. Consider endoscopy if anemia persists. [facility]andseek [facility] [employer] Other 02-03-2023 Evaluation note* Encounter Date Diagnosis Assessment Notes Treatment Notes Treatment Clinical Notes Jun, Anemia, unspecified type (ICD-10 - D64.9) Active DSP Other Evaluation noteNo InformationNort Hum[facility] Other Evaluation note* Diagnosis Onset Date Resolution Status Type 2 diabetes mellitus with hyperglyce ginger acuteFood poisoningnoneactiveASHD (arteriosclerotic heart disease)acuteEssential hypertensionacuteFacial painacuteHypercholesterolemiaacuteLumbar spondylosis acuteType 2 diabetes mellitus with hyperglycemiaacute [facility] Work Phone: Evaluation note* Diagnosis Onset Date Resolution Status ASHD (arteriosclerotic heart disease) acuteEssential hypertensionacuteFacial painacuteHypercholesterolemiaacuteLumbar spondylosisacuteNocturnal leg crampsacuteType 2 diabetes mellitus with diabetic polyneuropathyacuteType 2 diabetes mellitus with hyperglycemiaacute [facility] Work Phone: Evaluation noteNo assessment information available [facility] Work Phone: Evaluation note* Diagnosis Bilateral carotid artery stenosis- Primary Occlusion and stenosis of carotid artery without mention of cerebral infarction documented [facility] encounter [facility]* Diagnosis Bilateral carotid artery stenosis- Primary Occlusion and stenosis of carotid artery without mention of cerebral infarction [facility] Diagnosis Onset Date Resolution Status Admit Date ASHD (arteriosclerotic heart disease) acuteFebruary 2024 8:24amBilateral carotid artery stenosis without cerebral infarctionacuteFebruary 2024 8:24amEssential hypertensionacute July 10, 2024 8:24amHypercholesterolemiaacuteFebruary 2024 8:24am Lumbar spondylosisacuteFebruary 2024 8:24amType 2 diabetes mellitus with diabetic polyneuropathyacuteFebruary 2024 8:24amType 2 diabetes mellitus with hyperglycemiaacuteFebruary 2024 8:24am [facility] Work Phone: Evaluation note* Diagnosis Seborrheic keratosis- Primary Lentigines History of basal cell carcinoma Personal history of other malignant neoplasm of skin Actinic keratosis Neoplasm of unspecified behavior of bone, soft tissue, and skin documented [facility] this encounter [facility] HealthcareEvaluation [facility]* Diagnosis Basal cell carcinoma of skin of scalp and neck Milia Sebaceous cyst documented in this encounter [facility] HealthcareEvaluation [facility]* Diagnosis Patient-requested procedure- Primary Encounter for removal of sutures documented in this encounter [facility] HealthcareEvaluation [facility]* Diagnosis Bilateral carotid artery stenosis- Primary Occlusion and stenosis of carotid artery without mention of cerebral infarction Bilateral carotid artery stenosis- Primary Occlusion and stenosis of carotid artery without mention of cerebral infarction [facility] Narrative - Reported* Type Description Date Medical History Anemia Medical HistoryLumbar spondylosis with myelopathyMedical HistoryHigh risk medication useMedical HistoryScreening PSA (prostate specific antigen)Medical HistoryControlled type 2 diabetes mellitus with hyperglycemia, without long-term current use of insulinMedical HistoryASHD (arteriosclerotic heart disease) Medical HistoryEssential hypertensionMedical HistoryHyperlipidemia type II Medical HistoryArthritis of shoulder region, leftMedical HistoryCarotid artery stenosis without cerebral infarction, bilateralMedical HistoryS/P carotid endarterectomyMedical HistoryOropharyngeal dysphagiaMedical HistoryPrimary osteoarthritis of knees, bilateralMedical HistoryLumbar spondylosisSurgical HistoryRECHANNELING OF [id number] HistoryREMOVAL OF LENS [id number] Surgical [id number] HistoryPRQ CARD STENT/ATH/[id number] Surgical HistoryLUMBAR SPINE [id number], 2006, 2017Surgical HistoryTOTAL KNEE [id number] HistorySEE SURGICAL Active DSP Other History general Narrative - Reported* Type Description Date Medical History Anemia Medical HistoryLumbar spondylosis with myelopathyMedical HistoryHigh risk medication useMedical HistoryScreening PSA (prostate specific antigen)Medical HistoryControlled type 2 diabetes mellitus with hyperglycemia, without long-term current use of insulinMedical HistoryASHD (arteriosclerotic heart disease) Medical HistoryEssential hypertensionMedical HistoryHyperlipidemia type II Medical HistoryArthritis of shoulder region, leftMedical HistoryCarotid artery stenosis without cerebral infarction, bilateralMedical HistoryS/P carotid endarterectomyMedical HistoryOropharyngeal dysphagiaMedical HistoryPrimary osteoarthritis of knees, bilateralMedical HistoryLumbar spondylosisSurgical HistoryRECHANNELING OF [id number] HistoryREMOVAL OF LENS [id number] Surgical HistoryCOLONOSCOPY01/2017Surgical HistoryPRQ CARD STENT/ATH/[id number] Surgical HistoryLUMBAR SPINE [id number], 2006, 2016Surgical HistoryTOTAL KNEE [id number] HistorySEE SURGICAL Active DSP Other Hospital Discharge instructions Additional Instructions No exertional activity Tylenol or Motrin for pain Antibiotic ointment to wounds 3 times per day May shower in 24 hours, blot wounds dry Call the office for any questions or concerns [facility] Work Phone: InstructionsNot on filedocumented in this encounter [facility] SystemInstructionsNot on filedocumented in this encounter [facility] SystemInstructionsNot on filedocumented in this encounter [facility] SystemInstructionsNot on filedocumented in this encounter [facility] Summary Purpose Family History Relationship Condition Age at Onset Recorded Date/T charlie mother Rheumatic fever Unknown Blood clots in brainUnknownfatherMyocardial infarctionUnknownsisterMalignant neoplasm of blood vesselUnknown Advance Directives Advance Directive Response Recorded Date/ Time Advance Directives No March 10:38am Advance Directive Response Recorded Date/ Time Advance Directives No March 9:38am Chief Complaint and Reason for Visit Chief Complaint body aches, headache COVID NEGATIVE 4 month follow upReason for VisitType 2 diabetes mellitus with hyperglycemia Food poisoning ASHD (arteriosclerotic heart disease) Essential hypertension Facial pain Hypercholesterolemia Lumbar spondylosis Type 2 diabetes mellitus with hyperglycemia Chief Complaint 4 month follow up Cheek LesionsReason for VisitASHD (arteriosclerotic heart disease) Essential hypertension Facial pain Hypercholesterolemia Lumbar spondylosis Nocturnal leg cramps Type 2 diabetes mellitus with diabetic polyneuropathy Type 2 diabetes mellitus with hyperglycemia Chief Complaint 4 month follow up Cheek Lesions Cheek LesionsReason for VisitASHD (arteriosclerotic heart disease) Essential hypertension Facial pain [...] July 10, 2024 8:24am Reason for Referral SpecialtyDiagnoses / ProceduresReferred By ContactReferred To Contact Diagnoses Bilateral carotid artery stenosis Procedures Vas carotid duplex bilateral Amanda Landis MD [address], [address] [address] [facility] [address] [place] [address] Phone: [phone] Referral IDStatusReasonStart DateExpiration DateVisits RequestedVisits [id number] Review/ Additional Source Comments (unrecognized sect ion and content) No Status Records FoundNo Status Records FoundNo Status Records Found INFORMATION SOURCE (unrecogn ized section and content) DATE CREATED AUTHOR 07/11/2022 [facility] DATE CREATED AUTHOR AUTHOR'S ORGANIZ ATION 01/18/2024 [facility] DATE CREATED AUTHOR AUTHOR'S ORGANIZ ATION 01/30/2025 [facility] EPIC REASON FOR VISIT (unrecogniz ed section and content) ReasonCommentscheck up on carotid arteries tests doneleft carotid endarterectomy and moderate right ICA stenosisBilateral carotid artery stenosis I65.23Testing prior at [place] on 12/16/2024 TESTS ARE IN MEDIAReasonCommentsFollow-upSuture / Staple RemovalReasonCommentsMohs Micrographic SurgeryReasonCommentsSkin CheckCT resultsBP readingscough [phone] resultsCT denialwellnessATBsore throat, congestion since NEED CLEANED3 [...] Active Start: December 18, 2023 End: December 17Chaparro Christiansen ProviderActiveStart: December 18, 2023 End: December 18, 2023 Team Status: Inactive Member Role Status Gisella Greene DO Primary Care Provider Active Start: December 27, 2023 End: December 26Chaparro Christiansen ProviderActiveStart: December 27, 2023 End: December 27, 2023 [...] Start: January 30, 2024 End: January 30, 2024Team MemberRelationshipSpecialtyStart DateEnd Date Xavier Greene DO [address] [place] [address] PCP - GeneralInternal Kzwaxolo44/2/20Team MemberRelationshipSpecialtyStart Date End Date Xavier Greene DO [address] [place] [address] PCP - GeneralInternal Tlcbpeno25/2/20Team MemberRelationshipSpecialtyStart Date End Date Xavier Greene DO PCP - GeneralInternal Medicine08/09/23 Zuri Bonner MD [address] [place] [address] Referring PhysicianDermatology12/14/23 Car Dye DO [address] [place] [address] Otolaryngology12/14/23Team MemberRelationshipSpecialtyStart DateEnd Date Xavier Greene DO PCP - GeneralInternal Medicine08/09/23 Zuri Bonner MD [address] [place] [address] Referring PhysicianDermatology12/14/23 Car Dye, [address] [place] [address] Otolaryngology12/14/23Team MemberRelationshipSpecialtyStart DateEnd Date Xavier Greene DO [address] [place] [address] PCP - GeneralInternal Svcuowmn43/2/20Team MemberRelationshipSpecialtyStart Date End Date Xavier Greene, PCP - GeneralInternal Medicine08/09/23 Zuri Bonner MD [address] [place] [address] Referring PhysicianDermatology12/14/23 Car Dye, [address] [place] [address] Otolaryngology12/14/23Team MemberRelationshipSpecialtyStart DateEnd Date Xavier Greene DO PCP - GeneralInternal Medicine08/09/23 Zuri Bonner MD [address] [place] [address] Referring PhysicianDermatology12/14/23 Car Dye, [address] [place] [address] Otolaryngology12/14/23Team MemberRelationshipSpecialtyStart DateEnd Date Xavier Greene DO [address] [place] [address] PCP - GeneralInternal Medicine08/09/23 Zuri Bonner MD [address] [place] [address] Referring PhysicianDermatology12/14/23 Car Dye DO [address] [place] [address] Otolaryngology12/14/23Team MemberRelationshipSpecialtyStart DateEnd Date Xavier Greene DO [address] [place] [address] PCP - GeneralInternal Wllqvrvk03/2/20 Goals (unrecognized section and content) Goals may [...] BE BASED ON THE PRIMARY CLINICAL RECORDS. [employer] provides no warranty or guarantee of the accuracy or completeness of information in this document.
[2025-03-20 09:12] LABS: Microalbum Creatinine Ratio Ur 35.6 mg/g (0.0-29.9)
[2025-03-20 09:16] LABS: Alanine Aminotransferase 54 U/L (16-63); Albumin Globulin Ratio 1.3; Albumin Level 4.4 g/dL (3.4-5.0); Alkaline Phosphatase 37 U/L (46-116); Anion Gap 11.9; Aspartate Amino Transferase 32 U/L (15-37); Blood Urea Nitrogen 15.0 mg/dL (7.0-18.0); Calcium 9.9 mg/dL (8.5-10.1); Carbon Dioxide 31.2 mmol/L (21.0-32.0); Chloride 102 mmol/L (98-107); Cholesterol 162 mg/dL (<=200); Estimated GFR (African America >60 (>=60 mL/min/1.73m^2); Estimated GFR (Non-African Ame >60 (>=60 mL/min/1.73m^2); Globulin 3.5 g/dL; Glucose 154 mg/dL (74-106); HDL Cholesterol 48 mg/dL (40-60); Potassium 4.1 mmol/L (3.5-5.1); Sodium 141 mmol/L (136-145); Total Protein 7.9 g/dL (6.4-8.2); Triglycerides 215 mg/dL (<=150); VLDL CHOLESTEROL 43.0 mg/dL
[2025-03-20 09:17] LABS: Hematocrit 39.5 % (42.0-54.0); Hemoglobin 13.5 g/dL (14.0-18.0); Immature Granulocytes Abs Auto 0.02 10^3/uL (0.00-0.03); Immature Granulocytes Pct Auto 0.3 % (0.0-0.5); Lymphocytes Absolute Auto 2.5 10^3/uL (1.2-3.8); Mean Corpuscular HGB Conc 34.2 g/dL (29.9-35.2); Mean Corpuscular Hemoglobin 32.4 pg (25.9-34.0); Mean Corpuscular Volume 94.7 fL (80.0-94.0); Platelet Count 181 10^3/uL (150-450); Red Blood Count 4.17 10^6/uL (4.70-6.10); White Blood Count 6.0 10^3/uL (4.0-11.0)
== END 2025-03-20 08:28 | disposition home or self-care (01) ==
LOC: LAB 08:32
PROVIDERS: PCP Internal Medicine; Visit Provider Internal Medicine
DX: I25.10 Atherosclerotic heart disease of native coronary artery without angina pectoris (principal); I10 Essential (primary) hypertension; E11.65 Type 2 diabetes mellitus with hyperglycemia; E78.00 Pure hypercholesterolemia, unspecified; D64.9 Anemia, unspecified; Z12.5 Encounter for screening for malignant neoplasm of prostate
CPT/HCPCS: 36415; 80053; 80061; 82043; 82570; 83036; 85025; G0103